=== PATIENT | female | born 1990 | race Two or more races ===

== ENCOUNTER 2023-10-12 14:47 | Outpatient (REF) | payer OTHER, SELFPAY ==
[2023-10-13 03:39] LABS: HBS Num1 348.27 mIU/mL (0-7.99); ~Hepatitis B Surface Antibody REACTIVE (Nonreactive)
[2023-10-16 06:14] LABS: Rubella IgG Antibody <0.90 Index
== END 2023-10-12 14:48 | disposition home or self-care (01) ==
LOC: HO.HMGCLDS 14:47
PROVIDERS: PCP Internal Medicine; Visit Provider Internal Medicine
DX: Z00.00 Encounter for general adult medical examination without abnormal findings (principal)
CPT/HCPCS: 36415; 86706; 86735; 86762; 86765; 86787

== ENCOUNTER 2024-02-08 11:38 | Outpatient (AMB) | payer OTHER, SELFPAY ==
[2024-02-08 11:47] VITALS: BP 110/76; PULSE 84; O2SAT 98; BMI 24.0
--- NOTE | 2024-02-08 11:47 | MHC.PC.OV ---
Vital Signs 02/08/24 11:47 Height 5 ft 5 in Weight 144 lb BMI 24.0 BP 110/76 Blood Pressure Location Lt brachial Position Sitting Pulse 84 Pulse Source Pulse Oximeter Pulse Oximetry (%) 98 Oxygen Delivery Method Room Air Intake Visit Reasons: [facility] ER/Ovarian cyst Intake Note: Pt is here today for ER follow up visit. Allergies No Known Allergies Allergy (Verified 02/08/24 11:49) Medication List - Last Reconciled 02/08/24 by Carmela Gaytan MD fluoxetine 10 mg PO DAILY Tobacco use date assessed: 02/08/24 Dental Screening Dental Screen Date: 02/08/24 Did you have a dental visit in the last 12 months?: Yes Did you have a dental problem in the last 6 months where you did not have access to dental care?: No Was dental information given to patient?: Patient has dentist HPI [facility] ER/Ovarian cyst HPI Details Pt presents for follow-up of [facility] ER visit for chest pain anxiety. Patient had negative CT angiogram to rule out PE. She urinalysis showed bacteriuria but patient denies dysuria or urinary frequency. She had a baby 6 weeks ago. She has been established with crisis Center for anxiety and depression and has been taking fluoxetine for 2 weeks. Patient follows up with a counselor. She reports having sensation of coldness worse when laying down trying to fall asleep. Patient denies suicidal ideation but reports insomnia and feeling of restlessness. She has a good support system from her partner. [facility] Medical History (Updated 02/08/24 @ 12:17 by Carmela Gaytan MD) Anemia Anxiety Surgical History Hx of appendectomy Hx of tonsillectomy No pertinent past surgical history Family History Father HTN (hypertension) Mother No problems noted. 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 How often do you have a drink containing alcohol?: Never 3. How often do you have six or more drinks on one occasion?: Never Total Score: 0 JOSE ALBERTO-7 AMB Questionnaire JOSE ALBERTO-7 Date JOSE ALBERTO - 7 assessed: 03/08/23 Source: Developed by Drs. Gurwinder Shay, sAhley Andrew, Fawad Jimenez and colleagues, with an educational lina from [employer]. Review of Systems Const All systems reviewed & are unremarkable except as noted in HPI and below Reports no additional complaints Eyes Reports no additional complaints ENT Reports no additional complaints Card Reports no additional complaints Resp Reports no additional complaints GI Reports no additional complaints Reports no additional complaints Physical exam (Primary Care) Vital Signs: Last Vital Signs Pulse 84 02/08/24 11:47 BP 110/76 02/08/24 11:47 Pulse Ox 98 02/08/24 11:47 Oxygen Delivery Method Room Air 02/08/24 11:47 BMI result Body Mass Index 24.0 Tobacco/Smoking Status: Tobacco use Status Tobacco use date assessed 02/08/24 02/08/24 11:52 Patient Tobacco Use Status Never used Tobacco 02/08/24 11:52 e-Cigarette/Vaping Use Never Used 02/08/24 11:47 Thrive Assessment: Date of Thrive Assessment Date Thrive assessed 03/08/23 02/08/24 11:47 Const General: no acute distress HENMT Head: Yes normal to inspection Neck Neck: Yes supple Resp Effort & Inspection: normal respiratory effort Auscultation: clear to auscultation bilaterally Cardio Rhythm: regular rhythm Heart sounds: S1 normal heart sound present and S2 normal heart sound present Assessment and Plan Assessment & Plan (1) ASB (asymptomatic bacteriuria): Code(s): R82.71 - Bacteriuria Plan: Check urinalysis and urine culture (2) Anxiety and depression: Comment: established with Psychiatry Code(s): F41.9 - Anxiety disorder, unspecified; F32.A - Depression, unspecified Plan: Follow-up with psychiatry and counseling Orders: Orders Urine Culture Today R82.71 - Bacteriuria UA w Microscopic Today R82.71 - Bacteriuria Coding Level of Care Code Est Pt Level 3 (22127) Diagnoses ASB (asymptomatic bacteriuria) R82.71 Anxiety and depression F41.9; F32.A
== END 2024-02-08 12:17 | disposition home or self-care (01) ==
LOC: HO.HMGC 11:39
PROVIDERS: PCP Internal Medicine; Visit Provider Internal Medicine
DX: R82.71 Bacteriuria (principal); F41.9 Anxiety disorder, unspecified; F32.A Depression, unspecified
CPT/HCPCS: 99213

== ENCOUNTER 2024-02-08 12:15 | Outpatient (REF) | payer OTHER, SELFPAY ==
[2024-02-08 13:37] LABS: Appearance Urine Clear; Color Urine Dark Yellow; Glucose Urine UA Negative (Negative); Leukocyte Esterase Urine Trace (Negative); Nitrite Urine Negative (Negative); Specific Gravity - Urine >= 1.030 (1.005-1.025); UMIC TRIGGER UA YES; Urine Blood Negative (Negative); Urine Ketones 15 mg/dL (Negative); Urine Protein 30 (1+) mg/dL (Neg-Trace)
[2024-02-08 13:46] LABS: Bacteria Urine None Seen (None Seen); Hyaline Casts Urine 0-2 /LPF (0-2); RBC Urine 0-2 /HPF (0-2); WBC Urine 0-5 /HPF (0-5)
== END 2024-02-08 12:16 | disposition home or self-care (01) ==
LOC: HO.HMGCLDS 12:15
PROVIDERS: PCP Internal Medicine; Visit Provider Internal Medicine
DX: R82.71 Bacteriuria (principal)
CPT/HCPCS: 81001; 87086; 87147

== ENCOUNTER 2024-02-13 12:17 | Outpatient (REF) | payer OTHER, SELFPAY ==
[2024-02-13 13:37] LABS: Appearance Urine Clear; Color Urine Yellow; Glucose Urine UA Negative (Negative); Leukocyte Esterase Urine Negative (Negative); Nitrite Urine Negative (Negative); PH 5.5 (5.0-9.0); Urine Blood Negative (Negative); Urine Ketones Negative (Negative); Urine Protein Negative (Neg-Trace)
[2024-02-13 13:44] LABS: Bacteria Urine None Seen (None Seen); Hyaline Casts Urine 0-2 /LPF (0-2); RBC Urine 0-2 /HPF (0-2); WBC Urine 0-5 /HPF (0-5)
[2024-02-13 14:06] LABS: Alanine Aminotransferase 18 U/L (0-31); Albumin Level 4.2 g/dL (3.5-5.0); Alkaline Phosphatase 44 U/L (39-117); Anion Gap 11 (12-20); Aspartate Amino Transferase 12 U/L (5-31); Bilirubin Total 0.4 mg/dL (0.0-1.0); Blood Urea Nitrogen 6 mg/dL (9-16); Calcium 9.9 mg/dL (8.4-10.2); Carbon Dioxide 23 mmol/L (22-29); Chloride 108 mmol/L (96-108); Estimated Glomerular Filt Rate > 60; Glucose Fasting 75 mg/dL (60-99); Potassium 3.5 mmol/L (3.3-5.1); Sodium 138 mmol/L (135-145); Total Protein 7.1 g/dL (6.5-8.0)
== END 2024-02-13 12:18 | disposition home or self-care (01) ==
LOC: HO.HMGCLDS 12:17
PROVIDERS: PCP Internal Medicine; Visit Provider Internal Medicine
DX: Z00.00 Encounter for general adult medical examination without abnormal findings (principal)
CPT/HCPCS: 36415; 80053; 81001

== ENCOUNTER 2024-02-27 14:33 | Outpatient (AMB) | payer OTHER, SELFPAY ==
[2024-02-27 14:37] VITALS: BP 128/80; PULSE 84; O2SAT 97; BMI 24.0
--- NOTE | 2024-02-27 14:37 | MHC.OFFWIV ---
Intake Vital Signs 02/27/24 14:37 Height 5 ft 5 in Weight 144 lb BMI 24.0 BP 128/80 Blood Pressure Location Lt brachial Position Sitting Pulse 84 Pulse Source Pulse Oximeter Pulse Oximetry (%) 97 Oxygen Delivery Method Room Air Intake Visit Reasons: EP indigestion dry heave rib pain (lobby) Intake Note: pt is here for rib pain due to dry heaving Patient Tobacco Use Status: Never used Tobacco Allergies No Known Allergies Allergy (Verified 02/27/24 14:38) Do you need a note to return to daycare/school/sports/work: Yes HPI EP indigestion dry heave rib pain (lobby) HPI Details This is a 33 year old female patient who presents today with nausea, excessive gas/burping, fatigue, pelvic pressure for the last week. She reports occasional diarrhea. Denies vomiting. She feels this is related to stopping Prozac. She was started on low dose Prozac about 1 month ago by psych provider and this unfortunately increased anxiety. She stopped taking med last Sunday and symptoms started. She was advised to switch to Lexapro however she is fearful of starting new medication and has not started it yet. [facility] Medical History Anemia Anxiety Surgical History Hx of tonsillectomy Hx of appendectomy No pertinent past surgical history Family History Father HTN (hypertension) Mother No problems noted. 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 Housing: Apartment Patient Tobacco Use Status: Never used Tobacco e-Cigarette/Vaping Use: Never Used Current occupational status: employed Cognitive needs: No Hearing needs: No Vision needs: Yes Review of Systems Const All systems reviewed & are unremarkable except as noted in HPI and below Physical Exam Vital Signs: Last Vital Signs Pulse 84 02/27/24 14:37 BP 128/80 02/27/24 14:37 Pulse Ox 97 02/27/24 14:37 Oxygen Delivery Method Room Air 02/27/24 14:37 BMI result Body Mass Index 24.0 Const General: cooperative and anxious Nutritional Appearance: average body habitus Orientation/consciousness: patient oriented x3 HEENT Head: Yes normal to inspection Ears: hearing grossly normal bilaterally Neck Neck: Yes no lymphadenopathy and Yes no JVD Resp Effort & Inspection: normal respiratory effort Auscultation: clear to auscultation bilaterally Cardio Palpation: normal PMI Rate: regular rate Rhythm: regular rhythm GI Other: nontender Palpation (GI): Soft to palpation and No hepatosplenomegaly present Other: mild bladder tenderness/sensation of pressure with palpation General: Yes no CVA tenderness Back/Spine/Pelvis Back: no CVA tenderness Skin General skin exam: no rashes or lesions noted Neuro General: patient oriented x3 and gait normal Extrem General: Yes capillary refill normal and Yes no clubbing, cyanosis or edema Psych Appearance: grossly normal Mental Status: mental status grossly normal Speech and movement: Normal speech and movement present Affect: normal affect Attitude: cooperative Thought process: Normal thought process present Results AMB Urinalysis, Automated UA Leukoctes 15 Manuel/uL Last Edit by Russell Stoddard CMA on 02/27/24 14:55 UA Nitrite Negative Last Edit by Russell Stoddard CMA on 02/27/24 14:55 UA Urobilinogen 0.2 mg/dL Last Edit by Russell Stoddard CMA on 02/27/24 14:55 UA Protein 30 mg/dL Last Edit by Russell Stoddard CMA on 02/27/24 14:55 UA pH 6.0 Last Edit by Russell Stoddard CMA on 02/27/24 14:55 UA Blood 0 Enoch/uL Last Edit by Russell Stoddard CMA on 02/27/24 14:55 UA Specific [place] 1.020 Last Edit by Russell Stoddard CMA on 02/27/24 14:55 UA Ketone Positive Last Edit by Russell Stoddard CMA on 02/27/24 14:55 UA Bilirubin 1 mg/dL Last Edit by Russell Stoddard CMA on 02/27/24 14:55 UA Glucose 0 mg/dL Last Edit by Russell Stoddard CMA on 02/27/24 14:55 Assessment & Plan Assessment & Plan (1) Urinary tract infection: Code(s): N39.0 - Urinary tract infection, site not specified Qualifiers: Urinary tract infection type: acute cystitis Hematuria presence: without hematuria Qualified Code(s): N30.00 - Acute cystitis without hematuria Plan: Patient does have a UTI - has done well previously on Macrobid. Will start on this BID 5 days. Advised to rtc if unimproved following treatment. (2) Nausea: Code(s): R11.0 - Nausea Plan: I suspect she is having some withdrawal symptoms from abruptly stopping the Prozac - including nausea, indigestion, diarrhea, body aches. We discussed this as a likely cause of her symptoms. She does not wish to start Lexapro as advised by her psych provider. We discussed symptomatic treatment for her nausea and indigestion at this time. I will start her on Zofran and low dose omeprazole. We reviewed indications, use, possible s/e of all medications. She should f/u with psychiatrist and also PCP Dr. Gaytan as needed, and can return to the clinic for urgent needs. She verbalizes understanding and agrees to plan. (3) Indigestion: Code(s): K30 - Functional dyspepsia Plan: As above. Orders: Orders AMB Urinalysis Automated Today Z13.9 - Encounter for screening, unspecified Medications: New ondansetron HCl Take every 8 hours as needed for nausea. 4 mg PO Q8H PRN 10 tabs 0RF nausea and vomiting R11.0 - Nausea omeprazole Take once daily 10 mg PO DAILY 30 days 30 caps 1RF K30 - Functional dyspepsia nitrofurantoin macrocrystal Take twice a day with food for 5 days. 100 mg PO BID 5 days 10 caps 0RF N39.0 - Urinary tract infection, site not specified Coding Level of Care Code Est Pt Level 4 (13973) Diagnoses Acute cystitis without hematuria N30.00 Urinary tract infection type: acute cystitis Hematuria presence: without hematuria Nausea R11.0 Indigestion K30
== END 2024-02-27 15:20 | disposition home or self-care (01) ==
PROVIDERS: PCP Internal Medicine; Visit Provider Nurse Practitioner Family
DX: N30.00 Acute cystitis without hematuria (principal); R11.0 Nausea; K30 Functional dyspepsia
CPT/HCPCS: 81003; 99214

== ENCOUNTER 2024-02-29 11:11 | Outpatient (AMB) | payer OTHER, SELFPAY ==
[2024-02-29 11:16] VITALS: BP 110/62; PULSE 87; TEMP 37; O2SAT 100; BMI 24.0
--- NOTE | 2024-02-29 11:16 | MHC.OFFWIV ---
Intake Vital Signs 02/29/24 11:16 Height 5 ft 5 in Weight 144 lb 8 oz BMI 24.0 BP 110/62 Blood Pressure Location Lt brachial Position Sitting Pulse 87 Pulse Source Pulse Oximeter Temp 98.6 F Temp Source Oral Pulse Oximetry (%) 100 Oxygen Delivery Method Room Air Intake Visit Reasons: EP UTI is feeling worse, muscle ache, light headed Intake Note: pt is here because she is being treated for a UTI currently and her sx are getting worse she has severe lower back pain and chills body aches stomach pains loss of appetite and difficulty to urinate pt says she has gas and is very nauseas Patient Tobacco Use Status: Never used Tobacco Allergies No Known Allergies Allergy (Verified 02/29/24 11:47) Medication List - Last Reconciled 02/29/24 by Cory Rose MD nitrofurantoin macrocrystal 100 mg PO BID 5 days omeprazole 10 mg PO DAILY 30 days ondansetron HCl 4 mg PO Q8H PRN HPI EP UTI is feeling worse, muscle ache, light headed HPI Details 33 year old female presents to the office for a sick visit. She comes to the office alone. Patient is complaining of nausea, discomfirt, excessive burping. Sx have been present for the past ten days. Was seen at [facility] on February 21 and for similar complaints. BW was unremarkable. CT abd/pelvis showed a fibroid and ? hemorrhagic cyst in the ovary. Patient returned to this walk in on 02/27/2024 and was diagnosed with a UTI. Patient continues to have the same symptoms with little improvement. Incidentally pt was on prozac which was abruptly stopped and has yet to take the Zoloft prescribed by the mental health provider. Has not been working for the past three months. [facility] Medical History Anemia Anxiety Surgical History Hx of tonsillectomy Hx of appendectomy No pertinent past surgical history Family History Father HTN (hypertension) Mother No problems noted. 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 Housing: Apartment Patient Tobacco Use Status: Never used Tobacco e-Cigarette/Vaping Use: Never Used Current occupational status: employed Cognitive needs: No Hearing needs: No Vision needs: Yes Physical Exam Vital Signs: Last Vital Signs Temp 98.6 F 02/29/24 11:16 Pulse 87 02/29/24 11:16 BP 110/62 02/29/24 11:16 Pulse Ox 100 02/29/24 11:16 Oxygen Delivery Method Room Air 02/29/24 11:16 BMI result Body Mass Index 24.0 Const General: cooperative and healthy appearing Nutritional Appearance: well nourished Orientation/consciousness: patient oriented x3 Limitations: no limitations HEENT Head: Yes normal to inspection Eyes General: appearance normal, both eyes and all related structures Neck Neck: Yes normal visual inspection Chest Chest palpation & inspection: normal palpation of entire chest wall Resp Effort & Inspection: normal respiratory effort GI Other: Abdomen: BS heard all over. Non specific tenderness. Neuro General: patient oriented x3 Results AMB Urinalysis, Automated UA Leukoctes 0 Manuel/uL Last Edit by Sherly Campo CMA on 02/29/24 11:36 UA Nitrite Negative Last Edit by Sherly Campo CMA on 02/29/24 11:36 UA Urobilinogen 0.2 mg/dL Last Edit by Sherly Campo CMA on 02/29/24 11:36 UA Protein 0 mg/dL Last Edit by Sherly Campo CMA on 02/29/24 11:36 UA pH 7.0 Last Edit by Sherly Campo CMA on 02/29/24 11:36 UA Blood 0 Enoch/uL Last Edit by Sherly Campo CMA on 02/29/24 11:36 UA Specific [place] 1.005 Last Edit by Sherly Campo CMA on 02/29/24 11:36 UA Ketone Positive Last Edit by Sherly Campo CMA on 02/29/24 11:36 UA Bilirubin 0 mg/dL Last Edit by Sherly Campo CMA on 02/29/24 11:36 UA Glucose 0 mg/dL Last Edit by Sherly Campo CMA on 02/29/24 11:36 Assessment & Plan Assessment & Plan (1) Abdominal pain: Code(s): R10.9 - Unspecified abdominal pain Plan: Pt was encouraged to proceed to ER for IV hydration and possible iv antiemetics. Restart the Zoloft as soon as possible. Urinalysis revd. Orders: Orders AMB Urinalysis Automated Today Z13.9 - Encounter for screening, unspecified Coding Level of Care Code Est Pt Level 4 (30055) Diagnoses Abdominal pain R10.9
== END 2024-02-29 12:52 | disposition home or self-care (01) ==
PROVIDERS: PCP Internal Medicine; Visit Provider Internal Medicine
DX: R10.9 Unspecified abdominal pain (principal)
CPT/HCPCS: 81003; 99214

== ENCOUNTER 2024-04-07 09:55 | Outpatient (AMB) | payer OTHER, SELFPAY ==
[2024-04-07 09:58] VITALS: BP 120/70; PULSE 101; TEMP 36.7; O2SAT 100
--- NOTE | 2024-04-07 09:58 | MHC.OFFWIV ---
Intake Vital Signs 04/07/24 09:58 Height 5 ft 5 in BP 120/70 Blood Pressure Location Rt brachial Position Sitting Pulse 101 H Pulse Source Pulse Oximeter Temp 98.0 F Temp Source Oral Pulse Oximetry (%) 100 Oxygen Delivery Method Room Air Intake Visit Reasons: EST/left eye swelling X2 days(lobby) Intake Note: pt is here for left eye swelling for 2x days, denies any loss of vision or blurriness just redness and swollen Patient Tobacco Use Status: Never used Tobacco Allergies No Known Allergies Allergy (Verified 04/07/24 10:36) Medication List - Last Reconciled 04/07/24 by Cory Rose MD erythromycin 0.5 inches ophthalmic (eye) TID omeprazole 10 mg PO DAILY 30 days prednisone 60 mg (3 x 20 mg) PO DAILY Do you need a note to return to daycare/school/sports/work: Yes HPI EST/left eye swelling X2 days(lobby) HPI Details 33 yr old female presents to the office for a sick visit. She has a swollen left eyelid for the past two days. She purchased a new mascara recently. Subsequent to use, she noticed pain and discomfirt over the left eye lid. This morning unable to open left eye due to swelling. [facility] Medical History Anemia Anxiety Surgical History Hx of tonsillectomy Hx of appendectomy No pertinent past surgical history Family History Father HTN (hypertension) Mother No problems noted. 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 Cornea : Clear, Conjunctiva: Bulbar and tarsal conjunctiva is clear without any congestion Assessment & Plan Assessment & Plan (1) Rash: Code(s): R21 - Rash and other nonspecific skin eruption Plan: Prednisone and Erythromycin oph ointment called in. NFW given. If sx not better to follow up here. Medications: New prednisone 60 mg (3 x 20 mg) PO DAILY 9 tabs 0RF erythromycin 0.5 inches ophthalmic (eye) TID 1 g 0RF Coding Level of Care Code Est Pt Level 3 (16577) Diagnoses Rash R21
== END 2024-04-07 11:27 | disposition home or self-care (01) ==
PROVIDERS: PCP Internal Medicine; Visit Provider Internal Medicine
DX: R21 Rash and other nonspecific skin eruption (principal)
CPT/HCPCS: 99213

== ENCOUNTER 2024-08-20 14:23 | Outpatient (AMB) | payer OTHER, SELFPAY ==
--- NOTE | 2024-08-20 14:46 | A.OFFPC_ITS ---
Vital Signs 08/20/24 14:47 Height 5 ft 5 in Weight 144 lb BMI 24.0 BP 106/70 Blood Pressure Location Lt brachial Position Sitting Pulse 88 Pulse Source Pulse Oximeter Pulse Oximetry (%) 100 Oxygen Delivery Method Room Air Intake Visit Reasons: Hot flashes, wants hormones checked Intake Note: Pt is here today for a sick visit. Pt c/o hot flashes worst when she is on her period. Pt also c/o feeling like she will pass out. Allergies No Known Allergies Allergy (Verified 08/20/24 14:47) Tobacco use date assessed: 02/08/24 Dental Screening Dental Screen Date: 02/08/24 HPI Hot flashes, wants hormones checked HPI Details Pt presents for f/u depression. Pt has been taking Duloxetine for 2 months and reports worsening depression, half flashes and tingling sensation in her fingertips before menses. Her dose was recently decreased from 30 mg to 20 mg. Patient tried sertraline and Prozac before but developed side effects. She is established with a psychiatrist and counselor. Pt has 8 month daughter. Patient denies suicide ideation PFSH Medical History Anemia Anxiety Surgical History Hx of tonsillectomy Hx of appendectomy No pertinent past surgical history Family History Father HTN (hypertension) Mother No problems noted. 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 Gurwinder Shay, Ashley Andrew, Fawad Jimenez and colleagues, with an educational lina from [employer]. Review of Systems Const All systems reviewed & are unremarkable except as noted in HPI and below ENT Reports no additional complaints Card Reports no additional complaints Resp Reports no additional complaints GI Reports no additional complaints Reports no additional complaints Physical exam (Primary Care) Vital Signs: Last Vital Signs Pulse 88 08/20/24 14:47 BP 106/70 08/20/24 14:47 Pulse Ox 100 08/20/24 14:47 Oxygen Delivery Method Room Air 08/20/24 14:47 BMI result Body Mass Index 24.0 Tobacco/Smoking Status: Tobacco use Status Tobacco use date assessed 02/08/24 08/20/24 14:47 Patient Tobacco Use Status Never used Tobacco 08/20/24 14:47 e-Cigarette/Vaping Use Never Used 08/20/24 14:47 Thrive Assessment: Date of Thrive Assessment Date Thrive assessed 03/08/23 08/20/24 14:47 Const General: no acute distress HENMT Head: Yes normal to inspection Neck Neck: Yes no lymphadenopathy and Yes supple Resp Effort & Inspection: normal respiratory effort Auscultation: clear to auscultation bilaterally Cardio Rhythm: regular rhythm Heart sounds: S1 normal heart sound present and S2 normal heart sound present Assessment and Plan Assessment & Plan (1) Annual physical exam: Code(s): Z00.00 - Encounter for general adult medical examination without abnormal findings (2) Anxiety and depression: Comment: established with Psychiatry Code(s): F41.9 - Anxiety disorder, unspecified; F32.A - Depression, unspecified Plan: Follow-up with psychiatry (3) Hot flashes: Code(s): R23.2 - [place] Plan: Comprehensive panel TSH FSH level will be checked. Patient was advised to discuss PMS symptoms treatment with her correctional medicine physician Orders: Orders TSH reflex Free T4 Today F32.A - Depression, unspecified, F41.9 - Anxiety disorder, unspecified, Z00.00 - Encounter for general adult medical examination without abnormal findings Follicle Stimulating Hormone Today F32.A - Depression, unspecified, F41.9 - Anxiety disorder, unspecified, Z00.00 - Encounter for general adult medical examination without abnormal findings IRON PROFILE Today F32.A - Depression, unspecified, F41.9 - Anxiety disorder, unspecified, Z00.00 - Encounter for general adult medical examination without abnormal findings Vitamin B12 and Folate Today F32.A - Depression, unspecified, F41.9 - Anxiety disorder, unspecified, Z00.00 - Encounter for general adult medical examination without abnormal findings Vitamin D 25-OH Total Today F32.A - Depression, unspecified, F41.9 - Anxiety disorder, unspecified, Z00.00 - Encounter for general adult medical examination without abnormal findings Complete Blood Count Auto Diff Today F32.A - Depression, unspecified, F41.9 - Anxiety disorder, unspecified, R23.2 - [place] Magnesium Today F32.A - Depression, unspecified, F41.9 - Anxiety disorder, unspecified, R23.2 - [place] Comprehensive Met. Panel Today F32.A - Depression, unspecified, F41.9 - Anxiety disorder, unspecified, R23.2 - [place] Medications: Discontinued prednisone Discontinued Reason: Doctor's Order 60 mg (3 x 20 mg) PO DAILY 9 tabs 0RF Coding Level of Care Code Est Pt Level 3 (51922) Diagnoses Annual physical exam Z00.00 Anxiety and depression F41.9; F32.A Hot flashes R23.2
[2024-08-20 14:47] VITALS: BP 106/70; PULSE 88; O2SAT 100; BMI 24.0
== END 2024-08-20 15:30 | disposition home or self-care (01) ==
LOC: HO.HMCC 14:23
PROVIDERS: PCP Internal Medicine; Visit Provider Internal Medicine
DX: Z00.00 Encounter for general adult medical examination without abnormal findings (principal); F41.9 Anxiety disorder, unspecified; F32.A Depression, unspecified; R23.2 Flushing

== ENCOUNTER → 2024-08-20 14:23 | Outpatient (BNVA) | payer OTHER, SELFPAY | PROVIDERS: PCP Internal Medicine; Visit Provider Internal Medicine | DX: Z00.00 Encounter for general adult medical examination without abnormal findings (principal); F41.9 Anxiety disorder, unspecified; F32.A Depression, unspecified; R23.2 Flushing | CPT/HCPCS: 99212 ==

== ENCOUNTER 2024-08-26 13:13 | Outpatient (REF) | payer OTHER, SELFPAY ==
[2024-08-26 16:25] LABS: MANUAL DIFF FLAG NO
[2024-08-26 16:40] LABS: Basophils Percent Auto 0.4 % (0-2); Eosinophils Absolute Auto 0.1 X10*3/uL (0.0-0.4); Eosinophils Percent Auto 1.3 % (0-4); Hematocrit 35.9 % (37.0-47.0); Hemoglobin 11.5 g/dl (12.0-16.0); Imm Gran Abs Auto 0.01 X10*3/uL (0.00-0.03); Imm Gran Pct Auto 0.2 % (0.0-0.4); Lymphocytes Absolute Auto 2.2 X10*3/uL (1.2-4.9); Lymphocytes Percent Auto 41.8 % (20-40); Mean Corpuscular Volume 90.4 fL (80.0-98.0); Mean Platelet Volume 9.4 fL (9.4-12.3); Monocytes Absolute Auto 0.4 X10*3/uL (0.1-1.2); Monocytes Percent Auto 6.9 % (2-11); Neutrophils Absolute Auto 2.6 x10*3/uL (2.0-8.3); Neutrophils Percent Auto 49.4 % (45-73); Platelet Count 254 X10*3/uL (160-400); Red Blood Count 3.97 X10*6/uL (4.20-5.50); Red Cell Distribution Width 13.1 % (11.0-16.0); White Blood Count 5.2 X10*3/uL (4.8-10.8)
[2024-08-26 17:02] LABS: Alanine Aminotransferase 9 U/L (0-31); Albumin Level 4.1 g/dL (3.5-5.0); Alkaline Phosphatase 46 U/L (39-117); Anion Gap 11 (12-20); Aspartate Amino Transferase 14 U/L (5-31); Bilirubin Total 0.5 mg/dL (0.0-1.0); Blood Urea Nitrogen 9 mg/dL (9-16); Calcium 9.1 mg/dL (8.4-10.2); Carbon Dioxide 24 mmol/L (22-29); Chloride 107 mmol/L (96-108); Estimated Glomerular Filt Rate > 60; Glucose Random 82 mg/dL (60-115); Iron 70 mcg/dL (30-160); Magnesium 1.9 mg/dL (1.6-2.6); Percent Iron Saturation 22 % (15-50); Potassium 3.9 mmol/L (3.3-5.1); Sodium 138 mmol/L (135-145); Total Iron Binding Capacity 322 mcg/dL (228-428); Total Protein 7.1 g/dL (6.5-8.0); Unsaturated Iron Binding 252 ug/dL
[2024-08-26 17:21] LABS: TSH reflex Free T4 1.07 uIU/mL (0.32-4.0); Vitamin D 25-OH Total 43.2 ng/mL (>30)
[2024-08-26 17:33] LABS: Folate 11.3 ng/mL (> or = 4.0); Vitamin B12 260 pg/mL (200-900)
[2024-08-27 22:43] LABS: Follicle Stimulating Hormone 5.3 mIU/mL
== END 2024-08-26 13:14 | disposition home or self-care (01) ==
LOC: HO.HMGCLDS 13:13
PROVIDERS: PCP Internal Medicine; Visit Provider Internal Medicine
DX: Z00.00 Encounter for general adult medical examination without abnormal findings (principal); F41.9 Anxiety disorder, unspecified; F32.A Depression, unspecified; R23.2 Flushing
CPT/HCPCS: 36415; 80053; 82306; 82607; 82746; 83001; 83540; 83735; 84443; 85025

== ENCOUNTER 2024-12-16 11:39 | Outpatient (AMB) | payer OTHER, SELFPAY ==
--- NOTE | 2024-12-16 11:40 | MHC.OFFWIV ---
Intake Vital Signs 12/16/24 11:42 Height 5 ft 5 in Weight 145 lb BMI 24.1 BP 108/64 Blood Pressure Location Lt brachial Position Sitting Pulse 81 Pulse Source Pulse Oximeter Temp 97.3 F Temp Source Oral Pulse Oximetry (%) 98 Oxygen Delivery Method Room Air Intake Visit Reasons: EP abx few weeks ago, now has diarrhea Intake Note: Pt presents to the office today for c/o abdominal pain and diarrhea intermittently x3 weeks. Pt states she started all of this once she started an antibiotic for a sinus infection.Pt also states she has nausea. Patient Tobacco Use Status: Never used Tobacco Allergies No Known Allergies Allergy (Verified 12/16/24 11:45) HPI HPI Comments History of Present Illness Details History of Present Illness - The patient is a 34-year-old female presenting with intermittent diarrhea. - The diarrhea commenced following a prescription of Augmentin for a sinus infection by [facility] approximately three weeks ago. - Diarrhea led to discontinuation of the antibiotic with a subsequent change in prescription that the patient did not initiate. - Symptoms include watery to mushy stool consistency without persistent changes. Sometimes very malodorous. - No fever, but chills noted. Physical Exam General: Cooperative, healthy appearing, comfortable, no acute distress and well developed Orientation: Patient oriented x3 Limitations: No limitations Head: Normal to inspection Ears: Hearing grossly normal bilaterally Nose: Normal external nose present Face and sinus: Normal facial exam Eyes: Appearance normal, both eyes and all related structures Neck: Normal visual inspection and Yes full ROM Respiratory: Normal respiratory effort and able to speak in complete sentences. Skin: No rashes or lesions noted Neuro: Patient oriented x3 Extremities: Normal to inspection [facility] Medical History Anemia Anxiety Surgical History Hx of tonsillectomy Hx of appendectomy No pertinent past surgical history Family History Father HTN (hypertension) Mother No problems noted. 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 Housing: Apartment Patient Tobacco Use Status: Never used Tobacco e-Cigarette/Vaping Use: Never Used Current occupational status: employed Cognitive needs: No Hearing needs: No Vision needs: Yes Review of Systems Const All systems reviewed & are unremarkable except as noted in HPI and below Physical Exam Vital Signs: Last Vital Signs Temp 97.3 F 12/16/24 11:42 Pulse 81 12/16/24 11:42 BP 108/64 12/16/24 11:42 Pulse Ox 98 12/16/24 11:42 Oxygen Delivery Method Room Air 12/16/24 11:42 BMI result Body Mass Index 24.1 Assessment & Plan Assessment & Plan (1) Diarrhea: Code(s): R19.7 - Diarrhea, unspecified Qualifiers: Diarrhea type: unspecified type Qualified Code(s): R19.7 - Diarrhea, unspecified Plan: VSS, pt well appearing, non toxic appearing. The management strategy targets the patient's antibiotic-associated diarrhea, with probiotics recommended to reinstate healthy gut bacteria. Probiotic supplementation forms a core part of management, leveraging both commercial options and dietary sources like yogurt containing live cultures. Testing for Clostridioides difficile infection through laboratory investigation is advised to clarify the diagnosis and guide further treatment steps. A laboratory-based confirmation process for C. difficile enables precise treatment pathways, potentially involving antibiotics should the infection be present. Guidance regarding these strategies has been provided to the patient for comprehensible understanding and execution of the recommended care plan. Patient was informed and verbally consented to the use of an ambient scribe for clinic note documentation during this visit. Orders: Orders CDiff Gene PCR Today R19.7 - Diarrhea, unspecified Coding Level of Care Code Est Pt Level 3 (51042) Diagnoses Diarrhea, unspecified type R19.7 Diarrhea type: unspecified type
[2024-12-16 11:42] VITALS: BP 108/64; PULSE 81; TEMP 36.3; O2SAT 98; BMI 24.1
== END 2024-12-16 12:15 | disposition home or self-care (01) ==
PROVIDERS: PCP Internal Medicine; Visit Provider Physician Assistant
DX: R19.7 Diarrhea, unspecified (principal)

== ENCOUNTER → 2024-12-16 11:39 | Outpatient (BNVA) | payer OTHER, SELFPAY | PROVIDERS: PCP Internal Medicine; Visit Provider Physician Assistant | DX: R19.7 Diarrhea, unspecified (principal) | CPT/HCPCS: 99212 ==

== ENCOUNTER 2024-12-16 13:26 | Outpatient (REF) | payer OTHER, SELFPAY ==
[2024-12-16 17:09] LABS: CDiff Gene PCR POSITIVE (Negative)
[2024-12-16 18:44] LABS: CDIFF Internal ctrl Dots and bkg OK (V); CDiff Toxin Negative (Negative)
== END 2024-12-16 13:27 | disposition home or self-care (01) ==
LOC: HO.HMGCLNP 13:26
PROVIDERS: PCP Internal Medicine; Visit Provider Physician Assistant
DX: R19.7 Diarrhea, unspecified (principal)
CPT/HCPCS: 87324; 87493

== ENCOUNTER 2024-12-24 10:49 | Outpatient (AMB) | payer OTHER, SELFPAY ==
--- NOTE | 2024-12-24 10:57 | AM.OFFWIN_ITS ---
Intake Vital Signs 12/24/24 11:00 Weight 145 lb BP 108/70 Blood Pressure Location Rt brachial Position Sitting Pulse 101 H Pulse Source Pulse Oximeter Pulse Oximetry (%) 99 Oxygen Delivery Method Room Air Intake Visit Reasons: EP-side effect from antibiotic (vancomycin) Intake Note: Patient here for dry mouth, difficulty swallowing mainly on left side which started when she initially started taking vancomycin Patient Tobacco Use Status: Never used Tobacco Allergies No Known Allergies Allergy (Verified 12/24/24 10:59) Do you need a note to return to daycare/school/sports/work: No HPI HPI Comments History of Present Illness Details She presents to office with concern allergy vancomycin In and out of hospital due to dehydration and c. dificile with electrolyte imbalance; states seen at [facility] Was seen here on 12/16 for diarrhea Diarrhea over 1 month with associated abdominal pain She said she started vancomycin Wednesday 12/20 she said + red spots in back of throat and St that started last night She said very dry mouth and feels like ball in back of throat since taking medicine No skin rashes noted She is able to swallow water, it just feels like she is still thirsty No throat tightness but felt a little uncomfortable eating bread on L side Drinking water makes it feel better This am she had + chills She said appetite has been poor but following BRAT diet She sees PCP here for these issues; not able to be seen since hospital admission [facility] Medical History Anemia Anxiety Surgical History Hx of tonsillectomy Hx of appendectomy No pertinent past surgical history Family History Father HTN (hypertension) Mother No problems noted. 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 Housing: Apartment Patient Tobacco Use Status: Never used Tobacco e-Cigarette/Vaping Use: Never Used Current occupational status: employed Cognitive needs: No Hearing needs: No Vision needs: Yes Review of Systems Const Reports body aches, Reports chills, Reports fatigue and Reports weight loss Eyes Denies change in vision ENT Denies nasal congestion, Denies sinus pain, Reports sore throat and Denies tongue swelling Card Denies chest pain and Denies syncope Resp Denies cough GI Reports abdominal pain, Denies melena, Denies hematochezia, Reports GI cramping, Reports diarrhea, Reports loose stools and Denies vomiting Musc Reports myalgias Neuro Denies syncope Endo Reports fatigue Aller/Immun Denies tongue swelling Physical Exam Vital Signs: Last Vital Signs Pulse 101 H 12/24/24 11:00 BP 108/70 12/24/24 11:00 Pulse Ox 99 12/24/24 11:00 Oxygen Delivery Method Room Air 12/24/24 11:00 General: Appears frail. Speaking full sentences. Skin: Warm dry throughout with ecchymosis to RUE green/yellow with previous IV acess regions Eye: EOMI HENT: + dry oral mucosa. Tongue has white discharge overlaying surface with smilar appearing lateral mucosa. Airway patent. No pharyngeal erythema or edema. No [employer]. No tongue edema. + braces along teeth Respiratory: CTA bilaterally. No wheezes, rales or rhonchi Cardiac: RRR. No murmur Abdomen: BS present but diminished throughout. + ttp diffuse R sided upper and lower abdomen and epigastic region. No pulsating mass noted Neurology: Alert. No aphasia or facial droop. Gait without abnormality Psych: Good mood and affect Assessment & Plan Assessment & Plan (1) Oral mucosal lesion: Code(s): K13.70 - Unspecified lesions of oral mucosa Plan: Patient seen and evaluated. Airway is patent and pt is maintaining her airways and handling sections Discussed concern early SJS and need for er evaluation She wishes to go to [facility] ER Expect given She is aware of complications if she does not go for treatment Patient gave verbal understanding and had no additional questions or concerns at time of discharge All questions answered (2) C. difficile diarrhea: Code(s): A04.72 - Enterocolitis due to Clostridium difficile, not specified as recurrent Plan: see above; they need to determine correct medicine and r/o colitis and abdominal complication from infection Coding Level of Care Code Est Pt Level 4 (70614) Diagnoses Oral mucosal lesion K13.70 C. difficile diarrhea A04.72
[2024-12-24 11:00] VITALS: BP 108/70; PULSE 101; O2SAT 99
--- OUTSIDE RECORDS SUMMARY | 2024-12-24 12:56 | XMS_ITS | Data Portability ---
Author Organization [facility], [address] Address [address] [place] [address] Assessment No assessment recorded. Plan of Treatment Reminders Order Date Submit Date Provider Last Modified By Organization Details Last Modified Time Details Appointments None recorded. Lab rapid flu (A+B) 2023 024 [place] [address] [address], [address] [place], [address], 4 20:32:14 SARS CoV 2 (COVID-19) Ag, QL, IA, upper respiratory specimen 2023 024 [facility] [address], [address] [place], [address], 4 20:32:13 Referral None recorded. Procedures None recorded. Surgeries None recorded. Imaging None recorded. Medication Orders azithromyci n 250 mg tablet [address]/Pharmacy #[id number], [address] [place], [address], 4 20:32:12 benzonatate 100 mg capsule 2023 024 [facility]/Pharmacy #[id number], [address] [place], [address], 4 20:32:29 Patient TargetsNo targets recorded. Patient Instructions Encounter Date Encounter Id Patient Instructions Last Modified By Organization Details Last Modified Time 03/14/2024 [id number] Acute Sinusitis: Care Instructions Not available 03/14/2024 20:32:12 influenza (flu): care instructions Not available 03/14/2024 20:32:27 Reason for Referral None Reported. Results Created Date Observation Date Name Description Value Unit Range Abnormal Flag Note LastModifiedBy Organization Detail LastModifiedTime 03/14/20 24 03/14/2024 SARS CoV 2 (COVI D-19) Ag, QL, IA, upper respi rator y speci men Unknown Analyte negati ve Not Available [id number] [place] [address] [address] [place], [address], 03/14/2024 19:19:41 03/14/20 24 03/14/2024 SARS CoV 2 (COVI D-19) Ag, QL, IA, upper respi rator y speci men Unknown Analyte yes Not Available [address] [place] [address] [address] [place], [address], 03/14/2024 19:19:41 03/14/20 24 03/14/2024 rapid flu (A+B) Unknown Analyte negati ve Not Available [address] [place] [address] [address] [place], [address], 03/14/2024 19:19:39 03/14/20 24 03/14/2024 rapid flu (A+B) Unknown Analyte positi ve Not Available [facility] [place] [address] [place], [address], 03/14/2024 19:19:39 03/14/20 24 03/14/2024 rapid flu (A+B) Unknown Analyte yes Not Available [address] [place] [address] [address] [place], [address], 03/14/2024 19:19:39 Result Notes None recorded. Problems Name Problem SNOMED Code Status Onset Date Resolution Date Notes Provider Name and Address Organization Details Recorded Time Anxiety 70485458 Active NAHID Jacobson - [facility] 03/14/2024 18:48:52 Problem Notes None recorded. Medical Equipment None Reported. Allergies No known drug allergies Medications Name Sig Start Date Stop Date Status Note LastModified by Organization Details LastModified Time nifedipine ER 30 mg tablet,exte nded release 24 hr TAKE 1 TABLET BY MOUTH EVERY DAY 03/14 completed Not Available Not Available Not Available acetaminoph en 325 mg tablet TAKE 2 TABLETS BY MOUTH EVERY 4 HOURS NEEDED FOR PAIN 03/14 completed Not Available Not Available Not Available azithromyci n 250 mg tablet Take 1 dose pk every day by oral route as directed for 5 days. 2023 active Not Available Not Available Not Avai lable cetirizine 5 mg tablet TAKE 1 TABLET BY MOUTH EVERY DAY 03/14 completed Not Available Not Available Not Available ibuprofen 800 mg tablet TAKE 1 TABLET BY MOUTH EVERY 8 HOURS 03/14 completed Not Available Not Available Not Available metronidazo le 0.75 % (37.5 mg/5 gram) vaginal gel INSERT 1 APPLICATO RFUL VAGINALLY EVERY DAY AT BEDTIME FOR 5 DAYS 03/14 completed Not Available Not Available Not Available ondansetron HCl 4 mg tablet TAKE 1 TABLET BY MOUTH EVERY 8 HOURS NEEDED FOR NAUSEA AND VOMITING FOR 3 DAYS 03/14 completed Not Available Not Available Not Available omeprazole 10 mg capsule,del ayed release TAKE 1 CAPSULE BY MOUTH EVERY DAY 03/14 completed Not Available Not Available Not Available lorazepam 0.5 mg tablet TAKE 1 TABLET BY MOUTH DAILY AT BEDTIME NEEDED FOR ANXIETY 03/14 completed Not Available Not Available Not Available metoclopram antoinette 5 mg tablet TAKE 1 TABLET BY MOUTH EVERY 6-8 HOURS NEEDED FOR NAUSEA AND VOMITING 03/14 completed Not Available Not Available Not Available benzonatate 100 mg capsule Take 1 capsule 3 times a day by oral route. 2023 active Not Available Not Available Not Avai lable cephalexin 500 mg capsule TAKE 1 CAPSULE BY MOUTH EVERY 12 HOURS FOR 7 DAYS 03/14 completed Not Available Not Available Not Available nitrofurant oin macrocrysta l 100 mg capsule TAKE 1 CAPSULE BY MOUTH TWICE A DAY WITH FOOD FOR 5 DAYS 03/14 completed Not Available Not Available Not Available fluoxetine 10 mg capsule TAKE 1 CAPSULE BY MOUTH EVERY DAY 03/14 completed Not Available Not Available Not Available sertraline 25 mg tablet TAKE 2 TABLETS BY MOUTH EVERY DAY 03/14 completed Not Available Not Available Not Available lorazepam 1 mg tablet TAKE 1 TABLET BY MOUTH EVERY DAY NEEDED 03/14 completed Not Available Not Available Not Available ibuprofen 600 mg tablet TAKE 1 TABLET BY MOUTH 4 TIMES A DAY FOR 10 DAYS NEEDED FOR PAIN 03/14 completed Not Available Not Available Not Available ondansetron 4 mg disintegrat ing tablet TAKE 1 TABLET (4 MG) AND PLACE ON TOP OF THE TONGUE WHERE IT WILL DISSOLVE EVERY 4-6 HOURS NEEDED 03/14 completed Not Available Not Available Not Available fluoxetine 20 mg capsule TAKE 1 CAPSULE BY MOUTH AT BEDTIME 03/14 completed Not Available Not Available Not Available sertraline 50 mg tablet TAKE 1 TABLET BY MOUTH EVERY DAY 03/14 completed Not Available Not Available Not Available simethicone 80 mg chewable tablet CHEW 1 TABLET BY MOUTH 4 TIMES A DAY NEEDED FOR GAS 03/14 completed Not Available Not Available Not Available oxycodone 5 mg tablet TAKE 1 TABLET BY MOUTH EVERY 4 HOURS NEEDED FOR PAIN 03/14 completed Not Available Not Available Not Available hydroxyzine pamoate 25 mg capsule TAKE 1 CAPSULE BY MOUTH EVERY 8 HOURS NEEDED FOR ANXIETY 03/14 completed Not Available Not Available Not Available escitalopra m 5 mg tablet TAKE 1 TABLET BY MOUTH EVERY DAY IN THE MORNING 03/14 completed Not Available Not Available Not Available nitrofurant oin monohydrate /macrocryst als 100 mg capsule TAKE 1 CAPSULE BY MOUTH TWICE A DAY WITH FOOD FOR 5 DAYS 03/14 completed Not Available Not Available Not Available Lexapro active Not Available Not Avail able Not Available Gavilax 17 gram/dose oral powder TAKE 17 GM BY MOUTH DAILY DISSOLVE IN WATER BEFORE TAKING 03/14 completed Not Available Not Available Not Available Vitals Date Recorded Body height Provider Name an d Address Organization Details Last Updated DateTime 03/14/2024 165.1 cm Karrie WHITFIELD - [facility] 0 03/14/2024 18:47:47 Date Recorded Body mass index (BMI) Body weight Provider Name and Address Organization Details Last Updated DateTime 03/14/2024 24 kg/m2 04406.3 g Karrie Mosley PA - [facility] 03/14/2024 18:47:52 Date Recorded Oxygen saturation Oxygen saturation in Arterial blood by Pulse oximetry Provider Name and Address Organization Details Last Updated DateTime 03/14/2024 100 % 100 % Karrie Mosley PA - [facility] 03/14/2024 18:48:04 Date Recorded Heart rate Provider Name an d Address Organization Details Last Updated DateTime 03/14/2024 97 /min Karrie Mosley PA - [facility] 0 03/14/2024 18:48:09 Date Recorded Respiratory rate Provider Name a nd Address Organization Details Last Updated DateTime 03/14/2024 16 /min Karrie Mosley PA - [facility] 0 03/14/2024 18:48:11 Date Recorded Body temperature Provider Name a nd Address Organization Details Last Updated DateTime 03/14/2024 98.5 [degF] Karrie Mosley PA - [facility] 03/14/2024 18:48:15 Date Recorded Systolic blood pressure Diastolic blood pressure Provider Name and Address Organization Details Last Updated DateTime 03/14/2024 122 mm[Hg] 82 mm[Hg] Karrie Mosley PA - [facility] 03/14/2024 18:47:59 Social History Question Answer Notes LastModified by Organizat ion Details LastModified Time Tobacco Smoking Status Never Smoker Karrie Mosley marco antonio PA - [facility] 03/14/2024 18:49:28 What Is Your Level Of Alcohol Consumption? None Information not available 03/14/2024 What Is Your Water Source? Well Information not available 03/14/2024 What Is Your Heat Source? Gas Information not available 03/14/2024 What Was The Date Of Your Most Recent Tobacco Screening? 03/14/2024 Information not available 03/14/2024 Do You Use Any Illicit Or Recreational Drugs? No Information not available 03/14/2024 Do You Or Have You Ever Used Any Other Forms Of Tobacco Or Nicotine? No Information not available 03/14/2024 Sex: Unknown Functional Status None recorded. Mental Status None recorded. Family History Relationship Description Onset Age of this Age Resolved Age Notes LastModified by Organization Details LastModified Time Father Anxiety disorder Not available 2023 18:49:01 Father Depressive disorder Not available 2023 18:49:08 Father Bipolar disorder Not available 2023 18:49:14 Medical History No medical history recorded. Gynecological History Statement/Question Response Date of LMP 03/05/2024 Is there any chance of ? No LMP Approximate Obstetrics History GPAL:G 0 P 0 0 0 0 Immunizations Vaccine Type Date Status Note Provider Nam e and Address Organization Details Recorded Time Influenza, MDCK, quadrivalent, PF 3 completed Karrie Dimitri null, PA - [facility] 03/14/2024 18:31:43 COVID-19, mRNA, LNP-S, PF, 30 mcg/0.3 mL dose, delphine-sucrose 2 completed Karrie Dimitri null, PA - [facility] 03/14/2024 18:31:43 COVID-19, mRNA, LNP-S, PF, 30 mcg/0.3 mL dose, delphine-sucrose 2 completed Karrie Dimitri null, PA - [facility] 03/14/2024 18:31:43 COVID-19, mRNA, LNP-S, bivalent, PF, 30 mcg/0.3 mL dose 3 completed Karrie Dimitri null, PA - [facility] 03/14/2024 18:31:44 Tdap 2 completed Karrie Dimitri null, PA - [facility] 03/14/2024 18:31:44 Tdap 5 completed Karrie Dimitri null, PA - [facility] 03/14/2024 18:31:44 Tdap 3 completed Karrie Dimitri null, PA - [facility] 03/14/2024 18:31:44 HPV, quadrivalent 2 completed Karrie Dimitri null, PA - [facility] 03/14/2024 18:31:44 Hep B, adult 0 completed Karrie Dimitri null, PA - [facility] 03/14/2024 18:31:44 Past Encounters Encounter ID Performer Location Encounter Start Date Encounter Closed Date Diagnosis/Indication Diagnosis SNOMED-CT Code Diagnosis ICD10 Code Diagnosis Note [id number] [address], [place] [address] 09/20/2020 13:48:12 09/20/2020 16:27:37 [id number] [address], [place] [address] 04/12/2021 19:09:06 04/12/2021 19:48:[id number], [place] [id number] 01/25/2020 12:05:46 01/25/2020 13:45:29 [id number] [place]asmo Collins [place] [address], [place] [address] 03/14/2024 18:09:23 03/14/2024 20:33:19 Upper respiratory infection 14862784 J06.9 Wheezing 63672616 R06.2 Acute sinusitis 71856118 J01.90 Influenza caused by Influenza B virus 15080505 J10.1 Advised to rest , maintain hydration, Tylenol and motrin as and when needed, and continue precaution s as directed. 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 Please go to the ER if any worsening of current signs and symptoms or if any new onset signs and symptoms such as shortness of breath ,dizziness ,chest pain Health Concerns Section Related Observation LastModified by Organization Detai ls LastModified Time None Recorded Concern Status LastModified by Organization Details LastModified Time None Recorded Advance Directives Directive None Recorded Payers Encounter Date Sequence Insurance Name Policy Number Policy Sher Covered Member ID Sher Member ID Guarantor Name 01/25/[address] [facility] [place] [place] (MEDICAID REPLACEMENT - HMO) MICK Pyle [id number] Sherly Pyle 04/12/[address] [facility] [place] [place] ([place]AC[place] - HMO) MICK Pyle [id number] Sherly Pyle 03/14/2024 1 [facility] (MEDICAID REPLACEMENT - HMO) MICK Sherly Pyle [id number] Sherly Pyle Notes Date Note Type Note Provider Name and Address Organization Details Recorded Time 4 text/html CoughReported bypatient.source of patient informationInformation obtained from patient; Patient arrived at Urgent Care ambulatory Quality:productive cough;dry;dry and wet; intermittent; symptoms worse with lying down Severity:worsening; moderate Duration:3 days days Timing:worsening; gradual Context:family members ill with similar symptoms; non-smoker;history of bronchitis(Hx of Pneumonia) Associated Symptoms:no fever; no chills; no chest pain; no vomiting; no wheezing;nausea;post nasal drip;can't get a deep breath;hurts to breath Erasmo Collins MD [address] [place], [address], PA - [facility] 03/14/2024 21:11:54 OBGyn Episode No OBEpisode recorded.
--- OUTSIDE RECORDS SUMMARY | 2024-12-24 12:56 | XMS_ITS | Clinical Summary ---
Author Organization [facility] Address [address] [place] [address] Phone Care Team Providers Care Machines Technician Name Role Phone Carmela Gaytan MD Primary Care Provider [phone] Allergies No known active allergies Medications Medication Sig Dispensed Refills Start Date End Date Status vancomycin (VANCOCIN) 125 mg capsule Take 1 capsule (125 mg total) by mouth 4 (four) times a day for 10 days. 40 each 12/19/2024 12/29/2024 Active vancomycin (VANCOCIN) 125 mg capsule Take 1 capsule (125 mg total) by mouth 4 (four) times a day for 10 days. 40 each 12/19/2024 12/19/2024 Discontinued Active Problems No known active problems Encounters Date Type Department Care Team Description 12/22/2024 5:08 PM EST - 12/22/2024 9:17 PM [facility] Emergency [address] [place] [phone] Dehydration (Primary Dx) Discharge Disposition: Home or Self Care 12/19/2024 3:31 PM EST - 12/19/2024 10:49 PM [facility] Emergency [address] [place] [phone] Navi Avila MD Clostridium difficile diarrhea (Primary Dx) Discharge Disposition: Home or Self Care from Last 3 Months Surgical History Surgery Date Site/Laterality Comments COLONOSCOPY 06/28/2010 PROCEDURE: CO COLONOSCOPY STOMA DX INCLUDING COLLJ SPEC SPX; COMMENT: normal to terminal ileum to 20 cm ESOPHAGOGASTRODUODENOSCOPY 01/22/14 PROCEDURE: CO ESOPHAGOGASTRODUODENOSCOPY TRANSORAL DIAGNOSTIC; COMMENT: normal; normal duodenal biopsies APPENDECTOMY 03/26/14 laparoscopic PROCEDURE: HISTORICAL APPENDECTOMY; COMMENT: Dr Yordy Rolon [facility] Medical History Medical History Date Comments Ovarian cyst 2009 DX:Ovarian cyst Anxiety 02/01/2012 DX:Anxiety 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 Postinflammatory hyperpigmentation 02/25/2013 DX:Postinflammatory hyperpigmentation Acne vulgaris 02/25/2013 DX:Acne vulgaris Family History Medical History Relation Name Comments Heart attack Maternal Grandfather Hypertension Maternal Grandfather Stroke Maternal Grandfather Stroke Maternal Grandmother Hyperlipidemia Paternal Grandfather Hypertension Paternal Grandfather Hyperlipidemia Paternal Grandmother Hypertension Paternal Grandmother Blindness Neg Hx Cataracts Neg Hx Glaucoma Neg Hx Macular degeneration Neg Hx Strabismus Neg Hx Relation Name Status Comments Brother 1 Alive RA and HTN Brother 2 Alive healthy Brother 3 Alive healthy Father Alive healthy Maternal Grandfather (Age 76) Maternal Grandmother Mother Alive healthy Paternal Grandfather Alive Paternal Grandmother Alive Sister Alive palpitations Social History Tobacco Use Types Packs/Day Years Used Date Smoking Tobacco: Former Smokeless Tobacco: Former Alcohol Use Standard Drinks/Week Comments Yes 0 (1 standard drink = 0.6 oz pur e alcohol) Sex and Gender Information Value Date Recorded Sex Assigned at Female 12/19/2024 4:10 PM EST Gender Identity Female 12/19/2024 4:10 PM EST Sexual Orientation Choose not to disclose 2024 4:10 PM EST Job Start Date Occupation Industry Not on file Not on file Not on file Obstetrics History Last Filed Vital Signs Vital Sign Reading Time Taken Comments Blood Pressure 118/81 12/22/2024 9:08 PM EST Pulse 93 12/22/2024 9:08 PM EST Temperature 37.1 ??C (98.8 ??F) 12/22/2024 7:04 PM ES T Respiratory Rate 18 12/22/2024 9:08 PM EST Oxygen Saturation 100% 12/22/2024 9:08 PM EST Inhaled Oxygen Concentration - - Weight 67.1 kg (148 lb) 12/19/2024 11:24 AM EST Height 165.1 cm (5' 5 ) 12/19/2024 11:24 AM EST Body Mass Index 24.63 12/19/2024 11:24 AM EST Plan of Treatment Health Maintenance Due Date Last Done Comments Pneumococcal Vaccine: Pediatrics (0 to 5 Years) and At-Risk Patients (6 to 64 Years) (1 of 2 - PCV) 1996 Cervical Cancer Screening: P ap Smear 2011 HPV Vaccines (2 - Risk 3-dos e series) 03/07/2012 02/08/2012 Hepatitis B Vaccines (2 of 3 - 19+ 3-dose series) 10/18/2020 09/20/2020 Depression Screening 07/21/2024 HIV Screening 07/21/2024 Hepatitis C Screening 07/21/2024 Social Influencers of Health Screening 07/21/2024 COVID-19 Vaccine (4 - 2023-2 5 season) 2024 12/05/2022, 02/27/2022, 02/06/2022 Influenza Vaccine (#1) 2024 11/17/2023 DTaP,Tdap,and Td Vaccines (4 - Td or Tdap) 11/17/2033 11/17/2023, 02/01/2015, 02/01/2012 HIB Vaccines Aged Out No longer eligi ble based on patient's age to complete this topic Hepatitis A Vaccines Aged Out No long er eligible based on patient's age to complete this topic IPV Vaccines Aged Out No longer eligi ble based on patient's age to complete this topic MMR Vaccines Aged Out No longer eligi ble based on patient's age to complete this topic Meningococcal ACWY Vaccine Aged Out N o longer eligible based on patient's age to complete this topic RSV Immunization Patients Under 20 months Aged Out No longer eligible b ased on patient's age to complete this topic Varicella Vaccines Aged Out No longer eligible based on patient's age to complete this topic Procedures Procedure Name Priority Date/Time Associated Diagnosis Comments ECG 12-LEAD STAT 12/22/2024 8:15 PM EST XR CHEST 2 VIEWS STAT 12/22/2024 6:59 PM EST POC , URINE DIAGNOSTIC STAT 12/22/2024 6:29 PM EST BELCHER URINE CULTURE TUBE STAT 12/22/2024 6:06 PM EST URINALYSIS WITH REFLEX MICROSCOPIC AND CULTURE STAT 12/22/2024 6:06 PM EST URINALYSIS WITH REFLEX MICROSCOPIC AND CULTURE STAT 12/22/2024 6:06 PM EST RESPIRATORY VIRUS PANEL MOLECULAR STUDY STAT 12/22/2024 6:06 PM EST CBC WITH AUTO DIFFERENTIAL STAT 12/22/2024 5:33 PM EST TROPONIN I HIGH SENSITIVITY STAT 12/22/2024 5:33 PM EST MAGNESIUM STAT 12/22/2024 5:33 PM EST BASIC METABOLIC PANEL STAT 12/22/2024 5:33 PM EST CBC AND DIFFERENTIAL STAT 12/22/2024 5:33 PM EST ECG 12-LEAD STAT 12/22/2024 5:04 PM EST ECG ANNOTATED 12/22/2024 ECG ANNOTATED 12/22/2024 CT ABDOMEN PELVIS W CONTRAST STAT 12/19/2024 8:24 PM EST POC , URINE DIAGNOSTIC STAT 12/19/2024 6:18 PM EST URINALYSIS WITH REFLEX MICROSCOPIC STAT 12/19/2024 6:18 PM EST URINALYSIS WITH REFLEX MICROSCOPIC STAT 12/19/2024 6:18 PM EST CBC WITH AUTO DIFFERENTIAL STAT 12/19/2024 5:24 PM EST LIPASE STAT 12/19/2024 5:24 PM EST COMPREHENSIVE METABOLIC PANEL STAT 12/19/2024 5:24 PM EST CBC AND DIFFERENTIAL STAT 12/19/2024 5:24 PM EST from Last 3 Months Results * ECG 12 lead (12/22/2024 8:15 PM EST) Only the most recent of2 resultswithin the time period is included. Ventricular Rate ECG 89 BPM GEMUSE Atrial Rate 89 BPM GEMUSE P-R Interval 138 ms GEMUSE QRS Duration 98 ms GEMUSE Q-T Interval 370 ms GEMUSE QTc 450 ms GEMUSE P Wave [place] 68 degrees GEMUSE R [place] 35 degrees GEMUSE T [place] 45 degrees GEMUSE ECG Interpretation Normal sinus rhythm Incomplete right bundle branch block Borderline ECG When compared with ECG of 22-DEC-2024 17:04, ST less depressed in Inferior leads ST no longer depressed in Anterior leads Nonspecific T wave abnormality no longer evident in Inferior leads Confirmed by MD Sudarshan, [place] ([id number]) on 12/24/2024 9:07:07 AM GEMUSE 12/22/2024 8:15 PM EST 12/24/2024 9:07 AM EST Navi Avila MD ECG ORDERABLES GEMUSE * XR Chest 2 Views (12/22/2024 6:59 PM EST) Anatomical Region Laterality Modality Body Radiographic Sharri ging 12/23/2024 8:22 AM EST Impressions 12/23/2024 8:22 AM EST Impression: No active pulmonary process identified. Telerad NAHID ([id number]) -------- FINAL REPORT -------- Dictated By: Cheryl Rodriguez Dictated Date: 12/23/2024 08:22 ET Assigned Physician: Cheryl Rodriguez Reviewed and Electronically Signed By: Cheryl Rodriguez Signed Date: 12/23/2024 08:22 ET Workstation ID: [id number] Transcribed By: Self Edit Transcribed Date: 12/23/2024 08:22 ET Narrative 12/23/2024 8:22 AM EST History: Chest pain. Palpitations. Findings: PA and lateral views. The cardiomediastinal silhouette, hilar contours and pulmonary vascularity are within normal limits. The lungs are clear. The costophrenic angles are sharp. Minimal thoracic vertebral endplate spurring is seen. Procedure Note Cheryl Rodriguez MD - 12/23/2024 History: Chest pain. Palpitations. Findings: PA and lateral views. The cardiomediastinal silhouette, hilar contours andpulmonary vascularity are within normal limits. The lungs are clear. Thecostophrenic angles are sharp. Minimal thoracic vertebral endplate spurring is seen. IMPRESSION: Impression: No active pulmonary process identified. Telerad NAHID ([id number]) -------- FINAL REPORT -------- Dictated By: Cheryl Rodriguez Dictated Date: 12/23/2024 08:22 ET Assigned Physician: Cheryl Rodriguez Reviewed and Electronically Signed By: Cheryl Rodriguez Signed Date: 12/23/2024 08:22 ET Workstation ID: [id number] Transcribed By: Self Edit Transcribed Date: 12/23/2024 08:22 ET Navi Avila MD IMG XR PROCEDURES * POC , urine manually resulted (12/22/2024 6:29 PM EST) Only the most recent of2 resultswithin the time period is included. HCG, Ur POC Negative Negative POC hCG Int QC Pass? Yes Yes EXPIRATION DATE POC 04/23/26 LOT NUMBER POC [id number] Urine Urine specimen obtained by clean catch procedure / Unknown 12/22/2024 6:29 PM EST Navi Avila MD POINT OF CARE TEST E NTER/EDIT ORDERABLES * (ABNORMAL) Urinalysis with reflex microscopic and culture (12/22/2024 6:06 PM EST) Pathologist [facility] Specific [place] Urine 1.005 1.003 - 1.030 LAB URINALYSIS - AUTOMATED METHOD 12/22/2024 6:18 PM EST [facility] pH, Urine 7.0 5.0 - 8.0 pH LAB URINALYSIS - AUTOMATED METHOD 12/22/2024 6:18 PM [facility] Leukocytes, Urine Negative Negative LAB URINALYSIS - AUTOMATED METHOD 12/22/2024 6:18 PM [facility] Nitrite, Urine Negative Negative LAB URINALYSIS - AUTOMATED METHOD 12/22/2024 6:18 PM [facility] Protein, Urine Negative <=Trace mg/dL LAB URINALYSIS - AUTOMATED METHOD 12/22/2024 6:18 PM [facility] Glucose, Urine Negative Negative mg/dL LAB URINALYSIS - AUTOMATED METHOD 12/22/2024 6:18 PM [facility] Ketones, Urine 15(A) Negative mg/dL LAB URINALYSIS - AUTOMATED METHOD 12/22/2024 6:18 PM [facility] Urobilinogen, Urine 0.2 0.2 - 1.0 mg/dL LAB URINALYSIS - AUTOMATED METHOD 12/22/2024 6:18 PM [facility] Bilirubin, Urine Negative Negative LAB URINALYSIS - AUTOMATED METHOD 12/22/2024 6:18 PM [facility] Blood, Urine Negative Negative LAB URINALYSIS - AUTOMATED METHOD 12/22/2024 6:18 PM [facility] Urine Urine specimen obtained by clean catch procedure / Unknown Non-blood Collection / Unknown 12/22/2024 6:06 PM EST 12/22/2024 6:12 PM EST Navi Avila MD LAB URINE ORDERABLES [facility] [address] [place] [address], * Respiratory virus panel molecular study (12/22/2024 6:06 PM EST) Adenovirus Detection by PCR Not Detected Not Detected LAB MICROBIOLOGY METHOD 12/22/2024 7:29 PM [facility] Influenza A PCR Not Detected Not Detected LAB MICROBIOLOGY METHOD 12/22/2024 7:29 PM [facility] Influenza B PCR Not Detected Not Detected LAB MICROBIOLOGY METHOD 12/22/2024 7:29 PM [facility] Coronavirus 229E Not Detected Not Detected LAB MICROBIOLOGY METHOD 12/22/2024 7:29 PM [facility] Coronavirus HKU1 Not Detected Not Detected LAB MICROBIOLOGY METHOD 12/22/2024 7:29 PM [facility] Coronavirus OC43 Not Detected Not Detected LAB MICROBIOLOGY METHOD 12/22/2024 7:29 PM [facility] Coronavirus NL63 Not Detected Not Detected LAB MICROBIOLOGY METHOD 12/22/2024 7:29 PM [facility] Parainfluenza Virus 1 Not Detected Not Detected LAB MICROBIOLOGY METHOD 12/22/2024 7:29 PM [facility] Parainfluenza Virus 2 Not Detected Not Detected LAB MICROBIOLOGY METHOD 12/22/2024 7:29 PM [facility] Parainfluenza Virus 3 Not Detected Not Detected LAB MICROBIOLOGY METHOD 12/22/2024 7:29 PM [facility] Parainfluenza Virus 4 Not Detected Not Detected LAB MICROBIOLOGY METHOD 12/22/2024 7:29 PM [facility] RSV PCR Not Detected Not Detected LAB MICROBIOLOGY METHOD 12/22/2024 7:29 PM [facility] Human Metapneumovirus A and B Not Detected Not Detected LAB MICROBIOLOGY METHOD 12/22/2024 7:29 PM [facility] Rhinovirus/Entero virus Not Detected Not Detected LAB MICROBIOLOGY METHOD 12/22/2024 7:29 PM [facility] Bordetella pertussis Not Detected Not Detected LAB MICROBIOLOGY METHOD 12/22/2024 7:29 PM [facility] Bordetella parapertussis Not Detected Not Detected LAB MICROBIOLOGY METHOD 12/22/2024 7:29 PM EST [facility] Mycoplasma pneumo by PCR Not Detected Not Detected LAB MICROBIOLOGY METHOD 12/22/2024 7:29 PM EST [facility] Chlamydia pneumoniae Not Detected Not Detected LAB MICROBIOLOGY METHOD 12/22/2024 7:29 PM EST [facility] SARS COV-2 Not Detected Not Detected LAB MICROBIOLOGY METHOD 12/22/2024 7:29 PM EST [facility] Swab Both anterior nares / Unknown Non-blood Collection / Unknown 12/22/2024 6:06 PM EST 12/22/2024 6:12 PM EST Narrative [facility] - 12/22/2024 7:29 PM EST Testing was performed using the [employer] Respiratory Pathogen PCR Assay. All results must be correlated with the clinical findings. Results should not be used as the sole basis for diagnosis. False Negative results may occur from the presence of sequence variants in the region targeted by the assay or the presence of inhibitors. Results may be affected by concurrent antiviral/antimicrobial therapy or levels of organisms that are below the limit of detection. Uriah WHITFIELD LAB MICROBIOLOGY - G ENERAL ORDERABLES Performing Organization Address City/[facility] [address]/ZIP Co de Phone Number [facility] [address] [place] [address], * [place] urine culture tube (12/22/2024 6:06 PM EST) Extra Tube Hold for add-ons. 12/22/2024 8:01 PM EST [facility] Comment:Auto resulted. Urine Urine specimen obtained by clean catch procedure / Unknown Non-blood Collection / Unknown 12/22/2024 6:06 PM EST 12/22/2024 6:12 PM EST Navi Avila MD LAB URINE ORDERABLES [facility] [address] [place] [address], * Troponin I high sensitivity (12/22/2024 5:33 PM EST) [facility] High Sensitivity Troponin I 4 <=54 ng/L LAB CHEMISTRY METHOD 12/22/2024 6:12 PM EST [facility] Blood Venous blood specimen / Unknown Venipuncture / Unknown 12/22/2024 5:33 PM EST 12/22/2024 5:47 PM EST Narrative [facility] - 12/22/2024 6:12 PM EST High levels of biotin in samples may falsely decrease hsTroponin values. ??Use caution when interpreting hsTroponin results in patients taking biotin who exhibit renal impairment (eGFR <60) or in patients taking more than 20 mg/day of biotin. Navi Avila MD LAB BLOOD ORDERABLES [facility] [address] [place] [address], [place] [phone] * CBC auto differential (12/22/2024 5:33 PM EST) Only the most recent of2 resultswithin the time period is included. [facility] WBC 6.6 4.8 - 10.8 K/mcL LAB HEMETOLOGY METHOD 12/22/2024 5:52 PM [facility] RBC 4.10 3.80 - 4.80 M/mcL LAB HEMETOLOGY METHOD 12/22/2024 5:52 PM [facility] Hemoglobin 12.1 11.5 - 16.0 g/dL LAB HEMETOLOGY METHOD 12/22/2024 5:52 PM [facility] Hematocrit 35.8 35.0 - 47.0 % LAB HEMETOLOGY METHOD 12/22/2024 5:52 PM [facility] MCV 87.3 79.0 - 98.0 FL LAB HEMETOLOGY METHOD 12/22/2024 5:52 PM [facility] MCH 29.5 27.0 - 32.0 pcg LAB HEMETOLOGY METHOD 12/22/2024 5:52 PM [facility] MCHC 33.8 32.0 - 37.0 g/dL LAB HEMETOLOGY METHOD 12/22/2024 5:52 PM [facility] RDW 12.4 11.0 - 15.0 % LAB HEMETOLOGY METHOD 12/22/2024 5:52 PM [facility] Platelets 237 130 - 400 K/mcL LAB HEMETOLOGY METHOD 12/22/2024 5:52 PM [facility] MPV 9.5 7.0 - 11.0 FL LAB HEMETOLOGY METHOD 12/22/2024 5:52 PM [facility] NRBC 0.0 <1.0 % LAB HEMETOLOGY METHOD 12/22/2024 5:52 PM [facility] NRBC Absolute 0.00 <0.10 K/mcL LAB HEMETOLOGY METHOD 12/22/2024 5:52 PM [facility] Neutrophils Relative 55.5 % LAB HEMETOLOGY METHOD 12/22/2024 5:52 PM [facility] Lymphocytes Relative 36.8 % LAB HEMETOLOGY METHOD 12/22/2024 5:52 PM [facility] Monocytes Relative 5.6 % LAB HEMETOLOGY METHOD 12/22/2024 5:52 PM [facility] Eosinophils Relative 1.1 % LAB HEMETOLOGY METHOD 12/22/2024 5:52 PM [facility] Basophils Relative 0.5 % LAB HEMETOLOGY METHOD 12/22/2024 5:52 PM [facility] Immature Granulocytes Relative 0.5 % LAB HEMETOLOGY METHOD 12/22/2024 5:52 PM EST [facility] Neutrophils Absolute 3.68 1.50 - 7.00 [facility] LAB HEMETOLOGY METHOD 12/22/2024 5:52 PM EST [facility] Lymphocytes Absolute 2.43 1.00 - 5.00 K/mcL LAB HEMETOLOGY METHOD 12/22/2024 5:52 PM EST [facility] Monocytes Absolute 0.37 0.20 - 1.00 [facility] LAB HEMETOLOGY METHOD 12/22/2024 5:52 PM EST [facility] Eosinophils Absolute 0.07 0.00 - 0.50 [facility] LAB HEMETOLOGY METHOD 12/22/2024 5:52 PM EST [facility] Basophils Absolute 0.03 0.00 - 0.20 K/mcL LAB HEMETOLOGY METHOD 12/22/2024 5:52 PM EST [facility] Immature Granulocytes Absolute 0.03 0.00 - 0.03 [facility] LAB HEMETOLOGY METHOD 12/22/2024 5:52 PM EST [facility] Blood Venous blood specimen / Unknown Venipuncture / Unknown 12/22/2024 5:33 PM EST 12/22/2024 5:47 PM EST Navi Avila MD LAB BLOOD ORDERABLES [facility] [address] [place] [address], * (ABNORMAL) Magnesium (12/22/2024 5:33 PM EST) Magnesium 1.4(L) 1.9 - 2.6 mg/dL LAB CHEMISTRY METHOD 12/22/2024 6:09 PM EST [facility] Blood Venous blood specimen / Unknown Venipuncture / Unknown 12/22/2024 5:33 PM EST 12/22/2024 5:47 PM EST Navi Avila MD LAB BLOOD ORDERABLES [facility] [address] [place] [address], * (ABNORMAL) Basic metabolic panel (12/22/2024 5:33 PM EST) Sodium 136 133 - 145 mmol/L LAB CHEMISTRY METHOD 12/22/2024 6:09 PM [facility] Potassium 3.0(L) 3.5 - 5.5 mmol/L LAB CHEMISTRY METHOD 12/22/2024 6:09 PM [facility] Chloride 105 96 - 110 mmol/L LAB CHEMISTRY METHOD 12/22/2024 6:09 PM [facility] CO2 19(L) 21 - 32 mmol/L LAB CHEMISTRY METHOD 12/22/2024 6:09 PM [facility] Anion Gap 12(H) 3 - 11 LAB CHEMISTRY METHOD 12/22/2024 6:09 PM [facility] Glucose 119(H) 70 - 100 mg/dL LAB CHEMISTRY METHOD 12/22/2024 6:09 PM [facility] BUN 6 5 - 25 mg/dL LAB CHEMISTRY METHOD 12/22/2024 6:09 PM [facility] Creatinine 0.86 0.50 - 1.10 mg/dL LAB CHEMISTRY METHOD 12/22/2024 6:09 PM [facility] eGFR 91 >=60 mL/min/1. 73m2 LAB CHEMISTRY METHOD 12/22/2024 6:09 PM [facility] Comment:Calculation based on the??Chronic Kidney Disease Epidemiology Collaboration (CKD-EPI) equation refit??without adjustment for race. BUN/Creatinine Ratio 7.0 LAB CHEMISTRY METHOD 12/22/2024 6:09 PM [facility] Calcium 9.5 8.5 - 10.5 mg/dL LAB CHEMISTRY METHOD 12/22/2024 6:09 PM EST [facility] Blood Venous blood specimen / Unknown Venipuncture / Unknown 12/22/2024 5:33 PM EST 12/22/2024 5:47 PM EST Navi Avila MD LAB BLOOD ORDERABLES [facility] [address] [place] [address], * ECG-Annotated (12/22/2024) Only the most recent of2 resultswithin the time period is included. Provider Onbase ECG ORDERABLES * CT Abdomen Pelvis w Contrast (12/19/2024 8:24 PM EST) Anatomical Region Laterality Modality Body Computed Tomogra phy 12/19/2024 9:14 PM EST Impressions 12/19/2024 9:14 PM EST 1. Nonobstructing 2 mm right renal stone. 2. Small posterior myometrial fibroid. 3. Nonspecific engorgement of the right ovarian vein. This document has been electronically signed by: Sally Mcdaniels MD on 12/19/2024 21:14:25 Narrative 12/19/2024 9:[address] abdomen and pelvis with contrast Comparison: None Findings: No consolidation or effusion. 2 mm nonobstructing right superior renal stone. Gallbladder and solid organs otherwise unremarkable. No bowel obstruction, pneumoperitoneum, or pneumatosis. Mesenteric vessels patent. Posterior myometrial fibroid. Uterus and ovaries otherwise unremarkable. Appendectomy. Engorged right ovarian vein up to 8 mm diameter. Mildly prominent right periovarian venous plexus. This is nonspecific, however can be associated with pelvic congestion syndrome. Physiologic amount of free fluid in the pelvis. The bones are intact. Procedure Note Sally Mcdaniels MD - 12/19/2024 CT abdomen and pelvis with contrast Comparison: None Findings: No consolidation or effusion. 2 mm nonobstructing right superior renal stone. Gallbladder and solid organs otherwise unremarkable. No bowel obstruction, pneumoperitoneum, or pneumatosis. Mesenteric vessels patent. Posterior myometrial fibroid. Uterus and ovaries otherwise unremarkable. Appendectomy. Engorged right ovarian vein up to 8 mm diameter. Mildly prominent right periovarian venous plexus. This is nonspecific, however can beassociated with pelvic congestion syndrome. Physiologic amount of free fluid in the pelvis. The bones are intact. IMPRESSION: 1. Nonobstructing 2 mm right renal stone. 2. Small posterior myometrial fibroid. 3. Nonspecific engorgement of the right ovarian vein. This document has been electronically signed by: Sally Rossi MD on 12/19/2024 21:14:25 Navi Avila MD IMG CT PROCEDURES * (ABNORMAL) Urinalysis with reflex microscopic (12/19/2024 6:18 PM EST) Specific [place] Urine 1.019 1.003 - 1.030 LAB URINALYSIS - AUTOMATED METHOD 12/19/2024 6:42 PM [facility] pH, Urine 8.5(A) 5.0 - 8.0 pH LAB URINALYSIS - AUTOMATED METHOD 12/19/2024 6:42 PM [facility] Leukocytes, Urine Small(A) Negative LAB URINALYSIS - AUTOMATED METHOD 12/19/2024 6:42 PM [facility] Nitrite, Urine Negative Negative LAB URINALYSIS - AUTOMATED METHOD 12/19/2024 6:42 PM [facility] Protein, Urine 30(A) <=Trace mg/dL LAB URINALYSIS - AUTOMATED METHOD 12/19/2024 6:42 PM [facility] Glucose, Urine Negative Negative mg/dL LAB URINALYSIS - AUTOMATED METHOD 12/19/2024 6:42 PM [facility] Ketones, Urine >=80(A) Negative mg/dL LAB URINALYSIS - AUTOMATED METHOD 12/19/2024 6:42 PM [facility] Urobilinogen , Urine 1.0 0.2 - 1.0 mg/dL LAB URINALYSIS - AUTOMATED METHOD 12/19/2024 6:42 PM [facility] Bilirubin, Urine Negative Negative LAB URINALYSIS - AUTOMATED METHOD 12/19/2024 6:42 PM [facility] Blood, Urine Negative Negative LAB URINALYSIS - AUTOMATED METHOD 12/19/2024 6:42 PM [facility] RBC, Urine 1.9 0 - 4 /HPF LAB URINALYSIS - AUTOMATED METHOD 12/19/2024 6:42 PM [facility] WBC, Urine 2.9 0 - 4 /HPF LAB URINALYSIS - AUTOMATED METHOD 12/19/2024 6:42 PM [facility] Squamous Epithelial, Urine 76(H) 0 - 60 /LPF LAB URINALYSIS - AUTOMATED METHOD 12/19/2024 6:42 PM [facility] Bacteria, Urine Moderate(A) Negative /HPF LAB URINALYSIS - AUTOMATED METHOD 12/19/2024 6:42 PM [facility] Hyaline Casts, Urine 1.2 0 - 3 /LPF LAB URINALYSIS - AUTOMATED METHOD 12/19/2024 6:42 PM [facility] Urine Urine specimen obtained by clean catch procedure / Unknown Non-blood Collection / Unknown 12/19/2024 6:18 PM EST 12/19/2024 6:28 PM EST Navi Avila MD LAB URINE ORDERABLES [facility] [address] [place] [address], * Lipase (12/19/2024 5:24 PM EST) Lipase 32 13 - 75 unit/L LAB CHEMISTRY METHOD 12/19/2024 6:31 PM [facility] Blood Venous blood specimen / Unknown Venipuncture / Unknown 12/19/2024 5:24 PM EST 12/19/2024 5:34 PM EST Narrative Authorizing Provider Result Robert Avila MD LAB BLOOD ORDERABLES [facility] [address] [place] [address], [place] [phone] * (ABNORMAL) Comprehensive metabolic panel (12/19/2024 5:24 PM EST) Sodium 138 133 - 145 mmol/L LAB CHEMISTRY METHOD 12/19/2024 6:31 PM [facility] Potassium 3.8 3.5 - 5.5 mmol/L LAB CHEMISTRY METHOD 12/19/2024 6:31 PM [facility] Comment:Hemolysis present Chloride 110 96 - 110 mmol/L LAB CHEMISTRY METHOD 12/19/2024 6:31 PM [facility] CO2 18(L) 21 - 32 mmol/L LAB CHEMISTRY METHOD 12/19/2024 6:31 PM [facility] Anion Gap 10 3 - 11 LAB CHEMISTRY METHOD 12/19/2024 6:31 PM [facility] Glucose 87 70 - 100 mg/dL LAB CHEMISTRY METHOD 12/19/2024 6:31 PM [facility] BUN 6 5 - 25 mg/dL LAB CHEMISTRY METHOD 12/19/2024 6:31 PM [facility] Creatinine 0.74 0.50 - 1.10 mg/dL LAB CHEMISTRY METHOD 12/19/2024 6:31 PM [facility] eGFR 109 >=60 mL/min/1. 73m2 LAB CHEMISTRY METHOD 12/19/2024 6:31 PM [facility] Comment:Calculation based on the??Chronic Kidney Disease Epidemiology Collaboration (CKD-EPI) equation refit??without adjustment for race. BUN/Creatinine Ratio 8.1 LAB CHEMISTRY METHOD 12/19/2024 6:31 PM [facility] Calcium 9.5 8.5 - 10.5 mg/dL LAB CHEMISTRY METHOD 12/19/2024 6:31 PM [facility] AST (SGOT) 27 10 - 42 unit/L LAB CHEMISTRY METHOD 12/19/2024 6:31 PM [facility] Comment:Hemolysis present ALT (SGPT) 15 10 - 60 unit/L LAB CHEMISTRY METHOD 12/19/2024 6:31 PM [facility] Alkaline Phosphatase 53 42 - 121 unit/L LAB CHEMISTRY METHOD 12/19/2024 6:31 PM [facility] Total Protein 7.9 6.0 - 8.0 g/dL LAB CHEMISTRY METHOD 12/19/2024 6:31 PM [facility] Albumin 4.3 3.2 - 5.0 g/dL LAB CHEMISTRY METHOD 12/19/2024 6:31 PM [facility] Total Bilirubin 0.7 0.0 - 1.4 mg/dL LAB CHEMISTRY METHOD 12/19/2024 6:31 PM [facility] Blood Venous blood specimen / Unknown Venipuncture / Unknown 12/19/2024 5:24 PM EST 12/19/2024 5:34 PM EST Navi Avila MD LAB BLOOD ORDERABLES [facility] [address] [place] [address], from Last 3 Months Care Teams Machines Technician Relationship Specialty Start Date End Date Carmela Gaytan MD [address] [place] [id number] PCP - General Internal Medicine 12/19/24
--- OUTSIDE RECORDS SUMMARY | 2024-12-24 12:57 | XMS_ITS | Encounter Summary ---
Author Organization [facility] Address [address] [place] [address] Care Team Providers Care Turret Lathe Tender Name Role Phone Carmela Gaytan MD Primary Care Provider Reason for Visit * Reason Comments Palpitations Encounter Details Date Type Department Care Team ([facility] st Contact Info) Description 12/22/2024 5:08 PM EST - 12/22/2024 9:[address] [facility] Emergency [address] [place] [phone] Dehydration (Primary Dx) Discharge Disposition: Home or Self Care Social History Tobacco Use Types Packs/Day Years [...] file Not on file Not on file documented as of this encounter Last Filed Vital Signs Vital Sign Reading Time Taken Comments Blood Pressure 118/81 12/22/2024 9:08 PM EST Pulse 93 12/22/2024 9:08 PM EST Temperature 37.1 ??C (98.8 ??F) 12/22/2024 7:04 PM ES T Respiratory Rate 18 12/22/2024 9:08 PM EST Oxygen Saturation 100% 12/22/2024 9:08 PM EST Inhaled Oxygen Concentration - - Weight - - Height - - Body Mass Index - - documented in this encounter Functional Status Functional Status Response Date of Assess ment Are you deaf or do you have serious difficulty h earing? No 12/19/2024 Are you blind or do you have serious difficulty seeing, even when wearing glasses? No 12/19/2024 Do you have serious difficul ty walking or climbing stairs? No 12/19/2024 Do you have serious difficulty dressing or bathi ng? No 12/19/2024 Because of a physical, menta l, or emotional condition, do you have serious difficulty doing errands alone such as visiting the doctor? No 12/19/2024 Cognitive Status Response Date of Assessm ent Because of a physical, menta l, or emotional condition, do you have serious difficulty concentrating, remembering, or making decisions? (5 years old or older) No 12/19/2024 documented as of this encounter Discharge Instructions * Discharge Instructions* NAHID Razo - 12/22/2024 8:46 PM EST Drink plenty of fluids. Continue brat diet. Continue current medications as directed. Follow up with your primary provider. Call tomorrow for appointment. Return to Emergency Department if symptoms worsen, don't improve, or any other concern. Get well soon! [facility] Primary [facility] & Specialty Office Locations [place] [phone] [place] [phone] ([address]) [phone] ([address]) [phone] Orthopedics: [phone] Thank you for coming to the [facility] Emergency Department today. Our entire team works together to provide you with the best care possible. Examination and treatment you received in the emergency department has been rendered on an EMERGENCY basis only. It is not intended to be a substitute for or an effort to provide complete medical care. You should follow-up with your primary care provider. Please report to your physician any new or remaining problems, because it is impossible to recognize and treat all elements of injury or illness in a single emergency department visit. In the event that you're unable to obtain a followup appointment in a timely fashion, OR you are not getting any better, OR you are getting worse, OR you develop any symptoms of concern, please return here immediately for further evaluation. The emergency department is open 24 hours a day, 7 days aweek. Your discharge report is based on information that was available when you were in the emergency department. * Attachments The following attachments cannot be sent through Care Everywhere. * Dehydration (Salvadorean) documented in this encounter Medications at Time of Discharge Medication Sig Dispensed Refills Start Date End Date vancomycin (VANCOCIN) 125 mg capsule Take 1 capsule (125 mg total) by mouth 4 (four) times a day for 10 days. 40 each 12/19/2024 12/29/2024 documented as of this encounter Discharge Disposition Disposition Code Departure Means Destination Comment s Home or Self Care documented in this encounter Progress Notes * Joellen Kat RN - 12/22/2024 5:04 PM EST Pt states she was at the store when she had sudden onset of headache. She states she tried to make soup when she felt fatigued and like her heart was racing. Pt is crying on triage stretcher stating my heart won't stop racing. I feel like I'm going to pass out . documented in this encounter Plan of Treatment Not on file documented as of this encounter Procedures Procedure Name Priority Date/Time Associated Diagnosis Comments ECG 12-LEAD STAT 12/22/2024 8:15 PM EST XR CHEST 2 VIEWS STAT 12/22/2024 6:59 PM EST POC , URINE DIAGNOSTIC STAT 12/22/2024 6:29 PM EST URINALYSIS WITH REFLEX MICROSCOPIC AND CULTURE STAT 12/22/2024 6:06 PM EST RESPIRATORY VIRUS PANEL MOLECULAR STUDY STAT 12/22/2024 6:06 PM EST [facility]CHER URINE CULTURE TUBE STAT 12/22/2024 6:06 PM EST URINALYSIS WITH REFLEX MICROSCOPIC AND CULTURE STAT 12/22/2024 6:06 PM EST TROPONIN I HIGH SENSITIVITY STAT 12/22/2024 5:33 PM EST CBC WITH AUTO DIFFERENTIAL STAT 12/22/2024 5:33 PM EST CBC AND DIFFERENTIAL STAT 12/22/2024 5:33 PM EST MAGNESIUM STAT 12/22/2024 5:33 PM EST BASIC METABOLIC PANEL STAT 12/22/2024 5:33 PM EST ECG 12-LEAD STAT 12/22/2024 5:04 PM EST ECG ANNOTATED 12/22/2024 ECG ANNOTATED 12/22/2024 documented in this encounter Results * ECG 12 lead (12/22/2024 8:15 PM EST) Ventricular Rate ECG 89 BPM GEMUSE Atrial Rate 89 BPM GEMUSE P-R Interval 138 ms GEMUSE QRS Duration 98 ms GEMUSE Q-T Interval 370 ms GEMUSE QTc 450 ms GEMUSE P Wave [place] 68 degrees GEMUSE R [place] 35 degrees GEMUSE T [place] 45 degrees GEMUSE ECG Interpretation Normal sinus rhythm Incomplete right bundle branch block Borderline ECG When compared with ECG of 22-DEC-2024 17:04, ST less depressed in Inferior leads ST no longer depressed in Anterior leads Nonspecific T wave abnormality no longer evident in Inferior leads Confirmed by MD Sudarshan, [place] ([id number]) on 12/24/2024 9:07:07 AM GEM[facility] 12/22/2024 8:15 PM EST 12/24/2024 9:07 AM EST Navi Avila MD ECG ORDERABLES [facility] * XR Chest 2 Views (12/22/2024 6:59 PM EST) Anatomical Region Laterality Modality Body Radiographic Sharri ging 12/23/2024 8:22 AM EST Impressions 12/23/2024 8:22 AM EST Impression: No active pulmonary process identified. Telerad PA ([id number]) -------- FINAL REPORT -------- Dictated By: Cheryl Rodriguez Dictated Date: 12/23/2024 08:22 ET Assigned Physician: Cheryl Rodriguez Reviewed and Electronically Signed By: Cheryl Rodriguez Signed Date: 12/23/2024 08:22 ET Workstation ID: [id number] Transcribed By: Self Edit Transcribed Date: 12/23/2024 [...] No active pulmonary process identified. Telerad NAHID ([id number]) -------- FINAL REPORT -------- Dictated By: Cheryl Rodriguez Dictated Date: 12/23/2024 08:22 ET Assigned Physician: Cheryl Rodriguez Reviewed and Electronically Signed By: Cheryl Rodriguez Signed Date: 12/23/2024 08:22 ET Workstation ID: [id number] Transcribed By: Self Edit Transcribed Date: 12/23/2024 08:22 ET Navi Avila MD IMG XR PROCEDURES * POC , urine manually resulted (12/22/2024 6:29 PM EST) HCG, Ur POC Negative Negative POC hCG Int QC Pass? Yes Yes EXPIRATION DATE POC 04/23/26 LOT NUMBER POC [id number] Urine Urine specimen obtained by clean catch procedure / Unknown 12/22/2024 6:29 PM EST Navi Avila MD POINT OF CARE TEST E NTER/EDIT ORDERABLES * Respiratory virus panel molecular study (12/22/2024 6:06 PM EST) Adenovirus Detection by PCR Not Detected Not Detected LAB MICROBIOLOGY METHOD 12/22/2024 7:29 PM [facility] Influenza A PCR Not Detected Not Detected LAB MICROBIOLOGY METHOD 12/22/2024 7:29 PM [facility] Influenza B PCR Not Detected Not Detected LAB MICROBIOLOGY METHOD 12/22/2024 7:29 PM [facility] Coronavirus 229E Not Detected Not Detected LAB MICROBIOLOGY METHOD 12/22/2024 7:29 PM [facility] Coronavirus HKU1 Not Detected Not Detected LAB MICROBIOLOGY METHOD 12/22/2024 7:29 PM [facility] Coronavirus OC43 Not Detected Not Detected LAB MICROBIOLOGY METHOD 12/22/2024 7:29 PM [facility] Coronavirus NL63 Not Detected Not Detected LAB MICROBIOLOGY METHOD 12/22/2024 7:29 PM [facility] Parainfluenza Virus 1 Not Detected Not Detected LAB MICROBIOLOGY METHOD 12/22/2024 7:29 PM [facility] Parainfluenza Virus 2 Not Detected Not Detected LAB MICROBIOLOGY METHOD 12/22/2024 7:29 PM [facility] Parainfluenza Virus 3 Not Detected Not Detected LAB MICROBIOLOGY METHOD 12/22/2024 7:29 PM [facility] Parainfluenza Virus 4 Not Detected Not Detected LAB MICROBIOLOGY METHOD 12/22/2024 7:29 PM [facility] RSV PCR Not Detected Not Detected LAB MICROBIOLOGY METHOD 12/22/2024 7:29 PM [facility] Human Metapneumovirus A and B Not Detected Not Detected LAB MICROBIOLOGY METHOD 12/22/2024 7:[address] [facility] Rhinovirus/Entero virus Not Detected Not Detected LAB MICROBIOLOGY METHOD 12/22/2024 7:[address] [facility] Bordetella pertussis Not Detected Not Detected LAB MICROBIOLOGY METHOD 12/22/2024 7:[address] [facility] Bordetella parapertussis Not Detected Not Detected LAB MICROBIOLOGY METHOD 12/22/2024 7:[address] [facility] Mycoplasma pneumo by PCR Not Detected Not Detected LAB MICROBIOLOGY METHOD 12/22/2024 7:[address] [facility] Chlamydia pneumoniae Not Detected Not Detected LAB MICROBIOLOGY METHOD 12/22/2024 7:[address] [facility] SARS COV-2 Not Detected Not Detected LAB MICROBIOLOGY METHOD 12/22/2024 7:29 PM [facility] Swab Both anterior nares / Unknown Non-blood Collection / Unknown 12/22/2024 6:06 PM EST 12/22/2024 6:12 PM EST [facility] - 12/22/2024 7:29 PM EST Testing was performed using the internetstorese Respiratory Pathogen PCR Assay. All results must [...] [facility] MICROBIOLOGY - G ENERAL ORDERABLES [facility] [address] [place] [address], * [place] urine culture tube (12/22/2024 6:06 PM EST) Extra Tube Hold for add-ons. 12/22/2024 8:01 PM [facility] Comment:Auto resulted. Urine Urine specimen obtained by clean catch procedure / Unknown Non-blood Collection / Unknown 12/22/2024 6:06 PM EST 12/22/2024 6:12 PM EST Navi Avila MD LAB URINE ORDERABLES [facility] [address] [place] [address], [place] [phone] * (ABNORMAL) Urinalysis with reflex microscopic and culture (12/22/2024 6:06 PM EST) Specific [place] Urine 1.005 1.003 - 1.030 LAB URINALYSIS - AUTOMATED METHOD 12/22/2024 6:18 PM [facility] pH, Urine 7.0 5.0 - 8.0 pH LAB URINALYSIS - AUTOMATED METHOD 12/22/2024 6:18 PM [facility] Leukocytes, Urine Negative Negative LAB URINALYSIS - AUTOMATED METHOD 12/22/2024 6:18 PM [facility] Nitrite, Urine Negative Negative LAB URINALYSIS - AUTOMATED METHOD 12/22/2024 6:18 PM [facility] Protein, Urine Negative <=Trace mg/dL LAB URINALYSIS - AUTOMATED METHOD 12/22/2024 6:18 PM [facility] Glucose, Urine Negative Negative mg/dL LAB URINALYSIS - AUTOMATED METHOD 12/22/2024 6:18 PM [facility] Ketones, Urine 15(A) Negative mg/dL LAB URINALYSIS - AUTOMATED METHOD 12/22/2024 6:18 PM [facility] Urobilinogen, Urine 0.2 0.2 - 1.0 mg/dL LAB URINALYSIS - AUTOMATED METHOD 12/22/2024 6:18 PM [facility] Bilirubin, Urine Negative Negative LAB URINALYSIS - AUTOMATED METHOD 12/22/2024 6:[address] [facility] Blood, Urine Negative Negative LAB URINALYSIS - AUTOMATED METHOD 12/22/2024 6:18 PM [facility] Urine Urine specimen obtained by clean catch procedure / Unknown Non-blood Collection / Unknown 12/22/2024 6:06 PM EST 12/22/2024 6:12 PM EST Navi Avila MD LAB URINE ORDERABLES [facility] [address] [place] [address], * CBC auto differential (12/22/2024 5:33 PM EST) WBC 6.6 4.8 - 10.8 K/mcL LAB HEMETOLOGY METHOD 12/22/2024 5:52 PM [facility] RBC 4.10 3.80 - 4.80 M/mcL LAB HEMETOLOGY METHOD 12/22/2024 5:52 PM [facility] Hemoglobin 12.1 11.5 - 16.0 g/dL LAB HEMETOLOGY METHOD 12/22/2024 5:52 PM [facility] Hematocrit 35.8 35.0 - 47.0 % LAB HEMETOLOGY METHOD 12/22/2024 5:52 PM [facility] MCV 87.3 79.0 - 98.0 FL LAB HEMETOLOGY METHOD 12/22/2024 5:52 PM [facility] MCH 29.5 27.0 - 32.0 pcg LAB HEMETOLOGY METHOD 12/22/2024 5:52 PM [facility] MCHC 33.8 32.0 - 37.0 g/dL LAB HEMETOLOGY METHOD 12/22/2024 5:52 PM [facility] RDW 12.4 11.0 - 15.0 % LAB HEMETOLOGY METHOD 12/22/2024 5:52 PM [facility] Platelets 237 130 - 400 K/mcL LAB HEMETOLOGY METHOD 12/22/2024 5:52 PM [facility] MPV 9.5 7.0 - 11.0 FL LAB HEMETOLOGY METHOD 12/22/2024 5:52 PM [facility] NRBC 0.0 <1.0 % LAB HEMETOLOGY METHOD 12/22/2024 5:52 PM [facility] NRBC Absolute 0.00 <0.10 K/mcL LAB HEMETOLOGY METHOD 12/22/2024 5:52 PM [facility] Neutrophils Relative 55.5 % LAB HEMETOLOGY METHOD 12/22/2024 5:52 PM [facility] Lymphocytes Relative 36.8 % LAB HEMETOLOGY METHOD 12/22/2024 5:52 PM [facility] Monocytes Relative 5.6 % LAB HEMETOLOGY METHOD 12/22/2024 5:52 PM [facility] Eosinophils Relative 1.1 % LAB HEMETOLOGY METHOD 12/22/2024 5:52 PM [facility] Basophils Relative 0.5 % LAB HEMETOLOGY METHOD 12/22/2024 5:52 PM [facility] Immature Granulocytes Relative 0.5 % LAB HEMETOLOGY METHOD 12/22/2024 5:52 PM [facility] Neutrophils Absolute 3.68 1.50 - 7.00 K/mcL LAB HEMETOLOGY METHOD 12/22/2024 5:52 PM [facility] Lymphocytes Absolute 2.43 1.00 - 5.00 K/mcL LAB HEMETOLOGY METHOD 12/22/2024 5:52 PM [facility] Monocytes Absolute 0.37 0.20 - 1.00 K/mcL LAB HEMETOLOGY METHOD 12/22/2024 5:[address] [facility] Eosinophils Absolute 0.07 0.00 - 0.50 K/mcL LAB HEMETOLOGY METHOD 12/22/2024 5:[address] [facility] Basophils Absolute 0.03 0.00 - 0.20 K/mcL LAB HEMETOLOGY METHOD 12/22/2024 5:[address] [facility] Immature Granulocytes Absolute 0.03 0.00 - 0.03 K/mcL LAB HEMETOLOGY METHOD 12/22/2024 5:[address] [facility] Blood Venous blood specimen / Unknown Venipuncture / Unknown 12/22/2024 5:33 PM EST 12/22/2024 5:47 PM EST Navi Avila MD LAB BLOOD ORDERABLES Performing Organization Address [facility]/ZIP Co de Phone Number [facility] [address] [place] [address], * Troponin I high sensitivity (12/22/2024 5:33 PM EST) [facility] High Sensitivity Troponin I 4 <=54 ng/L LAB CHEMISTRY METHOD 12/22/2024 6:[address] [facility] Blood Venous blood specimen / Unknown Venipuncture / Unknown 12/22/2024 5:33 PM EST 12/22/2024 5:[address] [facility] - 12/22/2024 6:12 PM EST High levels of biotin in samples may falsely decrease hsTroponin values. ??Use caution when interpreting hsTroponin results in patients taking biotin who exhibit renal impairment (eGFR <60) or in patients taking more than 20 mg/day of biotin. Navi Avila MD LAB BLOOD ORDERABLES Performing Organization Address City/[facility]/ZIP Co de Phone Number [facility] [address] [place] [address], * (ABNORMAL) Magnesium (12/22/2024 5:33 PM EST) Magnesium 1.4(L) 1.9 - 2.6 mg/dL LAB CHEMISTRY METHOD 12/22/2024 6:09 PM [facility] Blood Venous blood specimen / Unknown Venipuncture / Unknown 12/22/2024 5:33 PM EST 12/22/2024 5:47 PM EST Navi Avila MD LAB BLOOD ORDERABLES [facility] [address] [place] [address], * (ABNORMAL) Basic metabolic panel (12/22/2024 5:33 PM EST) Pathologist [facility] Sodium 136 133 - 145 mmol/L LAB CHEMISTRY METHOD 12/22/2024 6:09 PM [facility] Potassium 3.0(L) 3.5 - 5.5 mmol/L LAB CHEMISTRY METHOD 12/22/2024 6:09 PM [facility] Chloride 105 96 - 110 mmol/L LAB CHEMISTRY METHOD 12/22/2024 6:09 PM [facility] CO2 19(L) 21 - 32 mmol/L LAB CHEMISTRY METHOD 12/22/2024 6:09 PM [facility] Anion Gap 12(H) 3 - 11 LAB CHEMISTRY METHOD 12/22/2024 6:09 PM [facility] Glucose 119(H) 70 - 100 mg/dL LAB CHEMISTRY METHOD 12/22/2024 6:09 PM [facility] BUN 6 5 - 25 mg/dL LAB CHEMISTRY METHOD 12/22/2024 6:09 PM [facility] Creatinine 0.86 0.50 - 1.10 mg/dL LAB CHEMISTRY METHOD 12/22/2024 6:09 PM [facility] eGFR 91 >=60 mL/min/1. 73m2 LAB CHEMISTRY METHOD 12/22/2024 6:[address] [facility] Comment:Calculation based on the??Chronic Kidney Disease Epidemiology Collaboration (CKD-EPI) equation refit??without adjustment for race. BUN/Creatinine Ratio 7.0 LAB CHEMISTRY METHOD 12/22/2024 6:[address] [facility] Calcium 9.5 8.5 - 10.5 mg/dL LAB CHEMISTRY METHOD 12/22/2024 6:[address] [facility] Blood Venous blood specimen / Unknown Venipuncture / Unknown 12/22/2024 5:33 PM EST 12/22/2024 5:47 PM EST Navi Avila MD LAB BLOOD ORDERABLES Performing Organization Address City/[facility]/ZIP Co de Phone Number [facility] [address] [place] [address], * ECG 12 lead (12/22/2024 5:04 PM EST) Ventricular Rate ECG 130 BPM GEMUSE Atrial Rate 130 BPM GEMUSE P-R Interval 126 ms GEMUSE QRS Duration 92 ms GEMUSE Q-T Interval 316 ms GEMUSE QTc 465 ms GEMUSE P Wave [place] 80 degrees GEMUSE R [place] 36 degrees GEMUSE T [place] 5 degrees GEMUSE ECG Interpretation Sinus tachycardia Possible Left atrial enlargement RSR' or QR pattern in V1 suggests right ventricular conduction delay Nonspecific ST and T wave abnormality Abnormal ECG No previous ECGs available Confirmed by MD Sudarshan, [place] ([id number]) on 12/24/2024 8:59:29 AM G[facility] 12/22/2024 5:04 PM EST 12/24/2024 8:59 AM EST Solis Moreira MD ECG ORDERABLES Performing Organization Address City/[facility]/ZIP Co de Phone Number G[facility] * ECG-Annotated (12/22/2024) Marcel Hernandez MD ECG ORDERABLES * ECG-Annotated (12/22/2024) Provider Mary HUGHES ECG ORDERABLES documented in this encounter Visit Diagnoses Diagnosis Dehydration- Primary documented in this encounter Administered Medications Inactive Administered Medications - up to 3 most recent administrations Medication Order MAR Action Action Date Dose Rate Site lactated Ringer's bolus 1,000 mL 1,000 mL, intravenous, at 1,000 mL/hr, Administer over 1 Hours, Once, On Sun12/22/24 at 1836, For 1 dose New Bag 12/22/2024 7:16 PM EST 1,000 mL 1000 mL/hr LORazepam (ATIVAN) injection 0.5 mg 0.5 mg, intravenous, Once, On Sun12/22/24 at 1745, For 1 dose, Prior to IV use, lorazepam injection should be DILUTED with an equal volume of compatible solution; Rate of administration should NOT exceed 2 mg/min. Given 12/22/2024 5:58 PM EST 0.5 mg magnesium sulfate 2 gram/50 mL (4 %) IVPB 2 g 2 g, intravenous, at 25 mL/hr, Administer over 2 Hours, Once, On Sun12/22/24 at 1838, For 1 dose New Bag 12/22/2024 7:16 PM EST 2 g 25 mL/hr potassium chloride (KLOR-CON M20) CR tablet 40 mEq 40 mEq, oral, Once, On Sun12/22/24 at 1838, For 1 dose, Tablet may be swallowed whole (do not crush/chew/suck on) OR broken in half and each half swallowed separately OR dissolved (whole tablet) in ~4 ounces of water (allow ~2 minutes to dissolve, stir well and administer immediately). Given 12/22/2024 7:16 PM EST 40 mEq sodium chloride 0.9 % bolus 1,000 mL 1,000 mL, intravenous, at 1,000 mL/hr, Administer over 1 Hours, Once, On Sun12/22/24 at 1745, For 1 dose New Bag 12/22/2024 5:58 PM EST 1,000 mL 1000 mL/hr documented in this encounter Active and Recently Administered Medications Times are shown in EST. Scheduled Medication Order 12/20/2024 12/21/2024 12/22/2024 lactated Ringer's bolus 1,000 mL (COMPLETED) 1,000 mL, intravenous, at 1,000 mL/hr, Administer over 1 Hours, Once, On Sun12/22/24 at 1836, For 1 dose 1915 (New Bag - Prov ider: Katherine Stoddard RN)2058 (Stopped - Provider: Katherine Stoddard RN) LORazepam (ATIVAN) injection 0.5 mg (COMPLETED) 0.5 mg, intravenous, Once, On Sun12/22/24 at 1745, For 1 dose, Prior to IV use, lorazepam injection should be DILUTED with an equal volume of compatible solution; Rate of administration should NOT exceed 2 mg/min. 1757 (Given - Provid er: Jo Lee RN) magnesium sulfate 2 gram/50 mL (4 %) IVPB 2 g (COMPLETED) 2 g, intravenous, at 25 mL/hr, Administer over 2 Hours, Once, On Sun12/22/24 at 1838, For 1 dose 1915 (New Bag - Prov ider: Katherine Stoddard RN)2058 (Stopped - Provider: Katherine Stoddard RN) potassium chloride (KLOR-CON M20) CR tablet 40 mEq (COMPLETED) 40 mEq, oral, Once, On Sun12/22/24 at 1838, For 1 dose, Tablet may be swallowed whole (do not crush/chew/suck on) OR broken in half and each half swallowed separately OR dissolved (whole tablet) in ~4 ounces of water (allow ~2 minutes to dissolve, stir well and administer immediately). 1915 (Given - Provid er: Katherine Stoddard RN) sodium chloride 0.9 % bolus 1,000 mL (COMPLETED) 1,000 mL, intravenous, at 1,000 mL/hr, Administer over 1 Hours, Once, On Sun12/22/24 at 1745, For 1 dose 1757 (New Bag - Prov ider: Jo Lee RN)1840 (Stopped - Provider: Katherine Stoddard RN) documented in this encounter Orders Nursing Count Last Ordered Date First Orde red Date VITAL SIGNS 1 12/22/2024 documented in this encounter Additional Health Concerns Infection Onset Date Last Indicated Resolved Time Respiratory Rule-Out 12/22/2024 12/22/2024 025 7:29 PM EST documented as of this encounter Care Teams Turret Lathe Tender Relationship Specialty Start Date End Date Carmela Gaytan MD [address] [place] [id number] PCP - General Internal Medicine 12/19/24 documented as of this encounter
--- OUTSIDE RECORDS SUMMARY | 2024-12-24 12:57 | XMS_ITS | Encounter Summary ---
Author Organization [facility] Address [address] [place] [address] Care Team Providers Care Emt P Name Role Phone Carmela Gaytan MD Primary Care Provider [phone] Reason for Visit * Reason Comments Diarrhea Encounter Details Date Type Department Care Team ([facility] st Contact Info) Description 12/19/2024 3:31 PM EST - 12/19/2024 10:49 PM EST Emergency [facility] Emergency [address] [place] [address] Navi Avila MD [address] [place] [address] Clostridium difficile diarrhea (Primary Dx) Discharge Disposition: [...] Sign Reading Time Taken Comments Blood Pressure 129/84 12/19/2024 9:47 PM EST Pulse 114 12/19/2024 9:47 PM EST Temperature 36.8 ??C (98.3 ??F) 12/19/2024 9:47 PM ES T Respiratory Rate 18 12/19/2024 9:47 PM EST Oxygen Saturation 100% 12/19/2024 9:47 PM EST Inhaled Oxygen Concentration - - Weight 67.1 kg (148 lb) 12/19/2024 11:24 AM EST Height 165.1 cm (5' 5 ) 12/19/2024 11:24 AM EST Body Mass Index 24.63 12/19/2024 11:24 AM EST documented in this encounter Functional Status Functional [...] encounter Discharge Instructions * Discharge Instructions* NAHID Morse - 12/19/2024 10:23 PM EST Thank you for choosing [facility]'s Emergency Department for your care today. Thankfully your CT and laboratory evaluation today showed no evidence of an acute emergent as a result of your C. difficile infection, and there is currently no indication for admission to the hospital or continued ED observation, and it is safe to discharge you home. Seeing as your diarrhea is persisting despite use of Flagyl, we recommend that you discontinue taking Flagyl and instead take vancomycin 4 times a day as prescribed until it is finished. You may take alternating (staggered) doses of ibuprofen 600mg and Tylenol 1000mg every 4 hours as needed for pain. Please stay well-hydrated and get plenty of rest. Please continue to eat bland solidfoods as tolerated. Please follow up with your primary care physician for re-evaluation, additional management of your symptoms, and continued preventative care. If you do not have a primary care physician, please call the [facility] at [phone] toestablish a new primary care physician. Please return to the emergency department if you develop a sudden severe change in your symptoms, afever over 100.4,, severe or recurrent vomiting,, or a sudden increase in pain, or if you experience any other new or worsening symptoms or concerns. * Attachments The following attachments cannot be sent through Care Everywhere. * Clostridioides difficile colitis (Polish) documented in this encounter Medications at Time of Discharge Medication Sig Dispensed Refills Start Date End Date vancomycin (VANCOCIN) 125 mg capsule Take 1 capsule (125 mg total) by mouth 4 (four) times a day for 10 days. 40 each 12/19/2024 12/29/2024 documented as of this encounter Ordered Prescriptions Prescription Sig Dispensed Refills Start Date End Da te vancomycin (VANCOCIN) 125 mg capsule Take 1 capsule (125 mg total) by mouth 4 (four) times a day for 10 days. 40 each 12/19/2024 12/29/2024 vancomycin (VANCOCIN) 125 mg capsule Take 1 capsule (125 mg total) by mouth 4 (four) times a day for 10 days. 40 each 12/19/2024 12/19/2024 documented in this encounter Discharge Disposition Disposition Code Departure Means Destination Comment s Home or Self Care Patient discharged with balanced and steady gait, understands discharge teaching and has no further questions about todays visit. documented in this encounter Progress Notes * Navi Avila MD - 12/19/2024 8:13 PM EST Sherly Pyle Patient pending CT. Signout given to NAHID Acevedo. Can likely change Flagyl to vancomycin. * Belia Gabriel RN - 12/19/2024 6:54 PM EST Pt reporting IV in R forearm is extremely painful and burning. This Rn attempted to flush in anticipation for CT scan - pt unable to tolerate flush. Requesting new IV line placed. CT scan made aware of this and requested a call when pt is ready. * Rocio Zepeda RN - 12/19/2024 11:16 AM EST Patient reports after taking augmentin she was diagnosed with cdiff and is currently on Flagyl. Patient reports increased pain and she cannot control the episodes of diarrhea. * Navi Avila MD - 12/19/2024 11:13 AM EST HPI Chief Complaint Patient presents with Diarrhea 34-year female with a past medical history as below now presents the chief complaint of diarrhea. Patient reports that about 3 weeks ago, in early November she started taking amoxicillin for a sinusitis infection. The next day she started to have diarrhea. And in the next few days she did have a contact with a known positive C. difficile infection; as she works as a [employer], and her clinic had C. difficile. She continued to have the diarrhea, and recently followed up with her primary care doctor couple days ago, and she was diagnosed with C. difficile. Started on oral metronidazole, and has been on therapy for 48 hours. She reports complaints of fevers, chills, still ongoing persistent loose watery stools, which are intermittently formed, and generalized diffuse abdominal crampy pain and distention. 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 2010: Ovarian cyst Comment: DX:Ovarian cyst 02/25/2013: Postinflammatory hyperpigmentation Comment: DX:Postinflammatory hyperpigmentation History provided by: Patient [place] Coma Scale Score: 15 Patient History Past Medical History: Diagnosis Date Acne vulgaris 02/25/2013 DX:Acne vulgaris Anxiety 02/01/2012 DX:Anxiety Compound nevus 02/25/2013 DX:Compound nevus Congenital nevus of face 02/25/2013 DX:Congenital nevus of face Ovarian cyst 2009 DX:Ovarian cyst Postinflammatory hyperpigmentation 02/25/2013 DX:Postinflammatory hyperpigmentation Past Surgical History: Procedure Laterality Date APPENDECTOMY 03/26/14 laparoscopic PROCEDURE: HISTORICAL APPENDECTOMY; COMMENT: Dr Yordy Rolon [facility] COLONOSCOPY 06/28/2010 PROCEDURE: IA COLONOSCOPY STOMA DX INCLUDING COLLJ SPEC SPX; COMMENT: normal to terminal ileum to 20 cm ESOPHAGOGASTRODUODENOSCOPY 01/22/14 PROCEDURE: IA ESOPHAGOGASTRODUODENOSCOPY TRANSORAL DIAGNOSTIC; COMMENT: normal; normal duodenal biopsies Family History Problem Relation Name Age of Onset Hypertension Maternal Grandfather Heart attack Maternal Grandfather Stroke Maternal Grandfather Stroke Maternal Grandmother Hypertension Paternal Grandmother Hypertension Paternal Grandfather Hyperlipidemia Paternal Grandmother Hyperlipidemia Paternal Grandfather Blindness Neg Hx Cataracts Neg Hx Glaucoma Neg Hx Macular degeneration Neg Hx Strabismus Neg Hx Social History Tobacco Use Smoking status: Former Smokeless tobacco: Former Substance Use Topics Alcohol use: Yes Drug use: No Review of Systems Review of Systems Constitutional: Positive for chills. HENT: Negative. Respiratory: Negative. Gastrointestinal: Positive for abdominal distention, abdominal pain and diarrhea. Skin: Negative. Physical Exam ED Triage Vitals Temp Heart Rate Resp BP 12/19/24 1124 12/19/24 1124 12/19/24 1124 12/19/24 1124 36.4 ??C (97.5 ??F) 110 16 121/81 SpO2 Temp Source Heart Rate Source Patient Position 12/19/24 1124 12/19/24 1609 12/19/24 1609 12/19/24 1124 100 % Oral Monitor Sitting BP Location FiO2 (%) 12/19/24 1124 -- Right arm Physical Exam Constitutional: General: She is not in acute distress. Appearance: Normal appearance. She is not ill-appearing or toxic-appearing. HENT: Head: Normocephalic and atraumatic. Mouth/Throat: Mouth: Mucous membranes are moist. Eyes: Extraocular Movements: Extraocular movements intact. Conjunctiva/sclera: Conjunctivae normal. Cardiovascular: Rate and Rhythm: Normal rate and regular rhythm. Pulses: Normal pulses. Pulmonary: Effort: Pulmonary effort is normal. No respiratory distress. Breath sounds: Normal breath sounds. Abdominal: General: There is no distension. Palpations: Abdomen is soft. Tenderness: There is no abdominal tenderness. Musculoskeletal: General: Normal range of motion. Cervical back: Normal range of motion and neck supple. Right lower leg: No edema. Left lower leg: No edema. Skin: General: Skin is warm. Capillary Refill: Capillary refill takes less than 2 seconds. Neurological: General: No focal deficit present. Mental Status: She is alert and oriented to person, place, and time. Mental status is at baseline. Psychiatric: Mood and Affect: Mood normal. ED Course & MDM ED Course as of 12/24/24 0308 SunDec 19, 20242008 Patient sinus provider at shift change, in summary patient is a 34-year-old female diagnosed with C. difficile 2 days ago, no improvement after 48 hours of Flagyl. Patient pending CT at time of signout, if unremarkable CT patient will be safe for discharge with change to oral vancomycin. [RM] 2211 CT has resulted and shows no toxic megacolon, there is a 2 mm nonobstructing right superior renal stone, a fibroid, and findings consistent with possible pelvic congestion syndrome. At this timepatient is safe for discharge, we will discharge with prescription for oral vancomycin. [RM] ED Course User Index [RM] NAHID Morse Clinical Impressions as of 12/24/24 0308 Clostridium difficile diarrhea Medical Decision Making 34-year-old female with no significant past medical history, recent diagnosis of C. difficile, now presents with generalized abdominal distention and pain, without any focal tenderness. We will evaluate labs, and CT imaging of the abdomen. 7:29 PM Patient's labs are unremarkable. Patient is pending CT abdomen imaging. Procedures Navi Avila MD 12/19/24 1657 Navi Avila MD 12/19/24 1929 Navi Avila MD 12/24/24 0308 documented in this encounter Plan of Treatment Not on file documented as of this encounter Procedures Procedure Name Priority Date/Time Associated Diagnosis Comments CT ABDOMEN PELVIS W CONTRAST STAT 12/19/2024 8:24 PM EST URINALYSIS WITH REFLEX MICROSCOPIC STAT 12/19/2024 6:18 PM EST URINALYSIS WITH REFLEX MICROSCOPIC STAT 12/19/2024 6:18 PM EST POC , URINE DIAGNOSTIC STAT 12/19/2024 6:18 PM EST CBC WITH AUTO DIFFERENTIAL STAT 12/19/2024 5:24 PM EST CBC AND DIFFERENTIAL STAT 12/19/2024 5:24 PM EST LIPASE STAT 12/19/2024 5:24 PM EST COMPREHENSIVE METABOLIC PANEL STAT 12/19/2024 5:24 PM EST documented in this encounter Results * CT Abdomen Pelvis w Contrast (12/19/2024 [...] reflex microscopic (12/19/2024 6:18 PM EST) Specific [place] Urine 1.019 1.003 - 1.030 LAB URINALYSIS - AUTOMATED METHOD 12/19/2024 6:[address] [facility] pH, Urine 8.5(A) 5.0 - 8.0 pH LAB URINALYSIS - AUTOMATED METHOD 12/19/2024 6:[address] [facility] Leukocytes, Urine Small(A) Negative LAB URINALYSIS - AUTOMATED METHOD 12/19/2024 6:[address] [facility] Nitrite, Urine Negative Negative LAB URINALYSIS - AUTOMATED METHOD 12/19/2024 6:[address] [facility] Protein, Urine 30(A) <=Trace mg/dL LAB URINALYSIS - AUTOMATED METHOD 12/19/2024 6:[address] [facility] Glucose, Urine Negative Negative mg/dL LAB URINALYSIS - AUTOMATED METHOD 12/19/2024 6:[address] [facility] Ketones, Urine >=80(A) Negative mg/dL LAB URINALYSIS - AUTOMATED METHOD 12/19/2024 6:[address] [facility] Urobilinogen , Urine 1.0 0.2 - 1.0 mg/dL LAB URINALYSIS - AUTOMATED METHOD 12/19/2024 6:[address] [facility] Bilirubin, Urine Negative Negative LAB URINALYSIS - AUTOMATED METHOD 12/19/2024 6:[address] [facility] Blood, Urine Negative Negative LAB URINALYSIS - AUTOMATED METHOD 12/19/2024 6:[address] [facility] RBC, Urine 1.9 0 - 4 /HPF LAB URINALYSIS - AUTOMATED METHOD 12/19/2024 6:[address] [facility] WBC, Urine 2.9 0 - 4 /HPF LAB URINALYSIS - AUTOMATED METHOD 12/19/2024 6:[address] [facility] Squamous Epithelial, Urine 76(H) 0 - 60 /LPF LAB URINALYSIS - AUTOMATED METHOD 12/19/2024 6:[address] [facility] Bacteria, Urine Moderate(A) Negative /HPF LAB URINALYSIS - AUTOMATED METHOD 12/19/2024 6:[address] [facility] Hyaline Casts, Urine 1.2 0 - 3 /LPF LAB URINALYSIS - AUTOMATED METHOD 12/19/2024 6:[address] [facility] Urine Urine specimen obtained by clean catch procedure / Unknown Non-blood Collection / Unknown 12/19/2024 6:18 PM EST 12/19/2024 6:28 PM EST Navi Avila MD LAB URINE ORDERABLES [facility] [address] [place] [address], * POC , urine manually resulted (12/19/2024 6:18 PM EST) HCG, Ur POC Negative Negative POC hCG Int QC Pass? Yes Yes Urine Urine specimen obtained by clean catch procedure / Unknown 12/19/2024 6:18 PM EST Navi Avila MD POINT OF CARE TEST E NTER/EDIT ORDERABLES * CBC auto differential (12/19/2024 5:24 PM EST) [facility] WBC 7.3 4.8 - 10.8 K/mcL LAB HEMETOLOGY METHOD 12/19/2024 5:[address] [facility] RBC 4.50 3.80 - 4.80 M/mcL LAB HEMETOLOGY METHOD 12/19/2024 5:[address] [facility] Hemoglobin 13.2 11.5 - 16.0 g/dL LAB HEMETOLOGY METHOD 12/19/2024 5:[address] [facility] Hematocrit 39.6 35.0 - 47.0 % LAB HEMETOLOGY METHOD 12/19/2024 5:[address] [facility] MCV 87.8 79.0 - 98.0 FL LAB HEMETOLOGY METHOD 12/19/2024 5:[address] [facility] MCH 29.3 27.0 - 32.0 pcg LAB HEMETOLOGY METHOD 12/19/2024 5:[address] [facility] MCHC 33.3 32.0 - 37.0 g/dL LAB HEMETOLOGY METHOD 12/19/2024 5:[address] [facility] RDW 12.3 11.0 - 15.0 % LAB HEMETOLOGY METHOD 12/19/2024 5:[address] [facility] Platelets 251 130 - 400 K/mcL LAB HEMETOLOGY METHOD 12/19/2024 5:[address] [facility] MPV 9.4 7.0 - 11.0 FL LAB HEMETOLOGY METHOD 12/19/2024 5:[address] [facility] NRBC 0.0 <1.0 % LAB HEMETOLOGY METHOD 12/19/2024 5:[address] [facility] NRBC Absolute 0.00 <0.10 K/mcL LAB HEMETOLOGY METHOD 12/19/2024 5:[address] [facility] Neutrophils Relative 50.7 % LAB HEMETOLOGY METHOD 12/19/2024 5:[address] [facility] Lymphocytes Relative 41.2 % LAB HEMETOLOGY METHOD 12/19/2024 5:[address] [facility] Monocytes Relative 7.0 % LAB HEMETOLOGY METHOD 12/19/2024 5:[address] [facility] Eosinophils Relative 0.7 % LAB HEMETOLOGY METHOD 12/19/2024 5:[address] [facility] Basophils Relative 0.3 % LAB HEMETOLOGY METHOD 12/19/2024 5:[address] [facility] Immature Granulocytes Relative 0.1 % LAB HEMETOLOGY METHOD 12/19/2024 5:[address] [facility] Neutrophils Absolute 3.69 1.50 - 7.00 K/mcL LAB HEMETOLOGY METHOD 12/19/2024 5:[address] [facility] Lymphocytes Absolute 3.00 1.00 - 5.00 K/mcL LAB HEMETOLOGY METHOD 12/19/2024 5:[address] [facility] Monocytes Absolute 0.51 0.20 - 1.00 K/mcL LAB HEMETOLOGY METHOD 12/19/2024 5:[address] [facility] Eosinophils Absolute 0.05 0.00 - 0.50 K/mcL LAB HEMETOLOGY METHOD 12/19/2024 5:[address] [facility] Basophils Absolute 0.02 0.00 - 0.20 K/mcL LAB HEMETOLOGY METHOD 12/19/2024 5:[address] [facility] Immature Granulocytes Absolute 0.01 0.00 - 0.03 K/mcL LAB HEMETOLOGY METHOD 12/19/2024 5:[address] [facility] Blood Venous blood specimen / Unknown Venipuncture / Unknown 12/19/2024 5:24 PM EST 12/19/2024 5:34 PM EST Navi Avila MD LAB BLOOD ORDERABLES [facility] [address] [place] [address], [place] [phone] * Lipase (12/19/2024 5:24 PM EST) Pathologist [facility] Lipase 32 13 - 75 unit/L LAB CHEMISTRY METHOD 12/19/2024 6:[address] [facility] Blood Venous blood specimen / Unknown Venipuncture / Unknown 12/19/2024 5:24 PM EST 12/19/2024 5:34 PM EST Navi Avila MD LAB BLOOD ORDERABLES Performing Organization Address [facility]/ZIP Co de Phone Number [facility] [address] [place] [address], [place] [phone] * (ABNORMAL) Comprehensive metabolic panel (12/19/2024 5:24 PM EST) [facility] Sodium 138 133 - 145 mmol/L LAB CHEMISTRY METHOD 12/19/2024 6:[address] [facility] Potassium 3.8 3.5 - 5.5 mmol/L LAB CHEMISTRY METHOD 12/19/2024 6:[address] [facility] Comment:Hemolysis present Chloride 110 96 - 110 mmol/L LAB CHEMISTRY METHOD 12/19/2024 6:[address] [facility] CO2 18(L) 21 - 32 mmol/L LAB CHEMISTRY METHOD 12/19/2024 6:[address] [facility] Anion Gap 10 3 - 11 LAB CHEMISTRY METHOD 12/19/2024 6:[address] [facility] Glucose 87 70 - 100 mg/dL LAB CHEMISTRY METHOD 12/19/2024 6:[address] [facility] BUN 6 5 - 25 mg/dL LAB CHEMISTRY METHOD 12/19/2024 6:[address] [facility] Creatinine 0.74 0.50 - 1.10 mg/dL LAB CHEMISTRY METHOD 12/19/2024 6:[address] [facility] eGFR 109 >=60 mL/min/1. 73m2 LAB CHEMISTRY METHOD 12/19/2024 6:[address] [facility] Comment:Calculation based on the??Chronic Kidney Disease Epidemiology Collaboration (CKD-EPI) equation refit??without adjustment for race. BUN/Creatinine Ratio 8.1 LAB CHEMISTRY METHOD 12/19/2024 6:[address] [facility] Calcium 9.5 8.5 - 10.5 mg/dL LAB CHEMISTRY METHOD 12/19/2024 6:[address] [facility] AST (SGOT) 27 10 - 42 unit/L LAB CHEMISTRY METHOD 12/19/2024 6:[address] [facility] Comment:Hemolysis present ALT (SGPT) 15 10 - 60 unit/L LAB CHEMISTRY METHOD 12/19/2024 6:[address] [facility] Alkaline Phosphatase 53 42 - 121 unit/L LAB CHEMISTRY METHOD 12/19/2024 6:[address] [facility] Total Protein 7.9 6.0 - 8.0 g/dL LAB CHEMISTRY METHOD 12/19/2024 6:[address] [facility] Albumin 4.3 3.2 - 5.0 g/dL LAB CHEMISTRY METHOD 12/19/2024 6:[address] [facility] Total Bilirubin 0.7 0.0 - 1.4 mg/dL LAB CHEMISTRY METHOD 12/19/2024 6:[address] [facility] Blood Venous blood specimen / Unknown Venipuncture / Unknown 12/19/2024 5:24 PM EST 12/19/2024 5:34 PM EST Navi Avila MD LAB BLOOD ORDERABLES [facility] [address] [place] [address], documented in this encounter Visit Diagnoses Diagnosis Clostridium difficile diarrhea- Primary Intestinal infection due to clostridium difficile documented in this encounter Administered Medications Inactive Administered Medications - up to 3 most recent administrations Medication Order MAR Action Action Date Dose Rate Site iopamidoL (ISOVUE-370) 370 mg iodine /mL (76 %) injection 90 mL 90 mL, intravenous, Once in imaging, Starting on Sun12/19/24 at 2015, For 1 dose Given 12/19/2024 8:22 PM EST 90 mL sodium chloride 0.9 % bolus 1,000 mL 1,000 mL, intravenous, at 2,000 mL/hr, Administer over 30 Minutes, Once, On Sun12/19/24 at 194, For 1 dose New Bag 12/19/2024 7:49 PM EST 1,000 mL 2000 mL/hr documented in this encounter Discontinued Medications Medication Sig Discontinue Reason Start Date End Da te vancomycin (VANCOCIN) 125 mg capsule Take 1 capsule (125 mg total) by mouth 4 (four) times a day for 10 days. 12/19/2024 12/19/2024 documented as of this encounter Active and Recently Administered Medications Times are shown in EST. Scheduled Medication Order 12/17/2024 12/18/2024 12/19/2024 iopamidoL (ISOVUE-370) 370 mg iodine /mL (76 %) injection 90 mL (COMPLETED) 90 mL, intravenous, Once in imaging, Starting on Sun12/19/24 at 2015, For 1 dose 2021 (Given - Provid er: Iliana Donald) sodium chloride 0.9 % bolus 1,000 mL (COMPLETED) 1,000 mL, intravenous, at 2,000 mL/hr, Administer over 30 Minutes, Once, On Sun12/19/24 at 1941, For 1 dose 1948 (New Bag - Prov ider: Didier Silver, GIOVANA)2018 (Stopped - Provider: Didier Silver, GIOVANA) documented in this encounter Orders Medications Ordered That Michael ht Not Have Been Administered Count Last Ordered Date First Ordered Date sodium chloride 0.9 % flush 10 mL 1 025 Isolation Count Last Ordered Date First Orde red Date INITIATE CONTACT ISOLATION 12/19/2024 documented in this encounter Care Teams Emt P Relationship Specialty Start Date End Date Carmela Gaytan MD [address] [place] [address] PCP - General Internal Medicine 12/19/24 documented as of this encounter
== END 2024-12-24 11:37 | disposition home or self-care (01) ==
PROVIDERS: PCP Internal Medicine; Visit Provider Physician Assistant
DX: K13.70 Unspecified lesions of oral mucosa (principal); A04.72 Enterocolitis due to Clostridium difficile, not specified as recurrent

== ENCOUNTER → 2024-12-24 10:49 | Outpatient (BNVA) | payer OTHER, SELFPAY | PROVIDERS: PCP Internal Medicine | DX: K13.70 Unspecified lesions of oral mucosa (principal); A04.72 Enterocolitis due to Clostridium difficile, not specified as recurrent | CPT/HCPCS: 99212 ==

== ENCOUNTER 2024-12-30 09:58 | Outpatient (AMB) | payer OTHER, SELFPAY ==
[2024-12-30 10:36] VITALS: BP 112/76; PULSE 72; RESP 18; TEMP 36.6; O2SAT 100; BMI 23.3
--- NOTE | 2024-12-30 10:36 | A.OFFPC_ITS ---
Vital Signs 12/30/24 10:36 Height 5 ft 5 in Weight 140 lb BMI 23.3 BP 112/76 Blood Pressure Location Lt brachial Position Sitting Respiration 18 Pulse 72 Pulse Source Pulse Oximeter Temp 97.8 F Temp Source Oral Pulse Oximetry (%) 100 Intake Visit Reasons: ER follow up Intake Note: Pt is here today for ER follow up visit. Allergies No Known Allergies Allergy (Verified 12/30/24 10:38) Medication List - Last Reconciled 12/30/24 by Carmela Gaytan MD Culturelle (Lactobacillus rhamnosus GG) 1 cap PO DAILY NS duloxetine mg PO DAILY vancomycin 125 mg PO QID 10 days Tobacco use date assessed: 12/30/24 Dental Screening Dental Screen Date: 12/30/24 Did you have a dental visit in the last 12 months?: Yes Did you have a dental problem in the last 6 months where you did not have access to dental care?: No Was dental information given to patient?: Patient has dentist HPI ER follow up HPI Details Patient presents for the follow-up of ER visit for nausea vomiting stomach upset persistent diarrhea. Patient was diagnosed with C diff colitis on December 16 with positive C diff gene but negative toxins A&B after antibiotic treatment for sinusitis with Augmentin. Patient was initially started on Flagyl which she could not tolerate and switch to clindamycin p.o. 3 days later. Patient completed a 9 day course of clindamycin but continues to report loose bowel movements overall bloating nausea decreased p.o. intake. She denies fever chills and has been maintaining good liquid p.o. intake. [facility] Medical History Anemia Anxiety Surgical History Hx of tonsillectomy Hx of appendectomy No pertinent past surgical history Family History Father HTN (hypertension) Mother No problems noted. 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 1. Little interest or pleasure in doing things: nearly every day 2. Feeling down, depressed, or hopeless: nearly every day 3. Trouble falling or staying asleep, or sleeping too much: nearly every day 4. Feeling tired or having little energy: nearly every day 5. Poor appetite or overeating: nearly every day 6. Feeling bad about yourself - or that you are a failure or have let yourself or your family down: nearly every day 7. Trouble concentrating on things, such as reading the newspaper or watching television: nearly every day 8. Moving or speaking so slowly that other people could have noticed. Or the opposite - being so fidgety or restless that you have been moving around a lot more than usual: nearly every day 9. Thoughts that you would be better off or of hurting yourself in some way: nearly every day Total score: 27 Depression Screening Interpretation: Positive (Patient is established with prescriber and a counselor) Depression Screening Follow-up: Existing condition and In treatment Depression Screening Done: Yes 68811 - PHQ-9 Billing: Yes Source: Developed by Drs. Gurwinder Shay, Ashley Andrew, Fawad Jimenez and colleagues, with an educational lina from [employer]. Thrive Questionnaire Date Thrive assessed: 12/30/24 I am a: Patient What is your living situation today?: I have a steady place to live Within the past 12 months, did the food you bought not last and you didn't have the money to get more?: Never true Within the past 12 months, did you worry whether your food would run out before you got money to buy more?: Never true Do you have trouble paying for medicines?: No Do you have trouble getting transportation to medical appointments?: No Do you have trouble paying your heating and electricity bill?: No Do you have trouble taking care of your child, family member or friend?: No Do you have trouble with day-to-day activities such as bathing, preparing meals, shopping, managing finances, etc.?: Yes Are you currently unemployed and looking for a job?: No Are you interested in more education?: No THRIVE Score: 0 AUDIT C Alcohol Use Questionnaire (AUDIT-C) 1. How often do you have a drink containing alcohol?: Never 3. How often do you have six or more drinks on one occasion?: Never Total Score: 0 JOSE ALBERTO-7 AMB Questionnaire JOSE ALBERTO-7 Date JOSE ALBERTO - 7 assessed: 12/30/24 Feeling nervous, anxious, or on edge: 3 = Nearly every day Not being able to stop or control worryin = Nearly every day Worrying too much about different things: 3 = Nearly every day Trouble relaxin = Nearly every day Being so restless that it is hard to sit still: 3 = Nearly every day Becoming easily annoyed or irritable: 3 = Nearly every day Feeling afraid as if something awful might happen: 3 = Nearly every day Total JOSE ALBERTO-7 score (0-4 normal; 5-9 mild; 10-14 moderate; 15-21 severe): 21 Source: Developed by Drs. Gurwinder Shay, Ashley Andrew, Fawad Jimenez and colleagues, with an educational lina from [employer]. JOSE ALBERTO-7 Assessment Billing JOSE ALBERTO-7 Assessment Tool: JOSE ALBERTO-7 Assessment 53793 Review of Systems Const All systems reviewed & are unremarkable except as noted in HPI and below Eyes Reports no additional complaints ENT Reports no additional complaints Card Reports no additional complaints Resp Reports no additional complaints GI Reports no additional complaints Reports no additional complaints Physical exam (Primary Care) Vital Signs: Last Vital Signs Temp 97.8 F 12/30/24 10:36 Pulse 72 12/30/24 10:36 Resp 18 12/30/24 10:36 BP 112/76 12/30/24 10:36 Pulse Ox 100 12/30/24 10:36 BMI result Body Mass Index 23.3 Tobacco/Smoking Status: Tobacco use Status Tobacco use date assessed 12/30/24 12/30/24 10:42 Patient Tobacco Use Status Never used Tobacco 12/30/24 10:42 e-Cigarette/Vaping Use Never Used 12/30/24 10:38 PHQ-9: PHQ-9 Score PHQ-9: Total score 27 12/30/24 11:13 Depression Screening Interpretation: Positive (Patient is established with prescriber and a counselor) Depression Screening Follow-up: Existing condition and In treatment Thrive Assessment: Date of Thrive Assessment Date Thrive assessed 12/30/24 12/30/24 11:13 Const General: no acute distress HENMT Head: Yes normal to inspection Mouth: Normal oral and palatal mucosa present Neck Neck: Yes supple Resp Effort & Inspection: normal respiratory effort Auscultation: clear to auscultation bilaterally Cardio Rhythm: regular rhythm Heart sounds: S1 normal heart sound present and S2 normal heart sound present GI Inspection: Yes normal to inspection Palpation (GI): Soft to palpation Percussion: Yes normal to percussion Auscultation: normal bowel sounds Coding Level of Care Code Est Pt Level 3 (04863) Diagnoses Diarrhea, unspecified type R19.7 Diarrhea type: unspecified type Anxiety and depression F41.9; F32.A Additional Codes JOSE ALBERTO-7 Assessment Billing - JOSE ALBERTO-7 Assessment Tool: JOSE ALBERTO-7 Assessment 13793 ([id number]) PHQ-9 - 41738 - PHQ-9 Billing: Yes ([id number]) Assessment & Plan Assessment & Plan (1) Diarrhea: Comment: Patient completed 3 days of Flagyl and 9 days of oral clindamycin for C diff colitis Code(s): R19.7 - Diarrhea, unspecified Category: Medical Qualifiers: Diarrhea type: unspecified type Qualified Code(s): R19.7 - Diarrhea, unspecified Plan: Supportive care discussed with the patient she was advised to start taking probi otics continue low residual lactose-free diet and follow-up in 1 one-week (2) Anxiety and depression: Comment: established with Psychiatry Code(s): F41.9 - Anxiety disorder, unspecified; F32.A - Depression, unspecified Category: Medical Plan: Continue current medication follow-up with prescriber and therapist Medications: New Culturelle (Lactobacillus rhamnosus GG) 1 cap PO DAILY 90 caps 0RF NS
--- OUTSIDE RECORDS SUMMARY | 2024-12-30 10:40 | XMS_ITS | Clinical Summary ---
Author Organization [facility] Address [address] [place] [address] Phone Care Team Providers Care Finishing Range Supervisor Name Role Phone Carmela Gaytan MD Primary Care Provider [phone] Allergies No known active allergies Medications Medication Sig Dispensed Refills Start Date End Date Status vancomycin (VANCOCIN) 125 mg capsule Take 1 capsule (125 mg total) by mouth 4 (four) times a day for 10 days. 40 each 12/19/2024 12/19/2024 Discontinued vancomycin (VANCOCIN) 125 mg capsule Take 1 capsule (125 mg total) by mouth 4 (four) times a day for 10 days. 40 each 12/19/2024 12/29/2024 Active Problems No known active problems Encounters Date Type Department Care Team Description 12/22/2024 5:08 PM EST - 12/22/2024 9:17 PM [facility] [address] [place] [phone] Dehydration (Primary Dx) Discharge Disposition: Home or Self Care 12/19/2024 3:31 PM EST - 12/19/2024 10:49 PM [facility] [address] [place] [phone] Navi Avila MD Clostridium difficile diarrhea (Primary Dx) Discharge Disposition: Home or Self Care from Last 3 Months Surgical History Surgery Date Site/Laterality Comments COLONOSCOPY 06/28/2010 PROCEDURE: CA COLONOSCOPY STOMA DX INCLUDING COLLJ SPEC SPX; COMMENT: normal to terminal ileum to 20 cm ESOPHAGOGASTRODUODENOSCOPY 01/22/14 PROCEDURE: CA ESOPHAGOGASTRODUODENOSCOPY TRANSORAL DIAGNOSTIC; COMMENT: normal; normal duodenal biopsies APPENDECTOMY 03/26/14 laparoscopic PROCEDURE: HISTORICAL APPENDECTOMY; COMMENT: Dr Yordy Rolon [facility] Medical History Medical History Date Comments [...] GEMUSE QTc 450 ms GEMUSE P Wave [place] 68 degrees GEMUSE R [place] 35 degrees GEMUSE T [place] 45 degrees GEMUSE ECG Interpretation Normal sinus rhythm Incomplete right bundle branch block Borderline ECG When compared with ECG of 22-DEC-2024 17:04, ST less depressed in Inferior leads ST no longer depressed in Anterior leads Nonspecific T wave abnormality no longer evident in Inferior leads Confirmed by MD Sudarshan, [place] ([id number]) on 12/24/2024 9:07:07 AM GEMUSE 12/22/2024 8:15 PM EST 12/24/2024 9:07 AM EST Navi Avila MD ECG ORDERABLES GEMUSE * XR Chest 2 Views (12/22/2024 6:59 PM EST) Anatomical Region Laterality Modality Body Radiographic Sharri ging 12/23/2024 8:22 AM EST Impressions 12/23/2024 8:22 AM EST Impression: No active pulmonary process identified. Telerad NAHID ([id number]) -------- FINAL REPORT -------- Dictated By: Cheryl Rodriguez Dictated Date: 12/23/2024 08:22 ET Assigned Physician: Cheryl Rodriguez Reviewed and Electronically Signed By: Cheryl Rodriguez Signed Date: 12/23/2024 08:22 ET Workstation ID: [id number] Transcribed By: Self Edit Transcribed Date: 12/23/2024 [...] No active pulmonary process identified. Telerad NAHID ([id number]) -------- FINAL REPORT -------- Dictated By: Cheryl Rodriguez Dictated Date: 12/23/2024 08:22 ET Assigned Physician: Cheryl Rodriguez Reviewed and Electronically Signed By: Cheryl Rodriguez Signed Date: 12/23/2024 08:22 ET Workstation ID: [id number] Transcribed By: Self Edit Transcribed Date: 12/23/2024 08:22 ET Navi Avila MD IMG XR PROCEDURES * POC , urine manually resulted (12/22/2024 6:29 PM EST) Only the most recent of2 resultswithin the time period is included. HCG, Ur POC Negative Negative POC hCG Int QC Pass? Yes Yes EXPIRATION DATE POC 04/23/26 LOT NUMBER POC [id number] Urine Urine specimen obtained by clean catch procedure / Unknown 12/22/2024 6:29 PM EST Navi Avila MD POINT OF CARE TEST E NTER/EDIT ORDERABLES * (ABNORMAL) Urinalysis with reflex microscopic and culture (12/22/2024 6:06 PM EST) Specific [place] Urine 1.005 1.003 - 1.030 LAB URINALYSIS - AUTOMATED METHOD 12/22/2024 6:18 PM EST [facility] pH, Urine 7.0 5.0 - 8.0 pH LAB URINALYSIS - AUTOMATED METHOD 12/22/2024 6:18 PM [facility] Leukocytes, Urine Negative Negative LAB URINALYSIS - AUTOMATED METHOD 12/22/2024 6:18 PM [facility] Nitrite, Urine Negative Negative LAB URINALYSIS - AUTOMATED METHOD 12/22/2024 6:18 PM [facility] Protein, Urine Negative <=Trace mg/dL LAB URINALYSIS - AUTOMATED METHOD 12/22/2024 6:18 PM [facility] Glucose, Urine Negative Negative mg/dL LAB URINALYSIS - AUTOMATED METHOD 12/22/2024 6:18 PM [facility] Ketones, Urine 15(A) Negative mg/dL LAB URINALYSIS - AUTOMATED METHOD 12/22/2024 6:18 PM [facility] Urobilinogen, Urine 0.2 0.2 - 1.0 mg/dL LAB URINALYSIS - AUTOMATED METHOD 12/22/2024 6:18 PM [facility] Bilirubin, Urine Negative Negative LAB URINALYSIS - AUTOMATED METHOD 12/22/2024 6:18 PM [facility] Blood, Urine Negative Negative LAB URINALYSIS - AUTOMATED METHOD 12/22/2024 6:18 PM [facility] Urine Urine specimen obtained by clean catch procedure / Unknown Non-blood Collection / Unknown 12/22/2024 6:06 PM EST 12/22/2024 6:12 PM EST Navi Avila MD LAB URINE ORDERABLES [facility] [address] [place] [address], * Respiratory virus panel molecular study (12/22/2024 6:06 PM EST) Adenovirus Detection by PCR Not Detected Not Detected LAB MICROBIOLOGY METHOD 12/22/2024 7:29 PM [facility] Influenza A PCR Not Detected Not Detected LAB MICROBIOLOGY METHOD 12/22/2024 7:29 PM [facility] Influenza B PCR Not Detected Not Detected LAB MICROBIOLOGY METHOD 12/22/2024 7:29 PM [facility] Coronavirus 229E Not Detected Not Detected LAB MICROBIOLOGY METHOD 12/22/2024 7:29 PM [facility] Coronavirus HKU1 Not Detected Not Detected LAB MICROBIOLOGY METHOD 12/22/2024 7:29 PM [facility] Coronavirus OC43 Not Detected Not Detected LAB MICROBIOLOGY METHOD 12/22/2024 7:29 PM [facility] Coronavirus NL63 Not Detected Not Detected LAB MICROBIOLOGY METHOD 12/22/2024 7:29 PM [facility] Parainfluenza Virus 1 Not Detected Not Detected LAB MICROBIOLOGY METHOD 12/22/2024 7:29 PM [facility] Parainfluenza Virus 2 Not Detected Not Detected LAB MICROBIOLOGY METHOD 12/22/2024 7:29 PM [facility] Parainfluenza Virus 3 Not Detected Not Detected LAB MICROBIOLOGY METHOD 12/22/2024 7:29 PM [facility] Parainfluenza Virus 4 Not Detected Not Detected LAB MICROBIOLOGY METHOD 12/22/2024 7:29 PM [facility] RSV PCR Not Detected Not Detected LAB MICROBIOLOGY METHOD 12/22/2024 7:29 PM [facility] Human Metapneumovirus A and B Not Detected Not Detected LAB MICROBIOLOGY METHOD 12/22/2024 7:29 PM [facility] Rhinovirus/Entero virus Not Detected Not Detected LAB MICROBIOLOGY METHOD 12/22/2024 7:29 PM [facility] Bordetella pertussis Not Detected Not Detected LAB MICROBIOLOGY METHOD 12/22/2024 7:29 PM [facility] Bordetella parapertussis Not Detected Not Detected LAB MICROBIOLOGY METHOD 12/22/2024 7:29 PM EST [facility] Mycoplasma pneumo by PCR Not Detected Not Detected LAB MICROBIOLOGY METHOD 12/22/2024 7:29 PM EST [facility] Chlamydia pneumoniae Not Detected Not Detected LAB MICROBIOLOGY METHOD 12/22/2024 7:29 PM EST [facility] SARS COV-2 Not Detected Not Detected LAB MICROBIOLOGY METHOD 12/22/2024 7:29 PM EST [facility] Swab Both anterior nares / Unknown Non-blood Collection / Unknown 12/22/2024 6:06 PM EST 12/22/2024 6:12 PM EST Narrative [facility] - 12/22/2024 7:29 PM EST Testing was performed using the SeatSwapr Respiratory Pathogen PCR Assay. All results must [...] Organization Address City/[facility] [address]/ZIP Co de Phone Number [facility] [address] [place] [address], * Belcher urine culture tube (12/22/2024 6:06 PM EST) Extra Tube Hold for add-ons. 12/22/2024 8:01 PM EST [facility] Comment:Auto resulted. Urine Urine specimen obtained by clean catch procedure / Unknown Non-blood Collection / Unknown 12/22/2024 6:06 PM EST 12/22/2024 6:12 PM EST Navi Avila MD LAB URINE ORDERABLES [facility] [address] [place] [address], * Troponin I high sensitivity (12/22/2024 5:33 PM EST) [facility] High Sensitivity Troponin I 4 <=54 ng/L LAB CHEMISTRY METHOD 12/22/2024 6:12 PM EST [facility] Blood Venous blood specimen / Unknown Venipuncture / Unknown 12/22/2024 5:33 PM EST 12/22/2024 5:47 PM EST Narrative [facility] - 12/22/2024 6:12 PM EST High levels of biotin in samples may falsely decrease hsTroponin values. ??Use caution when interpreting hsTroponin results in patients taking biotin who exhibit renal impairment (eGFR <60) or in patients taking more than 20 mg/day of biotin. Navi Avila MD LAB BLOOD ORDERABLES [facility] [address] [place] [address], * CBC auto differential (12/22/2024 5:33 PM EST) Only the most recent of2 resultswithin the time period is included. [facility] WBC 6.6 4.8 - 10.8 K/mcL LAB HEMETOLOGY METHOD 12/22/2024 5:52 PM EST [facility] RBC 4.10 3.80 - 4.80 M/mcL LAB HEMETOLOGY METHOD 12/22/2024 5:52 PM [facility] Hemoglobin 12.1 11.5 - 16.0 g/dL LAB HEMETOLOGY METHOD 12/22/2024 5:52 PM [facility] Hematocrit 35.8 35.0 - 47.0 % LAB HEMETOLOGY METHOD 12/22/2024 5:52 PM EST [facility] MCV 87.3 79.0 - 98.0 FL LAB HEMETOLOGY METHOD 12/22/2024 5:52 PM [facility] MCH 29.5 27.0 - 32.0 pcg LAB HEMETOLOGY METHOD 12/22/2024 5:52 PM [facility] MCHC 33.8 32.0 - 37.0 g/dL LAB HEMETOLOGY METHOD 12/22/2024 5:52 PM [facility] RDW 12.4 11.0 - 15.0 % LAB HEMETOLOGY METHOD 12/22/2024 5:52 PM [facility] Platelets 237 130 - 400 K/mcL LAB HEMETOLOGY METHOD 12/22/2024 5:52 PM [facility] MPV 9.5 7.0 - 11.0 FL LAB HEMETOLOGY METHOD 12/22/2024 5:52 PM [facility] NRBC 0.0 <1.0 % LAB HEMETOLOGY METHOD 12/22/2024 5:52 PM [facility] NRBC Absolute 0.00 <0.10 K/mcL LAB HEMETOLOGY METHOD 12/22/2024 5:52 PM [facility] Neutrophils Relative 55.5 % LAB HEMETOLOGY METHOD 12/22/2024 5:52 PM [facility] Lymphocytes Relative 36.8 % LAB HEMETOLOGY METHOD 12/22/2024 5:52 PM [facility] Monocytes Relative 5.6 % LAB HEMETOLOGY METHOD 12/22/2024 5:52 PM [facility] Eosinophils Relative 1.1 % LAB HEMETOLOGY METHOD 12/22/2024 5:52 PM [facility] Basophils Relative 0.5 % LAB HEMETOLOGY METHOD 12/22/2024 5:52 PM [facility] Immature Granulocytes Relative 0.5 % LAB HEMETOLOGY METHOD 12/22/2024 5:52 PM EST [facility] Neutrophils Absolute 3.68 1.50 - 7.00 K/mcL LAB HEMETOLOGY METHOD 12/22/2024 5:52 PM EST [facility] Lymphocytes Absolute 2.43 1.00 - 5.00 K/mcL LAB HEMETOLOGY METHOD 12/22/2024 5:52 PM EST [facility] Monocytes Absolute 0.37 0.20 - 1.00 K/[facility] LAB HEMETOLOGY METHOD 12/22/2024 5:52 PM EST [facility] Eosinophils Absolute 0.07 0.00 - 0.50 K/[facility] LAB HEMETOLOGY METHOD 12/22/2024 5:52 PM EST [facility] Basophils Absolute 0.03 0.00 - 0.20 K/mcL LAB HEMETOLOGY METHOD 12/22/2024 5:52 PM EST [facility] Immature Granulocytes Absolute 0.03 0.00 - 0.03 K/[facility] LAB HEMETOLOGY METHOD 12/22/2024 5:52 PM EST [facility] Blood Venous blood specimen / Unknown Venipuncture / Unknown 12/22/2024 5:33 PM EST 12/22/2024 5:47 PM EST Navi Avila MD LAB BLOOD ORDERABLES [facility] [address] [place] [address], * (ABNORMAL) Magnesium (12/22/2024 5:33 PM EST) Magnesium 1.4(L) 1.9 - 2.6 mg/dL LAB CHEMISTRY METHOD 12/22/2024 6:09 PM EST [facility] Blood Venous blood specimen / Unknown Venipuncture / Unknown 12/22/2024 5:33 PM EST 12/22/2024 5:47 PM EST Navi Avila MD LAB BLOOD ORDERABLES [facility] [address] [place] [address], * (ABNORMAL) Basic metabolic panel (12/22/2024 5:33 PM EST) Sodium 136 133 - 145 mmol/L LAB CHEMISTRY METHOD 12/22/2024 6:09 PM [facility] Potassium 3.0(L) 3.5 - 5.5 mmol/L LAB CHEMISTRY METHOD 12/22/2024 6:09 PM [facility] Chloride 105 96 - 110 mmol/L LAB CHEMISTRY METHOD 12/22/2024 6:09 PM [facility] CO2 19(L) 21 - 32 mmol/L LAB CHEMISTRY METHOD 12/22/2024 6:09 PM [facility] Anion Gap 12(H) 3 - 11 LAB CHEMISTRY METHOD 12/22/2024 6:09 PM [facility] Glucose 119(H) 70 - 100 mg/dL LAB CHEMISTRY METHOD 12/22/2024 6:09 PM [facility] BUN 6 5 - 25 mg/dL LAB CHEMISTRY METHOD 12/22/2024 6:09 PM [facility] Creatinine 0.86 0.50 - 1.10 mg/dL LAB CHEMISTRY METHOD 12/22/2024 6:09 PM [facility] eGFR 91 >=60 mL/min/1. 73m2 LAB CHEMISTRY METHOD 12/22/2024 6:09 PM [facility] Comment:Calculation based on the??Chronic Kidney Disease Epidemiology Collaboration (CKD-EPI) equation refit??without adjustment for race. BUN/Creatinine Ratio 7.0 LAB CHEMISTRY METHOD 12/22/2024 6:09 PM [facility] Calcium 9.5 8.5 - 10.5 mg/dL LAB CHEMISTRY METHOD 12/22/2024 6:09 PM EST [facility] Blood Venous blood specimen / Unknown Venipuncture / Unknown 12/22/2024 5:33 PM EST 12/22/2024 5:47 PM EST Navi Avila MD LAB BLOOD ORDERABLES [facility] [address] [place] [address], * ECG-Annotated (12/22/2024) Only the most recent [...] reflex microscopic (12/19/2024 6:18 PM EST) Specific [place] Urine 1.019 1.003 - 1.030 LAB URINALYSIS - AUTOMATED METHOD 12/19/2024 6:42 PM [facility] pH, Urine 8.5(A) 5.0 - 8.0 pH LAB URINALYSIS - AUTOMATED METHOD 12/19/2024 6:42 PM [facility] Leukocytes, Urine Small(A) Negative LAB URINALYSIS - AUTOMATED METHOD 12/19/2024 6:42 PM [facility] Nitrite, Urine Negative Negative LAB URINALYSIS - AUTOMATED METHOD 12/19/2024 6:42 PM [facility] Protein, Urine 30(A) <=Trace mg/dL LAB URINALYSIS - AUTOMATED METHOD 12/19/2024 6:42 PM [facility] Glucose, Urine Negative Negative mg/dL LAB URINALYSIS - AUTOMATED METHOD 12/19/2024 6:42 PM [facility] Ketones, Urine >=80(A) Negative mg/dL LAB URINALYSIS - AUTOMATED METHOD 12/19/2024 6:42 PM [facility] Urobilinogen , Urine 1.0 0.2 - 1.0 mg/dL LAB URINALYSIS - AUTOMATED METHOD 12/19/2024 6:42 PM [facility] Bilirubin, Urine Negative Negative LAB URINALYSIS - AUTOMATED METHOD 12/19/2024 6:42 PM [facility] Blood, Urine Negative Negative LAB URINALYSIS - AUTOMATED METHOD 12/19/2024 6:42 PM [facility] RBC, Urine 1.9 0 - 4 /HPF LAB URINALYSIS - AUTOMATED METHOD 12/19/2024 6:42 PM [facility] WBC, Urine 2.9 0 - 4 /HPF LAB URINALYSIS - AUTOMATED METHOD 12/19/2024 6:42 PM [facility] Squamous Epithelial, Urine 76(H) 0 - 60 /LPF LAB URINALYSIS - AUTOMATED METHOD 12/19/2024 6:42 PM [facility] Bacteria, Urine Moderate(A) Negative /HPF LAB URINALYSIS - AUTOMATED METHOD 12/19/2024 6:42 PM [facility] Hyaline Casts, Urine 1.2 0 - 3 /LPF LAB URINALYSIS - AUTOMATED METHOD 12/19/2024 6:42 PM [facility] Urine Urine specimen obtained by clean catch procedure / Unknown Non-blood Collection / Unknown 12/19/2024 6:18 PM EST 12/19/2024 6:28 PM EST Navi Avila MD LAB URINE ORDERABLES [facility] [address] [place] [address], * Lipase (12/19/2024 5:24 PM EST) Lipase 32 13 - 75 unit/L LAB CHEMISTRY METHOD 12/19/2024 6:31 PM [facility] Blood Venous blood specimen / Unknown Venipuncture / Unknown 12/19/2024 5:24 PM EST 12/19/2024 5:34 PM EST Narrative Authorizing Provider Result Robert Avila MD LAB BLOOD ORDERABLES [facility] [address] [place] [address], [place] [phone] * (ABNORMAL) Comprehensive metabolic panel (12/19/2024 5:24 PM EST) Sodium 138 133 - 145 mmol/L LAB CHEMISTRY METHOD 12/19/2024 6:31 PM [facility] Potassium 3.8 3.5 - 5.5 mmol/L LAB CHEMISTRY METHOD 12/19/2024 6:31 PM [facility] Comment:Hemolysis present Chloride 110 96 - 110 mmol/L LAB CHEMISTRY METHOD 12/19/2024 6:31 PM [facility] CO2 18(L) 21 - 32 mmol/L LAB CHEMISTRY METHOD 12/19/2024 6:31 PM [facility] Anion Gap 10 3 - 11 LAB CHEMISTRY METHOD 12/19/2024 6:31 PM [facility] Glucose 87 70 - 100 mg/dL LAB CHEMISTRY METHOD 12/19/2024 6:31 PM [facility] BUN 6 5 - 25 mg/dL LAB CHEMISTRY METHOD 12/19/2024 6:31 PM [facility] Creatinine 0.74 0.50 - 1.10 mg/dL LAB CHEMISTRY METHOD 12/19/2024 6:31 PM [facility] eGFR 109 >=60 mL/min/1. 73m2 LAB CHEMISTRY METHOD 12/19/2024 6:31 PM [facility] Comment:Calculation based on the??Chronic Kidney Disease Epidemiology Collaboration (CKD-EPI) equation refit??without adjustment for race. BUN/Creatinine Ratio 8.1 LAB CHEMISTRY METHOD 12/19/2024 6:31 PM [facility] Calcium 9.5 8.5 - 10.5 mg/dL LAB CHEMISTRY METHOD 12/19/2024 6:31 PM [facility] AST (SGOT) 27 10 - 42 unit/L LAB CHEMISTRY METHOD 12/19/2024 6:31 PM [facility] Comment:Hemolysis present ALT (SGPT) 15 10 - 60 unit/L LAB CHEMISTRY METHOD 12/19/2024 6:31 PM [facility] Alkaline Phosphatase 53 42 - 121 unit/L LAB CHEMISTRY METHOD 12/19/2024 6:31 PM [facility] Total Protein 7.9 6.0 - 8.0 g/dL LAB CHEMISTRY METHOD 12/19/2024 6:31 PM [facility] Albumin 4.3 3.2 - 5.0 g/dL LAB CHEMISTRY METHOD 12/19/2024 6:31 PM [facility] Total Bilirubin 0.7 0.0 - 1.4 mg/dL LAB CHEMISTRY METHOD 12/19/2024 6:31 PM [facility] Blood Venous blood specimen / Unknown Venipuncture / Unknown 12/19/2024 5:24 PM EST 12/19/2024 5:34 PM EST Navi Avila MD LAB BLOOD ORDERABLES [facility] [address] [place] [address], from Last 3 Months Care Teams Finishing Range Supervisor Relationship Specialty Start Date End Date Carmela Gaytan MD [address] [place] [address] PCP - General Internal Medicine 12/19/24
--- OUTSIDE RECORDS SUMMARY | 2024-12-30 10:41 | XMS_ITS | Data Portability ---
Author Organization [facility] [address] Address [address] [place] [address] Assessment No assessment recorded. Plan of Treatment Reminders Order Date Submit Date Provider Last Modified By Organization Details Last Modified Time Details Appointments None recorded. Lab rapid flu (A+B) 2023 024 [place] [address] [address] [address], [address] [place], [address], 4 20:32:14 SARS CoV 2 (COVID-19) Ag, QL, IA, upper respiratory specimen 2023 024 [facility] [address] [address] [place], [address], 4 20:32:13 Referral None recorded. Procedures None recorded. Surgeries None recorded. Imaging None recorded. Medication Orders azithromyci n 250 mg tablet [address]/Pharmacy #[id number], [address] [place], [address], 4 20:32:12 benzonatate 100 mg capsule 2023 024 [facility]/Pharmacy #[id number], [address] [place], [address], 4 20:32:29 Patient TargetsNo targets recorded. Patient Instructions Encounter Date Encounter Id Patient Instructions Last Modified By Organization Details Last Modified Time 03/14/2024 [id number] Acute Sinusitis: Care Instructions Not available 03/14/2024 20:32:12 influenza (flu): care instructions Not available 03/14/2024 20:32:27 Reason for Referral None Reported. Results Created Date Observation Date Name Description Value Unit Range Abnormal Flag Note LastModifiedBy Organization Detail LastModifiedTime 03/14/20 24 03/14/2024 SARS CoV 2 (COVI D-19) Ag, QL, IA, upper respi rator y speci men Unknown Analyte negati ve Not Available [address] [place] [address] [address] [place], [address], 03/14/2024 19:19:41 03/14/20 24 03/14/2024 SARS CoV 2 (COVI D-19) Ag, QL, IA, upper respi rator y speci men Unknown Analyte yes Not Available [address] [place] [address] [address] [place], [address], 03/14/2024 19:19:41 03/14/20 24 03/14/2024 rapid flu (A+B) Unknown Analyte negati ve Not Available [address] [place] [address] [address] [place], [address], 03/14/2024 19:19:39 03/14/20 24 03/14/2024 rapid flu (A+B) Unknown Analyte positi ve Not Available [address] [facility] [address] [place], [address], 03/14/2024 19:19:39 03/14/20 24 03/14/2024 rapid flu (A+B) Unknown Analyte yes Not Available [address] [place] [address] [address] [place], [address], 03/14/2024 19:19:39 Result Notes None recorded. Problems Name Problem SNOMED Code Status Onset Date Resolution Date Notes Provider Name and Address Organization Details Recorded Time Anxiety [id number] Active NAHID Jacobson - [facility] 03/14/2024 [...] Not Available Vitals Date Recorded Body height Body mass index (BMI) Body weight Oxygen saturation Oxygen saturation in Arterial blood by Pulse oximetry Heart rate Respiratory rate Body temperature Systolic blood pressure Diastolic blood pressure Provider Name and Address Organization Details Last Updated DateTime 4 165.1 cm 24 kg/m2 71874.3 g 100 % 100 % 97 /min 16 /min 98.5 [degF] 122 mm[Hg] 82 mm[Hg] Karrie Mosley PA - [facility] 18:47:59 Social History Question Answer Notes LastModified [...] Influenza, MDCK, quadrivalent, PF 3 completed Karrie bernard PA - [facility] 03/14/2024 18:31:43 COVID-19, mRNA, LNP-S, PF, 30 mcg/0.3 mL dose, delphine-sucrose 2 completed Karrie bernard PA - [facility] 03/14/2024 18:31:43 COVID-19, [...] SNOMED-CT Code Diagnosis ICD10 Code Diagnosis Note [id number] [address] [place] [address] 09/20/2020 13:48:12 09/20/2020 16:27:37 [id number] [address] [place] [address] 04/12/2021 19:09:06 04/12/2021 19:48:02 [id number] [address] [place] [address] 01/25/2020 12:05:46 01/25/2020 13:45:29 [id number] [place] [address] [place] [address] 03/14/2024 18:09:23 03/14/2024 20:33:19 Upper respiratory infection 12633291 J06.9 Wheezing 53674938 R06.2 Acute sinusitis 60032310 J01.90 Influenza caused by Influenza B virus 52906996 J10.1 Advised to rest , maintain hydration, Tylenol and motrin as and when needed, and continue precaution s as directed. .Please inform cloth washer/ PCP and follow up with them in [...] Sher Member ID Guarantor Name 01/25/2020 1 [facility] (MEDICAID REPLACEMENT - HMO) [place] Sherly Pyle [id number] Sherly Pyle 04/12/2021 1 [facility] (MEDICAID REPLACEMENT - HMO) [place] Sherly Pyle [id number] Sherly Pyle 03/14/2024 1 [facility] (MEDICAID REPLACEMENT - HMO) [place] Sherly Pyle [id number] Sherly Pyle Notes Date Note Type Note [...] breath;hurts to breath Erasmo Collins MD [address] [place], [address], [place] - [facility] 03/14/2024 21:11:54 OBGyn Episode No OBEpisode recorded.
--- OUTSIDE RECORDS SUMMARY | 2024-12-30 10:41 | XMS_ITS | Encounter Summary ---
Author Organization [facility] Address [address] [place] [address] Care Team Providers Care Coloring Room Worker Name Role Phone Carmela Gaytan MD Primary Care Provider [phone] Reason for Visit * Reason Comments Diarrhea Encounter Details Date Type Department Care Team ([facility] st Contact Info) Description 12/19/2024 3:31 PM EST - 12/19/2024 10:49 PM EST Emergency [facility] Emergency [address] [place] [address] Navi Avila MD [address] [place] [address] Clostridium difficile diarrhea (Primary Dx) Discharge Disposition: [...] 10:23 PM EST Thank you for choosing [facility]'s Emergency Department for your care today. [...] a primary care physician, please call the [facility] at [phone] toestablish a new primary care physician. Please return to the emergency department if you develop a sudden severe change in your symptoms, afever over 100.4,, severe or recurrent vomiting,, or a sudden increase in pain, or if you experience any other new or worsening symptoms or concerns. * Attachments The following attachments cannot be sent through Care Everywhere. * Clostridioides difficile colitis (Sinhala) documented in this encounter Medications at Time [...] Notes * Navi Avila MD - 12/19/2024 10:49 PM EST ED Course as of 12/22/24 0609 SunDec 19, 20242008 Patient sinus provider at shift change, in summary patient is a 34-year-old female diagnosed with C. difficile 2 days ago, no improvement after 48 hours of Flagyl. Patient pending CT at time of signout, if unremarkable CT patient will be safe for discharge with change to oral vancomycin. [RM] 2210 CT has resulted and shows no toxic megacolon, there is a 2 mm nonobstructing right superior renal stone, a fibroid, and findings consistent with possible pelvic congestion syndrome. At this timepatient is safe for discharge, we will discharge with prescription for oral vancomycin. [RM] ED Course User Index [RM] NAHID Morse Clinical Impressions as of 12/22/24 0609 Clostridium difficile diarrhea Discharge 1. Clostridium difficile diarrhea Procedures * Navi Avila MD - 12/19/2024 8:13 [...] difficile infection; as she works as a [employer], and her clinic had C. difficile. 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 Ovarian cyst 2009 DX:Ovarian cyst Postinflammatory hyperpigmentation 02/25/2013 DX:Postinflammatory hyperpigmentation Past Surgical History: Procedure Laterality Date APPENDECTOMY 03/26/14 laparoscopic PROCEDURE: HISTORICAL APPENDECTOMY; COMMENT: Dr Yordy Rolon [facility] COLONOSCOPY 06/28/2010 PROCEDURE: SC COLONOSCOPY STOMA DX INCLUDING COLLJ SPEC SPX; COMMENT: normal to terminal ileum to 20 cm ESOPHAGOGASTRODUODENOSCOPY 01/22/14 PROCEDURE: SC ESOPHAGOGASTRODUODENOSCOPY TRANSORAL DIAGNOSTIC; COMMENT: normal; normal duodenal [...] MD on 12/19/2024 21:14:25 Navi Avila MD [place] [facility] PROCEDURES * (ABNORMAL) Urinalysis with reflex microscopic (12/19/2024 6:18 PM EST) Specific [place] Urine 1.019 1.003 - 1.030 LAB URINALYSIS - AUTOMATED METHOD 12/19/2024 6:42 PM EST [facility] pH, Urine 8.5(A) 5.0 - 8.0 pH LAB URINALYSIS - AUTOMATED METHOD 12/19/2024 6:42 PM EST [facility] Leukocytes, Urine Small(A) Negative LAB URINALYSIS - AUTOMATED METHOD 12/19/2024 6:42 PM [facility] Nitrite, Urine Negative Negative LAB URINALYSIS - AUTOMATED METHOD 12/19/2024 6:42 PM [facility] Protein, Urine 30(A) <=Trace mg/dL LAB URINALYSIS - AUTOMATED METHOD 12/19/2024 6:42 PM [facility] Glucose, Urine Negative Negative mg/dL LAB URINALYSIS - AUTOMATED METHOD 12/19/2024 6:42 PM [facility] Ketones, Urine >=80(A) Negative mg/dL LAB URINALYSIS - AUTOMATED METHOD 12/19/2024 6:42 PM [facility] Urobilinogen , Urine 1.0 0.2 - 1.0 mg/dL LAB URINALYSIS - AUTOMATED METHOD 12/19/2024 6:42 PM [facility] Bilirubin, Urine Negative Negative LAB URINALYSIS - AUTOMATED METHOD 12/19/2024 6:42 PM [facility] Blood, Urine Negative Negative LAB URINALYSIS - AUTOMATED METHOD 12/19/2024 6:42 PM [facility] RBC, Urine 1.9 0 - 4 /HPF LAB URINALYSIS - AUTOMATED METHOD 12/19/2024 6:42 PM [facility] WBC, Urine 2.9 0 - 4 /HPF LAB URINALYSIS - AUTOMATED METHOD 12/19/2024 6:42 PM [facility] Squamous Epithelial, Urine 76(H) 0 - 60 /LPF LAB URINALYSIS - AUTOMATED METHOD 12/19/2024 6:42 PM [facility] Bacteria, Urine Moderate(A) Negative /HPF LAB URINALYSIS - AUTOMATED METHOD 12/19/2024 6:42 PM [facility] Hyaline Casts, Urine 1.2 0 - 3 /LPF LAB URINALYSIS - AUTOMATED METHOD 12/19/2024 6:42 PM EST [facility] Urine Urine specimen obtained by clean catch procedure / Unknown Non-blood Collection / Unknown 12/19/2024 6:18 PM EST 12/19/2024 6:28 PM EST Navi Avila MD LAB URINE ORDERABLES [facility] [address] [place] [address], * POC , urine manually resulted (12/19/2024 6:18 PM EST) HCG, Ur POC Negative Negative POC hCG Int QC Pass? Yes Yes Urine Urine specimen obtained by clean catch procedure / Unknown 12/19/2024 6:18 PM EST Navi Avila MD POINT OF CARE TEST E NTER/EDIT ORDERABLES * CBC auto differential (12/19/2024 5:24 PM EST) WBC 7.3 4.8 - 10.8 K/mcL LAB HEMETOLOGY METHOD 12/19/2024 5:42 PM [facility] RBC 4.50 3.80 - 4.80 M/mcL LAB HEMETOLOGY METHOD 12/19/2024 5:42 PM [facility] Hemoglobin 13.2 11.5 - 16.0 g/dL LAB HEMETOLOGY METHOD 12/19/2024 5:42 PM [facility] Hematocrit 39.6 35.0 - 47.0 % LAB HEMETOLOGY METHOD 12/19/2024 5:42 PM [facility] MCV 87.8 79.0 - 98.0 FL LAB HEMETOLOGY METHOD 12/19/2024 5:42 PM [facility] MCH 29.3 27.0 - 32.0 pcg LAB HEMETOLOGY METHOD 12/19/2024 5:42 PM [facility] MCHC 33.3 32.0 - 37.0 g/dL LAB HEMETOLOGY METHOD 12/19/2024 5:42 PM [facility] RDW 12.3 11.0 - 15.0 % LAB HEMETOLOGY METHOD 12/19/2024 5:42 PM [facility] Platelets 251 130 - 400 K/mcL LAB HEMETOLOGY METHOD 12/19/2024 5:42 PM [facility] MPV 9.4 7.0 - 11.0 FL LAB HEMETOLOGY METHOD 12/19/2024 5:42 PM [facility] NRBC 0.0 <1.0 % LAB HEMETOLOGY METHOD 12/19/2024 5:42 PM [facility] NRBC Absolute 0.00 <0.10 K/mcL LAB HEMETOLOGY METHOD 12/19/2024 5:42 PM [facility] Neutrophils Relative 50.7 % LAB HEMETOLOGY METHOD 12/19/2024 5:42 PM [facility] Lymphocytes Relative 41.2 % LAB HEMETOLOGY METHOD 12/19/2024 5:42 PM [facility] Monocytes Relative 7.0 % LAB HEMETOLOGY METHOD 12/19/2024 5:42 PM [facility] Eosinophils Relative 0.7 % LAB HEMETOLOGY METHOD 12/19/2024 5:42 PM [facility] Basophils Relative 0.3 % LAB HEMETOLOGY METHOD 12/19/2024 5:42 PM [facility] Immature Granulocytes Relative 0.1 % LAB HEMETOLOGY METHOD 12/19/2024 5:42 PM [facility] Neutrophils Absolute 3.69 1.50 - 7.00 K/mcL LAB HEMETOLOGY METHOD 12/19/2024 5:42 PM [facility] Lymphocytes Absolute 3.00 1.00 - 5.00 K/mcL LAB HEMETOLOGY METHOD 12/19/2024 5:42 PM EST [facility] Monocytes Absolute 0.51 0.20 - 1.00 K/[facility] LAB HEMETOLOGY METHOD 12/19/2024 5:42 PM EST [facility] Eosinophils Absolute 0.05 0.00 - 0.50 K/[facility] LAB HEMETOLOGY METHOD 12/19/2024 5:42 PM EST [facility] Basophils Absolute 0.02 0.00 - 0.20 K/[facility] LAB HEMETOLOGY METHOD 12/19/2024 5:42 PM EST [facility] Immature Granulocytes Absolute 0.01 0.00 - 0.03 K/[facility] LAB HEMETOLOGY METHOD 12/19/2024 5:42 PM EST [facility] Blood Venous blood specimen / Unknown Venipuncture / Unknown 12/19/2024 5:24 PM EST 12/19/2024 5:34 PM EST Navi Avila MD LAB BLOOD ORDERABLES [facility] [address] [place] [address], [place] [phone] * Lipase (12/19/2024 5:24 PM EST) Lipase 32 13 - 75 unit/L LAB CHEMISTRY METHOD 12/19/2024 6:31 PM EST [facility] Blood Venous blood specimen / Unknown Venipuncture / Unknown 12/19/2024 5:24 PM EST 12/19/2024 5:34 PM EST Navi Avila MD LAB BLOOD ORDERABLES [facility] [address] [place] [address], [place] [phone] * (ABNORMAL) Comprehensive metabolic panel (12/19/2024 5:24 PM [facility]) Sodium 138 133 - 145 mmol/L LAB CHEMISTRY METHOD 12/19/2024 6:31 PM [facility] Potassium 3.8 3.5 - 5.5 mmol/L LAB CHEMISTRY METHOD 12/19/2024 6:31 PM [facility] Comment:Hemolysis present Chloride 110 96 - 110 mmol/L LAB CHEMISTRY METHOD 12/19/2024 6:31 PM [facility] CO2 18(L) 21 - 32 mmol/L LAB CHEMISTRY METHOD 12/19/2024 6:31 PM [facility] Anion Gap 10 3 - 11 LAB CHEMISTRY METHOD 12/19/2024 6:31 PM [facility] Glucose 87 70 - 100 mg/dL LAB CHEMISTRY METHOD 12/19/2024 6:31 PM [facility] BUN 6 5 - 25 mg/dL LAB CHEMISTRY METHOD 12/19/2024 6:31 PM [facility] Creatinine 0.74 0.50 - 1.10 mg/dL LAB CHEMISTRY METHOD 12/19/2024 6:31 PM [facility] eGFR 109 >=60 mL/min/1. 73m2 LAB CHEMISTRY METHOD 12/19/2024 6:31 PM [facility] Comment:Calculation based on the??Chronic Kidney Disease Epidemiology Collaboration (CKD-EPI) equation refit??without adjustment for race. BUN/Creatinine Ratio 8.1 LAB CHEMISTRY METHOD 12/19/2024 6:31 PM [facility] Calcium 9.5 8.5 - 10.5 mg/dL LAB CHEMISTRY METHOD 12/19/2024 6:31 PM [facility] AST (SGOT) 27 10 - 42 unit/L LAB CHEMISTRY METHOD 12/19/2024 6:31 PM [facility] Comment:Hemolysis present ALT (SGPT) 15 10 - 60 unit/L LAB CHEMISTRY METHOD 12/19/2024 6:31 PM EST [facility] Alkaline Phosphatase 53 42 - 121 unit/L LAB CHEMISTRY METHOD 12/19/2024 6:31 PM EST [facility] Total Protein 7.9 6.0 - 8.0 g/dL LAB CHEMISTRY METHOD 12/19/2024 6:31 PM EST [facility] Albumin 4.3 3.2 - 5.0 g/dL LAB CHEMISTRY METHOD 12/19/2024 6:31 PM EST [facility] Total Bilirubin 0.7 0.0 - 1.4 mg/dL LAB CHEMISTRY METHOD 12/19/2024 6:31 PM EST [facility] Blood Venous blood specimen / Unknown Venipuncture / Unknown 12/19/2024 5:24 PM EST 12/19/2024 5:34 PM EST Navi Avila MD LAB BLOOD ORDERABLES [facility] [address] [place] [address], documented in this encounter Visit Diagnoses Diagnosis Clostridium difficile diarrhea- Primary Intestinal infection due to clostridium difficile documented in this encounter Administered Medications Inactive Administered Medications - up to 3 most recent administrations Medication Order MAR Action Action Date Dose Rate Site iopamidoL (ISOVUE-370) 370 mg iodine /mL (76 %) injection 90 mL 90 mL, intravenous, Once in imaging, Starting on Sun12/19/24 at 2016, For 1 dose Given 12/19/2024 8:22 PM EST 90 mL sodium chloride 0.9 % bolus 1,000 mL 1,000 mL, intravenous, at 2,000 mL/hr, Administer over 30 Minutes, Once, On Sun12/19/24 at 1941, For 1 dose New Bag 12/19/2024 7:49 [...] Once in imaging, Starting on Sun12/19/24 at 2016, For 1 dose 2021 (Given - Provid er: Iliana Donald) sodium chloride 0.9 % bolus 1,000 mL (COMPLETED) 1,000 mL, intravenous, at 2,000 mL/hr, Administer over 30 Minutes, Once, On Sun12/19/24 at 1941, For 1 dose 1948 (New Bag - Prov ider: Didier Silver RN)2018 (Stopped - Provider: Didier Silver RN) documented in this encounter Orders Medications Ordered That Michael ht Not Have Been Administered Count Last Ordered Date First Ordered Date sodium chloride 0.9 % flush 10 mL 1 025 Isolation Count Last Ordered Date First Orde red Date INITIATE CONTACT ISOLATION 12/19/2024 documented in this encounter Care Teams Coloring Room Worker Relationship Specialty Start Date End Date Carmela Gaytan MD [address] [place] [id number] PCP - General Internal Medicine 12/19/24 documented as of this encounter
--- OUTSIDE RECORDS SUMMARY | 2024-12-30 10:41 | XMS_ITS | Encounter Summary ---
Author Organization [facility] Address [address] [place] [address] Care Team Providers Care Reference And Instruction Librarian Name Role Phone Carmela Gaytan MD Primary Care Provider [phone] Reason for Visit * Reason Comments Palpitations Encounter Details Date Type Department Care Team ([facility] st Contact Info) Description 12/22/2024 5:08 PM EST - 12/22/2024 9:17 PM EST Emergency [facility] Emergency [address] [place] [address] Dehydration (Primary Dx) Discharge Disposition: Home or [...] or any other concern. Get well soon! [facility] Primary Care & Specialty Office Locations [place] [phone] [place] [phone] [place] ([address]) [phone] [place] ([address]) [phone] Orthopedics: [phone] Thank you for coming to the [facility] Emergency Department today. Our entire team works [...] be sent through Care Everywhere. * Dehydration (Irish) documented in this encounter Medications at Time [...] like I'm going to pass out . * Navi Avila MD - 12/22/2024 4:57 PM EST Images from the original note were not included. [facility] Emergency Department Encounter Note Patient Name: Sherly Pyle Initial Evaluation: 12/22/2024 : 1990 Patient's PCP: Carmela Gaytan MD Emergency Provider: NAHID Wheatley Chief Complaint Patient presents with Palpitations History of Present Illness HPI: 34-year-old female presents for evaluation of palpitations. Patient states that she had gone to thestore and upon returning she had sudden onset headache followed by rapid heart rate. She denies feeling lightheaded or syncope. She reports rapid heart rate. She does have a history of anxiety but states that this is much different. Of note, the patient is currently being treated for C. difficile with Flagyl and Vanco. Patient states she continues to have episodes of loose watery stool. She denies any fevers or chills. She does not have a history of routine headaches. 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 Negative for shortness of breath and wheezing. Cardiovascular: Positive for palpitations. Negative for chest pain and leg swelling. Gastrointestinal: Positive for diarrhea. Negative for abdominal pain. Neurological: Positive for headaches. Negative for syncope and weakness. I have performed a ROS with the pertinent positives and negatives documented in the history of present illness. 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 Ovarian cyst 2009 DX:Ovarian cyst Postinflammatory hyperpigmentation 02/25/2013 DX:Postinflammatory hyperpigmentation Past Surgical History: Past Surgical History: Procedure Laterality Date APPENDECTOMY 03/26/14 laparoscopic PROCEDURE: HISTORICAL APPENDECTOMY; COMMENT: Dr Yordy Rolon [facility] COLONOSCOPY 06/28/2010 PROCEDURE: [place] COLONOSCOPY STOMA DX INCLUDING COLLJ SPEC SPX; COMMENT: normal to terminal ileum to 20 cm ESOPHAGOGASTRODUODENOSCOPY 01/22/14 PROCEDURE: [place] ESOPHAGOGASTRODUODENOSCOPY TRANSORAL DIAGNOSTIC; COMMENT: normal; normal duodenal biopsies Medications: Patient's Medications New Prescriptions No medications on file Previous Medications VANCOMYCIN (VANCOCIN) 125 MG CAPSULE Take 1 capsule (125 mg total) by mouth 4 (four) times a day for 10 days. Modified Medications No medications on file Discontinued Medications No medications on file Allergies: Patient has no known allergies. Social and Family History: Social History Tobacco Use Smoking status: Former Smokeless tobacco: Former Substance Use Topics Alcohol use: Yes Family History Problem Relation Name Age of Onset Hypertension Maternal Grandfather Heart attack Maternal Grandfather Stroke Maternal Grandfather Stroke Maternal Grandmother Hypertension Paternal Grandmother Hypertension Paternal Grandfather Hyperlipidemia Paternal Grandmother Hyperlipidemia Paternal Grandfather Blindness Neg Hx Cataracts Neg Hx Glaucoma Neg Hx Macular degeneration Neg Hx Strabismus Neg Hx Physical Exam ED Triage Vitals [12/22/24 1700] Temp Heart Rate Resp BP 36.8 ??C (98.2 ??F) (!) 121 24 138/86 SpO2 Temp src Heart Rate Source Patient Position 100 % -- -- Sitting BP Location FiO2 (%) Left arm -- Physical Exam Vitals and nursing note reviewed. Constitutional: General: She is not in acute distress. HENT: Head: Normocephalic. Eyes: Pupils: Pupils are equal, round, and reactive to light. Cardiovascular: Comments: Tachycardic, regular rhythm Pulmonary: Effort: No respiratory distress. Breath sounds: Normal breath sounds. No wheezing. Abdominal: General: Bowel sounds are normal. Palpations: Abdomen is soft. Tenderness: There is no abdominal tenderness. Musculoskeletal: General: No swelling. Skin: General: Skin is warm and dry. Neurological: Mental Status: She is alert and oriented to person, place, and time. Psychiatric: Mood and Affect: Mood normal. ED Results: ED Labs: Labs Reviewed RESPIRATORY VIRUS PANEL MOLECULAR STUDY CBC AND DIFFERENTIAL Narrative: The following orders were created for panel order CBC and differential. Procedure Abnormality Status --------- ------ CBC auto differential[[id number]] Final result Please view results for these tests on the individual orders. CBC WITH AUTO DIFFERENTIAL Result Value WBC 6.6 RBC 4.10 Hemoglobin 12.1 Hematocrit 35.8 MCV 87.3 MCH 29.5 MCHC 33.8 RDW 12.4 Platelets 237 MPV 9.5 NRBC 0.0 NRBC Absolute 0.00 Neutrophils Relative 55.5 Lymphocytes Relative 36.8 Monocytes Relative 5.6 Eosinophils Relative 1.1 Basophils Relative 0.5 Immature Granulocytes Relative 0.5 Neutrophils Absolute 3.68 Lymphocytes Absolute 2.43 Monocytes Absolute 0.37 Eosinophils Absolute 0.07 Basophils Absolute 0.03 Immature Granulocytes Absolute 0.03 BASIC METABOLIC PANEL MAGNESIUM TROPONIN I HIGH SENSITIVITY TROPONIN I HIGH SENSITIVITY URINALYSIS WITH REFLEX MICROSCOPIC AND CULTURE Narrative: The following orders were created for panel order Urinalysis with reflex microscopic and culture. Procedure Abnormality Status --------- ------ Urinalysis with reflex ...[[id number]] [facility] urine culture tube[[id number]] Please view results for these tests on the individual orders. URINALYSIS WITH REFLEX MICROSCOPIC AND CULTURE POC , URINE DIAGNOSTIC POCT GLUCOSE, BLOOD ED EKG: No results found for this or any previous visit (from the past 4464 hour(s)). ED Radiology: XR Chest 2 Views (Results Pending) The laboratory results, imaging results and other diagnostic exam results related to this ED encounter were reviewed in the EMR. ED Procedures: Procedures ED Administered Mediations: Medications sodium chloride 0.9 % bolus 1,000 mL (has no administration in time range) LORazepam (ATIVAN) injection 0.5 mg (has no administration in time range) ED Pre-Disposition Vitals: Vitals: 12/22/24 1700 BP: 138/86 Pulse: (!) 121 Resp: 24 Temp: 36.8 ??C (98.2 ??F) SpO2: 100% Differential Diagnosis Arrhythmia Metabolic abnormality Dehydration Anxiety Medical Decision Making, ED Course Medical Decision Making 34-year-old female currently going treatment for C. difficile, presents with palpitations and headache. Patient found to be in sinus rhythm at 128. She does report palpitations. No risk factors for PE. Check labs, EKG, IV fluids and anxiolytics. Amount and/or Complexity of Data Reviewed Labs: ordered. Radiology: ordered and independent interpretation performed. Details: Chest x-ray without any acute process. ECG/medicine tests: ordered. Please see ED Course below for updates regarding ED results and course of the ED visit. ED Course: ED Course as of 12/22/242056 Mon Dec 22, 2024 2041 Patient reports significant improvement of her symptoms. She has received IV fluids as well asrepletion of magnesium and potassium. EKG without any acute changes. Patient feels comfortable discharge plan home. She will continue brat diet as well as her medications. Patient expresses understanding of all discharge instructions and has no further questions at this time. [JS] ED Course User Index [JS] NAHID Razo Clinical Impressions as of 12/22/242056 Dehydration ED Prescriptions: ED Prescriptions None Disposition: Data Unavailable Condition: Diagnosis / Impression: Final diagnoses: None Provider Attestation This is a split/shared visit with NAHID Razo. I personally performed the medical decision making (MDM) for the care of this patient on 12/22/24 asdocumented below 34Y F with current C. Diff infection presents with CC of palpitations. Patient denies feeling lightheaded, syncope. She reports diarrhea is getting somewhat better since changed vancomycin. She denies any complaints of chest pain, SOB, abdominal pain. GENERAL: Well-Appearing, well-nourished patient. SKIN: [place], warm, dry. No rashes. HEENT: No stridor, no lymphadenopathy. NECK: Soft, supple, full ROM. CHEST: Heart regular rate and rhythm. PULMONARY: Clear to auscultation bilaterally without any adventitious lung sounds. ABDOMINAL: Soft, nondistended non-tender. MUSCULOSKELETAL: Normal tone full range of motion, 5 x 5 motor. NEURO: Alert and oriented x3, Cranial nerves II through XII are intact, extraocular motions are intact, bicipital reflexes and patellar reflexes are normal. PSYCHIATRIC: Normal affect, fluid speech, good eye contact and appropriate demeanor. Hypokalemia and hypomagnesemia noted on labs. Patient felt improved in ER. Stable for DC with follow up with PCP. Return precautions discussed. Patient understood and agreed with plan. Navi Avila MD 12/26/24 12:36 AM EST Navi Avila MD Electronically signed by JJ Wheatley PA 12/22/24 175 NAHID Razo 12/22/242056 NAHID Razo 12/22/24 2323 Navi Avila MD 12/26/24 0043 documented in this encounter Plan of Treatment [...] GEMUSE QTc 450 ms GEMUSE P Wave Maxwell 68 degrees GEMUSE R Maxwell 35 degrees GEMUSE T Maxwell 45 degrees GEMUSE ECG Interpretation Normal sinus rhythm Incomplete right bundle branch block Borderline ECG When compared with ECG of 22-DEC-2024 17:04, ST less depressed in Inferior leads ST no longer depressed in Anterior leads Nonspecific T wave abnormality no longer evident in Inferior leads Confirmed by MD Sudarshan, Bunny ([id number]) on 12/24/2024 9:07:07 AM G[facility] 12/22/2024 8:15 PM EST 12/24/2024 9:07 AM EST Navi Avila MD ECG ORDERABLES [facility] * XR Chest 2 Views (12/22/2024 6:59 PM EST) Anatomical Region Laterality Modality Body Radiographic Sharri ging 12/23/2024 8:22 AM EST Impressions 12/23/2024 8:22 AM EST Impression: No active pulmonary process identified. Telerad NAHID ([id number]) -------- FINAL REPORT -------- Dictated By: Cheryl Rodriguez Dictated Date: 12/23/2024 08:22 ET Assigned Physician: Cheryl Rodriguez Reviewed and Electronically Signed By: Cheryl Rodriguez Signed Date: 12/23/2024 08:22 ET Workstation ID: [id number] Transcribed By: Self Edit Transcribed Date: 12/23/2024 [...] No active pulmonary process identified. Telerad NAHID ([id number]) -------- FINAL REPORT -------- Dictated By: Cheryl Rodriguez Dictated Date: 12/23/2024 08:22 ET Assigned Physician: Cheryl Rodriguez Reviewed and Electronically Signed By: Cheryl Rodriguez Signed Date: 12/23/2024 08:22 ET Workstation ID: [id number] Transcribed By: Self Edit Transcribed Date: 12/23/2024 08:22 ET Navi Avila MD IMG XR PROCEDURES * POC , urine manually resulted (12/22/2024 6:29 PM EST) HCG, Ur POC Negative Negative POC hCG Int QC Pass? Yes Yes EXPIRATION DATE POC 04/23/26 LOT NUMBER POC [id number] Urine Urine specimen obtained by clean catch procedure / Unknown 12/22/2024 6:29 PM EST Navi Avila MD POINT OF CARE TEST E NTER/EDIT ORDERABLES * Respiratory virus panel molecular study (12/22/2024 6:06 PM EST) Pathologist [facility] Adenovirus Detection by PCR Not Detected Not Detected LAB MICROBIOLOGY METHOD 12/22/2024 7:29 PM [facility] Influenza A PCR Not Detected Not Detected LAB MICROBIOLOGY METHOD 12/22/2024 7:29 PM [facility] Influenza B PCR Not Detected Not Detected LAB MICROBIOLOGY METHOD 12/22/2024 7:29 PM [facility] Coronavirus 229E Not Detected Not Detected LAB MICROBIOLOGY METHOD 12/22/2024 7:29 PM [facility] Coronavirus HKU1 Not Detected Not Detected LAB MICROBIOLOGY METHOD 12/22/2024 7:29 PM [facility] Coronavirus OC43 Not Detected Not Detected LAB MICROBIOLOGY METHOD 12/22/2024 7:29 PM [facility] Coronavirus NL63 Not Detected Not Detected LAB MICROBIOLOGY METHOD 12/22/2024 7:29 PM [facility] Parainfluenza Virus 1 Not Detected Not Detected LAB MICROBIOLOGY METHOD 12/22/2024 7:29 PM [facility] Parainfluenza Virus 2 Not Detected Not Detected LAB MICROBIOLOGY METHOD 12/22/2024 7:29 PM [facility] Parainfluenza Virus 3 Not Detected Not Detected LAB MICROBIOLOGY METHOD 12/22/2024 7:29 PM [facility] Parainfluenza Virus 4 Not Detected Not Detected LAB MICROBIOLOGY METHOD 12/22/2024 7:29 PM [facility] RSV PCR Not Detected Not Detected LAB MICROBIOLOGY METHOD 12/22/2024 7:29 PM EST [facility] Human Metapneumovirus A and B Not Detected Not Detected LAB MICROBIOLOGY METHOD 12/22/2024 7:29 PM [facility] Rhinovirus/Entero virus Not Detected Not Detected LAB MICROBIOLOGY METHOD 12/22/2024 7:29 PM [facility] Bordetella pertussis Not Detected Not Detected LAB MICROBIOLOGY METHOD 12/22/2024 7:29 PM [facility] Bordetella parapertussis Not Detected Not Detected LAB MICROBIOLOGY METHOD 12/22/2024 7:29 PM [facility] Mycoplasma pneumo by PCR Not Detected Not Detected LAB MICROBIOLOGY METHOD 12/22/2024 7:29 PM [facility] Chlamydia pneumoniae Not Detected Not Detected LAB MICROBIOLOGY METHOD 12/22/2024 7:29 PM [facility] SARS COV-2 Not Detected Not Detected LAB MICROBIOLOGY METHOD 12/22/2024 7:29 PM [facility] Swab Both anterior nares / Unknown Non-blood Collection / Unknown 12/22/2024 6:06 PM EST 12/22/2024 6:12 PM EST [facility] - 12/22/2024 7:29 PM EST Testing was performed using the Biofire Respiratory Pathogen PCR Assay. All results must [...] [place] LAB MICROBIOLOGY - G ENERAL ORDERABLES [facility] [address] [place] [address], * [facility] urine culture tube (12/22/2024 6:06 PM EST) Pathologist [facility] Extra Tube Hold for add-ons. 12/22/2024 8:01 PM [facility] Comment:Auto resulted. Urine Urine specimen obtained by clean catch procedure / Unknown Non-blood Collection / Unknown 12/22/2024 6:06 PM EST 12/22/2024 6:12 PM EST Navi Avila MD LAB URINE ORDERABLES [facility] [address] [place] [address], [place] [phone] * (ABNORMAL) Urinalysis with reflex microscopic and culture (12/22/2024 6:06 PM EST) [facility] Specific [place] Urine 1.005 1.003 - 1.030 LAB URINALYSIS - AUTOMATED METHOD 12/22/2024 6:18 PM [facility] pH, Urine 7.0 5.0 - 8.0 pH LAB URINALYSIS - AUTOMATED METHOD 12/22/2024 6:18 PM [facility] Leukocytes, Urine Negative Negative LAB URINALYSIS - AUTOMATED METHOD 12/22/2024 6:18 PM [facility] Nitrite, Urine Negative Negative LAB URINALYSIS - AUTOMATED METHOD 12/22/2024 6:18 PM [facility] Protein, Urine Negative <=Trace mg/dL LAB URINALYSIS - AUTOMATED METHOD 12/22/2024 6:18 PM [facility] Glucose, Urine Negative Negative mg/dL LAB URINALYSIS - AUTOMATED METHOD 12/22/2024 6:18 PM [facility] Ketones, Urine 15(A) Negative mg/dL LAB URINALYSIS - AUTOMATED METHOD 12/22/2024 6:18 PM [facility] Urobilinogen, Urine 0.2 0.2 - 1.0 mg/dL LAB URINALYSIS - AUTOMATED METHOD 12/22/2024 6:18 PM [facility] Bilirubin, Urine Negative Negative LAB URINALYSIS - AUTOMATED METHOD 12/22/2024 6:18 PM [facility] Blood, Urine Negative Negative LAB URINALYSIS - AUTOMATED METHOD 12/22/2024 6:18 PM [facility] Urine Urine specimen obtained by clean catch procedure / Unknown Non-blood Collection / Unknown 12/22/2024 6:06 PM EST 12/22/2024 6:12 PM EST Navi Avila MD LAB URINE ORDERABLES [facility] [address] [place] [address], * CBC auto differential (12/22/2024 5:33 PM EST) WBC 6.6 4.8 - 10.8 K/mcL LAB HEMETOLOGY METHOD 12/22/2024 5:52 PM [facility] RBC 4.10 3.80 - 4.80 M/mcL LAB HEMETOLOGY METHOD 12/22/2024 5:52 PM [facility] Hemoglobin 12.1 11.5 - 16.0 g/dL LAB HEMETOLOGY METHOD 12/22/2024 5:52 PM [facility] Hematocrit 35.8 35.0 - 47.0 % LAB HEMETOLOGY METHOD 12/22/2024 5:52 PM [facility] MCV 87.3 79.0 - 98.0 FL LAB HEMETOLOGY METHOD 12/22/2024 5:52 PM [facility] MCH 29.5 27.0 - 32.0 pcg LAB HEMETOLOGY METHOD 12/22/2024 5:52 PM [facility] MCHC 33.8 32.0 - 37.0 g/dL LAB HEMETOLOGY METHOD 12/22/2024 5:52 PM [facility] RDW 12.4 11.0 - 15.0 % LAB HEMETOLOGY METHOD 12/22/2024 5:52 PM [facility] Platelets 237 130 - 400 K/mcL LAB HEMETOLOGY METHOD 12/22/2024 5:52 PM [facility] MPV 9.5 7.0 - 11.0 FL LAB HEMETOLOGY METHOD 12/22/2024 5:52 PM [facility] NRBC 0.0 <1.0 % LAB HEMETOLOGY METHOD 12/22/2024 5:52 PM [facility] NRBC Absolute 0.00 <0.10 K/mcL LAB HEMETOLOGY METHOD 12/22/2024 5:52 PM [facility] Neutrophils Relative 55.5 % LAB HEMETOLOGY METHOD 12/22/2024 5:52 PM [facility] Lymphocytes Relative 36.8 % LAB HEMETOLOGY METHOD 12/22/2024 5:52 PM [facility] Monocytes Relative 5.6 % LAB HEMETOLOGY METHOD 12/22/2024 5:52 PM [facility] Eosinophils Relative 1.1 % LAB HEMETOLOGY METHOD 12/22/2024 5:52 PM [facility] Basophils Relative 0.5 % LAB HEMETOLOGY METHOD 12/22/2024 5:52 PM [facility] Immature Granulocytes Relative 0.5 % LAB HEMETOLOGY METHOD 12/22/2024 5:52 PM [facility] Neutrophils Absolute 3.68 1.50 - 7.00 K/mcL LAB HEMETOLOGY METHOD 12/22/2024 5:52 PM [facility] Lymphocytes Absolute 2.43 1.00 - 5.00 K/mcL LAB HEMETOLOGY METHOD 12/22/2024 5:52 PM [facility] Monocytes Absolute 0.37 0.20 - 1.00 [...] LAB BLOOD ORDERABLES [facility] [address] [place] [address], * Troponin I high sensitivity (12/22/2024 5:33 PM EST) [facility] High Sensitivity Troponin I 4 <=54 ng/L [...] LAB BLOOD ORDERABLES [facility] [address] [place] [address], [place] [phone] * (ABNORMAL) Magnesium (12/22/2024 5:33 PM EST) [facility] Magnesium 1.4(L) 1.9 - 2.6 mg/dL LAB CHEMISTRY METHOD 12/22/2024 6:09 PM [facility] Blood Venous blood specimen / Unknown Venipuncture / Unknown 12/22/2024 5:33 PM EST 12/22/2024 5:47 PM EST Navi Avila MD LAB BLOOD ORDERABLES [facility] [address] [place] [address], [place] [phone] * (ABNORMAL) Basic metabolic panel (12/22/2024 5:33 PM EST) [facility] Sodium 136 133 - 145 mmol/L LAB CHEMISTRY METHOD 12/22/2024 6:09 PM [facility] Potassium 3.0(L) 3.5 - 5.5 mmol/L LAB CHEMISTRY METHOD 12/22/2024 6:09 PM [facility] Chloride 105 96 - 110 mmol/L LAB CHEMISTRY METHOD 12/22/2024 6:09 PM [facility] CO2 19(L) 21 - 32 mmol/L LAB CHEMISTRY METHOD 12/22/2024 6:09 PM [facility] Anion Gap 12(H) 3 - 11 LAB CHEMISTRY METHOD 12/22/2024 6:09 PM [facility] Glucose 119(H) 70 - 100 mg/dL LAB CHEMISTRY METHOD 12/22/2024 6:09 PM [facility] BUN 6 5 - 25 mg/dL LAB CHEMISTRY METHOD 12/22/2024 6:09 PM [facility] Creatinine 0.86 0.50 - 1.10 mg/dL LAB CHEMISTRY METHOD 12/22/2024 6:09 PM EST [facility] eGFR 91 >=60 mL/min/1. 73m2 LAB CHEMISTRY METHOD 12/22/2024 6:09 PM EST [facility] Comment:Calculation based on the??Chronic Kidney Disease Epidemiology Collaboration (CKD-EPI) equation refit??without adjustment for race. BUN/Creatinine Ratio 7.0 LAB CHEMISTRY METHOD 12/22/2024 6:09 PM EST [facility] Calcium 9.5 8.5 - 10.5 mg/dL LAB CHEMISTRY METHOD 12/22/2024 6:09 PM EST [facility] Blood Venous blood specimen / Unknown Venipuncture / Unknown 12/22/2024 5:33 PM EST 12/22/2024 5:47 PM EST Navi Avila MD LAB BLOOD ORDERABLES Performing Organization Address City/[facility] Co de Phone Number [facility] [address] [place] [address], * ECG 12 lead (12/22/2024 5:04 PM EST) Ventricular Rate ECG 130 BPM [facility] Atrial Rate 130 BPM GEMUSE P-R Interval 126 ms GEMUSE QRS Duration 92 ms GEMUSE Q-T Interval 316 ms GEMUSE QTc 465 ms GEMUSE P Wave Maxwell 80 degrees GEMUSE R Maxwell 36 degrees GEMUSE T Maxwell 5 degrees GEMUSE ECG Interpretation Sinus tachycardia Possible Left atrial enlargement RSR' or QR pattern in V1 suggests right ventricular conduction delay Nonspecific ST and T wave abnormality Abnormal ECG No previous ECGs available Confirmed by MD Sudarshan, Bunny ([id number]) on 12/24/2024 8:59:29 AM [facility] 12/22/2024 5:04 PM EST 12/24/2024 8:59 AM EST Solis Moreira MD ECG ORDERABLES Performing Organization Address City/[facility] Co de Phone Number [facility] * ECG-Annotated (12/22/2024) Provider Onbase MD ECG ORDERABLES * ECG-Annotated (12/22/2024) Provider Onbase MD ECG ORDERABLES documented in this encounter Visit [...] Sun12/22/24 at 1838, For 1 dose 1915 ([place] - Prov ider: Katherine Stoddard RN)2058 [...] documented as of this encounter Care Teams Reference And Instruction Librarian Relationship Specialty Start Date End Date Carmela Gaytan MD [address] [place] [address] PCP - General Internal Medicine 12/19/24 documented as of this encounter
== END 2024-12-30 11:12 | disposition home or self-care (01) ==
PROVIDERS: PCP Internal Medicine; Visit Provider Internal Medicine
DX: R19.7 Diarrhea, unspecified (principal); F41.9 Anxiety disorder, unspecified; F32.A Depression, unspecified

== ENCOUNTER → 2024-12-30 09:58 | Outpatient (BNVA) | payer OTHER, SELFPAY | PROVIDERS: PCP Internal Medicine; Visit Provider Internal Medicine | DX: R19.7 Diarrhea, unspecified (principal); F41.9 Anxiety disorder, unspecified; F32.A Depression, unspecified | CPT/HCPCS: 96127; 99212 ==

== ENCOUNTER 2025-01-06 11:11 | Outpatient (AMB) | payer OTHER, SELFPAY ==
[2025-01-06 11:12] VITALS: BP 106/68; PULSE 70; RESP 18; TEMP 36.4; O2SAT 100; BMI 23.1
--- NOTE | 2025-01-06 11:12 | MHC.PC.OV ---
Vital Signs 01/06/25 11:12 Height 5 ft 5 in Weight 139 lb BMI 23.1 BP 106/68 Blood Pressure Location Lt brachial Position Sitting Respiration 18 Pulse 70 Pulse Source Pulse Oximeter Temp 97.6 F Temp Source Oral Pulse Oximetry (%) 100 Oxygen Delivery Method Room Air Intake Visit Reasons: 1 week follow up Intake Note: Pt is here today for 1 week follow up visit. Allergies No Known Allergies Allergy (Verified 01/06/25 11:13) Medication List - Last Reconciled 01/06/25 by Carmela Gaytan MD Culturelle (Lactobacillus rhamnosus GG) 1 cap PO DAILY NS duloxetine mg PO DAILY omeprazole 40 mg PO DAILY Tobacco use date assessed: 12/30/24 Dental Screening Dental Screen Date: 12/30/24 HPI 1 week follow up HPI Details Patient presents for a follow-up of persistent diarrhea. She is feeling better but still reports sensation discomfort in the upper chest when swallowing solid foods and intermittent diarrhea which has become less frequent down to 4 times a day , usually after a meal. Patient reports some bloating and diffuse abdominal discomfort after eating but denies nausea vomiting hematochezia melena fever chills. Patient is established with psychiatrist and therapist for chronic depression. PFSH Medical History Anemia Anxiety Surgical History Hx of tonsillectomy Hx of appendectomy No pertinent past surgical history Family History Father HTN (hypertension) Mother No problems noted. 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 Guriwnder Shay, Ashley Andrew, Fawad Jimenez and colleagues, with an educational lina from [email or web address]. Review of Systems Const All systems reviewed & are unremarkable except as noted in HPI and below Eyes Reports no additional complaints ENT Reports no additional complaints Card Reports no additional complaints Resp Reports no additional complaints GI Reports no additional complaints Physical exam (Primary Care) Vital Signs: Last Vital Signs Temp 97.6 F 01/06/25 11:12 Pulse 70 01/06/25 11:12 Resp 18 01/06/25 11:12 BP 106/68 01/06/25 11:12 Pulse Ox 100 01/06/25 11:12 Oxygen Delivery Method Room Air 01/06/25 11:12 BMI result Body Mass Index 23.1 Tobacco/Smoking Status: Tobacco use Status Tobacco use date assessed 12/30/24 01/06/25 11:17 Patient Tobacco Use Status Never used Tobacco 01/06/25 11:17 e-Cigarette/Vaping Use Never Used 01/06/25 11:17 Thrive Assessment: Date of Thrive Assessment Date Thrive assessed 12/30/24 01/06/25 11:17 Const General: no acute distress HENMT Face and sinus: Yes normal facial exam Resp Effort & Inspection: normal respiratory effort Auscultation: clear to auscultation bilaterally Cardio Rhythm: regular rhythm Heart sounds: S1 normal heart sound present and S2 normal heart sound present GI Inspection: Yes normal to inspection Palpation (GI): Soft to palpation Percussion: Yes normal to percussion Auscultation: normal bowel sounds Coding Level of Care Code Est Pt Level 3 (99214) Diagnoses Diarrhea, unspecified type R19.7 Diarrhea type: unspecified type Anxiety and depression F41.9; F32.A Assessment & Plan Assessment & Plan (1) Diarrhea: Code(s): R19.7 - Diarrhea, unspecified Category: Medical Qualifiers: Diarrhea type: unspecified type Qualified Code(s): R19.7 - Diarrhea, unspecified Plan: For persistent diarrhea check stool leukocytes. Pepcid will be changed to omeprazole 40 mg a day for chronic GERD symptoms. Patient was advised to add Citrucel and continue probiotics. She will be referred to GI (2) Anxiety and depression: Comment: established with Psychiatry Code(s): F41.9 - Anxiety disorder, unspecified; F32.A - Depression, unspecified Category: Medical Plan: Follow-up with psychiatry and therapist. Increasing physical activity discussed with the patient Orders: Orders Leukocytes Stool Qualitative Today R19.7 - Diarrhea, unspecified Referrals Gastroenterology Referral R19.7 - Diarrhea, unspecified Medications: New omeprazole 40 mg PO DAILY 30 caps 0RF
== END 2025-01-06 11:54 | disposition home or self-care (01) ==
PROVIDERS: PCP Internal Medicine; Visit Provider Internal Medicine
DX: R19.7 Diarrhea, unspecified (principal); F41.9 Anxiety disorder, unspecified; F32.A Depression, unspecified

== ENCOUNTER → 2025-01-06 11:11 | Outpatient (BNVA) | payer OTHER, SELFPAY | PROVIDERS: PCP Internal Medicine; Visit Provider Internal Medicine | DX: R19.7 Diarrhea, unspecified (principal); F41.9 Anxiety disorder, unspecified; F32.A Depression, unspecified | CPT/HCPCS: 99212 ==

== ENCOUNTER 2025-01-07 09:20 | Outpatient (REF) | payer OTHER, SELFPAY ==
--- OUTSIDE RECORDS SUMMARY | 2025-01-07 12:07 | XMS_ITS | Encounter Summary ---
Author Organization [facility] Address [address] [place] [address] Care Team Providers Care Outdoor Education Teacher Name Role Phone Carmela Gaytan MD Primary Care Provider [phone] Reason for Visit * Reason Comments Palpitations Encounter Details Date Type Department Care Team ([facility] st Contact Info) Description 12/22/2024 5:08 PM EST - 12/22/2024 9:17 PM EST Emergency [facility] Emergency [address] [place] [address] Dehydration (Primary Dx) Discharge Disposition: Home or Self Care Social History Tobacco Use Types Packs/Day Years Used Date Smoking Tobacco: Former Smokeless Tobacco: Former Alcohol Use Standard Drinks/Week Comments Yes 0 (1 standard drink = 0.6 oz pur e alcohol) Comments Unknown Sex and Gender Information Value Date Recorded Sex Assigned at Female 12/19/2024 4:10 PM EST Legal Sex Female 3:14 PM EST Gender Identity Female 12/19/2024 4:10 PM EST Sexual Orientation Choose not to disclose 2024 4:10 PM EST documented as of this encounter Last Filed [...] - documented in this encounter Functional Status * Are you deaf or do you have serious difficulty hearing? Answer Date of Assessment Author No 12/19/2024 5:09 PM Theresa Steele RN * Are you blind or do you have serious difficulty seeing, even when wearing glasses? Answer Date of Assessment Author No 12/19/2024 5:09 PM Theresa Steele RN * Do you have serious difficulty walking or climbing stairs? Answer Date of Assessment Author No 12/19/2024 5:09 PM Theresa Steele RN * Do you have serious difficulty dressing or bathing? Answer Date of Assessment Author No 12/19/2024 5:09 PM Theresa Steele RN * Because of a physical, mental, or emotional condition, do you have serious difficulty doing errandsalone such as visiting the doctor? Answer Date of Assessment Author No 12/19/2024 5:09 PM Theresa Steele RN documented as of this encounter Mental Status * Because of a physical, mental, or emotional condition, do you have serious difficulty concentrating, remembering, or making decisions? (5 years old or older) Answer Entry Date Author No 12/19/2024 5:09 PM Theresa Steele RN documented in this encounter Discharge Instructions * Discharge Instructions* NAHID Razo - 12/22/2024 8:46 PM EST Drink plenty of fluids. Continue brat diet. Continue current medications as directed. Follow up with your primary provider. Call tomorrow for appointment. Return to Emergency Department if symptoms worsen, don't improve, or any other concern. Get well soon! [facility] Specialty Office Locations [place] [phone] [place] [phone] [place] ([address]) [phone] [place] ([address]) [phone] Orthopedics: [phone] Thank you for coming to the [facility] Emergency Department today. Our entire team [...] be sent through Care Everywhere. * Dehydration (Persian) documented in this encounter Medications at Time of Discharge vancomycin (VANCOCIN) 125 mg capsule Take 1 [...] from the original note were not included. [facility] Emergency Department Encounter Note Patient Name: Sherly Pyle Initial Evaluation: 12/22/2024 : 1990 Patient's PCP: Carmela Gaytan MD Emergency Provider: NAHID Wheatley Chief Complaint Patient presents with Palpitations History of Present Illness HPI: 34-year-old female presents for evaluation of palpitations. Patient states that [facility] [place] she had sudden onset [...] of routine headaches. 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 ED Course: ED Course as of 12/22/242056Dec 22, 20242041 Patient reports significant improvement of her symptoms. [...] abdominal pain. GENERAL: Well-Appearing, well-nourished patient. SKIN: [place], warm, dry. No rashes. HEENT: No stridor, [...] EST Navi Avila MD Electronically signed by NAHID Wheatley-NAHID Nelson 12/22/241753 NAHID Razo 12/22/242056 NAHID Razo 12/22/24 2323 Navi Avila MD 12/26/243 documented in this encounter Plan of Treatment [...] GEMUSE QTc 450 ms GEMUSE P Wave [place] 68 degrees GEMUSE R [place] 35 degrees GEMUSE T [place] 45 degrees GEMUSE ECG Interpretation Normal sinus rhythm Incomplete right bundle branch block Borderline ECG When compared with ECG of 22-DEC-2024 17:04, ST less depressed in Inferior leads ST no longer depressed in Anterior leads Nonspecific T wave abnormality no longer evident in Inferior leads Confirmed by MD Heaton Christopher ([id number]) on 12/24/2024 9:07:07 AM GEMUSE 12/22/2024 8:15 PM EST 12/24/2024 9:07 AM EST Navi Theresa Avila MD ECG ORDERABLES Final Result MICHAEL * XR Chest 2 Views (12/22/2024 6:59 PM EST) Anatomical Region Laterality Modality Body Radiographic Sharri ging 12/23/2024 8:22 AM EST Impressions 12/23/2024 8:22 AM EST Impression: No active pulmonary process identified. Telerad PA ([id number]) -------- FINAL REPORT -------- Dictated By: Cheryl Rodriguez Dictated Date: 12/23/2024 08:22 ET Assigned Physician: Cheryl Rodriguez Reviewed and Electronically Signed By: Cheryl Rodriguez Signed Date: 12/23/2024 08:22 ET Workstation ID: [id number] Transcribed By: Self Edit Transcribed Date: 12/23/2024 [...] No active pulmonary process identified. Telerad PA ([id number]) -------- FINAL REPORT -------- Dictated By: Cheryl Rodriguez Dictated Date: 12/23/2024 08:22 ET Assigned Physician: Cheryl Rodriguez Reviewed and Electronically Signed By: Cheryl Rodriguez Signed Date: 12/23/2024 08:22 ET Workstation ID: [id number] Transcribed By: Self Edit Transcribed Date: 12/23/2024 08:22 ET Navi B Austin HUGHES IMG XR PROCEDURES Final Result * POC , urine manually resulted (12/22/2024 6:29 PM EST) Pathologist [facility] HCG, Ur POC Negative Negative POC hCG Int QC Pass? Yes Yes EXPIRATION DATE POC 04/23/26 LOT NUMBER POC [id number] Urine Urine specimen obtained by clean catch procedure / Unknown 12/22/2024 6:29 PM EST Navi B Austin HUGHES POINT OF CARE TEST ENTER/EDIT O RDERABLES Final Result * Respiratory virus panel molecular study (12/22/2024 6:06 PM EST) Pathologist [facility] Adenovirus Detection by PCR Not Detected Not Detected LAB MICROBIOLOGY METHOD 12/22/2024 7:29 PM [facility] Influenza A PCR Not Detected Not Detected LAB MICROBIOLOGY METHOD 12/22/2024 7:29 PM [facility] Influenza B PCR Not Detected Not Detected LAB MICROBIOLOGY METHOD 12/22/2024 7:29 PM [facility] Coronavirus 229E Not Detected Not Detected LAB MICROBIOLOGY METHOD 12/22/2024 7:29 PM [facility] Coronavirus HKU1 Not Detected Not Detected LAB MICROBIOLOGY METHOD 12/22/2024 7:29 PM [facility] Coronavirus OC43 Not Detected Not Detected LAB MICROBIOLOGY METHOD 12/22/2024 7:29 PM [facility] Coronavirus NL63 Not Detected Not Detected LAB MICROBIOLOGY METHOD 12/22/2024 7:29 PM [facility] Parainfluenza Virus 1 Not Detected Not Detected LAB MICROBIOLOGY METHOD 12/22/2024 7:29 PM [facility] Parainfluenza Virus 2 Not Detected Not Detected LAB MICROBIOLOGY METHOD 12/22/2024 7:29 PM [facility] Parainfluenza Virus 3 Not Detected Not Detected LAB MICROBIOLOGY METHOD 12/22/2024 7:29 PM [facility] Parainfluenza Virus 4 Not Detected Not Detected LAB MICROBIOLOGY METHOD 12/22/2024 7:29 PM [facility] RSV PCR Not Detected Not Detected LAB MICROBIOLOGY METHOD 12/22/2024 7:29 PM [facility] Human Metapneumovirus A and B Not Detected Not Detected LAB MICROBIOLOGY METHOD 12/22/2024 7:29 PM [facility] Rhinovirus/Entero virus Not Detected Not Detected LAB MICROBIOLOGY METHOD 12/22/2024 7:29 PM [facility] Bordetella pertussis Not Detected Not Detected LAB MICROBIOLOGY METHOD 12/22/2024 7:29 PM [facility] Bordetella parapertussis Not Detected Not Detected LAB MICROBIOLOGY METHOD 12/22/2024 7:29 PM [facility] Mycoplasma pneumo by PCR Not Detected Not Detected LAB MICROBIOLOGY METHOD 12/22/2024 7:29 PM [facility] Chlamydia pneumoniae Not Detected Not Detected LAB MICROBIOLOGY METHOD 12/22/2024 7:29 PM [facility] SARS COV-2 Not Detected Not Detected LAB MICROBIOLOGY METHOD 12/22/2024 7:29 PM [facility] Swab Both anterior nares / Unknown Non-blood Collection / Unknown 12/22/2024 6:06 PM EST 12/22/2024 6:12 PM EST [facility] - 12/22/2024 7:29 PM EST Testing was performed using the [employer] Respiratory Pathogen PCR Assay. All results must [...] of detection. Uriah WHITFIELD LAB MICROBIOLOGY - GENERAL O RDERABLES Final Result Performing Organization Address [facility]/ZIP Co de Phone Number [facility] [address] [place] [address], [place] [phone] * [place] urine culture tube (12/22/2024 6:06 PM EST) [facility] Extra Tube Hold for add-ons. 12/22/2024 8:01 PM EST [facility] Comment:Auto resulted. Urine Urine specimen obtained by clean catch procedure / Unknown Non-blood Collection / Unknown 12/22/2024 6:06 PM EST 12/22/2024 6:12 PM EST Navi Avila MD LAB URINE ORDERABLES Final Resu lt Performing Organization Address [facility]/ZIP Co de Phone Number [facility] [address] [place] [address], [place] [phone] * (ABNORMAL) Urinalysis with reflex microscopic and culture (12/22/2024 6:06 PM EST) [facility] Specific [place] Urine 1.005 1.003 - 1.030 LAB URINALYSIS - AUTOMATED METHOD 12/22/2024 6:18 PM [facility] pH, Urine 7.0 5.0 - 8.0 pH LAB URINALYSIS - AUTOMATED METHOD 12/22/2024 6:18 PM [facility] Leukocytes, Urine Negative Negative LAB URINALYSIS - AUTOMATED METHOD 12/22/2024 6:18 PM [facility] Nitrite, Urine Negative Negative LAB URINALYSIS - AUTOMATED METHOD 12/22/2024 6:18 PM [facility] Protein, Urine Negative <=Trace mg/dL LAB URINALYSIS - AUTOMATED METHOD 12/22/2024 6:18 PM [facility] Glucose, Urine Negative Negative mg/dL LAB URINALYSIS - AUTOMATED METHOD 12/22/2024 6:18 PM [facility] Ketones, Urine 15(A) Negative mg/dL LAB URINALYSIS - AUTOMATED METHOD 12/22/2024 6:18 PM [facility] Urobilinogen, Urine 0.2 0.2 - 1.0 mg/dL LAB URINALYSIS - AUTOMATED METHOD 12/22/2024 6:18 PM [facility] Bilirubin, Urine Negative Negative LAB URINALYSIS - AUTOMATED METHOD 12/22/2024 6:18 PM [facility] Blood, Urine Negative Negative LAB URINALYSIS - AUTOMATED METHOD 12/22/2024 6:18 PM [facility] Urine Urine specimen obtained by clean catch procedure / Unknown Non-blood Collection / Unknown 12/22/2024 6:06 PM EST 12/22/2024 6:12 PM EST us Navi Avila MD LAB URINE ORDERABLES Final Resu lt [facility] [address] [place] [address], * CBC auto differential (12/22/2024 5:33 PM EST) WBC 6.6 4.8 - 10.8 K/[facility] LAB HEMETOLOGY METHOD 12/22/2024 5:52 PM [facility] RBC 4.10 3.80 - 4.80 M/[facility] LAB HEMETOLOGY METHOD 12/22/2024 5:52 PM [facility] Hemoglobin 12.1 11.5 - 16.0 g/dL LAB HEMETOLOGY METHOD 12/22/2024 5:52 PM [facility] Hematocrit 35.8 35.0 - 47.0 % LAB HEMETOLOGY METHOD 12/22/2024 5:52 PM [facility] MCV 87.3 79.0 - 98.0 FL LAB HEMETOLOGY METHOD 12/22/2024 5:52 PM [facility] MCH 29.5 27.0 - 32.0 pcg LAB HEMETOLOGY METHOD 12/22/2024 5:52 PM [facility] MCHC 33.8 32.0 - 37.0 g/dL LAB HEMETOLOGY METHOD 12/22/2024 5:52 PM [facility] RDW 12.4 11.0 - 15.0 % LAB HEMETOLOGY METHOD 12/22/2024 5:52 PM [facility] Platelets 237 130 - 400 K/mcL LAB HEMETOLOGY METHOD 12/22/2024 5:52 PM [facility] MPV 9.5 7.0 - 11.0 FL LAB HEMETOLOGY METHOD 12/22/2024 5:52 PM [facility] NRBC 0.0 <1.0 % LAB HEMETOLOGY METHOD 12/22/2024 5:52 PM [facility] NRBC Absolute 0.00 <0.10 K/mcL LAB HEMETOLOGY METHOD 12/22/2024 5:52 PM [facility] Neutrophils Relative 55.5 % LAB HEMETOLOGY METHOD 12/22/2024 5:52 PM [facility] Lymphocytes Relative 36.8 % LAB HEMETOLOGY METHOD 12/22/2024 5:52 PM [facility] Monocytes Relative 5.6 % LAB HEMETOLOGY METHOD 12/22/2024 5:52 PM [facility] Eosinophils Relative 1.1 % LAB HEMETOLOGY METHOD 12/22/2024 5:52 PM EST [facility] Basophils Relative 0.5 % LAB HEMETOLOGY METHOD 12/22/2024 5:52 PM [facility] Immature Granulocytes Relative 0.5 % LAB HEMETOLOGY METHOD 12/22/2024 5:52 PM EST [facility] Neutrophils Absolute 3.68 1.50 - 7.00 K/mcL LAB HEMETOLOGY METHOD 12/22/2024 5:52 PM EST [facility] Lymphocytes Absolute 2.43 1.00 - 5.00 K/mcL LAB HEMETOLOGY METHOD 12/22/2024 5:52 PM EST [facility] Monocytes Absolute 0.37 0.20 - 1.00 K/mcL LAB HEMETOLOGY METHOD 12/22/2024 5:52 PM EST [facility] Eosinophils Absolute 0.07 0.00 - 0.50 K/mcL LAB HEMETOLOGY METHOD 12/22/2024 5:52 PM EST [facility] Basophils Absolute 0.03 0.00 - 0.20 K/mcL LAB HEMETOLOGY METHOD 12/22/2024 5:52 PM EST [facility] Immature Granulocytes Absolute 0.03 0.00 - 0.03 K/mcL LAB HEMETOLOGY METHOD 12/22/2024 5:52 PM EST [facility] Blood Venous blood specimen / Unknown Venipuncture / Unknown 12/22/2024 5:33 PM EST 12/22/2024 5:47 PM EST us Navi Avila MD LAB BLOOD ORDERABLES Final Resu lt [facility] [address] [place] [address], * Troponin I high sensitivity (12/22/2024 5:33 PM EST) High Sensitivity Troponin I 4 <=54 ng/L LAB CHEMISTRY METHOD 12/22/2024 6:12 PM EST [facility] Blood Venous blood specimen / Unknown Venipuncture / Unknown 12/22/2024 5:33 PM EST 12/22/2024 5:47 PM EST Narrative [facility] - 12/22/2024 6:12 PM EST High levels of biotin in samples may falsely decrease hsTroponin values. ??Use caution when interpreting hsTroponin results in patients taking biotin who exhibit renal impairment (eGFR <60) or in patients taking more than 20 mg/day of biotin. us Navi Avila MD LAB BLOOD ORDERABLES Final Resu lt Performing Organization Address [facility]/ZIP Co de Phone Number [facility] [address] [place] [address], [place] [phone] * (ABNORMAL) Magnesium (12/22/2024 5:33 PM EST) [facility] Magnesium 1.4(L) 1.9 - 2.6 mg/dL LAB CHEMISTRY METHOD 12/22/2024 6:09 PM EST [facility] Blood Venous blood specimen / Unknown Venipuncture / Unknown 12/22/2024 5:33 PM EST 12/22/2024 5:47 PM EST us Navi Avila MD LAB BLOOD ORDERABLES Final Resu lt [facility] [address] [place] [address], [place] [phone] * (ABNORMAL) Basic metabolic panel (12/22/2024 5:33 PM EST) [facility] Sodium 136 133 - 145 mmol/L LAB CHEMISTRY METHOD 12/22/2024 6:09 PM EST [facility] Potassium 3.0(L) 3.5 - 5.5 mmol/L LAB CHEMISTRY METHOD 12/22/2024 6:09 PM [facility] Chloride 105 96 - 110 mmol/L LAB CHEMISTRY METHOD 12/22/2024 6:09 PM [facility] CO2 19(L) 21 - 32 mmol/L LAB CHEMISTRY METHOD 12/22/2024 6:09 PM [facility] Anion Gap 12(H) 3 - 11 LAB CHEMISTRY METHOD 12/22/2024 6:09 PM [facility] Glucose 119(H) 70 - 100 mg/dL LAB CHEMISTRY METHOD 12/22/2024 6:09 PM [facility] BUN 6 5 - 25 mg/dL LAB CHEMISTRY METHOD 12/22/2024 6:09 PM [facility] Creatinine 0.86 0.50 - 1.10 mg/dL LAB CHEMISTRY METHOD 12/22/2024 6:09 PM [facility] eGFR 91 >=60 mL/min/1. 73m2 LAB CHEMISTRY METHOD 12/22/2024 6:09 PM [facility] Comment:Calculation based on the??Chronic Kidney Disease Epidemiology Collaboration (CKD-EPI) equation refit??without adjustment for race. BUN/Creatinine Ratio 7.0 LAB CHEMISTRY METHOD 12/22/2024 6:09 PM [facility] Calcium 9.5 8.5 - 10.5 mg/dL LAB CHEMISTRY METHOD 12/22/2024 6:09 PM [facility] Blood Venous blood specimen / Unknown Venipuncture / Unknown 12/22/2024 5:33 PM EST 12/22/2024 5:47 PM EST us Navi Avila MD LAB BLOOD ORDERABLES Final Resu lt [facility] [address] [place] [address], * ECG 12 lead (12/22/2024 5:04 PM EST) Ventricular Rate ECG 130 BPM GEMUSE Atrial Rate 130 BPM GEMUSE P-R Interval 126 ms GEMUSE QRS Duration 92 ms GEMUSE Q-T Interval 316 ms GEMUSE QTc 465 ms GEMUSE P Wave [place] 80 degrees GEMUSE R [place] 36 degrees GEMUSE T [place] 5 degrees GEMUSE ECG Interpretation Sinus tachycardia Possible Left atrial enlargement RSR' or QR pattern in V1 suggests right ventricular conduction delay Nonspecific ST and T wave abnormality Abnormal ECG No previous ECGs available Confirmed by MD Sudarshan, Bunny ([id number]) on 12/24/2024 8:59:29 AM GEMUSE 12/22/2024 5:04 PM EST 12/24/2024 8:59 AM EST Solis Moreira MD ECG ORDERABLES Final Res ult GEMUSE * ECG-Annotated (12/22/2024) Provider Onbase MD ECG ORDERABLES Final Result * ECG-Annotated (12/22/2024) Provider Onbase MD ECG ORDERABLES Final Result documented in this encounter Visit Diagnoses Diagnosis [...] dose 1915 (New Bag - Prov ider: Katheirne Stoddard RN)2058 (Stopped - Provider: Katherine Stoddard RN) LORazepam (ATIVAN) injection 0.5 mg (COMPLETED) 0.5 mg, intravenous, Once, On Sun12/22/24 at 1745, For 1 dose, Prior to IV use, lorazepam injection should be DILUTED with an equal volume of compatible solution; Rate of administration should NOT exceed 2 mg/min. 1758 (Given - Provid er: Jo Lee RN) [...] to dissolve, stir well and administer immediately). 1916 (Given - Provid er: Katherine Stoddard RN) sodium chloride 0.9 % bolus 1,000 mL (COMPLETED) 1,000 mL, intravenous, at 1,000 mL/hr, Administer over 1 Hours, Once, On Sun12/22/24 at 1745, For 1 dose 1758 (New Bag - Prov ider: Jo Lee RN)184 (Stopped - Provider: Katherine Stoddard RN) documented in this encounter Orders Nursing Count Last Ordered Date First Orde red Date VITAL SIGNS 1 12/22/2024 documented in this encounter Additional Health Concerns Infection Onset Date Last Indicated Resolved Time Respiratory Rule-Out 12/22/2024 12/22/2024 025 7:29 PM EST documented as of this encounter Care Teams Outdoor Education Teacher Relationship Specialty Start Date End Date Carmela Gaytan MD [address] [place] [address] PCP - General Internal Medicine 12/19/24 documented as of this encounter
--- OUTSIDE RECORDS SUMMARY | 2025-01-07 12:07 | XMS_ITS | Encounter Summary ---
Author Organization [facility] Address [address] [place] [address] Care Team Providers Care Bobcat Operator Name Role Phone Carmela Gaytan MD Primary Care Provider [phone] Reason for Visit * Reason Comments Diarrhea Encounter Details Date Type Department Care Team ([facility] st Contact Info) Description 12/19/2024 3:31 PM EST - 12/19/2024 10:49 PM EST Emergency [facility] Emergency [address] [place] [address] Navi Avila MD [address] [place] [address] Clostridium difficile diarrhea (Primary Dx) Discharge Disposition: [...] EST documented in this encounter Functional Status * Are you deaf or do you have serious difficulty hearing? Answer Date of Assessment Author No 12/19/2024 5:09 PM EST Theresa Gabriel RN * Are you blind or do [...] 10:23 PM EST Thank you for choosing [facility]'s Emergency Department for your care today. Thankfully [...] a primary care physician, please call the [facility] at [phone] toestablish a new primary care physician. Please return to the emergency department if you develop a sudden severe change in your symptoms, afever over 100.4,, severe or recurrent vomiting,, or a sudden increase in pain, or if you experience any other new or worsening symptoms or concerns. * Attachments The following attachments cannot be sent through Care Everywhere. * Clostridioides difficile colitis (Latvian) documented in this encounter Medications at Time of Discharge vancomycin (VANCOCIN) 125 mg capsule Take 1 capsule (125 mg total) by mouth 4 (four) times a day for 10 days. 40 each 12/19/2024 12/29/2024 documented as of this encounter Ordered Prescriptions Prescription Sig Dispense Quantity Refills Last Filled Start Date End Date vancomycin (VANCOCIN) 125 mg capsule Take 1 capsule (125 mg total) by mouth 4 (four) times a day for 10 days. 40 each 12/19/2024 5 vancomycin (VANCOCIN) 125 mg capsule Take 1 capsule (125 mg total) by mouth 4 (four) times a day for 10 days. 40 each 12/19/2024 documented in this encounter Discharge Disposition [...] difficile infection; as she works as a [employer], and her clinic had C. difficile. She [...] of face Comment: DX:Congenital nevus of face 2009: Ovarian cyst Comment: DX:Ovarian cyst 02/25/2013: Postinflammatory [...] HISTORICAL APPENDECTOMY; COMMENT: Dr Yordy Rolon [facility] COLONOSCOPY 06/28/2010 PROCEDURE: UT COLONOSCOPY STOMA DX INCLUDING COLLJ SPEC SPX; COMMENT: normal to terminal ileum to 20 cm ESOPHAGOGASTRODUODENOSCOPY 01/22/14 PROCEDURE: UT ESOPHAGOGASTRODUODENOSCOPY TRANSORAL DIAGNOSTIC; COMMENT: normal; normal duodenal [...] 21:14:25 Navi Avila MD IMG CT PROCEDURES Final Result * (ABNORMAL) Urinalysis with reflex microscopic (12/19/2024 6:18 PM EST) Specific Douglas Urine 1.019 1.003 - 1.030 LAB URINALYSIS - AUTOMATED METHOD 12/19/2024 6:[address] [facility] pH, Urine 8.5(A) 5.0 - 8.0 pH LAB URINALYSIS - AUTOMATED METHOD 12/19/2024 6:[address] [facility] Leukocytes, Urine Small(A) Negative LAB URINALYSIS - AUTOMATED METHOD 12/19/2024 6:[address] [facility] Nitrite, Urine Negative Negative LAB URINALYSIS - AUTOMATED METHOD 12/19/2024 6:[address] [facility] Protein, Urine 30(A) <=Trace mg/dL LAB URINALYSIS - AUTOMATED METHOD 12/19/2024 6:[address] [facility] Glucose, Urine Negative Negative mg/dL LAB URINALYSIS - AUTOMATED METHOD 12/19/2024 6:[address] [facility] Ketones, Urine >=80(A) Negative mg/dL LAB URINALYSIS - AUTOMATED METHOD 12/19/2024 6:[address] [facility] Urobilinogen , Urine 1.0 0.2 - 1.0 mg/dL LAB URINALYSIS - AUTOMATED METHOD 12/19/2024 6:[address] [facility] Bilirubin, Urine Negative Negative LAB URINALYSIS - AUTOMATED METHOD 12/19/2024 6:[address] [facility] Blood, Urine Negative Negative LAB URINALYSIS - AUTOMATED METHOD 12/19/2024 6:[address] [facility] RBC, Urine 1.9 0 - 4 /HPF LAB URINALYSIS - AUTOMATED METHOD 12/19/2024 6:[address] [facility] WBC, Urine 2.9 0 - 4 /HPF LAB URINALYSIS - AUTOMATED METHOD 12/19/2024 6:42 PM EST [facility] Squamous Epithelial, Urine 76(H) 0 - 60 /LPF LAB URINALYSIS - AUTOMATED METHOD 12/19/2024 6:42 PM EST [facility] Bacteria, Urine Moderate(A) Negative /HPF LAB URINALYSIS - AUTOMATED METHOD 12/19/2024 6:[address] [facility] Hyaline Casts, Urine 1.2 0 - 3 /LPF LAB URINALYSIS - AUTOMATED METHOD 12/19/2024 6:[address] [facility] Urine Urine specimen obtained by clean catch procedure / Unknown Non-blood Collection / Unknown 12/19/2024 6:18 PM EST 12/19/2024 6:28 PM EST Navi Theresa Avila MD LAB URINE ORDERABLES Final Resu lt [facility] [address] [place] [address], [place] [phone] * POC , urine manually resulted (12/19/2024 6:18 PM EST) HCG, Ur POC Negative Negative POC hCG Int QC Pass? Yes Yes Urine Urine specimen obtained by clean catch procedure / Unknown 12/19/2024 6:18 PM EST Navisaba Avila MD POINT OF CARE TEST ENTER/EDIT O RDERABLES Final Result * CBC auto differential (12/19/2024 5:24 PM EST) WBC 7.3 4.8 - 10.8 K/mcL LAB HEMETOLOGY METHOD 12/19/2024 5:[address] [facility] RBC 4.50 3.80 - 4.80 M/mcL LAB HEMETOLOGY METHOD 12/19/2024 5:[address] [facility] Hemoglobin 13.2 11.5 - 16.0 g/dL LAB HEMETOLOGY METHOD 12/19/2024 5:[address] [facility] Hematocrit 39.6 35.0 - 47.0 % LAB HEMETOLOGY METHOD 12/19/2024 5:[address] [facility] MCV 87.8 79.0 - 98.0 FL LAB HEMETOLOGY METHOD 12/19/2024 5:[address] [facility] MCH 29.3 27.0 - 32.0 pcg LAB HEMETOLOGY METHOD 12/19/2024 5:[address] [facility] MCHC 33.3 32.0 - 37.0 g/dL LAB HEMETOLOGY METHOD 12/19/2024 5:[address] [facility] RDW 12.3 11.0 - 15.0 % LAB HEMETOLOGY METHOD 12/19/2024 5:[address] [facility] Platelets 251 130 - 400 K/mcL LAB HEMETOLOGY METHOD 12/19/2024 5:[address] [facility] MPV 9.4 7.0 - 11.0 FL LAB HEMETOLOGY METHOD 12/19/2024 5:[address] [facility] NRBC 0.0 <1.0 % LAB HEMETOLOGY METHOD 12/19/2024 5:[address] [facility] NRBC Absolute 0.00 <0.10 K/mcL LAB HEMETOLOGY METHOD 12/19/2024 5:[address] [facility] Neutrophils Relative 50.7 % LAB HEMETOLOGY METHOD 12/19/2024 5:[address] [facility] Lymphocytes Relative 41.2 % LAB HEMETOLOGY METHOD 12/19/2024 5:[address] [facility] Monocytes Relative 7.0 % LAB HEMETOLOGY METHOD 12/19/2024 5:[address] [facility] Eosinophils Relative 0.7 % LAB HEMETOLOGY METHOD 12/19/2024 5:42 PM EST [facility] Basophils Relative 0.3 % LAB HEMETOLOGY METHOD 12/19/2024 5:[address] [facility] Immature Granulocytes Relative 0.1 % LAB HEMETOLOGY METHOD 12/19/2024 5:[address] [facility] Neutrophils Absolute 3.69 1.50 - 7.00 K/mcL LAB HEMETOLOGY METHOD 12/19/2024 5:42 PM EST [facility] Lymphocytes Absolute 3.00 1.00 - 5.00 K/mcL LAB HEMETOLOGY METHOD 12/19/2024 5:[address] [facility] Monocytes Absolute 0.51 0.20 - 1.00 K/mcL LAB HEMETOLOGY METHOD 12/19/2024 5:[address] [facility] Eosinophils Absolute 0.05 0.00 - 0.50 K/mcL LAB HEMETOLOGY METHOD 12/19/2024 5:42 PM EST [facility] Basophils Absolute 0.02 0.00 - 0.20 K/mcL LAB HEMETOLOGY METHOD 12/19/2024 5:[address] [facility] Immature Granulocytes Absolute 0.01 0.00 - 0.03 K/mcL LAB HEMETOLOGY METHOD 12/19/2024 5:[address] [facility] Blood Venous blood specimen / Unknown Venipuncture / Unknown 12/19/2024 5:24 PM EST 12/19/2024 5:34 PM EST us Navi Avila MD LAB BLOOD ORDERABLES Final Resu lt [facility] [address] [place] [address], * Lipase (12/19/2024 5:24 PM EST) Lipase 32 13 - 75 unit/L LAB CHEMISTRY METHOD 12/19/2024 6:[address] [facility] Blood Venous blood specimen / Unknown Venipuncture / Unknown 12/19/2024 5:24 PM EST 12/19/2024 5:34 PM EST us Navi B Austin HUGHES LAB BLOOD ORDERABLES Final Resu lt [facility] [address] [place] [address], [place] [phone] * (ABNORMAL) Comprehensive metabolic panel (12/19/2024 5:24 PM EST) Sodium 138 133 - 145 mmol/L LAB CHEMISTRY METHOD 12/19/2024 6:[address] [facility] Potassium 3.8 3.5 - 5.5 mmol/L LAB CHEMISTRY METHOD 12/19/2024 6:[address] [facility] Comment:Hemolysis present Chloride 110 96 - 110 mmol/L LAB CHEMISTRY METHOD 12/19/2024 6:[address] [facility] CO2 18(L) 21 - 32 mmol/L LAB CHEMISTRY METHOD 12/19/2024 6:[address] [facility] Anion Gap 10 3 - 11 LAB CHEMISTRY METHOD 12/19/2024 6:[address] [facility] Glucose 87 70 - 100 mg/dL LAB CHEMISTRY METHOD 12/19/2024 6:[address] [facility] BUN 6 5 - 25 mg/dL LAB CHEMISTRY METHOD 12/19/2024 6:[address] [facility] Creatinine 0.74 0.50 - 1.10 mg/dL LAB CHEMISTRY METHOD 12/19/2024 6:[address] [facility] eGFR 109 >=60 mL/min/1. 73m2 LAB CHEMISTRY METHOD 12/19/2024 6:[address] [facility] Comment:Calculation based on the??Chronic Kidney Disease Epidemiology Collaboration (CKD-EPI) equation refit??without adjustment for race. BUN/Creatinine Ratio 8.1 LAB CHEMISTRY METHOD 12/19/2024 6:[address] [facility] Calcium 9.5 8.5 - 10.5 mg/dL LAB CHEMISTRY METHOD 12/19/2024 6:[address] [facility] AST (SGOT) 27 10 - 42 unit/L LAB CHEMISTRY METHOD 12/19/2024 6:[address] [facility] Comment:Hemolysis present ALT (SGPT) 15 10 - 60 unit/L LAB CHEMISTRY METHOD 12/19/2024 6:[address] [facility] Alkaline Phosphatase 53 42 - 121 unit/L LAB CHEMISTRY METHOD 12/19/2024 6:[address] [facility] Total Protein 7.9 6.0 - 8.0 g/dL LAB CHEMISTRY METHOD 12/19/2024 6:[address] [facility] Albumin 4.3 3.2 - 5.0 g/dL LAB CHEMISTRY METHOD 12/19/2024 6:[address] [facility] Total Bilirubin 0.7 0.0 - 1.4 mg/dL LAB CHEMISTRY METHOD 12/19/2024 6:[address] [facility] Blood Venous blood specimen / Unknown Venipuncture / Unknown 12/19/2024 5:24 PM EST 12/19/2024 5:34 PM EST us Navi Avila MD LAB BLOOD ORDERABLES Final Resu lt [facility] [address] [place] [address], documented in this encounter Visit Diagnoses Diagnosis [...] 12/19/2024 documented in this encounter Care Teams Bobcat Operator Relationship Specialty Start Date End Date Carmela Gaytan MD [address] [place] [address] PCP - General Internal Medicine 12/19/24 documented as of this encounter
--- OUTSIDE RECORDS SUMMARY | 2025-01-07 12:07 | XMS_ITS | Clinical Summary ---
Author Organization [facility] Address [address] [place] [address] Phone Care Team Providers Care Manager Long Term Care Name Role Phone Carmela Gaytan MD Primary Care Provider Allergies No known active allergies Medications vancomycin (VANCOCIN) 125 mg capsule Take 1 capsule (125 mg total) by mouth 4 (four) times a day for 10 days. 40 each 5 12/19/19 25 Discontinued vancomycin (VANCOCIN) 125 mg capsule Take 1 capsule (125 mg total) by mouth 4 (four) times a day for 10 days. 40 each 5 12/29/19 25 Active Problems No known active problems Encounters Date Type Department Care Team Description 12/22/2024 5:08 PM EST - 12/22/2024 9:17 PM [facility] [address] [place] [phone] Dehydration (Primary Dx) Discharge Disposition: Home or Self Care 12/19/2024 3:31 PM EST - 12/19/2024 10:49 PM [facility] [address] [place] [phone] Navi Avila MD Clostridium difficile diarrhea (Primary Dx) Discharge Disposition: Home or Self Care from Last 3 Months Surgical History Surgery Date Site/Laterality Comments COLONOSCOPY 06/28/2010 PROCEDURE: [place] COLONOSCOPY STOMA DX INCLUDING COLLJ SPEC SPX; COMMENT: normal to terminal ileum to 20 cm ESOPHAGOGASTRODUODENOSCOPY 01/22/14 PROCEDURE: FL ESOPHAGOGASTRODUODENOSCOPY TRANSORAL DIAGNOSTIC; COMMENT: normal; normal duodenal biopsies APPENDECTOMY 03/26/14 laparoscopic PROCEDURE: HISTORICAL APPENDECTOMY; COMMENT: Dr Yordy Rolon [facility] Medical History Medical History Date Comments [...] not to disclose 2024 4:10 PM EST Obstetrics History Last Filed Vital Signs Vital [...] GEMUSE QTc 450 ms GEMUSE P Wave [place] 68 degrees GEMUSE R [place] 35 degrees GEMUSE T [place] 45 degrees GEMUSE ECG Interpretation Normal sinus rhythm Incomplete right bundle branch block Borderline ECG When compared with ECG of 22-DEC-2024 17:04, ST less depressed in Inferior leads ST no longer depressed in Anterior leads Nonspecific T wave abnormality no longer evident in Inferior leads Confirmed by MD Heaton Christopher ([id number]) on 12/24/2024 9:07:07 AM GEMUSE 12/22/2024 8:15 PM EST 12/24/2024 9:07 AM EST Navi Avila MD ECG ORDERABLES Final Result GEMUSE * XR Chest 2 Views (12/22/2024 6:59 PM EST) Anatomical Region Laterality Modality Body Radiographic Sharri ging 12/23/2024 8:22 AM EST Impressions 12/23/2024 8:22 AM EST Impression: No active pulmonary process identified. Telerad NAHID ([id number]) -------- FINAL REPORT -------- Dictated By: Cheryl Rodriguez Dictated Date: 12/23/2024 08:22 ET Assigned Physician: Cheryl Rodriguez Reviewed and Electronically Signed By: Cheryl Rodriguez Signed Date: 12/23/2024 08:22 ET Workstation ID: [id number] Transcribed By: Self Edit Transcribed Date: 12/23/2024 [...] No active pulmonary process identified. Telerad NAHID ([id number]) -------- FINAL REPORT -------- Dictated By: Cheryl Rodriguez Dictated Date: 12/23/2024 08:22 ET Assigned Physician: Cheryl Rodriguez Reviewed and Electronically Signed By: Cheryl Rodriguez Signed Date: 12/23/2024 08:22 ET Workstation ID: [id number] Transcribed By: Self Edit Transcribed Date: 12/23/2024 08:22 ET Navisaba Avila MD IMG XR PROCEDURES Final Result * POC , urine manually resulted (12/22/2024 6:29 PM EST) Only the most recent of2 resultswithin the time period is included. [facility] HCG, Ur POC Negative Negative POC hCG Int QC Pass? Yes Yes EXPIRATION DATE POC 04/23/26 LOT NUMBER POC [id number] Urine Urine specimen obtained by clean catch procedure / Unknown 12/22/2024 6:29 PM EST Navisaba Avila MD POINT OF CARE TEST ENTER/EDIT O RDERABLES Final Result * (ABNORMAL) Urinalysis with reflex microscopic and culture (12/22/2024 6:06 PM EST) Pathologist [facility] Specific [place] Urine 1.005 1.003 - 1.030 LAB URINALYSIS - AUTOMATED METHOD 12/22/2024 6:[address] [facility] pH, Urine 7.0 5.0 - 8.0 pH LAB URINALYSIS - AUTOMATED METHOD 12/22/2024 6:[address] [facility] Leukocytes, Urine Negative Negative LAB URINALYSIS - AUTOMATED METHOD 12/22/2024 6:[address] [facility] Nitrite, Urine Negative Negative LAB URINALYSIS - AUTOMATED METHOD 12/22/2024 6:[address] [facility] Protein, Urine Negative <=Trace mg/dL LAB URINALYSIS - AUTOMATED METHOD 12/22/2024 6:[address] [facility] Glucose, Urine Negative Negative mg/dL LAB URINALYSIS - AUTOMATED METHOD 12/22/2024 6:[address] [facility] Ketones, Urine 15(A) Negative mg/dL LAB URINALYSIS - AUTOMATED METHOD 12/22/2024 6:[address] [facility] Urobilinogen, Urine 0.2 0.2 - 1.0 mg/dL LAB URINALYSIS - AUTOMATED METHOD 12/22/2024 6:[address] [facility] Bilirubin, Urine Negative Negative LAB URINALYSIS - AUTOMATED METHOD 12/22/2024 6:[address] [facility] Blood, Urine Negative Negative LAB URINALYSIS - AUTOMATED METHOD 12/22/2024 6:[address] [facility] Urine Urine specimen obtained by clean catch procedure / Unknown Non-blood Collection / Unknown 12/22/2024 6:06 PM EST 12/22/2024 6:12 PM EST us Navi Avila MD LAB URINE ORDERABLES Final Resu lt [facility] [address] [place] [address], * Respiratory virus panel molecular study (12/22/2024 6:06 PM EST) [facility] Adenovirus Detection by PCR Not Detected Not Detected LAB MICROBIOLOGY METHOD 12/22/2024 7:[address] [facility] Influenza A PCR Not Detected Not Detected LAB MICROBIOLOGY METHOD 12/22/2024 7:[address] [facility] Influenza B PCR Not Detected Not Detected LAB MICROBIOLOGY METHOD 12/22/2024 7:[address] [facility] Coronavirus 229E Not Detected Not Detected LAB MICROBIOLOGY METHOD 12/22/2024 7:[address] [facility] Coronavirus HKU1 Not Detected Not Detected LAB MICROBIOLOGY METHOD 12/22/2024 7:[address] [facility] Coronavirus OC43 Not Detected Not Detected LAB MICROBIOLOGY METHOD 12/22/2024 7:[address] [facility] Coronavirus NL63 Not Detected Not Detected LAB MICROBIOLOGY METHOD 12/22/2024 7:[address] [facility] Parainfluenza Virus 1 Not Detected Not Detected LAB MICROBIOLOGY METHOD 12/22/2024 7:[address] [facility] Parainfluenza Virus 2 Not Detected Not Detected LAB MICROBIOLOGY METHOD 12/22/2024 7:[address] [facility] Parainfluenza Virus 3 Not Detected Not Detected LAB MICROBIOLOGY METHOD 12/22/2024 7:[address] [facility] Parainfluenza Virus 4 Not Detected Not Detected LAB MICROBIOLOGY METHOD 12/22/2024 7:[address] [facility] RSV PCR Not Detected Not Detected LAB MICROBIOLOGY METHOD 12/22/2024 7:[address] [facility] Human Metapneumovirus A and B Not Detected Not Detected LAB MICROBIOLOGY METHOD 12/22/2024 7:[address] [facility] Rhinovirus/Entero virus Not Detected Not Detected LAB MICROBIOLOGY METHOD 12/22/2024 7:[address] [facility] Bordetella pertussis Not Detected Not Detected LAB MICROBIOLOGY METHOD 12/22/2024 7:29 PM EST [facility] Bordetella parapertussis Not Detected Not Detected LAB MICROBIOLOGY METHOD 12/22/2024 7:[address] [facility] Mycoplasma pneumo by PCR Not Detected Not Detected LAB MICROBIOLOGY METHOD 12/22/2024 7:29 PM EST [facility] Chlamydia pneumoniae Not Detected Not Detected LAB MICROBIOLOGY METHOD 12/22/2024 7:[address] [facility] SARS COV-2 Not Detected Not Detected LAB MICROBIOLOGY METHOD 12/22/2024 7:29 PM EST [facility] Swab Both anterior nares / Unknown Non-blood Collection / Unknown 12/22/2024 6:06 PM EST 12/22/2024 6:[address] [facility] - 12/22/2024 7:29 PM EST Testing was performed using the Gradeable Respiratory Pathogen PCR Assay. All results must [...] that are below the limit of detection. us Uriah WHITFIELD LAB MICROBIOLOGY - GENERAL O RDERABLES Final Result [facility] [address] [place] [address], * Belcher urine culture tube (12/22/2024 6:06 PM EST) Extra Tube Hold for add-ons. 12/22/2024 8:01 PM EST [facility] Comment:Auto resulted. Urine Urine specimen obtained by clean catch procedure / Unknown Non-blood Collection / Unknown 12/22/2024 6:06 PM EST 12/22/2024 6:12 PM EST Navisaba Avila MD LAB URINE ORDERABLES Final Resu lt Performing Organization Address [facility]/ZIP Co de Phone Number [facility] [address] [place] [address], [place] [phone] * Troponin I high sensitivity (12/22/2024 5:33 PM EST) [facility] High Sensitivity Troponin I 4 <=54 ng/L LAB CHEMISTRY METHOD 12/22/2024 6:12 PM EST [facility] Blood Venous blood specimen / Unknown Venipuncture / Unknown 12/22/2024 5:33 PM EST 12/22/2024 5:47 PM EST Narrative [facility] - 12/22/2024 6:12 PM EST High levels of biotin in samples may falsely decrease hsTroponin values. ??Use caution when interpreting hsTroponin results in patients taking biotin who exhibit renal impairment (eGFR <60) or in patients taking more than 20 mg/day of biotin. [facility] MD LAB BLOOD ORDERABLES Final Resu lt Performing Organization Address [facility] Co de Phone Number [facility] [address] [place] [address], [place] [phone] * CBC auto differential (12/22/2024 5:33 PM EST) Only the most recent of2 resultswithin the time period is included. [facility] WBC 6.6 4.8 - 10.8 K/mcL LAB HEMETOLOGY METHOD 12/22/2024 5:52 PM EST [facility] RBC 4.10 3.80 - 4.80 M/mcL LAB HEMETOLOGY METHOD 12/22/2024 5:52 PM EST [facility] Hemoglobin 12.1 11.5 - 16.0 g/dL LAB HEMETOLOGY METHOD 12/22/2024 5:52 PM EST [facility] Hematocrit 35.8 35.0 - 47.0 % LAB HEMETOLOGY METHOD 12/22/2024 5:[address] [facility] MCV 87.3 79.0 - 98.0 FL LAB HEMETOLOGY METHOD 12/22/2024 5:[address] [facility] MCH 29.5 27.0 - 32.0 pcg LAB HEMETOLOGY METHOD 12/22/2024 5:[address] [facility] MCHC 33.8 32.0 - 37.0 g/dL LAB HEMETOLOGY METHOD 12/22/2024 5:[address] [facility] RDW 12.4 11.0 - 15.0 % LAB HEMETOLOGY METHOD 12/22/2024 5:[address] [facility] Platelets 237 130 - 400 K/mcL LAB HEMETOLOGY METHOD 12/22/2024 5:[address] [facility] MPV 9.5 7.0 - 11.0 FL LAB HEMETOLOGY METHOD 12/22/2024 5:[address] [facility] NRBC 0.0 <1.0 % LAB HEMETOLOGY METHOD 12/22/2024 5:[address] [facility] NRBC Absolute 0.00 <0.10 K/mcL LAB HEMETOLOGY METHOD 12/22/2024 5:[address] [facility] Neutrophils Relative 55.5 % LAB HEMETOLOGY METHOD 12/22/2024 5:[address] [facility] Lymphocytes Relative 36.8 % LAB HEMETOLOGY METHOD 12/22/2024 5:[address] [facility] Monocytes Relative 5.6 % LAB HEMETOLOGY METHOD 12/22/2024 5:[address] [facility] Eosinophils Relative 1.1 % LAB HEMETOLOGY METHOD 12/22/2024 5:[address] [facility] Basophils Relative 0.5 % LAB HEMETOLOGY METHOD 12/22/2024 5:52 PM EST [facility] Immature Granulocytes Relative 0.5 % LAB HEMETOLOGY METHOD 12/22/2024 5:[address] [facility] Neutrophils Absolute 3.68 1.50 - 7.00 K/mcL LAB HEMETOLOGY METHOD 12/22/2024 5:52 PM EST [facility] Lymphocytes Absolute 2.43 1.00 - 5.00 K/mcL LAB HEMETOLOGY METHOD 12/22/2024 5:52 PM EST [facility] Monocytes Absolute 0.37 0.20 - 1.00 K/mcL LAB HEMETOLOGY METHOD 12/22/2024 5:52 PM EST [facility] Eosinophils Absolute 0.07 0.00 - 0.50 K/mcL LAB HEMETOLOGY METHOD 12/22/2024 5:52 PM EST [facility] Basophils Absolute 0.03 0.00 - 0.20 K/mcL LAB HEMETOLOGY METHOD 12/22/2024 5:52 PM EST [facility] Immature Granulocytes Absolute 0.03 0.00 - 0.03 K/mcL LAB HEMETOLOGY METHOD 12/22/2024 5:52 PM EST [facility] Blood Venous blood specimen / Unknown Venipuncture / Unknown 12/22/2024 5:33 PM EST 12/22/2024 5:47 PM EST us Navi Avila MD LAB BLOOD ORDERABLES Final Resu lt [facility] [address] [place] [address], * (ABNORMAL) Magnesium (12/22/2024 5:33 PM EST) Magnesium 1.4(L) 1.9 - 2.6 mg/dL LAB CHEMISTRY METHOD 12/22/2024 6:[address] [facility] Blood Venous blood specimen / Unknown Venipuncture / Unknown 12/22/2024 5:33 PM EST 12/22/2024 5:47 PM EST us Navi Theresa Avila MD LAB BLOOD ORDERABLES Final Resu lt [facility] [address] [place] [address], * (ABNORMAL) Basic metabolic panel (12/22/2024 5:33 PM EST) Sodium 136 133 - 145 mmol/L LAB CHEMISTRY METHOD 12/22/2024 6:[address] [facility] Potassium 3.0(L) 3.5 - 5.5 mmol/L LAB CHEMISTRY METHOD 12/22/2024 6:[address] [facility] Chloride 105 96 - 110 mmol/L LAB CHEMISTRY METHOD 12/22/2024 6:[address] [facility] CO2 19(L) 21 - 32 mmol/L LAB CHEMISTRY METHOD 12/22/2024 6:[address] [facility] Anion Gap 12(H) 3 - 11 LAB CHEMISTRY METHOD 12/22/2024 6:[address] [facility] Glucose 119(H) 70 - 100 mg/dL LAB CHEMISTRY METHOD 12/22/2024 6:[address] [facility] BUN 6 5 - 25 mg/dL LAB CHEMISTRY METHOD 12/22/2024 6:[address] [facility] Creatinine 0.86 0.50 - 1.10 mg/dL LAB CHEMISTRY METHOD 12/22/2024 6:[address] [facility] eGFR 91 >=60 mL/min/1. 73m2 LAB CHEMISTRY METHOD 12/22/2024 6:[address] [facility] Comment:Calculation based on the??Chronic Kidney Disease Epidemiology Collaboration (CKD-EPI) equation refit??without adjustment for race. BUN/Creatinine Ratio 7.0 LAB CHEMISTRY METHOD 12/22/2024 6:09 PM EST [facility] Calcium 9.5 8.5 - 10.5 mg/dL LAB CHEMISTRY METHOD 12/22/2024 6:09 PM EST [facility] Blood Venous blood specimen / Unknown Venipuncture / Unknown 12/22/2024 5:33 PM EST 12/22/2024 5:47 PM EST Navi Theresa Avila MD LAB BLOOD ORDERABLES Final Resu lt [facility] [address] [place] [address], [place] [phone] * ECG-Annotated (12/22/2024) Only the most recent of2 resultswithin the time period is included. Provider Onbase ECG ORDERABLES Final Result * CT Abdomen Pelvis w Contrast (12/19/2024 [...] by: Sally Rossi MD on 12/19/2024 21:14:25 [facility] B uAstin HUGHES IM CT PROCEDURES Final Result * (ABNORMAL) Urinalysis with reflex microscopic (12/19/2024 6:18 PM EST) Specific [place] Urine 1.019 1.003 - 1.030 LAB URINALYSIS [...] 12/19/2024 6:[address] [facility] Squamous Epithelial, Urine 76(H) 0 - 60 /LPF LAB URINALYSIS - AUTOMATED METHOD 12/19/2024 6:[address] [facility] Bacteria, Urine Moderate(A) Negative /HPF LAB URINALYSIS - AUTOMATED METHOD 12/19/2024 6:[address] [facility] Hyaline Casts, Urine 1.2 0 - 3 /LPF LAB URINALYSIS - AUTOMATED METHOD 12/19/2024 6:[address] [facility] Urine Urine specimen obtained by clean catch procedure / Unknown Non-blood Collection / Unknown 12/19/2024 6:18 PM EST 12/19/2024 6:28 PM EST us Navi B Austin HUGHES LAB URINE ORDERABLES Final Resu lt [facility] [address] [place] [address], [place] [phone] * Lipase (12/19/2024 5:24 PM EST) Lipase 32 13 - 75 unit/L LAB CHEMISTRY METHOD 12/19/2024 6:[address] [facility] Blood Venous blood specimen / Unknown Venipuncture / Unknown 12/19/2024 5:24 PM EST 12/19/2024 5:34 PM EST Navi Theresa Avila MD LAB BLOOD ORDERABLES Final Resu lt [facility] [address] [place] [address], * (ABNORMAL) Comprehensive metabolic panel (12/19/2024 5:24 PM EST) Pathologist [facility] Sodium 138 133 - 145 mmol/L LAB [...] MD LAB BLOOD ORDERABLES Final Resu lt [facility] [address] [place] [address], from Last 3 Months Insurance [facility] Care Teams Manager Long Term Care Relationship Specialty Start Date End Date Carmela Gaytan MD [address] [place] [phone] PCP - General Internal Medicine 12/19/24
[2025-01-07 14:23] LABS: Leukocytes Stool Qualitative NEGATIVE (NEGATIVE)
== END 2025-01-07 09:21 | disposition home or self-care (01) ==
LOC: HO.HMGCLNP 09:20
PROVIDERS: PCP Internal Medicine; Visit Provider Internal Medicine
DX: R19.7 Diarrhea, unspecified (principal)
CPT/HCPCS: 89055

== ENCOUNTER 2025-01-16 11:50 | Outpatient (AMB) | payer OTHER, SELFPAY ==
[2025-01-16 11:55] VITALS: BP 110/74; PULSE 81; TEMP 37; O2SAT 99; BMI 22.8
--- NOTE | 2025-01-16 11:55 | MHC.PC.OV ---
Vital Signs 01/16/25 11:55 Height 5 ft 5 in Weight 137 lb BMI 22.8 BP 110/74 Blood Pressure Location Lt brachial Position Sitting Pulse 81 Pulse Source Pulse Oximeter Temp 98.6 F Temp Source Oral Pulse Oximetry (%) 99 Intake Visit Reasons: diarrea Allergies No Known Allergies Allergy (Verified 01/16/25 11:55) Medication List - Last Reconciled 01/16/25 by Carmela Gaytan MD Culturelle (Lactobacillus rhamnosus GG) 1 cap PO DAILY NS diphenoxylate-atropine 2.5-0.025 mg (Lomotil) 1 tab PO TID PRN duloxetine 40 mg PO DAILY omeprazole 40 mg PO DAILY Tobacco use date assessed: 12/30/24 Dental Screening Dental Screen Date: 12/30/24 HPI HPI Comments History of Present Illness Details Patient presents for the follow-up of chronic diarrhea. She reports persistent episodes of loose bowel movements in the morning and becoming more watery stool in the afternoon. Patient denies nocturnal symptoms. She denies any correlation with food intake. Patient reports chronic heartburn has been taking omeprazole with only temporary relief. Patient denies fever chills hematochezia melena or abdominal pain. she has been eating low residual diet and taking Imodium on and off and probiotics. Patient reports worsening anxiety and depression for the last month. She has been seeing therapist regularly. Patient denies suicide ideation. Patient has been taking duloxetine 20 mg since April. [facility] Medical History Anemia Anxiety Surgical History Hx of tonsillectomy Hx of appendectomy No pertinent past surgical history Family History Father HTN (hypertension) Mother No problems noted. Brother Mental health disorder Social History Household Members Other:: works [employer], 4 children Housing: Apartment Patient Tobacco Use Status: Never used Tobacco e-Cigarette/Vaping Use: Never Used service: No Current occupational status: employed Cognitive needs: No Hearing needs: No Vision needs: Yes Questionnaire PHQ-9 Over the last 2 weeks, how often have you been bothered by any of the following problems? 1. Little interest or pleasure in doing things: several days 2. Feeling down, depressed, or hopeless: several days 3. Trouble falling or staying asleep, or sleeping too much: more than half the days 4. Feeling tired or having little energy: nearly every day 5. Poor appetite or overeating: nearly every day 6. Feeling bad about yourself - or that you are a failure or have let yourself or your family down: nearly every day 7. Trouble concentrating on things, such as reading the newspaper or watching television: more than half the days 8. Moving or speaking so slowly that other people could have noticed. Or the opposite - being so fidgety or restless that you have been moving around a lot more than usual: not at all 9. Thoughts that you would be better off or of hurting yourself in some way: not at all Total score: 15 Depression Screening Interpretation: Positive (Will increase duloxetine to 40 mg a day patient will continue counseling) Depression Screening Follow-up: Existing condition and In treatment Depression Screening Done: Yes 65935 - PHQ-9 Billing: Yes Source: Developed by Drs. Gurwinder Shay, Ashley Andrew, Fawad Jimenez and colleagues, with an educational lina from [employer]. Thrive Questionnaire Date Thrive assessed: 01/16/25 I am a: Patient What is your living situation today?: I have a steady place to live Within the past 12 months, did the food you bought not last and you didn't have the money to get more?: Never true Within the past 12 months, did you worry whether your food would run out before you got money to buy more?: Never true Do you have trouble paying for medicines?: No Do you have trouble getting transportation to medical appointments?: No Do you have trouble paying your heating and electricity bill?: No Do you have trouble taking care of your child, family member or friend?: No Do you have trouble with day-to-day activities such as bathing, preparing meals, shopping, managing finances, etc.?: No Are you currently unemployed and looking for a job?: No Are you interested in more education?: No Please select the resources that you would like help with: Utilities Currently or been in a relationship where the following occur: No concerns reported THRIVE Score: 0 AUDIT C Alcohol Use Questionnaire (AUDIT-C) 1. How often do you have a drink containing alcohol?: Never 3. How often do you have six or more drinks on one occasion?: Never Total Score: 0 Score Reviewed/Action Taken: Yes JOSE ALBERTO-7 AMB Questionnaire JOSE ALBERTO-7 Date JOSE ALBERTO - 7 assessed: 01/16/25 Feeling nervous, anxious, or on edge: 3 = Nearly every day Not being able to stop or control worryin = Nearly every day Worrying too much about different things: 3 = Nearly every day Trouble relaxin = Nearly every day Being so restless that it is hard to sit still: 3 = Nearly every day Becoming easily annoyed or irritable: 3 = Nearly every day Feeling afraid as if something awful might happen: 3 = Nearly every day Total JOSE ALBERTO-7 score (0-4 normal; 5-9 mild; 10-14 moderate; 15-21 severe): 21 Source: Developed by Drs. Gurwinder Shay, Ashley Andrew, Fawad Jimenez and colleagues, with an educational lina from [employer]. JOSE ALBERTO-7 Assessment Billing JOSE ALBERTO-7 Assessment Tool: JOSE ALBERTO-7 Assessment 54893 Review of Systems Const All systems reviewed & are unremarkable except as noted in HPI and below Eyes Reports no additional complaints ENT Reports no additional complaints Card Reports no additional complaints Resp Reports no additional complaints GI Reports no additional complaints Reports no additional complaints Physical exam (Primary Care) Vital Signs: Last Vital Signs Temp 98.6 F 01/16/25 11:55 Pulse 81 01/16/25 11:55 BP 110/74 01/16/25 11:55 Pulse Ox 99 01/16/25 11:55 BMI result Body Mass Index 22.8 Tobacco/Smoking Status: Tobacco use Status Tobacco use date assessed 12/30/24 01/16/25 11:58 Patient Tobacco Use Status Never used Tobacco 01/16/25 11:58 e-Cigarette/Vaping Use Never Used 01/16/25 11:58 PHQ-9: PHQ-9 Score PHQ-9: Total score 15 01/16/25 11:58 Depression Screening Interpretation: Positive (Will increase duloxetine to 40 mg a day patient will continue counseling) Depression Screening Follow-up: Existing condition and In treatment Thrive Assessment: Date of Thrive Assessment Date Thrive assessed 01/16/25 01/16/25 11:58 Currently or been in a relationship where the following occur: No concerns reported Const General: no acute distress HENMT Mouth: Normal oral and palatal mucosa present Resp Effort & Inspection: normal respiratory effort Auscultation: clear to auscultation bilaterally Cardio Rhythm: regular rhythm Heart sounds: S1 normal heart sound present and S2 normal heart sound present GI Inspection: Yes normal to inspection Palpation (GI): Soft to palpation Percussion: Yes normal to percussion Auscultation: normal bowel sounds Coding Level of Care Code Est Pt Level 3 (35641) Diagnoses Diarrhea, unspecified type R19.7 Diarrhea type: unspecified type Anxiety and depression F41.9; F32.A Additional Codes JOSE ALBERTO-7 Assessment Billing - JOSE ALBERTO-7 Assessment Tool: JOSE ALBERTO-7 Assessment 91303 ([id number]) PHQ-9 - 54284 - PHQ-9 Billing: Yes ([id number]) Assessment & Plan Assessment & Plan (1) Diarrhea: Comment: Negative stool culture and leukocytes 12/2023 Code(s): R19.7 - Diarrhea, unspecified Category: Medical Qualifiers: Diarrhea type: unspecified type Qualified Code(s): R19.7 - Diarrhea, unspecified Plan: ? IBS, patient was advised to add daily fiber supplement like Metamucil and will try Lomotil p.r.n. Check comprehensive panel and CBC, patient has an appointment GI in March (2) Anxiety and depression: Comment: established with Psychiatry Code(s): F41.9 - Anxiety disorder, unspecified; F32.A - Depression, unspecified Category: Medical Plan: Patient will increase duloxetine to 40 mg a day and follow-up with a therapist Orders: Orders Comprehensive Met. Panel Today R19.7 - Diarrhea, unspecified Complete Blood Count Auto Diff Today R19.7 - Diarrhea, unspecified TSH reflex Free T4 Today R19.7 - Diarrhea, unspecified Medications: New diphenoxylate-atropine 2.5-0.025 mg (Lomotil) 1 tab PO TID PRN 90 tabs 0RF diarrhea duloxetine 40 mg PO DAILY 90 caps 0RF
--- OUTSIDE RECORDS SUMMARY | 2025-01-16 12:49 | XMS_ITS | Data Portability ---
Author Organization [facility], [address] Address [address] [place] [address] Assessment No assessment recorded. Plan of Treatment Reminders Order Date Submit Date Provider Last Modified By Organization Details Last Modified Time Details Appointments None recorded. Lab rapid flu (A+B) 2023 024 [place] [address] [address] [address], [address] [place], [address], 4 20:32:14 SARS CoV 2 (COVID-19) Ag, QL, IA, upper respiratory specimen 2023 024 [facility] [address] [address], [address] [place], [address], 4 20:32:13 Referral None recorded. Procedures None recorded. Surgeries None recorded. Imaging None recorded. Medication Orders azithromyci n 250 mg tablet [address]/Pharmacy #[id number], [address] [place], [address], 4 20:32:12 benzonatate 100 mg capsule 2023 024 [facility]/Pharmacy #[id number], [address] [place], [address], 4 20:32:29 Patient TargetsNo targets recorded. Patient Instructions Encounter Date Encounter Id Patient Instructions Last Modified By Organization Details Last Modified Time 03/14/2024 [id number] Acute Sinusitis: Care Instructions Not available 03/14/2024 20:32:12 influenza (flu): care instructions Not available 03/14/2024 20:32:27 Reason for Referral None Reported. Results Created Date Observation Date Name Description Value Unit Range Abnormal Flag Note LastModifiedBy Organization Detail LastModifiedTime 03/14/20 24 03/14/2024 SARS CoV 2 (COVI D-19) Ag, QL, IA, upper respi rator y speci men Unknown Analyte negati ve Not Available [id number] [place] [address] [address] [place], [address], 03/14/2024 19:19:41 03/14/20 24 03/14/2024 SARS CoV 2 (COVI D-19) Ag, QL, IA, upper respi rator y speci men Unknown Analyte yes Not Available [id number] [place] [address] [address] [place], [address], 03/14/2024 19:19:41 03/14/20 24 03/14/2024 rapid flu (A+B) Unknown Analyte negati ve Not Available [address] [place] [address] [address] [place], [address], 03/14/2024 19:19:39 03/14/20 24 03/14/2024 rapid flu (A+B) Unknown Analyte positi ve Not Available [facility] [address] [place], [address], 03/14/2024 19:19:39 03/14/20 24 03/14/2024 rapid flu (A+B) Unknown Analyte yes Not Available [address] [place] [address] [address] [place], [address], 03/14/2024 19:19:39 Result Notes None recorded. Problems Name Problem SNOMED Code Status Onset Date Resolution Date Notes Provider Name and Address Organization Details Recorded Time Anxiety [id number] Active NAHID Jacobson - [facility] 03/14/2024 [...] Updated DateTime 4 165.1 cm 24 kg/m2 33007.3 g 100 % 100 % 97 /min [...] SNOMED-CT Code Diagnosis ICD10 Code Diagnosis Note [id number] [address] [facility] [place] [address] 09/20/2020 13:48:12 09/20/2020 16:27:37 [id number] [address] [facility] [place] [address] 04/12/2021 19:09:06 04/12/2021 19:48:02 [id number] [address] [facility] [place] [address] 01/25/2020 12:05:46 01/25/2020 13:45:29 [id number] [place] [address] [facility] [place] [address] 03/14/2024 18:09:23 03/14/2024 20:33:19 Upper respiratory infection 37414775 J06.9 Wheezing 19234644 R06.2 Acute sinusitis 94452635 J01.90 Influenza caused by Influenza B virus 91329482 J10.1 Advised to rest , maintain hydration, Tylenol and motrin as and when needed, and continue precaution s as directed. .Please inform ob gyn physician assistant/ PCP and follow up with them in [...] Sher Member ID Guarantor Name 01/25/[address] [facility] (MEDICAID REPLACEMENT - HMO) [place] Sherly Pyle [id number] Sherly Pyle 04/12/[address] [facility] (MEDICAID REPLACEMENT - HMO) [place] Sherly Pyle [id number] Sherly Pyle 03/14/[address] [facility] (MEDICAID REPLACEMENT - HMO) [place] Sherly Pyle [id number] Sherly Pyle Notes Date Note Type Note [...] Erasmo Collins MD [address] [place], [address], [place] - [facility] 03/14/2024 21:11:54 OBGyn Episode No OBEpisode recorded.
--- OUTSIDE RECORDS SUMMARY | 2025-01-16 12:49 | XMS_ITS | Clinical Summary ---
Author Organization [facility] Address [address] [place] [address] Phone Care Team Providers Care Door Tender Name Role Phone Carmela Gaytan MD Primary Care Provider [phone] Allergies No known active allergies Medications vancomycin [...] 5:08 PM EST - 12/22/2024 9:17 PM [facility] [address] [place] [phone] Dehydration (Primary Dx) Discharge Disposition: Home or Self Care 12/19/2024 3:31 PM EST - 12/19/2024 10:49 PM [facility] [address] [place] [phone] Navi Avila MD Clostridium difficile diarrhea (Primary Dx) Discharge Disposition: Home or Self Care from Last 3 Months Surgical History Surgery Date Site/Laterality Comments COLONOSCOPY 06/28/2010 PROCEDURE: RI COLONOSCOPY STOMA DX INCLUDING COLLJ SPEC SPX; COMMENT: normal to terminal ileum to 20 cm ESOPHAGOGASTRODUODENOSCOPY 01/22/14 PROCEDURE: RI ESOPHAGOGASTRODUODENOSCOPY TRANSORAL DIAGNOSTIC; COMMENT: normal; normal duodenal biopsies APPENDECTOMY 03/26/14 laparoscopic PROCEDURE: HISTORICAL APPENDECTOMY; COMMENT: Dr Yordy Rolon [facility] Medical History Medical History Date Comments [...] 64 Years) (1 of 2 - PCV) 2009 Cervical Cancer Screening: P ap Smear 2011 [...] patient's age to complete this topic Meningococcal B Vacine Aged Out No lo nger eligible based on patient's age to complete [...] GEMUSE QTc 450 ms GEMUSE P [place] 68 degrees GEMUSE R [place] 35 degrees GEMUSE T [place] 45 degrees GEMUSE ECG Interpretation Normal sinus [...] PM EST 12/24/2024 9:07 AM EST Navi B Austin HUGHES ECG ORDERABLES Final Result GEMUSE * XR Chest 2 Views (12/22/2024 6:59 PM EST) Anatomical Region Laterality Modality Body Radiographic Sharri ging 12/23/2024 8:22 AM EST Impressions 12/23/2024 8:22 AM EST Impression: No active pulmonary process identified. Telerad NAHID ([id number]) -------- FINAL REPORT -------- Dictated By: Cheryl Rodriguez Dictated Date: 12/23/2024 08:22 ET Assigned Physician: Cheryl Rodriguez Reviewed and Electronically Signed By: Cheryl Rodriguez Signed Date: 12/23/2024 08:22 ET Workstation ID: [id number] Transcribed By: Self Edit Transcribed Date: 12/23/2024 [...] No active pulmonary process identified. Telerad PA ([id number]) -------- FINAL REPORT -------- Dictated By: Cheryl Rodriguez Dictated Date: 12/23/2024 08:22 ET Assigned Physician: Cheryl Rodriguez Reviewed and Electronically Signed By: Cheryl Rodriguez Signed Date: 12/23/2024 08:22 ET Workstation ID: [id number] Transcribed By: Self Edit Transcribed Date: 12/23/2024 08:22 ET Navi B Austin HUGHES IMG XR PROCEDURES Final Result * POC , urine manually resulted (12/22/2024 6:29 PM EST) Only the most recent of2 resultswithin the time period is included. HCG, Ur POC Negative Negative POC hCG Int QC Pass? Yes Yes EXPIRATION DATE POC 04/23/26 LOT NUMBER POC [id number] Urine Urine specimen obtained by clean catch procedure / Unknown 12/22/2024 6:29 PM EST Navi B Austin HUGHES POINT OF CARE TEST ENTER/EDIT O RDERABLES Final Result * (ABNORMAL) Urinalysis with reflex microscopic and culture (12/22/2024 6:06 PM EST) Specific [place] Urine 1.005 1.003 - 1.030 LAB URINALYSIS - AUTOMATED METHOD 12/22/2024 6:18 PM [facility] pH, Urine 7.0 5.0 - 8.0 pH LAB URINALYSIS - AUTOMATED METHOD 12/22/2024 6:18 PM [facility] Leukocytes, Urine Negative Negative LAB URINALYSIS - AUTOMATED METHOD 12/22/2024 6:18 PM [facility] Nitrite, Urine Negative Negative LAB URINALYSIS - AUTOMATED METHOD 12/22/2024 6:18 PM [facility] Protein, Urine Negative <=Trace mg/dL LAB URINALYSIS - AUTOMATED METHOD 12/22/2024 6:18 PM [facility] Glucose, Urine Negative Negative mg/dL LAB URINALYSIS - AUTOMATED METHOD 12/22/2024 6:18 PM [facility] Ketones, Urine 15(A) Negative mg/dL LAB URINALYSIS - AUTOMATED METHOD 12/22/2024 6:18 PM [facility] Urobilinogen, Urine 0.2 0.2 - 1.0 mg/dL LAB URINALYSIS - AUTOMATED METHOD 12/22/2024 6:18 PM [facility] Bilirubin, Urine Negative Negative LAB URINALYSIS - AUTOMATED METHOD 12/22/2024 6:18 PM [facility] Blood, Urine Negative Negative LAB URINALYSIS - AUTOMATED METHOD 12/22/2024 6:18 PM [facility] Urine Urine specimen obtained by clean catch procedure / Unknown Non-blood Collection / Unknown 12/22/2024 6:06 PM EST 12/22/2024 6:12 PM EST us Navi Avila MD LAB URINE ORDERABLES Final Resu lt [facility] [address] [place] [address], [place] [phone] * Respiratory virus panel molecular study (12/22/2024 6:06 PM EST) Pathologist [facility] Adenovirus Detection by PCR Not Detected Not Detected LAB MICROBIOLOGY METHOD 12/22/2024 7:29 PM [facility] Influenza A PCR Not Detected Not Detected LAB MICROBIOLOGY METHOD 12/22/2024 7:29 PM [facility] Influenza B PCR Not Detected Not Detected LAB MICROBIOLOGY METHOD 12/22/2024 7:[address] [facility] Coronavirus 229E Not Detected Not Detected LAB MICROBIOLOGY METHOD 12/22/2024 7:29 PM [facility] Coronavirus HKU1 Not Detected Not Detected LAB MICROBIOLOGY METHOD 12/22/2024 7:29 PM [facility] Coronavirus OC43 Not Detected Not Detected LAB MICROBIOLOGY METHOD 12/22/2024 7:29 PM [facility] Coronavirus NL63 Not Detected Not Detected LAB MICROBIOLOGY METHOD 12/22/2024 7:29 PM [facility] Parainfluenza Virus 1 Not Detected Not Detected LAB MICROBIOLOGY METHOD 12/22/2024 7:29 PM [facility] Parainfluenza Virus 2 Not Detected Not Detected LAB MICROBIOLOGY METHOD 12/22/2024 7:29 PM [facility] Parainfluenza Virus 3 Not Detected Not Detected LAB MICROBIOLOGY METHOD 12/22/2024 7:29 PM [facility] Parainfluenza Virus 4 Not Detected Not Detected LAB MICROBIOLOGY METHOD 12/22/2024 7:29 PM [facility] RSV PCR Not Detected Not Detected LAB MICROBIOLOGY METHOD 12/22/2024 7:29 PM [facility] Human Metapneumovirus A and B Not Detected Not Detected LAB MICROBIOLOGY METHOD 12/22/2024 7:29 PM [facility] Rhinovirus/Entero virus Not Detected Not Detected LAB MICROBIOLOGY METHOD 12/22/2024 7:[address] [facility] Bordetella pertussis Not Detected Not Detected LAB MICROBIOLOGY METHOD 12/22/2024 7:[address] [facility] Bordetella parapertussis Not Detected Not Detected LAB MICROBIOLOGY METHOD 12/22/2024 7:29 PM [facility] Mycoplasma pneumo by PCR Not Detected Not Detected LAB MICROBIOLOGY METHOD 12/22/2024 7:[address] [facility] Chlamydia pneumoniae Not Detected Not Detected LAB MICROBIOLOGY METHOD 12/22/2024 7:29 PM [facility] SARS COV-2 Not Detected Not Detected LAB MICROBIOLOGY METHOD 12/22/2024 7:29 PM [facility] Swab Both anterior nares / Unknown Non-blood Collection / Unknown 12/22/2024 6:06 PM EST 12/22/2024 6:12 PM EST [facility] - 12/22/2024 7:29 PM EST Testing was performed using the Octopus De[employer] Respiratory Pathogen PCR Assay. All results must [...] MICROBIOLOGY - GENERAL O RDERABLES Final Result [facility] [address] [place] [address], * [place] urine culture tube (12/22/2024 6:06 PM EST) Extra Tube Hold for add-ons. 12/22/2024 8:[address] [facility] Comment:Auto resulted. Urine Urine specimen obtained by clean catch procedure / Unknown Non-blood Collection / Unknown 12/22/2024 6:06 PM EST 12/22/2024 6:12 PM EST Navi Avila MD LAB URINE ORDERABLES Final Resu lt Performing Organization Address [facility]/ZIP Co de Phone Number [facility] [address] [place] [address], [place] [phone] * Troponin I high sensitivity (12/22/2024 5:33 PM EST) [facility] High Sensitivity Troponin I 4 <=54 ng/L LAB CHEMISTRY METHOD 12/22/2024 6:[address] [facility] Blood Venous blood specimen / Unknown Venipuncture / Unknown 12/22/2024 5:33 PM EST 12/22/2024 5:[address] [facility] - 12/22/2024 6:12 PM EST High levels of biotin in samples may falsely decrease hsTroponin values. ??Use caution when interpreting hsTroponin results in patients taking biotin who exhibit renal impairment (eGFR <60) or in patients taking more than 20 mg/day of biotin. Navi Avila MD LAB BLOOD ORDERABLES Final Resu Performing Organization Address [facility] de Phone Number [facility] [address] [place] [address], [place] [phone] * CBC auto differential (12/22/2024 5:33 PM EST) Only the most recent of2 resultswithin the time period is included. [facility] WBC 6.6 4.8 - 10.8 K/mcL LAB HEMETOLOGY METHOD 12/22/2024 5:[address] [facility] RBC 4.10 3.80 - 4.80 M/mcL LAB HEMETOLOGY METHOD 12/22/2024 5:[address] [facility] Hemoglobin 12.1 11.5 - 16.0 g/dL LAB HEMETOLOGY METHOD 12/22/2024 5:52 PM [facility] Hematocrit 35.8 35.0 - 47.0 % LAB HEMETOLOGY METHOD 12/22/2024 5:52 PM [facility] MCV 87.3 79.0 - 98.0 FL LAB HEMETOLOGY METHOD 12/22/2024 5:52 PM [facility] MCH 29.5 27.0 - 32.0 pcg LAB HEMETOLOGY METHOD 12/22/2024 5:52 PM [facility] MCHC 33.8 32.0 - 37.0 g/dL LAB HEMETOLOGY METHOD 12/22/2024 5:52 PM [facility] RDW 12.4 11.0 - 15.0 % LAB HEMETOLOGY METHOD 12/22/2024 5:52 PM [facility] Platelets 237 130 - 400 K/mcL LAB HEMETOLOGY METHOD 12/22/2024 5:52 PM [facility] MPV 9.5 7.0 - 11.0 FL LAB HEMETOLOGY METHOD 12/22/2024 5:52 PM [facility] NRBC 0.0 <1.0 % LAB HEMETOLOGY METHOD 12/22/2024 5:52 PM [facility] NRBC Absolute 0.00 <0.10 K/mcL LAB HEMETOLOGY METHOD 12/22/2024 5:52 PM [facility] Neutrophils Relative 55.5 % LAB HEMETOLOGY METHOD 12/22/2024 5:52 PM [facility] Lymphocytes Relative 36.8 % LAB HEMETOLOGY METHOD 12/22/2024 5:52 PM [facility] Monocytes Relative 5.6 % LAB HEMETOLOGY METHOD 12/22/2024 5:52 PM [facility] Eosinophils Relative 1.1 % LAB HEMETOLOGY METHOD 12/22/2024 5:[address] [facility] Basophils Relative 0.5 % LAB HEMETOLOGY METHOD 12/22/2024 5:[address] [facility] Immature Granulocytes Relative 0.5 % LAB HEMETOLOGY METHOD 12/22/2024 5:[address] [facility] Neutrophils Absolute 3.68 1.50 - 7.00 K/mcL LAB HEMETOLOGY METHOD 12/22/2024 5:[address] [facility] Lymphocytes Absolute 2.43 1.00 - 5.00 K/mcL LAB HEMETOLOGY METHOD 12/22/2024 5:[address] [facility] Monocytes Absolute 0.37 0.20 - 1.00 K/mcL LAB HEMETOLOGY METHOD 12/22/2024 5:[address] [facility] Eosinophils Absolute 0.07 0.00 - 0.50 K/mcL LAB HEMETOLOGY METHOD 12/22/2024 5:[address] [facility] Basophils Absolute 0.03 0.00 - 0.20 K/mcL LAB HEMETOLOGY METHOD 12/22/2024 5:[address] [facility] Immature Granulocytes Absolute 0.03 0.00 - 0.03 K/mcL LAB HEMETOLOGY METHOD 12/22/2024 5:[address] [facility] Blood Venous blood specimen / Unknown Venipuncture / Unknown 12/22/2024 5:33 PM EST 12/22/2024 5:47 PM EST us Navi B Austin HUGHES LAB BLOOD ORDERABLES Final Resu lt [facility] [address] [place] [address], * (ABNORMAL) Magnesium (12/22/2024 5:33 PM EST) Magnesium 1.4(L) 1.9 - 2.6 mg/dL LAB CHEMISTRY METHOD 12/22/2024 6:09 PM [facility] Blood Venous blood specimen / Unknown Venipuncture / Unknown 12/22/2024 5:33 PM EST 12/22/2024 5:47 PM EST us Navi Theresa Avila MD LAB BLOOD ORDERABLES Final Resu lt [facility] [address] [place] [address], [place] [phone] * (ABNORMAL) Basic metabolic panel (12/22/2024 5:33 PM EST) Sodium 136 133 - 145 mmol/L LAB CHEMISTRY METHOD 12/22/2024 6:09 PM [facility] Potassium 3.0(L) 3.5 - 5.5 mmol/L LAB CHEMISTRY METHOD 12/22/2024 6:09 PM [facility] Chloride 105 96 - 110 mmol/L LAB CHEMISTRY METHOD 12/22/2024 6:09 PM [facility] CO2 19(L) 21 - 32 mmol/L LAB CHEMISTRY METHOD 12/22/2024 6:09 PM [facility] Anion Gap 12(H) 3 - 11 LAB CHEMISTRY METHOD 12/22/2024 6:09 PM [facility] Glucose 119(H) 70 - 100 mg/dL LAB CHEMISTRY METHOD 12/22/2024 6:09 PM [facility] BUN 6 5 - 25 mg/dL LAB CHEMISTRY METHOD 12/22/2024 6:09 PM [facility] Creatinine 0.86 0.50 - 1.10 mg/dL LAB CHEMISTRY METHOD 12/22/2024 6:09 PM [facility] eGFR 91 >=60 mL/min/1. 73m2 LAB CHEMISTRY METHOD 12/22/2024 6:09 PM [facility] Comment:Calculation based on the??Chronic Kidney Disease Epidemiology Collaboration (CKD-EPI) equation refit??without adjustment for race. BUN/Creatinine Ratio 7.0 LAB CHEMISTRY METHOD 12/22/2024 6:[address] [facility] Calcium 9.5 8.5 - 10.5 mg/dL LAB CHEMISTRY METHOD 12/22/2024 6:[address] [facility] Blood Venous blood specimen / Unknown Venipuncture / Unknown 12/22/2024 5:33 PM EST 12/22/2024 5:47 PM EST Navi Avila MD LAB BLOOD ORDERABLES Final Resu lt [facility] [address] [place] [address], [place] [phone] * ECG-Annotated (12/22/2024) Only the most recent [...] Sally Rossi MD on 12/19/2024 21:14:25 Navi B Austin HUGHES IM CT PROCEDURES Final Result * (ABNORMAL) Urinalysis with reflex microscopic (12/19/2024 6:18 PM EST) Specific [place] Urine 1.019 1.003 - 1.030 LAB URINALYSIS - AUTOMATED METHOD 12/19/2024 6:42 PM [facility] pH, Urine 8.5(A) 5.0 - 8.0 pH LAB URINALYSIS - AUTOMATED METHOD 12/19/2024 6:42 PM [facility] Leukocytes, Urine Small(A) Negative LAB URINALYSIS - AUTOMATED METHOD 12/19/2024 6:42 PM [facility] Nitrite, Urine Negative Negative LAB URINALYSIS - AUTOMATED METHOD 12/19/2024 6:42 PM [facility] Protein, Urine 30(A) <=Trace mg/dL LAB URINALYSIS - AUTOMATED METHOD 12/19/2024 6:42 PM [facility] Glucose, Urine Negative Negative mg/dL LAB URINALYSIS - AUTOMATED METHOD 12/19/2024 6:42 PM [facility] Ketones, Urine >=80(A) Negative mg/dL LAB URINALYSIS - AUTOMATED METHOD 12/19/2024 6:42 PM [facility] Urobilinogen , Urine 1.0 0.2 - 1.0 mg/dL LAB URINALYSIS - AUTOMATED METHOD 12/19/2024 6:42 PM [facility] Bilirubin, Urine Negative Negative LAB URINALYSIS - AUTOMATED METHOD 12/19/2024 6:42 PM [facility] Blood, Urine Negative Negative LAB URINALYSIS - AUTOMATED METHOD 12/19/2024 6:42 PM [facility] RBC, Urine 1.9 0 - 4 /HPF LAB URINALYSIS - AUTOMATED METHOD 12/19/2024 6:42 PM [facility] WBC, Urine 2.9 0 - 4 /HPF LAB URINALYSIS - AUTOMATED METHOD 12/19/2024 6:42 PM [facility] Squamous Epithelial, Urine 76(H) 0 - 60 /LPF LAB URINALYSIS - AUTOMATED METHOD 12/19/2024 6:42 PM [facility] Bacteria, Urine Moderate(A) Negative /HPF LAB URINALYSIS - AUTOMATED METHOD 12/19/2024 6:42 PM [facility] Hyaline Casts, Urine 1.2 0 - 3 /LPF LAB URINALYSIS - AUTOMATED METHOD 12/19/2024 6:42 PM [facility] Urine Urine specimen obtained by clean catch procedure / Unknown Non-blood Collection / Unknown 12/19/2024 6:18 PM EST 12/19/2024 6:28 PM EST us Navi Theresa Avila MD LAB URINE ORDERABLES Final Resu lt [facility] [address] [place] [address], [place] [phone] * Lipase (12/19/2024 5:24 PM EST) [facility] Lipase 32 13 - 75 unit/L LAB CHEMISTRY METHOD 12/19/2024 6:31 PM [facility] Blood Venous blood specimen / Unknown Venipuncture / Unknown 12/19/2024 5:24 PM EST 12/19/2024 5:34 PM EST Navi Avila MD LAB BLOOD ORDERABLES Final Resu lt [facility] [address] [place] [address], [place] [phone] * (ABNORMAL) Comprehensive metabolic panel (12/19/2024 5:24 PM EST) [facility] Sodium 138 133 - 145 mmol/L LAB CHEMISTRY METHOD 12/19/2024 6:31 PM [facility] Potassium 3.8 3.5 - 5.5 mmol/L LAB CHEMISTRY METHOD 12/19/2024 6:31 PM [facility] Comment:Hemolysis present Chloride 110 96 - 110 mmol/L LAB CHEMISTRY METHOD 12/19/2024 6:31 PM [facility] CO2 18(L) 21 - 32 mmol/L LAB CHEMISTRY METHOD 12/19/2024 6:31 PM [facility] Anion Gap 10 3 - 11 LAB CHEMISTRY METHOD 12/19/2024 6:31 PM [facility] Glucose 87 70 - 100 mg/dL LAB CHEMISTRY METHOD 12/19/2024 6:31 PM [facility] BUN 6 5 - 25 mg/dL LAB CHEMISTRY METHOD 12/19/2024 6:31 PM [facility] Creatinine 0.74 0.50 - 1.10 mg/dL LAB CHEMISTRY METHOD 12/19/2024 6:31 PM [facility] eGFR 109 >=60 mL/min/1. 73m2 LAB CHEMISTRY METHOD 12/19/2024 6:31 PM [facility] Comment:Calculation based on the??Chronic Kidney Disease Epidemiology Collaboration (CKD-EPI) equation refit??without adjustment for race. BUN/Creatinine Ratio 8.1 LAB CHEMISTRY METHOD 12/19/2024 6:31 PM [facility] Calcium 9.5 8.5 - 10.5 mg/dL LAB CHEMISTRY METHOD 12/19/2024 6:31 PM [facility] AST (SGOT) 27 10 - 42 unit/L LAB CHEMISTRY METHOD 12/19/2024 6:31 PM [facility] Comment:Hemolysis present ALT (SGPT) 15 10 - 60 unit/L LAB CHEMISTRY METHOD 12/19/2024 6:31 PM [facility] Alkaline Phosphatase 53 42 - 121 unit/L LAB CHEMISTRY METHOD 12/19/2024 6:31 PM [facility] Total Protein 7.9 6.0 - 8.0 g/dL LAB CHEMISTRY METHOD 12/19/2024 6:31 PM [facility] Albumin 4.3 3.2 - 5.0 g/dL LAB CHEMISTRY METHOD 12/19/2024 6:31 PM [facility] Total Bilirubin 0.7 0.0 - 1.4 mg/dL LAB CHEMISTRY METHOD 12/19/2024 6:31 PM [facility] Blood Venous blood specimen / Unknown Venipuncture / Unknown 12/19/2024 5:24 PM EST 12/19/2024 5:34 PM EST us Navi B Austin HUGHES LAB BLOOD ORDERABLES Final Resu lt [facility] [address] [place] [address], from Last 3 Months Insurance [facility] Care Teams Door Tender Relationship Specialty Start Date End Date Carmela Gaytan MD [address] [place] [phone] PCP - General Internal Medicine 12/19/24
--- OUTSIDE RECORDS SUMMARY | 2025-01-16 12:49 | XMS_ITS | Encounter Summary ---
Author Organization [facility] Address [address] [place] [address] Care Team Providers Care Monologist Name Role Phone Carmela Gaytan MD Primary Care Provider [phone] Reason for Visit * Reason Comments Diarrhea Encounter Details Date Type Department Care Team ([facility] st Contact Info) Description 12/19/2024 3:31 PM EST - 12/19/2024 10:49 PM EST Emergency [facility] Emergency [address] [place] [address] Navi Avila MD [address] [place] [address] Clostridium difficile diarrhea (Primary Dx) Discharge Disposition: [...] 10:23 PM EST Thank you for choosing [facility]'s Emergency Department for your care today. [...] primary care physician, please call the [facility] at [phone] toestablish a new primary care physician. Please return to the emergency department if you develop a sudden severe change in your symptoms, afever over 100.4,, severe or recurrent vomiting,, or a sudden increase in pain, or if you experience any other new or worsening symptoms or concerns. * Attachments The following attachments cannot be sent through Care Everywhere. 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 She [...] Dr Yordy Rolon [facility] COLONOSCOPY 06/28/2010 PROCEDURE: [place] COLONOSCOPY STOMA DX INCLUDING COLLJ SPEC SPX; COMMENT: normal to terminal ileum to 20 cm ESOPHAGOGASTRODUODENOSCOPY 01/22/14 PROCEDURE: [place] ESOPHAGOGASTRODUODENOSCOPY TRANSORAL DIAGNOSTIC; COMMENT: normal; normal duodenal [...] reflex microscopic (12/19/2024 6:18 PM EST) Specific [place] Urine 1.019 1.003 - 1.030 LAB URINALYSIS - AUTOMATED METHOD 12/19/2024 6:42 PM [facility] pH, Urine 8.5(A) 5.0 - 8.0 pH LAB URINALYSIS - AUTOMATED METHOD 12/19/2024 6:42 PM [facility] Leukocytes, Urine Small(A) Negative LAB URINALYSIS - AUTOMATED METHOD 12/19/2024 6:42 PM [facility] Nitrite, Urine Negative Negative LAB URINALYSIS - AUTOMATED METHOD 12/19/2024 6:42 PM [facility] Protein, Urine 30(A) <=Trace mg/dL LAB URINALYSIS - AUTOMATED METHOD 12/19/2024 6:42 PM [facility] Glucose, Urine Negative Negative mg/dL LAB URINALYSIS - AUTOMATED METHOD 12/19/2024 6:42 PM [facility] Ketones, Urine >=80(A) Negative mg/dL LAB URINALYSIS - AUTOMATED METHOD 12/19/2024 6:42 PM [facility] Urobilinogen , Urine 1.0 0.2 - 1.0 mg/dL LAB URINALYSIS - AUTOMATED METHOD 12/19/2024 6:42 PM [facility] Bilirubin, Urine Negative Negative LAB URINALYSIS - AUTOMATED METHOD 12/19/2024 6:42 PM [facility] Blood, Urine Negative Negative LAB URINALYSIS - AUTOMATED METHOD 12/19/2024 6:42 PM [facility] RBC, Urine 1.9 0 - 4 /HPF LAB URINALYSIS - AUTOMATED METHOD 12/19/2024 6:42 PM [facility] WBC, Urine 2.9 0 - 4 /HPF LAB URINALYSIS - AUTOMATED METHOD 12/19/2024 6:42 PM EST [facility] Squamous Epithelial, Urine 76(H) 0 - 60 /LPF LAB URINALYSIS - AUTOMATED METHOD 12/19/2024 6:42 PM EST [facility] Bacteria, Urine Moderate(A) Negative /HPF LAB URINALYSIS - AUTOMATED METHOD 12/19/2024 6:42 PM [facility] Hyaline Casts, Urine 1.2 0 - 3 /LPF LAB URINALYSIS - AUTOMATED METHOD 12/19/2024 6:42 PM [facility] Urine Urine specimen obtained by clean catch procedure / Unknown Non-blood Collection / Unknown 12/19/2024 6:18 PM EST 12/19/2024 6:28 PM EST Navi Theresa Avila MD LAB URINE ORDERABLES Final Resu lt [facility] [address] [place] [address], [place] [phone] * POC , urine manually resulted (12/19/2024 [...] K/mcL LAB HEMETOLOGY METHOD 12/19/2024 5:42 PM [facility] RBC 4.50 3.80 - 4.80 M/mcL LAB HEMETOLOGY METHOD 12/19/2024 5:42 PM [facility] Hemoglobin 13.2 11.5 - 16.0 g/dL LAB HEMETOLOGY METHOD 12/19/2024 5:42 PM [facility] Hematocrit 39.6 35.0 - 47.0 % LAB HEMETOLOGY METHOD 12/19/2024 5:42 PM [facility] MCV 87.8 79.0 - 98.0 FL LAB HEMETOLOGY METHOD 12/19/2024 5:42 PM [facility] MCH 29.3 27.0 - 32.0 pcg LAB HEMETOLOGY METHOD 12/19/2024 5:42 PM [facility] MCHC 33.3 32.0 - 37.0 g/dL LAB HEMETOLOGY METHOD 12/19/2024 5:42 PM [facility] RDW 12.3 11.0 - 15.0 % LAB HEMETOLOGY METHOD 12/19/2024 5:42 PM [facility] Platelets 251 130 - 400 K/mcL LAB HEMETOLOGY METHOD 12/19/2024 5:42 PM [facility] MPV 9.4 7.0 - 11.0 FL LAB HEMETOLOGY METHOD 12/19/2024 5:42 PM [facility] NRBC 0.0 <1.0 % LAB HEMETOLOGY METHOD 12/19/2024 5:42 PM [facility] NRBC Absolute 0.00 <0.10 K/mcL LAB HEMETOLOGY METHOD 12/19/2024 5:42 PM [facility] Neutrophils Relative 50.7 % LAB HEMETOLOGY METHOD 12/19/2024 5:42 PM [facility] Lymphocytes Relative 41.2 % LAB HEMETOLOGY METHOD 12/19/2024 5:42 PM [facility] Monocytes Relative 7.0 % LAB HEMETOLOGY METHOD 12/19/2024 5:42 PM [facility] Eosinophils Relative 0.7 % LAB HEMETOLOGY METHOD 12/19/2024 5:42 PM EST [facility] Basophils Relative 0.3 % LAB HEMETOLOGY METHOD 12/19/2024 5:42 PM [facility] Immature Granulocytes Relative 0.1 % LAB HEMETOLOGY METHOD 12/19/2024 5:42 PM [facility] Neutrophils Absolute 3.69 1.50 - 7.00 K/mcL LAB HEMETOLOGY METHOD 12/19/2024 5:42 PM EST [facility] Lymphocytes Absolute 3.00 1.00 - 5.00 K/mcL LAB HEMETOLOGY METHOD 12/19/2024 5:42 PM [facility] Monocytes Absolute 0.51 0.20 - 1.00 K/mcL LAB HEMETOLOGY METHOD 12/19/2024 5:42 PM [facility] Eosinophils Absolute 0.05 0.00 - 0.50 K/mcL LAB HEMETOLOGY METHOD 12/19/2024 5:42 PM EST [facility] Basophils Absolute 0.02 0.00 - 0.20 K/mcL LAB HEMETOLOGY METHOD 12/19/2024 5:42 PM [facility] Immature Granulocytes Absolute 0.01 0.00 - 0.03 K/mcL LAB HEMETOLOGY METHOD 12/19/2024 5:42 PM [facility] Blood Venous blood specimen / Unknown Venipuncture / Unknown 12/19/2024 5:24 PM EST 12/19/2024 5:34 PM EST us Navi Avila MD LAB BLOOD ORDERABLES Final Resu lt [facility] [address] [place] [address], * Lipase (12/19/2024 5:24 PM EST) Lipase 32 13 - 75 unit/L LAB CHEMISTRY METHOD 12/19/2024 6:31 PM [facility] Blood Venous blood specimen / Unknown Venipuncture / Unknown 12/19/2024 5:24 PM EST 12/19/2024 5:34 PM EST us Navi B Austin HUGHES LAB BLOOD ORDERABLES Final Resu lt [facility] [address] [place] [address], [place] [phone] * (ABNORMAL) Comprehensive metabolic panel (12/19/2024 5:24 PM EST) Sodium 138 133 - 145 mmol/L LAB CHEMISTRY METHOD 12/19/2024 6:31 PM [facility] Potassium 3.8 3.5 - 5.5 mmol/L LAB CHEMISTRY METHOD 12/19/2024 6:31 PM [facility] Comment:Hemolysis present Chloride 110 96 - 110 mmol/L LAB CHEMISTRY METHOD 12/19/2024 6:31 PM [facility] CO2 18(L) 21 - 32 mmol/L LAB CHEMISTRY METHOD 12/19/2024 6:31 PM [facility] Anion Gap 10 3 - 11 LAB CHEMISTRY METHOD 12/19/2024 6:31 PM [facility] Glucose 87 70 - 100 mg/dL LAB CHEMISTRY METHOD 12/19/2024 6:31 PM [facility] BUN 6 5 - 25 mg/dL LAB CHEMISTRY METHOD 12/19/2024 6:31 PM [facility] Creatinine 0.74 0.50 - 1.10 mg/dL LAB CHEMISTRY METHOD 12/19/2024 6:31 PM [facility] eGFR 109 >=60 mL/min/1. 73m2 LAB CHEMISTRY METHOD 12/19/2024 6:31 PM [facility] Comment:Calculation based on the??Chronic Kidney Disease Epidemiology Collaboration (CKD-EPI) equation refit??without adjustment for race. BUN/Creatinine Ratio 8.1 LAB CHEMISTRY METHOD 12/19/2024 6:31 PM [facility] Calcium 9.5 8.5 - 10.5 mg/dL LAB CHEMISTRY METHOD 12/19/2024 6:31 PM [facility] AST (SGOT) 27 10 - 42 unit/L LAB CHEMISTRY METHOD 12/19/2024 6:31 PM [facility] Comment:Hemolysis present ALT (SGPT) 15 10 - 60 unit/L LAB CHEMISTRY METHOD 12/19/2024 6:31 PM [facility] Alkaline Phosphatase 53 42 - 121 unit/L LAB CHEMISTRY METHOD 12/19/2024 6:31 PM [facility] Total Protein 7.9 6.0 - 8.0 g/dL LAB CHEMISTRY METHOD 12/19/2024 6:31 PM [facility] Albumin 4.3 3.2 - 5.0 g/dL LAB CHEMISTRY METHOD 12/19/2024 6:31 PM [facility] Total Bilirubin 0.7 0.0 - 1.4 mg/dL LAB CHEMISTRY METHOD 12/19/2024 6:31 PM [facility] Blood Venous blood specimen / Unknown Venipuncture / Unknown 12/19/2024 5:24 PM EST 12/19/2024 5:34 PM EST us Navi Avila MD LAB BLOOD ORDERABLES Final Resu lt [facility] [address] [place] [address], documented in this encounter Visit Diagnoses Diagnosis [...] 12/19/2024 documented in this encounter Care Teams Monologist Relationship Specialty Start Date End Date Carmela Gaytan MD [address] [place] [address] PCP - General Internal Medicine 12/19/24 documented as of this encounter
--- OUTSIDE RECORDS SUMMARY | 2025-01-16 12:50 | XMS_ITS | Encounter Summary ---
Author Organization [facility] Address [address] [place] [address] Care Team Providers Care Logging Worker Name Role Phone Carmela Gaytan MD Primary Care Provider [phone] Reason for Visit * Reason Comments Palpitations Encounter Details Date Type Department Care Team ([facility] st Contact Info) Description 12/22/2024 5:08 PM EST - 12/22/2024 9:17 PM EST Emergency [facility] Emergency [address] [place] [address] Dehydration (Primary Dx) Discharge Disposition: Home or [...] or any other concern. Get well soon! [facility] Primary Care & Specialty Office Locations [place] [phone] [place] [phone] [place] ([address]) [phone] [place] ([address]) [phone] Orthopedics: [phone] Thank you for coming to the [facility] Emergency Department today. Our entire team works [...] be sent through Care Everywhere. * Dehydration (Greenlandic) documented in this encounter Medications at Time [...] the original note were not included. [facility] Emergency Department Encounter Note Patient Name: Sherly Pyle Initial Evaluation: 12/22/2024 : 1990 Patient's PCP: Carmela Gaytan MD Emergency Provider: NAHID Wheatley Chief Complaint Patient presents with Palpitations History of Present Illness HPI: 34-year-old female presents for evaluation of palpitations. Patient [facility] [place] she had sudden onset [...] of routine headaches. History provided by: Patient seismic interpreter used: No ROS: Review of Systems Respiratory: [...] HISTORICAL APPENDECTOMY; COMMENT: Dr Yordy Rolon [facility] COLONOSCOPY 06/28/2010 PROCEDURE: [place] COLONOSCOPY STOMA DX INCLUDING COLLJ SPEC SPX; COMMENT: normal to terminal ileum to 20 cm ESOPHAGOGASTRODUODENOSCOPY 01/22/14 PROCEDURE: ME ESOPHAGOGASTRODUODENOSCOPY TRANSORAL DIAGNOSTIC; COMMENT: normal; normal duodenal [...] Procedure Abnormality Status --------- ------ CBC auto differential[[id number]] Final result Please view results for these [...] Abnormality Status --------- ------ Urinalysis with reflex ...[[id number]] [place] urine culture tube[[id number]] Please view results for these tests on [...] abdominal pain. GENERAL: Well-Appearing, well-nourished patient. SKIN: [place], warm, dry. No rashes. HEENT: No stridor, [...] GEMUSE QTc 450 ms GEMUSE P Wave [place] 68 degrees GEMUSE R [place] 35 degrees GEMUSE T [place] 45 degrees GEMUSE ECG Interpretation Normal sinus rhythm Incomplete right bundle branch block Borderline ECG When compared with ECG of 22-DEC-2024 17:04, ST less depressed in Inferior leads ST no longer depressed in Anterior leads Nonspecific T wave abnormality no longer evident in Inferior leads Confirmed by MD Heaton Christopher ([id number]) on 12/24/2024 9:07:07 AM GEMUSE 12/22/2024 8:15 PM EST 12/24/2024 9:07 AM EST Navi Theresa Avila MD ECG ORDERABLES Final Result MICHAEL * XR Chest 2 Views (12/22/2024 6:59 PM EST) Anatomical Region Laterality Modality Body Radiographic Sharri ging 12/23/2024 8:22 AM EST Impressions 12/23/2024 8:22 AM EST Impression: No active pulmonary process identified. Telerad PA ([id number]) -------- FINAL REPORT -------- Dictated By: Cheryl Rodriguez Dictated Date: 12/23/2024 08:22 ET Assigned Physician: Cheryl Rodriguez Reviewed and Electronically Signed By: Cheryl Rodriguez Signed Date: 12/23/2024 08:22 ET Workstation ID: [id number] Transcribed By: Self Edit Transcribed Date: 12/23/2024 [...] No active pulmonary process identified. Telerad PA ([id number]) -------- FINAL REPORT -------- Dictated By: Cheryl Rodriguez Dictated Date: 12/23/2024 08:22 ET Assigned Physician: Cheryl Rodriguez Reviewed and Electronically Signed By: Cheryl Rodriguez Signed Date: 12/23/2024 08:22 ET Workstation ID: [id number] Transcribed By: Self Edit Transcribed Date: 12/23/2024 08:22 ET Navi B Austin HUGHES IMG XR PROCEDURES Final Result * POC , urine manually resulted (12/22/2024 6:29 PM EST) Pathologist [facility] HCG, Ur POC Negative Negative POC hCG Int QC Pass? Yes Yes EXPIRATION DATE POC 04/23/26 LOT NUMBER POC [id number] Urine Urine specimen obtained by clean catch procedure / Unknown 12/22/2024 6:29 PM EST Navi B Austin HUGHES POINT OF CARE TEST ENTER/EDIT O RDERABLES Final Result * Respiratory virus panel molecular study (12/22/2024 6:06 PM EST) Pathologist [facility] Adenovirus Detection by PCR Not Detected Not Detected LAB MICROBIOLOGY METHOD 12/22/2024 7:29 PM [facility] Influenza A PCR Not Detected Not Detected LAB MICROBIOLOGY METHOD 12/22/2024 7:29 PM [facility] Influenza B PCR Not Detected Not Detected LAB MICROBIOLOGY METHOD 12/22/2024 7:29 PM [facility] Coronavirus 229E Not Detected Not Detected LAB MICROBIOLOGY METHOD 12/22/2024 7:29 PM [facility] Coronavirus HKU1 Not Detected Not Detected LAB MICROBIOLOGY METHOD 12/22/2024 7:29 PM [facility] Coronavirus OC43 Not Detected Not Detected LAB MICROBIOLOGY METHOD 12/22/2024 7:29 PM [facility] Coronavirus NL63 Not Detected Not Detected LAB MICROBIOLOGY METHOD 12/22/2024 7:29 PM [facility] Parainfluenza Virus 1 Not Detected Not Detected LAB MICROBIOLOGY METHOD 12/22/2024 7:29 PM [facility] Parainfluenza Virus 2 Not Detected Not Detected LAB MICROBIOLOGY METHOD 12/22/2024 7:29 PM [facility] Parainfluenza Virus 3 Not Detected Not Detected LAB MICROBIOLOGY METHOD 12/22/2024 7:29 PM [facility] Parainfluenza Virus 4 Not Detected Not Detected LAB MICROBIOLOGY METHOD 12/22/2024 7:29 PM [facility] RSV PCR Not Detected Not Detected LAB MICROBIOLOGY METHOD 12/22/2024 7:29 PM [facility] Human Metapneumovirus A and B Not Detected Not Detected LAB MICROBIOLOGY METHOD 12/22/2024 7:29 PM [facility] Rhinovirus/Entero virus Not Detected Not Detected LAB MICROBIOLOGY METHOD 12/22/2024 7:29 PM [facility] Bordetella pertussis Not Detected Not Detected LAB MICROBIOLOGY METHOD 12/22/2024 7:29 PM [facility] Bordetella parapertussis Not Detected Not Detected LAB MICROBIOLOGY METHOD 12/22/2024 7:29 PM [facility] Mycoplasma pneumo by PCR Not Detected Not Detected LAB MICROBIOLOGY METHOD 12/22/2024 7:29 PM [facility] Chlamydia pneumoniae Not Detected Not Detected LAB MICROBIOLOGY METHOD 12/22/2024 7:29 PM [facility] SARS COV-2 Not Detected Not Detected LAB MICROBIOLOGY METHOD 12/22/2024 7:29 PM [facility] Swab Both anterior nares / Unknown Non-blood Collection / Unknown 12/22/2024 6:06 PM EST 12/22/2024 6:12 PM EST [facility] - 12/22/2024 7:29 PM EST Testing was performed using the [facility] [facility] Respiratory Pathogen PCR Assay. All results must [...] O RDERABLES Final Result Performing Organization Address [facility]/ZIP Co de Phone Number [facility] [address] [place] [address], [place] [phone] * [place] urine culture tube (12/22/2024 6:06 PM EST) [facility] Extra Tube Hold for add-ons. 12/22/2024 8:01 PM EST [facility] Comment:Auto resulted. Urine Urine specimen obtained by clean catch procedure / Unknown Non-blood Collection / Unknown 12/22/2024 6:06 PM EST 12/22/2024 6:12 PM EST Navi Avila MD LAB URINE ORDERABLES Final Resu lt Performing Organization Address [facility]/ZIP Co de Phone Number [facility] [address] [place] [address], [place] [phone] * (ABNORMAL) Urinalysis with reflex microscopic and culture (12/22/2024 6:06 PM EST) [facility] Specific [place] Urine 1.005 1.003 - 1.030 LAB URINALYSIS - AUTOMATED METHOD 12/22/2024 6:18 PM [facility] pH, Urine 7.0 5.0 - 8.0 pH LAB URINALYSIS - AUTOMATED METHOD 12/22/2024 6:18 PM [facility] Leukocytes, Urine Negative Negative LAB URINALYSIS - AUTOMATED METHOD 12/22/2024 6:18 PM [facility] Nitrite, Urine Negative Negative LAB URINALYSIS - AUTOMATED METHOD 12/22/2024 6:18 PM [facility] Protein, Urine Negative <=Trace mg/dL LAB URINALYSIS - AUTOMATED METHOD 12/22/2024 6:18 PM [facility] Glucose, Urine Negative Negative mg/dL LAB URINALYSIS - AUTOMATED METHOD 12/22/2024 6:18 PM [facility] Ketones, Urine 15(A) Negative mg/dL LAB URINALYSIS - AUTOMATED METHOD 12/22/2024 6:18 PM [facility] Urobilinogen, Urine 0.2 0.2 - 1.0 mg/dL LAB URINALYSIS - AUTOMATED METHOD 12/22/2024 6:18 PM [facility] Bilirubin, Urine Negative Negative LAB URINALYSIS - AUTOMATED METHOD 12/22/2024 6:18 PM [facility] Blood, Urine Negative Negative LAB URINALYSIS - AUTOMATED METHOD 12/22/2024 6:18 PM [facility] Urine Urine specimen obtained by clean catch procedure / Unknown Non-blood Collection / Unknown 12/22/2024 6:06 PM EST 12/22/2024 6:12 PM EST us Navi Avila MD LAB URINE ORDERABLES Final Resu lt [facility] [address] [place] [address], * CBC auto differential (12/22/2024 5:33 PM EST) WBC 6.6 4.8 - 10.8 K/[facility] LAB HEMETOLOGY METHOD 12/22/2024 5:52 PM [facility] RBC 4.10 3.80 - 4.80 M/[facility] LAB HEMETOLOGY METHOD 12/22/2024 5:52 PM [facility] Hemoglobin 12.1 11.5 - 16.0 g/dL LAB HEMETOLOGY METHOD 12/22/2024 5:52 PM [facility] Hematocrit 35.8 35.0 - 47.0 % LAB HEMETOLOGY METHOD 12/22/2024 5:52 PM [facility] MCV 87.3 79.0 - 98.0 FL LAB HEMETOLOGY METHOD 12/22/2024 5:52 PM [facility] MCH 29.5 27.0 - 32.0 pcg LAB HEMETOLOGY METHOD 12/22/2024 5:52 PM [facility] MCHC 33.8 32.0 - 37.0 g/dL LAB HEMETOLOGY METHOD 12/22/2024 5:52 PM [facility] RDW 12.4 11.0 - 15.0 % LAB HEMETOLOGY METHOD 12/22/2024 5:52 PM [facility] Platelets 237 130 - 400 K/mcL LAB HEMETOLOGY METHOD 12/22/2024 5:52 PM [facility] MPV 9.5 7.0 - 11.0 FL LAB HEMETOLOGY METHOD 12/22/2024 5:52 PM [facility] NRBC 0.0 <1.0 % LAB HEMETOLOGY METHOD 12/22/2024 5:52 PM [facility] NRBC Absolute 0.00 <0.10 K/mcL LAB HEMETOLOGY METHOD 12/22/2024 5:52 PM [facility] Neutrophils Relative 55.5 % LAB HEMETOLOGY METHOD 12/22/2024 5:52 PM [facility] Lymphocytes Relative 36.8 % LAB HEMETOLOGY METHOD 12/22/2024 5:52 PM [facility] Monocytes Relative 5.6 % LAB HEMETOLOGY METHOD 12/22/2024 5:52 PM [facility] Eosinophils Relative 1.1 % LAB HEMETOLOGY METHOD 12/22/2024 5:52 PM EST [facility] Basophils Relative 0.5 % LAB HEMETOLOGY METHOD 12/22/2024 5:52 PM [facility] Immature Granulocytes Relative 0.5 % [...] MD LAB BLOOD ORDERABLES Final Resu lt [facility] [address] [place] [address], * Troponin I high sensitivity (12/22/2024 5:33 [...] ORDERABLES Final Resu lt Performing Organization Address [facility]/ZIP Co de Phone Number [facility] [address] [place] [address], [place] [phone] * (ABNORMAL) Magnesium (12/22/2024 5:33 PM EST) [facility] Magnesium 1.4(L) 1.9 - 2.6 mg/dL LAB CHEMISTRY METHOD 12/22/2024 6:09 PM EST [facility] Blood Venous blood specimen / Unknown Venipuncture / Unknown 12/22/2024 5:33 PM EST 12/22/2024 5:47 PM EST us Navi Avila MD LAB BLOOD ORDERABLES Final Resu lt [facility] [address] [place] [address], [place] [phone] * (ABNORMAL) Basic metabolic panel (12/22/2024 5:33 PM EST) [facility] Sodium 136 133 - 145 mmol/L LAB CHEMISTRY METHOD 12/22/2024 6:09 PM EST [facility] Potassium 3.0(L) 3.5 - 5.5 mmol/L LAB CHEMISTRY METHOD 12/22/2024 6:09 PM [facility] Chloride 105 96 - 110 mmol/L LAB CHEMISTRY METHOD 12/22/2024 6:09 PM [facility] CO2 19(L) 21 - 32 mmol/L LAB CHEMISTRY METHOD 12/22/2024 6:09 PM [facility] Anion Gap 12(H) 3 - 11 LAB CHEMISTRY METHOD 12/22/2024 6:09 PM [facility] Glucose 119(H) 70 - 100 mg/dL LAB CHEMISTRY METHOD 12/22/2024 6:09 PM [facility] BUN 6 5 - 25 mg/dL LAB CHEMISTRY METHOD 12/22/2024 6:09 PM [facility] Creatinine 0.86 0.50 - 1.10 mg/dL LAB CHEMISTRY METHOD 12/22/2024 6:09 PM [facility] eGFR 91 >=60 mL/min/1. 73m2 LAB CHEMISTRY METHOD 12/22/2024 6:09 PM [facility] Comment:Calculation based on the??Chronic Kidney Disease Epidemiology Collaboration (CKD-EPI) equation refit??without adjustment for race. BUN/Creatinine Ratio 7.0 LAB CHEMISTRY METHOD 12/22/2024 6:09 PM [facility] Calcium 9.5 8.5 - 10.5 mg/dL LAB CHEMISTRY METHOD 12/22/2024 6:09 PM [facility] Blood Venous blood specimen / Unknown Venipuncture / Unknown 12/22/2024 5:33 PM EST 12/22/2024 5:47 PM EST us Navi Avila MD LAB BLOOD ORDERABLES Final Resu lt [facility] [address] [place] [address], * ECG 12 lead (12/22/2024 5:04 PM EST) Ventricular Rate ECG 130 BPM GEMUSE Atrial Rate 130 BPM GEMUSE P-R Interval 126 ms GEMUSE QRS Duration 92 ms GEMUSE Q-T Interval 316 ms GEMUSE QTc 465 ms GEMUSE P Wave [place] 80 degrees GEMUSE R [place] 36 degrees GEMUSE T [place] 5 degrees GEMUSE ECG Interpretation Sinus tachycardia [...] documented as of this encounter Care Teams Logging Worker Relationship Specialty Start Date End Date Carmela Gaytan MD [address] [place] [address] PCP - General Internal Medicine 12/19/24 documented as of this encounter
== END 2025-01-16 13:04 | disposition home or self-care (01) ==
PROVIDERS: PCP Internal Medicine; Visit Provider Internal Medicine
DX: R19.7 Diarrhea, unspecified (principal); F41.9 Anxiety disorder, unspecified; F32.A Depression, unspecified

== ENCOUNTER 2025-01-16 11:50 | Outpatient (REF) | payer OTHER, SELFPAY ==
--- OUTSIDE RECORDS SUMMARY | 2025-01-16 13:35 | XMS_ITS | Encounter Summary ---
Author Organization [facility] Address [address] [place] [address] Care Team Providers Care Life Assurance Representative Name Role Phone Carmela Gaytan MD Primary Care Provider [phone] Reason for Visit * Reason Comments Palpitations Encounter Details Date Type Department Care Team ([facility] st Contact Info) Description 12/22/2024 5:08 PM EST - 12/22/2024 9:17 PM EST Emergency [facility] Emergency [address] [place] [address] Dehydration (Primary Dx) Discharge Disposition: Home or [...] or any other concern. Get well soon! [facility] Primary Care & Specialty Office Locations [place] [phone] [place] [phone] [place] ([address]) [phone] [place] ([address]) [phone] Orthopedics: [phone] Thank you for coming to the [facility] Emergency Department today. Our entire team works [...] be sent through Care Everywhere. * Dehydration (Hebrew) documented in this encounter Medications at [...] from the original note were not included. [facility] Emergency Department Encounter Note Patient Name: Sherly Pyle Initial Evaluation: 12/22/2024 : 1990 Patient's PCP: Carmela Gaytan MD Emergency Provider: NAHID Wheatley Chief Complaint Patient presents with Palpitations History of Present Illness HPI: 34-year-old female presents for evaluation of palpitations. [facility] [place] she had sudden onset [...] of routine headaches. History provided by: Patient translator interpreter used: No ROS: Review of Systems [...] PROCEDURE: HISTORICAL APPENDECTOMY; COMMENT: Dr Yordy Rolon [facility] COLONOSCOPY 06/28/2010 PROCEDURE: ID COLONOSCOPY STOMA DX INCLUDING COLLJ SPEC SPX; COMMENT: normal to terminal ileum to 20 cm ESOPHAGOGASTRODUODENOSCOPY 01/22/14 PROCEDURE: ID ESOPHAGOGASTRODUODENOSCOPY TRANSORAL DIAGNOSTIC; COMMENT: normal; normal duodenal [...] Procedure Abnormality Status --------- ------ CBC auto differential[[id number]] Final result Please view results for these [...] Abnormality Status --------- ------ Urinalysis with reflex ...[[id number]] Belcher urine culture tube[[id number]] Please view results for these tests on [...] abdominal pain. GENERAL: Well-Appearing, well-nourished patient. SKIN: [place], warm, dry. No rashes. HEENT: No stridor, [...] GEMUSE QTc 450 ms GEMUSE P Wave [place] 68 degrees GEMUSE R [place] 35 degrees GEMUSE T [place] 45 degrees GEMUSE ECG Interpretation Normal sinus rhythm Incomplete right bundle branch block Borderline ECG When compared with ECG of 22-DEC-2024 17:04, ST less depressed in Inferior leads ST no longer depressed in Anterior leads Nonspecific T wave abnormality no longer evident in Inferior leads Confirmed by MD Heaton Christopher ([id number]) on 12/24/2024 9:07:07 AM GEMUSE 12/22/2024 8:15 PM EST 12/24/2024 9:07 AM EST Navi Theresa Avila MD ECG ORDERABLES Final Result MICHAEL * XR Chest 2 Views (12/22/2024 6:59 PM EST) Anatomical Region Laterality Modality Body Radiographic Sharri ging 12/23/2024 8:22 AM EST Impressions 12/23/2024 8:22 AM EST Impression: No active pulmonary process identified. Telerad PA ([id number]) -------- FINAL REPORT -------- Dictated By: Cheryl Rodriguez Dictated Date: 12/23/2024 08:22 ET Assigned Physician: Cheryl Rodriguez Reviewed and Electronically Signed By: Cheryl Rodriguez Signed Date: 12/23/2024 08:22 ET Workstation ID: [id number] Transcribed By: Self Edit Transcribed Date: 12/23/2024 [...] No active pulmonary process identified. Telerad PA ([id number]) -------- FINAL REPORT -------- Dictated By: Cheryl Rodriguez Dictated Date: 12/23/2024 08:22 ET Assigned Physician: Cheryl Rodriguez Reviewed and Electronically Signed By: Cheryl Rodriguez Signed Date: 12/23/2024 08:22 ET Workstation ID: [id number] Transcribed By: Self Edit Transcribed Date: 12/23/2024 08:22 ET Navi B Austin HUGHES IMG XR PROCEDURES Final Result * POC , urine manually resulted (12/22/2024 6:29 PM EST) Pathologist [facility] HCG, Ur POC Negative Negative POC hCG Int QC Pass? Yes Yes EXPIRATION DATE POC 04/23/26 LOT NUMBER POC [id number] Urine Urine specimen obtained by clean catch procedure / Unknown 12/22/2024 6:29 PM EST Navi B Austin HUGHES POINT OF CARE TEST ENTER/EDIT O RDERABLES Final Result * Respiratory virus panel molecular study (12/22/2024 6:06 PM EST) Pathologist [facility] Adenovirus Detection by PCR Not Detected Not Detected LAB MICROBIOLOGY METHOD 12/22/2024 7:29 PM [facility] Influenza A PCR Not Detected Not Detected LAB MICROBIOLOGY METHOD 12/22/2024 7:29 PM [facility] Influenza B PCR Not Detected Not Detected LAB MICROBIOLOGY METHOD 12/22/2024 7:29 PM [facility] Coronavirus 229E Not Detected Not Detected LAB MICROBIOLOGY METHOD 12/22/2024 7:29 PM [facility] Coronavirus HKU1 Not Detected Not Detected LAB MICROBIOLOGY METHOD 12/22/2024 7:29 PM [facility] Coronavirus OC43 Not Detected Not Detected LAB MICROBIOLOGY METHOD 12/22/2024 7:29 PM [facility] Coronavirus NL63 Not Detected Not Detected LAB MICROBIOLOGY METHOD 12/22/2024 7:29 PM [facility] Parainfluenza Virus 1 Not Detected Not Detected LAB MICROBIOLOGY METHOD 12/22/2024 7:29 PM [facility] Parainfluenza Virus 2 Not Detected Not Detected LAB MICROBIOLOGY METHOD 12/22/2024 7:29 PM [facility] Parainfluenza Virus 3 Not Detected Not Detected LAB MICROBIOLOGY METHOD 12/22/2024 7:29 PM [facility] Parainfluenza Virus 4 Not Detected Not Detected LAB MICROBIOLOGY METHOD 12/22/2024 7:29 PM [facility] RSV PCR Not Detected Not Detected LAB MICROBIOLOGY METHOD 12/22/2024 7:29 PM [facility] Human Metapneumovirus A and B Not Detected Not Detected LAB MICROBIOLOGY METHOD 12/22/2024 7:29 PM [facility] Rhinovirus/Entero virus Not Detected Not Detected LAB MICROBIOLOGY METHOD 12/22/2024 7:29 PM [facility] Bordetella pertussis Not Detected Not Detected LAB MICROBIOLOGY METHOD 12/22/2024 7:29 PM [facility] Bordetella parapertussis Not Detected Not Detected LAB MICROBIOLOGY METHOD 12/22/2024 7:29 PM [facility] Mycoplasma pneumo by PCR Not Detected Not Detected LAB MICROBIOLOGY METHOD 12/22/2024 7:29 PM [facility] Chlamydia pneumoniae Not Detected Not Detected LAB MICROBIOLOGY METHOD 12/22/2024 7:29 PM [facility] SARS COV-2 Not Detected Not Detected LAB MICROBIOLOGY METHOD 12/22/2024 7:29 PM [facility] Swab Both anterior nares / Unknown Non-blood Collection / Unknown 12/22/2024 6:06 PM EST 12/22/2024 6:12 PM EST [facility] - 12/22/2024 7:29 PM EST Testing was performed using the [employer] Respiratory Pathogen PCR Assay. All results must [...] O RDERABLES Final Result Performing Organization Address [facility]/ZIP Co de Phone Number [facility] [address] [place] [address], [place] [phone] * [facility]cher urine culture tube (12/22/2024 6:06 PM EST) [facility] Extra Tube Hold for add-ons. 12/22/2024 8:01 PM EST [facility] Comment:Auto resulted. Urine Urine specimen obtained by clean catch procedure / Unknown Non-blood Collection / Unknown 12/22/2024 6:06 PM EST 12/22/2024 6:12 PM EST Navi Avila MD LAB URINE ORDERABLES Final Resu lt Performing Organization Address [facility]/ZIP Co de Phone Number [facility] [address] [place] [address], [place] [phone] * (ABNORMAL) Urinalysis with reflex microscopic and culture (12/22/2024 6:06 PM EST) [facility] Specific [place] Urine 1.005 1.003 - 1.030 LAB URINALYSIS - AUTOMATED METHOD 12/22/2024 6:18 PM [facility] pH, Urine 7.0 5.0 - 8.0 pH LAB URINALYSIS - AUTOMATED METHOD 12/22/2024 6:18 PM [facility] Leukocytes, Urine Negative Negative LAB URINALYSIS - AUTOMATED METHOD 12/22/2024 6:18 PM [facility] Nitrite, Urine Negative Negative LAB URINALYSIS - AUTOMATED METHOD 12/22/2024 6:18 PM [facility] Protein, Urine Negative <=Trace mg/dL LAB URINALYSIS - AUTOMATED METHOD 12/22/2024 6:18 PM [facility] Glucose, Urine Negative Negative mg/dL LAB URINALYSIS - AUTOMATED METHOD 12/22/2024 6:18 PM [facility] Ketones, Urine 15(A) Negative mg/dL LAB URINALYSIS - AUTOMATED METHOD 12/22/2024 6:18 PM [facility] Urobilinogen, Urine 0.2 0.2 - 1.0 mg/dL LAB URINALYSIS - AUTOMATED METHOD 12/22/2024 6:18 PM [facility] Bilirubin, Urine Negative Negative LAB URINALYSIS - AUTOMATED METHOD 12/22/2024 6:18 PM [facility] Blood, Urine Negative Negative LAB URINALYSIS - AUTOMATED METHOD 12/22/2024 6:18 PM [facility] Urine Urine specimen obtained by clean catch procedure / Unknown Non-blood Collection / Unknown 12/22/2024 6:06 PM EST 12/22/2024 6:12 PM EST us Navi Avila MD LAB URINE ORDERABLES Final Resu lt [facility] [address] [place] [address], * CBC auto differential (12/22/2024 5:33 PM EST) WBC 6.6 4.8 - 10.8 K/[facility] LAB HEMETOLOGY METHOD 12/22/2024 5:52 PM [facility] RBC 4.10 3.80 - 4.80 M/[facility] LAB HEMETOLOGY METHOD 12/22/2024 5:52 PM [facility] Hemoglobin 12.1 11.5 - 16.0 g/dL LAB HEMETOLOGY METHOD 12/22/2024 5:52 PM [facility] Hematocrit 35.8 35.0 - 47.0 % LAB HEMETOLOGY METHOD 12/22/2024 5:52 PM [facility] MCV 87.3 79.0 - 98.0 FL LAB HEMETOLOGY METHOD 12/22/2024 5:52 PM [facility] MCH 29.5 27.0 - 32.0 pcg LAB HEMETOLOGY METHOD 12/22/2024 5:52 PM [facility] MCHC 33.8 32.0 - 37.0 g/dL LAB HEMETOLOGY METHOD 12/22/2024 5:52 PM [facility] RDW 12.4 11.0 - 15.0 % LAB HEMETOLOGY METHOD 12/22/2024 5:52 PM [facility] Platelets 237 130 - 400 K/mcL LAB HEMETOLOGY METHOD 12/22/2024 5:52 PM [facility] MPV 9.5 7.0 - 11.0 FL LAB HEMETOLOGY METHOD 12/22/2024 5:52 PM [facility] NRBC 0.0 <1.0 % LAB HEMETOLOGY METHOD 12/22/2024 5:52 PM [facility] NRBC Absolute 0.00 <0.10 K/mcL LAB HEMETOLOGY METHOD 12/22/2024 5:52 PM [facility] Neutrophils Relative 55.5 % LAB HEMETOLOGY METHOD 12/22/2024 5:52 PM [facility] Lymphocytes Relative 36.8 % LAB HEMETOLOGY METHOD 12/22/2024 5:52 PM [facility] Monocytes Relative 5.6 % LAB HEMETOLOGY METHOD 12/22/2024 5:52 PM [facility] Eosinophils Relative 1.1 % LAB HEMETOLOGY METHOD 12/22/2024 5:52 PM EST [facility] Basophils Relative 0.5 % LAB HEMETOLOGY METHOD 12/22/2024 5:52 PM [facility] Immature Granulocytes Relative 0.5 % LAB HEMETOLOGY METHOD 12/22/2024 5:52 PM EST [facility] Neutrophils Absolute 3.68 1.50 - 7.00 K/mcL LAB HEMETOLOGY METHOD 12/22/2024 5:52 PM EST [facility] Lymphocytes Absolute 2.43 1.00 - 5.00 K/mcL LAB HEMETOLOGY METHOD 12/22/2024 5:52 PM EST [facility] Monocytes Absolute 0.37 0.20 - 1.00 K/mcL LAB HEMETOLOGY METHOD 12/22/2024 5:52 PM EST [facility] Eosinophils Absolute 0.07 0.00 - 0.50 K/mcL LAB HEMETOLOGY METHOD 12/22/2024 5:52 PM EST [facility] Basophils Absolute 0.03 0.00 - 0.20 K/mcL LAB HEMETOLOGY METHOD 12/22/2024 5:52 PM EST [facility] Immature Granulocytes Absolute 0.03 0.00 - 0.03 K/mcL LAB HEMETOLOGY METHOD 12/22/2024 5:52 PM EST [facility] Blood Venous blood specimen / Unknown Venipuncture / Unknown 12/22/2024 5:33 PM EST 12/22/2024 5:47 PM EST us Navi Avila MD LAB BLOOD ORDERABLES Final Resu lt [facility] [address] [place] [address], * Troponin I high sensitivity (12/22/2024 5:33 PM EST) High Sensitivity Troponin I 4 <=54 ng/L LAB CHEMISTRY METHOD 12/22/2024 6:12 PM EST [facility] Blood Venous blood specimen / Unknown Venipuncture / Unknown 12/22/2024 5:33 PM EST 12/22/2024 5:47 PM EST Narrative [facility] - 12/22/2024 6:12 PM EST High levels of biotin in samples may falsely decrease hsTroponin values. ??Use caution when interpreting hsTroponin results in patients taking biotin who exhibit renal impairment (eGFR <60) or in patients taking more than 20 mg/day of biotin. us Navi Avila MD LAB BLOOD ORDERABLES Final Resu lt Performing Organization Address [facility]/ZIP Co de Phone Number [facility] [address] [place] [address], [place] [phone] * (ABNORMAL) Magnesium (12/22/2024 5:33 PM EST) [facility] Magnesium 1.4(L) 1.9 - 2.6 mg/dL LAB CHEMISTRY METHOD 12/22/2024 6:09 PM EST [facility] Blood Venous blood specimen / Unknown Venipuncture / Unknown 12/22/2024 5:33 PM EST 12/22/2024 5:47 PM EST us Navi Avila MD LAB BLOOD ORDERABLES Final Resu lt [facility] [address] [place] [address], [place] [phone] * (ABNORMAL) Basic metabolic panel (12/22/2024 5:33 PM EST) [facility] Sodium 136 133 - 145 mmol/L LAB CHEMISTRY METHOD 12/22/2024 6:09 PM EST [facility] Potassium 3.0(L) 3.5 - 5.5 mmol/L LAB CHEMISTRY METHOD 12/22/2024 6:09 PM [facility] Chloride 105 96 - 110 mmol/L LAB CHEMISTRY METHOD 12/22/2024 6:09 PM [facility] CO2 19(L) 21 - 32 mmol/L LAB CHEMISTRY METHOD 12/22/2024 6:09 PM [facility] Anion Gap 12(H) 3 - 11 LAB CHEMISTRY METHOD 12/22/2024 6:09 PM [facility] Glucose 119(H) 70 - 100 mg/dL LAB CHEMISTRY METHOD 12/22/2024 6:09 PM [facility] BUN 6 5 - 25 mg/dL LAB CHEMISTRY METHOD 12/22/2024 6:09 PM [facility] Creatinine 0.86 0.50 - 1.10 mg/dL LAB CHEMISTRY METHOD 12/22/2024 6:09 PM [facility] eGFR 91 >=60 mL/min/1. 73m2 LAB CHEMISTRY METHOD 12/22/2024 6:09 PM [facility] Comment:Calculation based on the??Chronic Kidney Disease Epidemiology Collaboration (CKD-EPI) equation refit??without adjustment for race. BUN/Creatinine Ratio 7.0 LAB CHEMISTRY METHOD 12/22/2024 6:09 PM [facility] Calcium 9.5 8.5 - 10.5 mg/dL LAB CHEMISTRY METHOD 12/22/2024 6:09 PM [facility] Blood Venous blood specimen / Unknown Venipuncture / Unknown 12/22/2024 5:33 PM EST 12/22/2024 5:47 PM EST us Navi Avila MD LAB BLOOD ORDERABLES Final Resu lt [facility] [address] [place] [address], * ECG 12 lead (12/22/2024 5:04 PM EST) Ventricular Rate ECG 130 BPM GEMUSE Atrial Rate 130 BPM GEMUSE P-R Interval 126 ms GEMUSE QRS Duration 92 ms GEMUSE Q-T Interval 316 ms GEMUSE QTc 465 ms GEMUSE P Wave [place] 80 degrees GEMUSE R [place] 36 degrees GEMUSE T [place] 5 degrees GEMUSE ECG Interpretation Sinus tachycardia [...] documented as of this encounter Care Teams Life Assurance Representative Relationship Specialty Start Date End Date Carmela Gaytan MD [address] [place] [address] PCP - General Internal Medicine 12/19/24 documented as of this encounter
--- OUTSIDE RECORDS SUMMARY | 2025-01-16 13:35 | XMS_ITS | Clinical Summary ---
Author Organization [facility] Address [address] [place] [address] Phone Care Team Providers Care Home Theatre Technician Name Role Phone Carmela Gaytan MD Primary Care Provider [phone] Allergies No known active allergies Medications vancomycin [...] 5:08 PM EST - 12/22/2024 9:17 PM [facility] Emergency [address] [place] [phone] Dehydration (Primary Dx) Discharge Disposition: Home or Self Care 12/19/2024 3:31 PM EST - 12/19/2024 10:49 PM [facility] Emergency [address] [place] [phone] Navi Avila MD Clostridium difficile diarrhea (Primary Dx) Discharge Disposition: Home or Self Care from Last 3 Months Surgical History Surgery Date Site/Laterality Comments COLONOSCOPY 06/28/2010 PROCEDURE: IN COLONOSCOPY STOMA DX INCLUDING COLLJ SPEC SPX; COMMENT: normal to terminal ileum to 20 cm ESOPHAGOGASTRODUODENOSCOPY 01/22/14 PROCEDURE: IN ESOPHAGOGASTRODUODENOSCOPY TRANSORAL DIAGNOSTIC; COMMENT: normal; normal duodenal biopsies APPENDECTOMY 03/26/14 laparoscopic PROCEDURE: HISTORICAL APPENDECTOMY; COMMENT: Dr Yordy Rolon [facility] Medical History Medical History Date Comments [...] GEMUSE QTc 450 ms GEMUSE P [place] 68 degrees GEMUSE R [place] 35 degrees GEMUSE T [place] 45 degrees GEMUSE ECG Interpretation Normal sinus [...] No active pulmonary process identified. Telerad NAHID ([id number]) -------- FINAL REPORT -------- Dictated By: Cheryl Rodriguez Dictated Date: 12/23/2024 08:22 ET Assigned Physician: Cheryl Rodriguez Reviewed and Electronically Signed By: Cheryl Rodriguez Signed Date: 12/23/2024 08:22 ET Workstation ID: [id number] Transcribed By: Self Edit Transcribed Date: 12/23/2024 [...] No active pulmonary process identified. Telerad PA ([id number]) -------- FINAL REPORT -------- Dictated By: Cheryl Rodriguez Dictated Date: 12/23/2024 08:22 ET Assigned Physician: Cheryl Rodriguez Reviewed and Electronically Signed By: Cheryl Rodriguez Signed Date: 12/23/2024 08:22 ET Workstation ID: [id number] Transcribed By: Self Edit Transcribed Date: 12/23/2024 08:22 ET Navi B Austin HUGHES IMG XR PROCEDURES Final Result * POC , urine manually resulted (12/22/2024 6:29 PM EST) Only the most recent of2 resultswithin the time period is included. HCG, Ur POC Negative Negative POC hCG Int QC Pass? Yes Yes EXPIRATION DATE POC 04/23/26 LOT NUMBER POC [id number] Urine Urine specimen obtained by clean catch procedure / Unknown 12/22/2024 6:29 PM EST Navi B Austin HUGHES POINT OF CARE TEST ENTER/EDIT O RDERABLES Final Result * (ABNORMAL) Urinalysis with reflex microscopic and culture (12/22/2024 6:06 PM EST) Specific Blanch Urine 1.005 1.003 - 1.030 LAB URINALYSIS - AUTOMATED METHOD 12/22/2024 6:18 PM [facility] pH, Urine 7.0 5.0 - 8.0 pH LAB URINALYSIS - AUTOMATED METHOD 12/22/2024 6:18 PM [facility] Leukocytes, Urine Negative Negative LAB URINALYSIS - AUTOMATED METHOD 12/22/2024 6:18 PM [facility] Nitrite, Urine Negative Negative LAB URINALYSIS - AUTOMATED METHOD 12/22/2024 6:18 PM [facility] Protein, Urine Negative <=Trace mg/dL LAB URINALYSIS - AUTOMATED METHOD 12/22/2024 6:18 PM [facility] Glucose, Urine Negative Negative mg/dL LAB URINALYSIS - AUTOMATED METHOD 12/22/2024 6:18 PM [facility] Ketones, Urine 15(A) Negative mg/dL LAB URINALYSIS - AUTOMATED METHOD 12/22/2024 6:18 PM [facility] Urobilinogen, Urine 0.2 0.2 - 1.0 mg/dL LAB URINALYSIS - AUTOMATED METHOD 12/22/2024 6:18 PM [facility] Bilirubin, Urine Negative Negative LAB URINALYSIS - AUTOMATED METHOD 12/22/2024 6:18 PM [facility] Blood, Urine Negative Negative LAB URINALYSIS - AUTOMATED METHOD 12/22/2024 6:18 PM [facility] Urine Urine specimen obtained by clean catch procedure / Unknown Non-blood Collection / Unknown 12/22/2024 6:06 PM EST 12/22/2024 6:12 PM EST us Navi Avila MD LAB URINE ORDERABLES Final Resu lt [facility] [address] [place] [address], [place] [phone] * Respiratory virus panel molecular study (12/22/2024 6:06 PM EST) Pathologist [facility] Adenovirus Detection by PCR Not Detected Not Detected LAB MICROBIOLOGY METHOD 12/22/2024 7:29 PM [facility] Influenza A PCR Not Detected Not Detected LAB MICROBIOLOGY METHOD 12/22/2024 7:29 PM [facility] Influenza B PCR Not Detected Not Detected LAB MICROBIOLOGY METHOD 12/22/2024 7:29 PM EST [facility] Coronavirus 229E Not Detected Not Detected LAB MICROBIOLOGY METHOD 12/22/2024 7:29 PM [facility] Coronavirus HKU1 Not Detected Not Detected LAB MICROBIOLOGY METHOD 12/22/2024 7:29 PM [facility] Coronavirus OC43 Not Detected Not Detected LAB MICROBIOLOGY METHOD 12/22/2024 7:29 PM [facility] Coronavirus NL63 Not Detected Not Detected LAB MICROBIOLOGY METHOD 12/22/2024 7:29 PM [facility] Parainfluenza Virus 1 Not Detected Not Detected LAB MICROBIOLOGY METHOD 12/22/2024 7:29 PM [facility] Parainfluenza Virus 2 Not Detected Not Detected LAB MICROBIOLOGY METHOD 12/22/2024 7:29 PM [facility] Parainfluenza Virus 3 Not Detected Not Detected LAB MICROBIOLOGY METHOD 12/22/2024 7:29 PM [facility] Parainfluenza Virus 4 Not Detected Not Detected LAB MICROBIOLOGY METHOD 12/22/2024 7:29 PM [facility] RSV PCR Not Detected Not Detected LAB MICROBIOLOGY METHOD 12/22/2024 7:29 PM [facility] Human Metapneumovirus A and B Not Detected Not Detected LAB MICROBIOLOGY METHOD 12/22/2024 7:29 PM [facility] Rhinovirus/Entero virus Not Detected Not Detected LAB MICROBIOLOGY METHOD 12/22/2024 7:29 PM EST [facility] Bordetella pertussis Not Detected Not Detected LAB MICROBIOLOGY METHOD 12/22/2024 7:29 PM EST [facility] Bordetella parapertussis Not Detected Not Detected LAB MICROBIOLOGY METHOD 12/22/2024 7:29 PM [facility] Mycoplasma pneumo by PCR Not Detected Not Detected LAB MICROBIOLOGY METHOD 12/22/2024 7:29 PM EST [facility] Chlamydia pneumoniae Not Detected Not Detected LAB MICROBIOLOGY METHOD 12/22/2024 7:29 PM [facility] SARS COV-2 Not Detected Not Detected LAB MICROBIOLOGY METHOD 12/22/2024 7:29 PM [facility] Swab Both anterior nares / Unknown Non-blood Collection / Unknown 12/22/2024 6:06 PM EST 12/22/2024 6:12 PM EST [facility] - 12/22/2024 7:29 PM EST Testing was performed using the [employer] Respiratory Pathogen PCR Assay. All results must [...] MICROBIOLOGY - GENERAL O RDERABLES Final Result [facility] [address] [place] [address], * Belcher urine culture tube (12/22/2024 6:06 PM EST) Extra Tube Hold for add-ons. 12/22/2024 8:01 PM EST [facility] Comment:Auto resulted. Urine Urine specimen obtained by clean catch procedure / Unknown Non-blood Collection / Unknown 12/22/2024 6:06 PM EST 12/22/2024 6:12 PM EST Navi Avila MD LAB URINE ORDERABLES Final Resu lt Performing Organization Address [facility]/ZIP Co de Phone Number [facility] [address] [place] [address], [place] [phone] * Troponin I high sensitivity (12/22/2024 5:33 [...] BLOOD ORDERABLES Final Resu Performing Organization Address [facility] de Phone Number [facility] [address] [place] [address], [place] [phone] * CBC auto differential (12/22/2024 5:33 PM EST) Only the most recent of2 resultswithin the time period is included. [facility] WBC 6.6 4.8 - 10.8 K/mcL LAB HEMETOLOGY METHOD 12/22/2024 5:52 PM EST [facility] RBC 4.10 3.80 - 4.80 M/mcL LAB HEMETOLOGY METHOD 12/22/2024 5:52 PM EST [facility] Hemoglobin 12.1 11.5 - 16.0 g/dL LAB HEMETOLOGY METHOD 12/22/2024 5:52 PM [facility] Hematocrit 35.8 35.0 - 47.0 % LAB HEMETOLOGY METHOD 12/22/2024 5:52 PM [facility] MCV 87.3 79.0 - 98.0 FL LAB HEMETOLOGY METHOD 12/22/2024 5:52 PM [facility] MCH 29.5 27.0 - 32.0 pcg LAB HEMETOLOGY METHOD 12/22/2024 5:52 PM [facility] MCHC 33.8 32.0 - 37.0 g/dL LAB HEMETOLOGY METHOD 12/22/2024 5:52 PM [facility] RDW 12.4 11.0 - 15.0 % LAB HEMETOLOGY METHOD 12/22/2024 5:52 PM [facility] Platelets 237 130 - 400 K/mcL LAB HEMETOLOGY METHOD 12/22/2024 5:52 PM [facility] MPV 9.5 7.0 - 11.0 FL LAB HEMETOLOGY METHOD 12/22/2024 5:52 PM [facility] NRBC 0.0 <1.0 % LAB HEMETOLOGY METHOD 12/22/2024 5:52 PM [facility] NRBC Absolute 0.00 <0.10 K/mcL LAB HEMETOLOGY METHOD 12/22/2024 5:52 PM [facility] Neutrophils Relative 55.5 % LAB HEMETOLOGY METHOD 12/22/2024 5:52 PM [facility] Lymphocytes Relative 36.8 % LAB HEMETOLOGY METHOD 12/22/2024 5:52 PM [facility] Monocytes Relative 5.6 % LAB HEMETOLOGY METHOD 12/22/2024 5:52 PM [facility] Eosinophils Relative 1.1 % LAB HEMETOLOGY METHOD 12/22/2024 5:52 PM EST [facility] Basophils Relative 0.5 % LAB HEMETOLOGY METHOD 12/22/2024 5:52 PM EST [facility] Immature Granulocytes Relative 0.5 % [...] HUGHES LAB BLOOD ORDERABLES Final Resu lt [facility] [address] [place] [address], * (ABNORMAL) Magnesium (12/22/2024 5:33 PM EST) Magnesium 1.4(L) 1.9 - 2.6 mg/dL LAB CHEMISTRY METHOD 12/22/2024 6:09 PM [facility] Blood Venous blood specimen / Unknown Venipuncture / Unknown 12/22/2024 5:33 PM EST 12/22/2024 5:47 PM EST us Navi Thereas Avila MD LAB BLOOD ORDERABLES Final Resu lt [facility] [address] [place] [address], [place] [phone] * (ABNORMAL) Basic metabolic panel (12/22/2024 5:33 PM EST) Sodium 136 133 - 145 mmol/L LAB CHEMISTRY METHOD 12/22/2024 6:09 PM [facility] Potassium 3.0(L) 3.5 - 5.5 mmol/L LAB CHEMISTRY METHOD 12/22/2024 6:09 PM [facility] Chloride 105 96 - 110 mmol/L LAB CHEMISTRY METHOD 12/22/2024 6:09 PM [facility] CO2 19(L) 21 - 32 mmol/L LAB CHEMISTRY METHOD 12/22/2024 6:09 PM [facility] Anion Gap 12(H) 3 - 11 LAB CHEMISTRY METHOD 12/22/2024 6:09 PM [facility] Glucose 119(H) 70 - 100 mg/dL LAB CHEMISTRY METHOD 12/22/2024 6:09 PM [facility] BUN 6 5 - 25 mg/dL LAB CHEMISTRY METHOD 12/22/2024 6:09 PM [facility] Creatinine 0.86 0.50 - 1.10 mg/dL LAB CHEMISTRY METHOD 12/22/2024 6:09 PM [facility] eGFR 91 >=60 mL/min/1. 73m2 LAB CHEMISTRY METHOD 12/22/2024 6:09 PM [facility] Comment:Calculation based on the??Chronic Kidney Disease Epidemiology Collaboration (CKD-EPI) equation refit??without adjustment for race. BUN/Creatinine Ratio 7.0 LAB CHEMISTRY METHOD 12/22/2024 6:09 PM EST [facility] Calcium 9.5 8.5 - 10.5 mg/dL LAB CHEMISTRY METHOD 12/22/2024 6:09 PM EST [facility] Blood Venous blood specimen / Unknown Venipuncture / Unknown 12/22/2024 5:33 PM EST 12/22/2024 5:47 PM EST Navi Avila MD LAB BLOOD ORDERABLES Final Resu lt [facility] [address] [place] [address], [place] [phone] * ECG-Annotated (12/22/2024) Only the most recent [...] reflex microscopic (12/19/2024 6:18 PM EST) Specific Blanch Urine 1.019 1.003 - 1.030 LAB URINALYSIS - AUTOMATED METHOD 12/19/2024 6:42 PM [facility] pH, Urine 8.5(A) 5.0 - 8.0 pH LAB URINALYSIS - AUTOMATED METHOD 12/19/2024 6:42 PM [facility] Leukocytes, Urine Small(A) Negative LAB URINALYSIS - AUTOMATED METHOD 12/19/2024 6:42 PM [facility] Nitrite, Urine Negative Negative LAB URINALYSIS - AUTOMATED METHOD 12/19/2024 6:42 PM [facility] Protein, Urine 30(A) <=Trace mg/dL LAB URINALYSIS - AUTOMATED METHOD 12/19/2024 6:42 PM [facility] Glucose, Urine Negative Negative mg/dL LAB URINALYSIS - AUTOMATED METHOD 12/19/2024 6:42 PM [facility] Ketones, Urine >=80(A) Negative mg/dL LAB URINALYSIS - AUTOMATED METHOD 12/19/2024 6:42 PM [facility] Urobilinogen , Urine 1.0 0.2 - 1.0 mg/dL LAB URINALYSIS - AUTOMATED METHOD 12/19/2024 6:42 PM [facility] Bilirubin, Urine Negative Negative LAB URINALYSIS - AUTOMATED METHOD 12/19/2024 6:42 PM [facility] Blood, Urine Negative Negative LAB URINALYSIS - AUTOMATED METHOD 12/19/2024 6:42 PM [facility] RBC, Urine 1.9 0 - 4 /HPF LAB URINALYSIS - AUTOMATED METHOD 12/19/2024 6:42 PM [facility] WBC, Urine 2.9 0 - 4 /HPF LAB URINALYSIS - AUTOMATED METHOD 12/19/2024 6:42 PM [facility] Squamous Epithelial, Urine 76(H) 0 - 60 /LPF LAB URINALYSIS - AUTOMATED METHOD 12/19/2024 6:42 PM [facility] Bacteria, Urine Moderate(A) Negative /HPF LAB URINALYSIS - AUTOMATED METHOD 12/19/2024 6:42 PM [facility] Hyaline Casts, Urine 1.2 0 - 3 /LPF LAB URINALYSIS - AUTOMATED METHOD 12/19/2024 6:42 PM [facility] Urine Urine specimen obtained by clean catch procedure / Unknown Non-blood Collection / Unknown 12/19/2024 6:18 PM EST 12/19/2024 6:28 PM EST us Navi Theresa Avila MD LAB URINE ORDERABLES Final Resu lt [facility] [address] [place] [address], [place] [phone] * Lipase (12/19/2024 5:24 PM EST) [facility] Lipase 32 13 - 75 unit/L LAB CHEMISTRY METHOD 12/19/2024 6:31 PM [facility] Blood Venous blood specimen / Unknown Venipuncture / Unknown 12/19/2024 5:24 PM EST 12/19/2024 5:34 PM EST Navi Avila MD LAB BLOOD ORDERABLES Final Resu lt [facility] [address] [place] [address], [place] [phone] * (ABNORMAL) Comprehensive metabolic panel (12/19/2024 5:24 PM EST) [facility] Sodium 138 133 - 145 mmol/L LAB CHEMISTRY METHOD 12/19/2024 6:31 PM [facility] Potassium 3.8 3.5 - 5.5 mmol/L LAB CHEMISTRY METHOD 12/19/2024 6:31 PM [facility] Comment:Hemolysis present Chloride 110 96 - 110 mmol/L LAB CHEMISTRY METHOD 12/19/2024 6:31 PM [facility] CO2 18(L) 21 - 32 mmol/L LAB CHEMISTRY METHOD 12/19/2024 6:31 PM [facility] Anion Gap 10 3 - 11 LAB CHEMISTRY METHOD 12/19/2024 6:31 PM [facility] Glucose 87 70 - 100 mg/dL LAB CHEMISTRY METHOD 12/19/2024 6:31 PM [facility] BUN 6 5 - 25 mg/dL LAB CHEMISTRY METHOD 12/19/2024 6:31 PM [facility] Creatinine 0.74 0.50 - 1.10 mg/dL LAB CHEMISTRY METHOD 12/19/2024 6:31 PM [facility] eGFR 109 >=60 mL/min/1. 73m2 LAB CHEMISTRY METHOD 12/19/2024 6:31 PM [facility] Comment:Calculation based on the??Chronic Kidney Disease Epidemiology Collaboration (CKD-EPI) equation refit??without adjustment for race. BUN/Creatinine Ratio 8.1 LAB CHEMISTRY METHOD 12/19/2024 6:31 PM [facility] Calcium 9.5 8.5 - 10.5 mg/dL LAB CHEMISTRY METHOD 12/19/2024 6:31 PM [facility] AST (SGOT) 27 10 - 42 unit/L LAB CHEMISTRY METHOD 12/19/2024 6:31 PM [facility] Comment:Hemolysis present ALT (SGPT) 15 10 - 60 unit/L LAB CHEMISTRY METHOD 12/19/2024 6:31 PM [facility] Alkaline Phosphatase 53 42 - 121 unit/L LAB CHEMISTRY METHOD 12/19/2024 6:31 PM [facility] Total Protein 7.9 6.0 - 8.0 g/dL LAB CHEMISTRY METHOD 12/19/2024 6:31 PM [facility] Albumin 4.3 3.2 - 5.0 g/dL LAB CHEMISTRY METHOD 12/19/2024 6:31 PM [facility] Total Bilirubin 0.7 0.0 - 1.4 mg/dL LAB CHEMISTRY METHOD 12/19/2024 6:31 PM [facility] Blood Venous blood specimen / Unknown Venipuncture / Unknown 12/19/2024 5:24 PM EST 12/19/2024 5:34 PM EST us Navi B Austin HUGHES LAB BLOOD ORDERABLES Final Resu lt [facility] [address] [place] [address], from Last 3 Months Insurance [facility] Care Teams Home Theatre Technician Relationship Specialty Start Date End Date Carmela Gaytan MD [address] [place] [phone] PCP - General Internal Medicine 12/19/24
--- OUTSIDE RECORDS SUMMARY | 2025-01-16 13:35 | XMS_ITS | Encounter Summary ---
Author Organization [facility] Address [address] [place] [address] Care Team Providers Care Roll Operator Name Role Phone Carmela Gaytan MD Primary Care Provider [phone] Reason for Visit * Reason Comments Diarrhea Encounter Details Date Type Department Care Team ([facility] st Contact Info) Description 12/19/2024 3:31 PM EST - 12/19/2024 10:49 PM EST Emergency [facility] Emergency [address] [place] [address] Navi Avila MD [address] [place] [address] Clostridium difficile diarrhea (Primary Dx) Discharge Disposition: [...] 10:23 PM EST Thank you for choosing [facility]'s Emergency Department for your care today. Thankfully [...] a primary care physician, please call the [facility] at [phone] toestablish a new primary care physician. Please return to the emergency department if you develop a sudden severe change in your symptoms, afever over 100.4,, severe or recurrent vomiting,, or a sudden increase in pain, or if you experience any other new or worsening symptoms or concerns. * Attachments The following attachments cannot be sent through Care Everywhere. 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 She [...] PROCEDURE: HISTORICAL APPENDECTOMY; COMMENT: Dr Yordy Rolon [facility] COLONOSCOPY 06/28/2010 PROCEDURE: [place] COLONOSCOPY STOMA DX INCLUDING COLLJ SPEC SPX; COMMENT: normal to terminal ileum to 20 cm ESOPHAGOGASTRODUODENOSCOPY 01/22/14 PROCEDURE: [place] ESOPHAGOGASTRODUODENOSCOPY TRANSORAL DIAGNOSTIC; COMMENT: normal; normal duodenal [...] reflex microscopic (12/19/2024 6:18 PM EST) Specific [place] Urine 1.019 1.003 - 1.030 LAB URINALYSIS - AUTOMATED METHOD 12/19/2024 6:42 PM [facility] pH, Urine 8.5(A) 5.0 - 8.0 pH LAB URINALYSIS - AUTOMATED METHOD 12/19/2024 6:42 PM [facility] Leukocytes, Urine Small(A) Negative LAB URINALYSIS - AUTOMATED METHOD 12/19/2024 6:42 PM [facility] Nitrite, Urine Negative Negative LAB URINALYSIS - AUTOMATED METHOD 12/19/2024 6:42 PM [facility] Protein, Urine 30(A) <=Trace mg/dL LAB URINALYSIS - AUTOMATED METHOD 12/19/2024 6:42 PM [facility] Glucose, Urine Negative Negative mg/dL LAB URINALYSIS - AUTOMATED METHOD 12/19/2024 6:42 PM [facility] Ketones, Urine >=80(A) Negative mg/dL LAB URINALYSIS - AUTOMATED METHOD 12/19/2024 6:42 PM [facility] Urobilinogen , Urine 1.0 0.2 - 1.0 mg/dL LAB URINALYSIS - AUTOMATED METHOD 12/19/2024 6:42 PM [facility] Bilirubin, Urine Negative Negative LAB URINALYSIS - AUTOMATED METHOD 12/19/2024 6:42 PM [facility] Blood, Urine Negative Negative LAB URINALYSIS - AUTOMATED METHOD 12/19/2024 6:42 PM [facility] RBC, Urine 1.9 0 - 4 /HPF LAB URINALYSIS - AUTOMATED METHOD 12/19/2024 6:42 PM [facility] WBC, Urine 2.9 0 - 4 /HPF LAB URINALYSIS - AUTOMATED METHOD 12/19/2024 6:42 PM EST [facility] Squamous Epithelial, Urine 76(H) 0 - 60 /LPF LAB URINALYSIS - AUTOMATED METHOD 12/19/2024 6:42 PM EST [facility] Bacteria, Urine Moderate(A) Negative /HPF LAB URINALYSIS - AUTOMATED METHOD 12/19/2024 6:42 PM [facility] Hyaline Casts, Urine 1.2 0 - 3 /LPF LAB URINALYSIS - AUTOMATED METHOD 12/19/2024 6:42 PM [facility] Urine Urine specimen obtained by clean catch procedure / Unknown Non-blood Collection / Unknown 12/19/2024 6:18 PM EST 12/19/2024 6:28 PM EST Navi Theresa Avila MD LAB URINE ORDERABLES Final Resu lt [facility] [address] [place] [address], [place] [phone] * POC , urine manually resulted (12/19/2024 [...] K/mcL LAB HEMETOLOGY METHOD 12/19/2024 5:42 PM [facility] RBC 4.50 3.80 - 4.80 M/mcL LAB HEMETOLOGY METHOD 12/19/2024 5:42 PM [facility] Hemoglobin 13.2 11.5 - 16.0 g/dL LAB HEMETOLOGY METHOD 12/19/2024 5:42 PM [facility] Hematocrit 39.6 35.0 - 47.0 % LAB HEMETOLOGY METHOD 12/19/2024 5:42 PM [facility] MCV 87.8 79.0 - 98.0 FL LAB HEMETOLOGY METHOD 12/19/2024 5:42 PM [facility] MCH 29.3 27.0 - 32.0 pcg LAB HEMETOLOGY METHOD 12/19/2024 5:42 PM [facility] MCHC 33.3 32.0 - 37.0 g/dL LAB HEMETOLOGY METHOD 12/19/2024 5:42 PM [facility] RDW 12.3 11.0 - 15.0 % LAB HEMETOLOGY METHOD 12/19/2024 5:42 PM [facility] Platelets 251 130 - 400 K/mcL LAB HEMETOLOGY METHOD 12/19/2024 5:42 PM [facility] MPV 9.4 7.0 - 11.0 FL LAB HEMETOLOGY METHOD 12/19/2024 5:42 PM [facility] NRBC 0.0 <1.0 % LAB HEMETOLOGY METHOD 12/19/2024 5:42 PM [facility] NRBC Absolute 0.00 <0.10 K/mcL LAB HEMETOLOGY METHOD 12/19/2024 5:42 PM [facility] Neutrophils Relative 50.7 % LAB HEMETOLOGY METHOD 12/19/2024 5:42 PM [facility] Lymphocytes Relative 41.2 % LAB HEMETOLOGY METHOD 12/19/2024 5:42 PM [facility] Monocytes Relative 7.0 % LAB HEMETOLOGY METHOD 12/19/2024 5:42 PM [facility] Eosinophils Relative 0.7 % LAB HEMETOLOGY METHOD 12/19/2024 5:42 PM EST [facility] Basophils Relative 0.3 % LAB HEMETOLOGY METHOD 12/19/2024 5:42 PM [facility] Immature Granulocytes Relative 0.1 % LAB HEMETOLOGY METHOD 12/19/2024 5:42 PM [facility] Neutrophils Absolute 3.69 1.50 - 7.00 K/mcL LAB HEMETOLOGY METHOD 12/19/2024 5:42 PM EST [facility] Lymphocytes Absolute 3.00 1.00 - 5.00 K/mcL LAB HEMETOLOGY METHOD 12/19/2024 5:42 PM [facility] Monocytes Absolute 0.51 0.20 - 1.00 K/mcL LAB HEMETOLOGY METHOD 12/19/2024 5:42 PM [facility] Eosinophils Absolute 0.05 0.00 - 0.50 K/mcL LAB HEMETOLOGY METHOD 12/19/2024 5:42 PM EST [facility] Basophils Absolute 0.02 0.00 - 0.20 K/mcL LAB HEMETOLOGY METHOD 12/19/2024 5:42 PM [facility] Immature Granulocytes Absolute 0.01 0.00 - 0.03 K/mcL LAB HEMETOLOGY METHOD 12/19/2024 5:42 PM [facility] Blood Venous blood specimen / Unknown Venipuncture / Unknown 12/19/2024 5:24 PM EST 12/19/2024 5:34 PM EST us Navi Avila MD LAB BLOOD ORDERABLES Final Resu lt [facility] [address] [place] [address], * Lipase (12/19/2024 5:24 PM EST) Lipase 32 13 - 75 unit/L LAB CHEMISTRY METHOD 12/19/2024 6:31 PM [facility] Blood Venous blood specimen / Unknown Venipuncture / Unknown 12/19/2024 5:24 PM EST 12/19/2024 5:34 PM EST us Navi B Austin HUGHES LAB BLOOD ORDERABLES Final Resu lt [facility] [address] [place] [address], [place] [phone] * (ABNORMAL) Comprehensive metabolic panel (12/19/2024 5:24 PM EST) Sodium 138 133 - 145 mmol/L LAB CHEMISTRY METHOD 12/19/2024 6:31 PM [facility] Potassium 3.8 3.5 - 5.5 mmol/L LAB CHEMISTRY METHOD 12/19/2024 6:31 PM [facility] Comment:Hemolysis present Chloride 110 96 - 110 mmol/L LAB CHEMISTRY METHOD 12/19/2024 6:31 PM [facility] CO2 18(L) 21 - 32 mmol/L LAB CHEMISTRY METHOD 12/19/2024 6:31 PM [facility] Anion Gap 10 3 - 11 LAB CHEMISTRY METHOD 12/19/2024 6:31 PM [facility] Glucose 87 70 - 100 mg/dL LAB CHEMISTRY METHOD 12/19/2024 6:31 PM [facility] BUN 6 5 - 25 mg/dL LAB CHEMISTRY METHOD 12/19/2024 6:31 PM [facility] Creatinine 0.74 0.50 - 1.10 mg/dL LAB CHEMISTRY METHOD 12/19/2024 6:31 PM [facility] eGFR 109 >=60 mL/min/1. 73m2 LAB CHEMISTRY METHOD 12/19/2024 6:31 PM [facility] Comment:Calculation based on the??Chronic Kidney Disease Epidemiology Collaboration (CKD-EPI) equation refit??without adjustment for race. BUN/Creatinine Ratio 8.1 LAB CHEMISTRY METHOD 12/19/2024 6:31 PM [facility] Calcium 9.5 8.5 - 10.5 mg/dL LAB CHEMISTRY METHOD 12/19/2024 6:31 PM [facility] AST (SGOT) 27 10 - 42 unit/L LAB CHEMISTRY METHOD 12/19/2024 6:31 PM [facility] Comment:Hemolysis present ALT (SGPT) 15 10 - 60 unit/L LAB CHEMISTRY METHOD 12/19/2024 6:31 PM [facility] Alkaline Phosphatase 53 42 - 121 unit/L LAB CHEMISTRY METHOD 12/19/2024 6:31 PM [facility] Total Protein 7.9 6.0 - 8.0 g/dL LAB CHEMISTRY METHOD 12/19/2024 6:31 PM [facility] Albumin 4.3 3.2 - 5.0 g/dL LAB CHEMISTRY METHOD 12/19/2024 6:31 PM [facility] Total Bilirubin 0.7 0.0 - 1.4 mg/dL LAB CHEMISTRY METHOD 12/19/2024 6:31 PM [facility] Blood Venous blood specimen / Unknown Venipuncture / Unknown 12/19/2024 5:24 PM EST 12/19/2024 5:34 PM EST us Navi Avila MD LAB BLOOD ORDERABLES Final Resu lt [facility] [address] [place] [address], documented in this encounter Visit Diagnoses Diagnosis [...] 12/19/2024 documented in this encounter Care Teams Roll Operator Relationship Specialty Start Date End Date Carmela Gaytan MD [address] [place] [address] PCP - General Internal Medicine 12/19/24 documented as of this encounter
[2025-01-16 16:41] LABS: MANUAL DIFF FLAG NO
[2025-01-16 16:53] LABS: Basophils Percent Auto 0.6 % (0-2); Eosinophils Absolute Auto 0.1 X10*3/uL (0.0-0.4); Eosinophils Percent Auto 2.2 % (0-4); Hematocrit 38.4 % (37.0-47.0); Hemoglobin 12.7 g/dl (12.0-16.0); Imm Gran Abs Auto 0.01 X10*3/uL (0.00-0.03); Imm Gran Pct Auto 0.2 % (0.0-0.4); Lymphocytes Percent Auto 36.1 % (20-40); Mean Corpuscular HGB Conc 33.1 g/dl (31.0-35.0); Mean Corpuscular Volume 90.6 fL (80.0-98.0); Mean Platelet Volume 9.7 fL (9.4-12.3); Monocytes Absolute Auto 0.4 X10*3/uL (0.1-1.2); Monocytes Percent Auto 7.9 % (2-11); Neutrophils Absolute Auto 2.9 x10*3/uL (2.0-8.3); Platelet Count 263 X10*3/uL (160-400); Red Blood Count 4.24 X10*6/uL (4.20-5.50); Red Cell Distribution Width 12.8 % (11.0-16.0); White Blood Count 5.4 X10*3/uL (4.8-10.8)
[2025-01-16 17:53] LABS: Alanine Aminotransferase 16 U/L (0-31); Albumin Level 4.3 g/dL (3.5-5.0); Alkaline Phosphatase 44 U/L (39-117); Anion Gap 10 (12-20); Aspartate Amino Transferase 18 U/L (5-31); Bilirubin Total 0.5 mg/dL (0.0-1.0); Blood Urea Nitrogen 5 mg/dL (9-16); Calcium 9.4 mg/dL (8.4-10.2); Carbon Dioxide 24 mmol/L (22-29); Chloride 110 mmol/L (96-108); Estimated Glomerular Filt Rate > 60; Glucose Random 81 mg/dL (60-115); Potassium 4.4 mmol/L (3.3-5.1); Sodium 140 mmol/L (135-145); Total Protein 7.7 g/dL (6.5-8.0)
[2025-01-16 18:02] LABS: TSH reflex Free T4 0.66 uIU/mL (0.32-4.0)
== END 2025-01-16 11:51 | disposition home or self-care (01) ==
LOC: HO.HMGCLDS 11:50
PROVIDERS: PCP Internal Medicine; Visit Provider Internal Medicine
DX: R19.7 Diarrhea, unspecified (principal); F41.9 Anxiety disorder, unspecified; F32.A Depression, unspecified; Z79.899 Other long term (current) drug therapy
CPT/HCPCS: 36415; 80053; 84443; 85025; 96127; 99212

== ENCOUNTER 2025-02-04 11:21 | Outpatient (REF) | payer OTHER, SELFPAY ==
[2025-02-04 13:44] LABS: MANUAL DIFF FLAG NO
[2025-02-04 13:54] LABS: Basophils Percent Auto 0.4 % (0-2); Eosinophils Absolute Auto 0.1 X10*3/uL (0.0-0.4); Hematocrit 38.9 % (37.0-47.0); Hemoglobin 12.6 g/dl (12.0-16.0); Imm Gran Abs Auto 0.01 X10*3/uL (0.00-0.03); Imm Gran Pct Auto 0.2 % (0.0-0.4); Lymphocytes Percent Auto 35.5 % (20-40); Mean Corpuscular HGB Conc 32.4 g/dl (31.0-35.0); Mean Corpuscular Hemoglobin 29.2 pg (27.0-33.0); Mean Platelet Volume 9.3 fL (9.4-12.3); Monocytes Absolute Auto 0.3 X10*3/uL (0.1-1.2); Monocytes Percent Auto 4.6 % (2-11); Neutrophils Absolute Auto 3.2 x10*3/uL (2.0-8.3); Neutrophils Percent Auto 57.3 % (45-73); Platelet Count 285 X10*3/uL (160-400); Red Blood Count 4.32 X10*6/uL (4.20-5.50); Red Cell Distribution Width 12.5 % (11.0-16.0); White Blood Count 5.6 X10*3/uL (4.8-10.8)
[2025-02-04 14:07] LABS: Alanine Aminotransferase 13 U/L (0-31); Albumin Level 4.3 g/dL (3.5-5.0); Alkaline Phosphatase 50 U/L (39-117); Anion Gap 9 (12-20); Aspartate Amino Transferase 16 U/L (5-31); Bilirubin Total 0.4 mg/dL (0.0-1.0); Blood Urea Nitrogen 11 mg/dL (9-16); Calcium 9.2 mg/dL (8.4-10.2); Carbon Dioxide 25 mmol/L (22-29); Chloride 111 mmol/L (96-108); Estimated Glomerular Filt Rate > 60; Glucose Random 72 mg/dL (60-115); Iron 99 mcg/dL (30-160); Percent Iron Saturation 30 % (15-50); Potassium 4.1 mmol/L (3.3-5.1); Sodium 141 mmol/L (135-145); Total Iron Binding Capacity 335 mcg/dL (228-428); Total Protein 7.8 g/dL (6.5-8.0); Unsaturated Iron Binding 236 ug/dL
--- OUTSIDE RECORDS SUMMARY | 2025-02-04 14:12 | XMS_ITS | Clinical Summary ---
Author Organization [facility] Address [address] [place] [address] Phone Care Team Providers Care Barrel Inspector Name Role Phone Carmela Gaytan MD Primary Care Provider [phone] Allergies No known active allergies Medications No known medications Active Problems No known active problems Encounters Date Type Department Care Team Description 12/22/2024 5:08 PM EST - 12/22/2024 9:17 PM [facility] Emergency [facility] Emergency [address] [place] [phone] Dehydration (Primary Dx) Discharge Disposition: Home or Self Care 12/19/2024 3:31 PM EST - 12/19/2024 10:49 PM [facility] Emergency [facility] Emergency [address] [place] [phone] Navi Avila MD Clostridium difficile diarrhea (Primary Dx) Discharge Disposition: Home or Self Care from Last 3 Months Surgical History Surgery Date Site/Laterality Comments COLONOSCOPY 06/28/2010 PROCEDURE: TN COLONOSCOPY STOMA DX INCLUDING COLLJ SPEC SPX; COMMENT: normal to terminal ileum to 20 cm ESOPHAGOGASTRODUODENOSCOPY 01/22/14 PROCEDURE: TN ESOPHAGOGASTRODUODENOSCOPY TRANSORAL DIAGNOSTIC; COMMENT: normal; normal duodenal biopsies APPENDECTOMY 03/26/14 laparoscopic PROCEDURE: HISTORICAL APPENDECTOMY; COMMENT: Dr Yordy Rolon [facility] Medical History Medical History Date Comments Ovarian [...] GEMUSE QTc 450 ms GEMUSE P Wave [place] 68 degrees GEMUSE R [place] 35 degrees GEMUSE T [place] 45 degrees GEMUSE ECG Interpretation Normal sinus [...] 8:15 PM EST 12/24/2024 9:[address] [facility] Theresa Avila MD ECG ORDERABLES Final Result GEMUSE * XR Chest 2 Views (12/22/2024 6:59 PM EST) Anatomical Region Laterality Modality Body Radiographic Sharri ging 12/23/2024 8:22 AM EST Impressions 12/23/2024 8:22 AM EST Impression: No active pulmonary process identified. Telerad NAHID ([id number]) -------- FINAL REPORT -------- Dictated By: Cheryl Rodriguez Dictated Date: 12/23/2024 08:22 ET Assigned Physician: Cheryl Rodriguez Reviewed and Electronically Signed By: Cheryl Rodriguez Signed Date: 12/23/2024 08:22 ET Workstation ID: [id number] Transcribed By: Self Edit Transcribed Date: 12/23/2024 [...] No active pulmonary process identified. Telerad PA ([id number]) -------- FINAL REPORT -------- Dictated By: Cheryl Rodriguez Dictated Date: 12/23/2024 08:22 ET Assigned Physician: Cheryl Rodriguez Reviewed and Electronically Signed By: Cheryl Rodriguez Signed Date: 12/23/2024 08:22 ET Workstation ID: [id number] Transcribed By: Self Edit Transcribed Date: 12/23/2024 08:22 ET Navi Theresa Avila MD IMG XR PROCEDURES Final Result * POC , urine manually resulted (12/22/2024 6:29 PM EST) Only the most recent of2 resultswithin the time period is included. HCG, Ur POC Negative Negative POC hCG Int QC Pass? Yes Yes EXPIRATION DATE POC 04/23/26 LOT NUMBER POC [id number] Urine Urine specimen obtained by clean catch procedure / Unknown 12/22/2024 6:29 PM EST Navi Theresa Avila MD POINT OF CARE TEST ENTER/EDIT O RDERABLES Final Result * (ABNORMAL) Urinalysis with reflex microscopic and culture (12/22/2024 6:06 PM EST) Pathologist [facility] Specific [place] Urine 1.005 1.003 - 1.030 LAB URINALYSIS - AUTOMATED METHOD 12/22/2024 6:18 PM EST [facility] pH, Urine 7.0 5.0 - 8.0 pH LAB URINALYSIS - AUTOMATED METHOD 12/22/2024 6:18 PM EST [facility] Leukocytes, Urine Negative Negative LAB URINALYSIS - AUTOMATED METHOD 12/22/2024 6:18 PM [facility] Nitrite, Urine Negative Negative LAB URINALYSIS - AUTOMATED METHOD 12/22/2024 6:18 PM [facility] Protein, Urine Negative <=Trace mg/dL LAB URINALYSIS - AUTOMATED METHOD 12/22/2024 6:18 PM [facility] Glucose, Urine Negative Negative mg/dL LAB URINALYSIS - AUTOMATED METHOD 12/22/2024 6:18 PM [facility] Ketones, Urine 15(A) Negative mg/dL LAB URINALYSIS - AUTOMATED METHOD 12/22/2024 6:18 PM [facility] Urobilinogen, Urine 0.2 0.2 - 1.0 mg/dL LAB URINALYSIS - AUTOMATED METHOD 12/22/2024 6:18 PM [facility] Bilirubin, Urine Negative Negative LAB URINALYSIS - AUTOMATED METHOD 12/22/2024 6:18 PM [facility] Blood, Urine Negative Negative LAB URINALYSIS - AUTOMATED METHOD 12/22/2024 6:18 PM [facility] Urine Urine specimen obtained by clean catch procedure / Unknown Non-blood Collection / Unknown 12/22/2024 6:06 PM EST 12/22/2024 6:12 PM EST Navi Theresa Avila MD LAB URINE ORDERABLES Final Resu lt [facility] [address] [place] [address], * Respiratory virus panel molecular study (12/22/2024 6:06 PM EST) Adenovirus Detection by PCR Not Detected Not Detected LAB MICROBIOLOGY METHOD 12/22/2024 7:29 PM [facility] Influenza A PCR Not Detected Not Detected LAB MICROBIOLOGY METHOD 12/22/2024 7:29 PM [facility] Influenza B PCR Not Detected Not Detected LAB MICROBIOLOGY METHOD 12/22/2024 7:29 PM [facility] Coronavirus 229E Not Detected Not Detected LAB MICROBIOLOGY METHOD 12/22/2024 7:29 PM [facility] Coronavirus HKU1 Not Detected Not Detected LAB MICROBIOLOGY METHOD 12/22/2024 7:29 PM [facility] Coronavirus OC43 Not Detected Not Detected LAB MICROBIOLOGY METHOD 12/22/2024 7:29 PM [facility] Coronavirus NL63 Not Detected Not Detected LAB MICROBIOLOGY METHOD 12/22/2024 7:29 PM [facility] Parainfluenza Virus 1 Not Detected Not Detected LAB MICROBIOLOGY METHOD 12/22/2024 7:29 PM [facility] Parainfluenza Virus 2 Not Detected Not Detected LAB MICROBIOLOGY METHOD 12/22/2024 7:29 PM [facility] Parainfluenza Virus 3 Not Detected Not Detected LAB MICROBIOLOGY METHOD 12/22/2024 7:29 PM [facility] Parainfluenza Virus 4 Not Detected Not Detected LAB MICROBIOLOGY METHOD 12/22/2024 7:29 PM [facility] RSV PCR Not Detected Not Detected LAB MICROBIOLOGY METHOD 12/22/2024 7:29 PM [facility] Human Metapneumovirus A and B Not Detected Not Detected LAB MICROBIOLOGY METHOD 12/22/2024 7:29 PM [facility] Rhinovirus/Entero virus Not Detected Not Detected LAB MICROBIOLOGY METHOD 12/22/2024 7:29 PM [facility] Bordetella pertussis Not Detected Not Detected LAB MICROBIOLOGY METHOD 12/22/2024 7:29 PM [facility] Bordetella parapertussis Not Detected Not Detected LAB MICROBIOLOGY METHOD 12/22/2024 7:29 PM [facility] Mycoplasma pneumo by PCR Not Detected Not Detected LAB MICROBIOLOGY METHOD 12/22/2024 7:29 PM EST [facility] Chlamydia pneumoniae Not Detected Not Detected LAB MICROBIOLOGY METHOD 12/22/2024 7:29 PM EST [facility] SARS COV-2 Not Detected Not Detected LAB MICROBIOLOGY METHOD 12/22/2024 7:29 PM EST [facility] Swab Both anterior nares / Unknown Non-blood Collection / Unknown 12/22/2024 6:06 PM EST 12/22/2024 6:12 PM EST Narrative [facility] - 12/22/2024 7:29 PM EST Testing was performed using the [employer] Respiratory Pathogen PCR Assay. All results must [...] O RDERABLES Final Result Performing Organization Address City/[facility]/ZIP Co de Phone Number [facility] [address] [place] [address], * Bel[place] urine culture tube (12/22/2024 6:06 PM EST) Extra Tube Hold for add-ons. 12/22/2024 8:01 PM EST [facility] Comment:Auto resulted. Urine Urine specimen obtained by clean catch procedure / Unknown Non-blood Collection / Unknown 12/22/2024 6:06 PM EST 12/22/2024 6:12 PM EST Navi Avila MD LAB URINE ORDERABLES Final Resu lt Performing Organization Address City/[facility]/ZIP Co de Phone Number [facility] [address] [place] [address], * Troponin I high sensitivity (12/22/2024 5:33 PM EST) [facility] High Sensitivity Troponin I 4 <=54 ng/L LAB CHEMISTRY METHOD 12/22/2024 6:12 PM [facility] Blood Venous blood specimen / Unknown Venipuncture / Unknown 12/22/2024 5:33 PM EST 12/22/2024 5:47 PM EST Narrative [facility] - 12/22/2024 6:12 PM EST High levels of biotin in samples may falsely decrease hsTroponin values. ??Use caution when interpreting hsTroponin results in patients taking biotin who exhibit renal impairment (eGFR <60) or in patients taking more than 20 mg/day of biotin. us Navi B Austin HUGHES LAB BLOOD ORDERABLES Final Resu lt [facility] [address] [place] [address], * CBC auto differential (12/22/2024 5:33 PM EST) Only the most recent of2 resultswithin the time period is included. [facility] WBC 6.6 4.8 - 10.8 K/mcL LAB HEMETOLOGY METHOD 12/22/2024 5:52 PM [facility] RBC 4.10 3.80 - 4.80 M/mcL LAB HEMETOLOGY METHOD 12/22/2024 5:52 PM [facility] Hemoglobin 12.1 11.5 - 16.0 g/dL LAB HEMETOLOGY METHOD 12/22/2024 5:52 PM [facility] Hematocrit 35.8 35.0 - 47.0 % LAB HEMETOLOGY METHOD 12/22/2024 5:52 PM [facility] MCV 87.3 79.0 - 98.0 FL LAB HEMETOLOGY METHOD 12/22/2024 5:52 PM [facility] MCH 29.5 27.0 - 32.0 pcg LAB HEMETOLOGY METHOD 12/22/2024 5:52 PM [facility] MCHC 33.8 32.0 - 37.0 g/dL LAB HEMETOLOGY METHOD 12/22/2024 5:52 PM [facility] RDW 12.4 11.0 - 15.0 % LAB HEMETOLOGY METHOD 12/22/2024 5:52 PM [facility] Platelets 237 130 - 400 K/mcL LAB HEMETOLOGY METHOD 12/22/2024 5:52 PM [facility] MPV 9.5 7.0 - 11.0 FL LAB HEMETOLOGY METHOD 12/22/2024 5:52 PM [facility] NRBC 0.0 <1.0 % LAB HEMETOLOGY METHOD 12/22/2024 5:52 PM [facility] NRBC Absolute 0.00 <0.10 K/mcL LAB HEMETOLOGY METHOD 12/22/2024 5:52 PM [facility] Neutrophils Relative 55.5 % LAB HEMETOLOGY METHOD 12/22/2024 5:52 PM [facility] Lymphocytes Relative 36.8 % LAB HEMETOLOGY METHOD 12/22/2024 5:52 PM [facility] Monocytes Relative 5.6 % LAB HEMETOLOGY METHOD 12/22/2024 5:52 PM [facility] Eosinophils Relative 1.1 % LAB HEMETOLOGY METHOD 12/22/2024 5:52 PM [facility] Basophils Relative 0.5 % LAB HEMETOLOGY METHOD 12/22/2024 5:52 PM [facility] Immature Granulocytes Relative 0.5 % LAB HEMETOLOGY METHOD 12/22/2024 5:52 PM [facility] Neutrophils Absolute 3.68 1.50 - 7.00 K/mcL LAB HEMETOLOGY METHOD 12/22/2024 5:52 PM EST [facility] Lymphocytes Absolute 2.43 1.00 - 5.00 K/mcL LAB HEMETOLOGY METHOD 12/22/2024 5:52 PM EST [facility] Monocytes Absolute 0.37 0.20 - 1.00 K/mcL LAB HEMETOLOGY METHOD 12/22/2024 5:52 PM EST [facility] Eosinophils Absolute 0.07 0.00 - 0.50 K/[facility] LAB HEMETOLOGY METHOD 12/22/2024 5:52 PM EST [facility] Basophils Absolute 0.03 0.00 - 0.20 K/[facility] LAB HEMETOLOGY METHOD 12/22/2024 5:52 PM EST [facility] Immature Granulocytes Absolute 0.03 0.00 - 0.03 K/[facility] LAB HEMETOLOGY METHOD 12/22/2024 5:52 PM EST [facility] Blood Venous blood specimen / Unknown Venipuncture / Unknown 12/22/2024 5:33 PM EST 12/22/2024 5:47 PM EST us Navi Avila MD LAB BLOOD ORDERABLES Final Resu lt [facility] [address] [place] [address], * (ABNORMAL) Magnesium (12/22/2024 5:33 PM EST) Magnesium 1.4(L) 1.9 - 2.6 mg/dL LAB CHEMISTRY METHOD 12/22/2024 6:09 PM EST [facility] Blood Venous blood specimen / Unknown Venipuncture / Unknown 12/22/2024 5:33 PM EST 12/22/2024 5:47 PM EST Navisaba Avila MD LAB BLOOD ORDERABLES Final Resu lt [facility] [address] [place] [address], * (ABNORMAL) Basic metabolic panel (12/22/2024 5:33 PM EST) Sodium 136 133 - 145 mmol/L LAB CHEMISTRY METHOD 12/22/2024 6:09 PM [facility] Potassium 3.0(L) 3.5 - 5.5 mmol/L LAB CHEMISTRY METHOD 12/22/2024 6:09 PM [facility] Chloride 105 96 - 110 mmol/L LAB CHEMISTRY METHOD 12/22/2024 6:09 PM [facility] CO2 19(L) 21 - 32 mmol/L LAB CHEMISTRY METHOD 12/22/2024 6:09 PM [facility] Anion Gap 12(H) 3 - 11 LAB CHEMISTRY METHOD 12/22/2024 6:09 PM [facility] Glucose 119(H) 70 - 100 mg/dL LAB CHEMISTRY METHOD 12/22/2024 6:09 PM [facility] BUN 6 5 - 25 mg/dL LAB CHEMISTRY METHOD 12/22/2024 6:09 PM [facility] Creatinine 0.86 0.50 - 1.10 mg/dL LAB CHEMISTRY METHOD 12/22/2024 6:09 PM [facility] eGFR 91 >=60 mL/min/1. 73m2 LAB CHEMISTRY METHOD 12/22/2024 6:09 PM [facility] Comment:Calculation based on the??Chronic Kidney Disease Epidemiology Collaboration (CKD-EPI) equation refit??without adjustment for race. BUN/Creatinine Ratio 7.0 LAB CHEMISTRY METHOD 12/22/2024 6:09 PM [facility] Calcium 9.5 8.5 - 10.5 mg/dL LAB CHEMISTRY METHOD 12/22/2024 6:09 PM [facility] Blood Venous blood specimen / Unknown Venipuncture / Unknown 12/22/2024 5:33 PM EST 12/22/2024 5:47 PM EST us Navi Theresa Avila MD LAB BLOOD ORDERABLES Final Resu lt [facility] [address] [place] [address], * ECG-Annotated (12/22/2024) Only the most recent [...] reflex microscopic (12/19/2024 6:18 PM EST) Specific [place] Urine 1.019 1.003 - 1.030 LAB URINALYSIS - AUTOMATED METHOD 12/19/2024 6:42 PM [facility] pH, Urine 8.5(A) 5.0 - 8.0 pH LAB URINALYSIS - AUTOMATED METHOD 12/19/2024 6:42 PM [facility] Leukocytes, Urine Small(A) Negative LAB URINALYSIS - AUTOMATED METHOD 12/19/2024 6:42 PM [facility] Nitrite, Urine Negative Negative LAB URINALYSIS - AUTOMATED METHOD 12/19/2024 6:42 PM [facility] Protein, Urine 30(A) <=Trace mg/dL LAB URINALYSIS - AUTOMATED METHOD 12/19/2024 6:42 PM [facility] Glucose, Urine Negative Negative mg/dL LAB URINALYSIS - AUTOMATED METHOD 12/19/2024 6:42 PM [facility] Ketones, Urine >=80(A) Negative mg/dL LAB URINALYSIS - AUTOMATED METHOD 12/19/2024 6:42 PM [facility] Urobilinogen , Urine 1.0 0.2 - 1.0 mg/dL LAB URINALYSIS - AUTOMATED METHOD 12/19/2024 6:42 PM [facility] Bilirubin, Urine Negative Negative LAB URINALYSIS - AUTOMATED METHOD 12/19/2024 6:42 PM [facility] Blood, Urine Negative Negative LAB URINALYSIS - AUTOMATED METHOD 12/19/2024 6:42 PM [facility] RBC, Urine 1.9 0 - 4 /HPF LAB URINALYSIS - AUTOMATED METHOD 12/19/2024 6:42 PM [facility] WBC, Urine 2.9 0 - 4 /HPF LAB URINALYSIS - AUTOMATED METHOD 12/19/2024 6:42 PM [facility] Squamous Epithelial, Urine 76(H) 0 - 60 /LPF LAB URINALYSIS - AUTOMATED METHOD 12/19/2024 6:42 PM [facility] Bacteria, Urine Moderate(A) Negative /HPF LAB URINALYSIS - AUTOMATED METHOD 12/19/2024 6:42 PM [facility] Hyaline Casts, Urine 1.2 0 - 3 /LPF LAB URINALYSIS - AUTOMATED METHOD 12/19/2024 6:42 PM [facility] Urine Urine specimen obtained by clean catch procedure / Unknown Non-blood Collection / Unknown 12/19/2024 6:18 PM EST 12/19/2024 6:28 PM EST us Navi B Austin HUGHES LAB URINE ORDERABLES Final Resu lt [facility] [address] [place] [address], * Lipase (12/19/2024 5:24 PM EST) Lipase 32 13 - 75 unit/L LAB CHEMISTRY METHOD 12/19/2024 6:31 PM [facility] Blood Venous blood specimen / Unknown Venipuncture / Unknown 12/19/2024 5:24 PM EST 12/19/2024 5:34 PM EST Navi Theresa Avila MD LAB BLOOD ORDERABLES Final Resu lt [facility] [address] [place] [address], [place] [phone] * (ABNORMAL) Comprehensive metabolic panel (12/19/2024 5:24 PM EST) Pathologist [facility] Sodium 138 133 - 145 mmol/L LAB CHEMISTRY METHOD 12/19/2024 6:31 PM [facility] Potassium 3.8 3.5 - 5.5 mmol/L LAB CHEMISTRY METHOD 12/19/2024 6:31 PM [facility] Comment:Hemolysis present Chloride 110 96 - 110 mmol/L LAB CHEMISTRY METHOD 12/19/2024 6:31 PM [facility] CO2 18(L) 21 - 32 mmol/L LAB CHEMISTRY METHOD 12/19/2024 6:31 PM [facility] Anion Gap 10 3 - 11 LAB CHEMISTRY METHOD 12/19/2024 6:31 PM [facility] Glucose 87 70 - 100 mg/dL LAB CHEMISTRY METHOD 12/19/2024 6:31 PM [facility] BUN 6 5 - 25 mg/dL LAB CHEMISTRY METHOD 12/19/2024 6:31 PM [facility] Creatinine 0.74 0.50 - 1.10 mg/dL LAB CHEMISTRY METHOD 12/19/2024 6:31 PM [facility] eGFR 109 >=60 mL/min/1. 73m2 LAB CHEMISTRY METHOD 12/19/2024 6:31 PM [facility] Comment:Calculation based on the??Chronic Kidney Disease Epidemiology Collaboration (CKD-EPI) equation refit??without adjustment for race. BUN/Creatinine Ratio 8.1 LAB CHEMISTRY METHOD 12/19/2024 6:31 PM [facility] Calcium 9.5 8.5 - 10.5 mg/dL LAB CHEMISTRY METHOD 12/19/2024 6:31 PM [facility] AST (SGOT) 27 10 - 42 unit/L LAB CHEMISTRY METHOD 12/19/2024 6:31 PM [facility] Comment:Hemolysis present ALT (SGPT) 15 10 - 60 unit/L LAB CHEMISTRY METHOD 12/19/2024 6:31 PM [facility] Alkaline Phosphatase 53 42 - 121 unit/L LAB CHEMISTRY METHOD 12/19/2024 6:31 PM [facility] Total Protein 7.9 6.0 - 8.0 g/dL LAB CHEMISTRY METHOD 12/19/2024 6:31 PM [facility] Albumin 4.3 3.2 - 5.0 g/dL LAB CHEMISTRY METHOD 12/19/2024 6:31 PM [facility] Total Bilirubin 0.7 0.0 - 1.4 mg/dL LAB CHEMISTRY METHOD 12/19/2024 6:31 PM [facility] Blood Venous blood specimen / Unknown Venipuncture / Unknown 12/19/2024 5:24 PM EST 12/19/2024 5:34 PM EST Navi Avila MD LAB BLOOD ORDERABLES Final Resu lt [facility] [address] [place] [address], from Last 3 Months Insurance [facility] [address] Care Teams Barrel Inspector Relationship Specialty Start Date End Date Carmela Gaytan MD [address] [place] [address] PCP - General Internal Medicine 12/19/24
[2025-02-04 14:38] LABS: Folate 5.7 ng/mL (> or = 4.0); Vitamin B12 320 pg/mL (200-900)
[2025-02-05 20:13] LABS: Gliadin Deamidated IgA Ab 3.1 U/mL; Gliadin Deamidated IgG Ab 1.6 U/mL; IgA 111 mg/dL (47-310); IgG 1369 mg/dL (600-1640); IgM 172 mg/dL (50-300); Transglutaminase Ab IgG <1.0 U/mL; Transglutaminase IgA <1.0 U/mL
== END 2025-02-04 11:22 | disposition home or self-care (01) ==
LOC: HO.HMGCLDS 11:21
PROVIDERS: PCP Internal Medicine; Visit Provider Internal Medicine
DX: R19.7 Diarrhea, unspecified (principal); F41.9 Anxiety disorder, unspecified; F32.A Depression, unspecified
CPT/HCPCS: 36415; 80053; 82607; 82746; 82784; 83540; 85025; 86258; 86364; 99212

== ENCOUNTER 2025-02-04 11:21 | Outpatient (AMB) | payer OTHER, SELFPAY ==
[2025-02-04 11:31] VITALS: BP 110/80; PULSE 80; RESP 18; O2SAT 99; BMI 23.0
--- NOTE | 2025-02-04 11:31 | MHC.PC.OV ---
Vital Signs 02/04/25 11:31 Height 5 ft 5 in Weight 138 lb BMI 23.0 BP 110/80 Blood Pressure Location Lt brachial Position Sitting Respiration 18 Pulse 80 Pulse Source Pulse Oximeter Pulse Oximetry (%) 99 Oxygen Delivery Method Room Air Intake Visit Reasons: 1 months f/up/Insurance ok Intake Note: Pt is here today for 1 month follow up visit. Allergies No Known Allergies Allergy (Verified 02/04/25 11:32) Tobacco use date assessed: 02/04/25 Dental Screening Dental Screen Date: 12/30/24 HPI 1 months f/up/Insurance ok HPI Details Pt presents for f/u anxiety and depression improved on increased dose of duloxetine. Patient is established with a therapist. She reports persistent frequent bowel movements after each meal with some generalized abdominal discomfort but denies nausea vomiting hematochezia melena fever chills or weight loss. Patient has been taking probiotics, omeprazole and Lomotil p.r.n. PFSH Medical History Anemia Anxiety Surgical History Hx of tonsillectomy Hx of appendectomy No pertinent past surgical history Family History Father HTN (hypertension) Mother No problems noted. 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 Housing: Apartment Patient Tobacco Use Status: Never used Tobacco e-Cigarette/Vaping Use: Never Used service: No Current occupational status: employed Cognitive needs: No Hearing needs: No Vision needs: Yes Questionnaire Thrive Questionnaire Date Thrive assessed: 01/16/25 I am a: Patient What is your living situation today?: I have a steady place to live Within the past 12 months, did the food you bought not last and you didn't have the money to get more?: Never true Within the past 12 months, did you worry whether your food would run out before you got money to buy more?: Never true Do you have trouble paying for medicines?: No Do you have trouble getting transportation to medical appointments?: No Do you have trouble paying your heating and electricity bill?: No Do you have trouble taking care of your child, family member or friend?: No Do you have trouble with day-to-day activities such as bathing, preparing meals, shopping, managing finances, etc.?: No Are you currently unemployed and looking for a job?: No Are you interested in more education?: No Please select the resources that you would like help with: Utilities Currently or been in a relationship where the following occur: No concerns reported THRIVE Score: 0 JOSE ALBERTO-7 AMB Questionnaire JOSE ALBERTO-7 Date JOSE ALBERTO - 7 assessed: 01/16/25 Source: Developed by Drs. Gurwinder Shay, Ashley Andrew, Fawad Jimenez and colleagues, with an educational lina from [employer]. Review of Systems Const All systems reviewed & are unremarkable except as noted in HPI and below Eyes Reports no additional complaints ENT Reports no additional complaints Card Reports no additional complaints Resp Reports no additional complaints GI Reports no additional complaints Reports no additional complaints Physical exam (Primary Care) Vital Signs: Last Vital Signs Pulse 80 02/04/25 11:31 Resp 18 02/04/25 11:31 BP 110/80 02/04/25 11:31 Pulse Ox 99 02/04/25 11:31 Oxygen Delivery Method Room Air 02/04/25 11:31 BMI result Body Mass Index 23.0 Tobacco/Smoking Status: Tobacco use Status Tobacco use date assessed 02/04/25 02/04/25 11:36 Patient Tobacco Use Status Never used Tobacco 02/04/25 11:36 e-Cigarette/Vaping Use Never Used 02/04/25 11:36 Thrive Assessment: Date of Thrive Assessment Date Thrive assessed 01/16/25 02/04/25 11:36 Currently or been in a relationship where the following occur: No concerns reported Const General: no acute distress HENMT Mouth: Normal oral and palatal mucosa present Throat: Yes posterior oropharynx normal Neck Neck: Yes no lymphadenopathy and Yes supple Resp Effort & Inspection: normal respiratory effort Auscultation: clear to auscultation bilaterally Cardio Rhythm: regular rhythm Heart sounds: S1 normal heart sound present and S2 normal heart sound present GI Inspection: Yes normal to inspection Palpation (GI): Soft to palpation Percussion: Yes normal to percussion Auscultation: normal bowel sounds Coding Level of Care Code Est Pt Level 3 (98216) Diagnoses Diarrhea, unspecified type R19.7 Diarrhea type: unspecified type Anxiety and depression F41.9; F32.A Assessment & Plan Assessment & Plan (1) Diarrhea: Comment: Negative stool culture and leukocytes 12/2023, chronic Code(s): R19.7 - Diarrhea, unspecified Category: Medical Qualifiers: Diarrhea type: unspecified type Qualified Code(s): R19.7 - Diarrhea, unspecified Plan: Obtain blood work to rule out celiac disease, patient was advised to stop taking omeprazole, no symptomatic improvement for 2 months. Check comprehensive panel CBC and H pylori stool antigen. Continue increase fiber and probiotics. Patient has an appointment with GI in March (2) Anxiety and depression: Comment: established with Psychiatry Code(s): F41.9 - Anxiety disorder, unspecified; F32.A - Depression, unspecified Category: Medical Plan: Continue duloxetine and psychotherapy, follow-up in 3 months Orders: Orders Celiac Diagnostic Gliadin TTG Today R19.7 - Diarrhea, unspecified Transglutaminase IgA Today R19.7 - Diarrhea, unspecified IRON PROFILE Today R19.7 - Diarrhea, unspecified Immunoglobulins,IgG IgA IgM Today R19.7 - Diarrhea, unspecified Vitamin B12 and Folate Today R19.7 - Diarrhea, unspecified Complete Blood Count Auto Diff Today R19.7 - Diarrhea, unspecified Comprehensive Met. Panel Today R19.7 - Diarrhea, unspecified H pylori Ag Stool Today R19.7 - Diarrhea, unspecified Medications: Refilled duloxetine 40 mg PO DAILY 90 caps 3RF
--- OUTSIDE RECORDS SUMMARY | 2025-02-04 13:26 | XMS_ITS | Data Portability ---
Author Organization [facility] [address] Address [address] [place] [address] Assessment No assessment recorded. Plan of Treatment Reminders Order Date Submit Date Provider Last Modified By Organization Details Last Modified Time Details Appointments None recorded. Lab rapid flu (A+B) 2023 024 [place] [address] [address] [address], [address] [place], [address], 4 20:32:14 SARS CoV 2 (COVID-19) Ag, QL, IA, upper respiratory specimen 2023 024 [facility] [address] [address], [address] [place], [address], 4 20:32:13 Referral None recorded. Procedures None recorded. Surgeries None recorded. Imaging None recorded. Medication Orders azithromyci n 250 mg tablet [address]/Pharmacy #[id number], [address] [place], [address], 4 20:32:12 benzonatate 100 mg capsule 2023 024 [facility]/Pharmacy #[id number], [address] [place], [address], 4 20:32:29 Patient TargetsNo targets recorded. Patient Instructions Encounter Date Encounter Id Patient Instructions Last Modified By Organization Details Last Modified Time 03/14/2024 [id number] Acute Sinusitis: Care Instructions Not available 03/14/2024 20:32:12 influenza (flu): care instructions Not available 03/14/2024 20:32:27 Reason for Referral None Reported. Results Created Date Observation Date Name Description Value Unit Range Abnormal Flag Note LastModifiedBy Organization Detail LastModifiedTime 03/14/20 24 03/14/2024 SARS CoV 2 (COVI D-19) Ag, QL, IA, upper respi rator y speci men Unknown Analyte negati ve Not Available [address] [place] [address] [address] [place], [address], 03/14/2024 19:19:41 03/14/20 24 03/14/2024 SARS CoV 2 (COVI D-19) Ag, QL, IA, upper respi rator y speci men Unknown Analyte yes Not Available [address] [place] [address] [address] [place], [address], 03/14/2024 19:19:41 03/14/20 24 03/14/2024 rapid flu (A+B) Unknown Analyte negati ve Not Available [address] [place] [address] [address] [place], [address], 03/14/2024 19:19:39 03/14/20 24 03/14/2024 rapid flu (A+B) Unknown Analyte positi ve Not Available [facility] [address] [place], [address], 03/14/2024 19:19:39 03/14/20 24 03/14/2024 rapid flu (A+B) Unknown Analyte yes Not Available [address] [place] [address] [address] [place], [address], 03/14/2024 19:19:39 Result Notes None recorded. Problems Name Problem SNOMED Code Status Onset Date Resolution Date Notes Provider Name and Address Organization Details Recorded Time Anxiety 19180872 Active NAHID Jacobson - [facility] 03/14/2024 [...] Updated DateTime 4 165.1 cm 24 kg/m2 25251.3 g 100 % 100 % 97 /min 16 /min 98.5 [degF] 122 mm[Hg] 82 mm[Hg] Karrie Mosley PA - [facility] 18:47:59 Social History Question Answer Notes LastModified by Organizat ion Details LastModified Time Tobacco Smoking Status Never Smoker Karire Mosley marco antonio PA - [facility] [...] SNOMED-CT Code Diagnosis ICD10 Code Diagnosis Note [id number] [address] [place] [id number] 09/20/2020 13:48:12 09/20/2020 16:27:37 [id number] [address] [place] [id number] 04/12/2021 19:09:06 04/12/2021 19:48:02 [id number] [address] [place] [id number] 01/25/2020 12:05:46 01/25/2020 13:45:29 [id number] [place] [address] [place] [id number] 03/14/2024 18:09:23 03/14/2024 20:33:19 Upper respiratory infection 69480023 J06.9 Wheezing 41292077 R06.2 Acute sinusitis 39640304 J01.90 Influenza caused by Influenza B virus 04491426 J10.1 Advised to rest , maintain hydration, Tylenol and motrin as and when needed, and continue precaution s as directed. 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
--- OUTSIDE RECORDS SUMMARY | 2025-02-04 13:26 | XMS_ITS | Clinical Summary ---
Author Organization [facility] Address [address] [place] [address] Phone Care Team Providers Care Cycle Manager Name Role Phone Carmela Gaytan MD Primary Care Provider [phone] Allergies No known active allergies Medications No known medications Active Problems No known active problems Encounters Date Type Department Care Team Description 12/22/2024 5:08 PM EST - 12/22/2024 9:17 PM [facility] Emergency [facility] Emergency [address] [place] [phone] Dehydration (Primary Dx) Discharge Disposition: Home or Self Care 12/19/2024 3:31 PM EST - 12/19/2024 10:49 PM [facility] Emergency [facility] Emergency [address] [place] [phone] Navi Avila MD Clostridium difficile diarrhea (Primary [...] PROCEDURE: HISTORICAL APPENDECTOMY; COMMENT: Dr Yordy Rolon [facility] Medical History Medical History Date [...] GEMUSE QTc 450 ms GEMUSE P Wave [place] 68 degrees GEMUSE R [place] 35 degrees GEMUSE T [place] 45 degrees GEMUSE ECG Interpretation Normal sinus [...] 8:15 PM EST 12/24/2024 9:07 AM EST [facility] Theresa Avila MD ECG ORDERABLES Final Result GEMUSE * XR Chest 2 Views (12/22/2024 6:59 PM EST) Anatomical Region Laterality Modality Body Radiographic Sharri ging 12/23/2024 8:22 AM EST Impressions 12/23/2024 8:22 AM EST Impression: No active pulmonary process identified. Telerad NAHID ([id number]) -------- FINAL REPORT -------- Dictated By: Cheryl Rodriguez Dictated Date: 12/23/2024 08:22 ET Assigned Physician: Cheryl Rodriguez Reviewed and Electronically Signed By: Cheryl Rodriguez Signed Date: 12/23/2024 08:22 ET Workstation ID: [id number] Transcribed By: Self Edit Transcribed Date: 12/23/2024 [...] No active pulmonary process identified. Telerad PA ([id number]) -------- FINAL REPORT -------- Dictated By: Cheryl Rodriguez Dictated Date: 12/23/2024 08:22 ET Assigned Physician: Cheryl Rodriguez Reviewed and Electronically Signed By: Cheryl Rodriguez Signed Date: 12/23/2024 08:22 ET Workstation ID: [id number] Transcribed By: Self Edit Transcribed Date: 12/23/2024 08:22 ET Navi Theresa Avila MD IMG XR PROCEDURES Final Result * POC , urine manually resulted (12/22/2024 6:29 PM EST) Only the most recent of2 resultswithin the time period is included. HCG, Ur POC Negative Negative POC hCG Int QC Pass? Yes Yes EXPIRATION DATE POC 04/23/26 LOT NUMBER POC [id number] Urine Urine specimen obtained by clean catch procedure / Unknown 12/22/2024 6:29 PM EST Navi Theresa Avila MD POINT OF CARE TEST ENTER/EDIT O RDERABLES Final Result * (ABNORMAL) Urinalysis with reflex microscopic and culture (12/22/2024 6:06 PM EST) Pathologist [facility] Specific [place] Urine 1.005 1.003 - 1.030 LAB URINALYSIS - AUTOMATED METHOD 12/22/2024 6:18 PM EST [facility] pH, Urine 7.0 5.0 - 8.0 pH LAB URINALYSIS - AUTOMATED METHOD 12/22/2024 6:18 PM EST [facility] Leukocytes, Urine Negative [...] PM EST 12/22/2024 6:12 PM EST Navi Theresa Avila MD LAB URINE ORDERABLES Final Resu lt [facility] [address] [place] [address], * Respiratory virus panel molecular study (12/22/2024 6:06 PM EST) Adenovirus Detection by PCR Not Detected Not Detected LAB MICROBIOLOGY METHOD 12/22/2024 7:29 PM [facility] Influenza A PCR Not Detected Not Detected LAB MICROBIOLOGY METHOD 12/22/2024 7:29 PM [facility] Influenza B PCR Not Detected Not Detected LAB MICROBIOLOGY METHOD 12/22/2024 7:29 PM [facility] Coronavirus 229E Not Detected Not [...] 12/22/2024 7:29 PM [facility] Bordetella pertussis Not Detected Not Detected LAB MICROBIOLOGY METHOD 12/22/2024 7:29 PM [facility] Bordetella parapertussis Not Detected Not Detected LAB MICROBIOLOGY METHOD 12/22/2024 7:29 PM [facility] Mycoplasma pneumo by PCR Not Detected Not Detected LAB MICROBIOLOGY METHOD 12/22/2024 7:29 PM EST [facility] Chlamydia pneumoniae Not Detected Not Detected LAB MICROBIOLOGY METHOD 12/22/2024 7:29 PM EST [facility] SARS COV-2 Not Detected Not Detected LAB MICROBIOLOGY METHOD 12/22/2024 7:29 PM EST [facility] Swab Both anterior nares / Unknown Non-blood Collection / Unknown 12/22/2024 6:06 PM EST 12/22/2024 6:12 PM EST Narrative [facility] - 12/22/2024 7:29 PM EST Testing was performed using the [employer] Respiratory Pathogen PCR Assay. All results must [...] O RDERABLES Final Result Performing Organization Address City/[facility]/ZIP Co de Phone Number [facility] [address] [place] [address], * [place] urine culture tube (12/22/2024 6:06 PM EST) Extra Tube Hold for add-ons. 12/22/2024 8:01 PM EST [facility] Comment:Auto resulted. Urine Urine specimen obtained by clean catch procedure / Unknown Non-blood Collection / Unknown 12/22/2024 6:06 PM EST 12/22/2024 6:12 PM EST Navi Avila MD LAB URINE ORDERABLES Final Resu lt Performing Organization Address City/[facility]/ZIP Co de Phone Number [facility] [address] [place] [address], * Troponin I high sensitivity (12/22/2024 5:33 PM EST) [facility] High Sensitivity Troponin I 4 <=54 ng/L LAB CHEMISTRY METHOD 12/22/2024 6:12 PM [facility] Blood Venous [...] than 20 mg/day of biotin. us Navi B Austin HUGHES LAB BLOOD ORDERABLES Final Resu lt [facility] [address] [place] [address], * CBC auto differential (12/22/2024 5:33 PM EST) Only the most recent of2 resultswithin the time period is included. [facility] WBC 6.6 4.8 - 10.8 K/mcL LAB HEMETOLOGY METHOD 12/22/2024 5:52 PM [facility] RBC 4.10 3.80 - 4.80 M/mcL LAB HEMETOLOGY METHOD 12/22/2024 5:52 PM [facility] Hemoglobin 12.1 11.5 - 16.0 [...] 12/22/2024 5:52 PM [facility] Basophils Relative 0.5 % LAB HEMETOLOGY METHOD 12/22/2024 5:52 PM [facility] Immature Granulocytes Relative 0.5 % LAB HEMETOLOGY METHOD 12/22/2024 5:52 PM [facility] Neutrophils Absolute 3.68 1.50 - 7.00 K/mcL LAB HEMETOLOGY METHOD 12/22/2024 5:52 PM EST [facility] Lymphocytes Absolute 2.43 1.00 - 5.00 K/mcL LAB HEMETOLOGY METHOD 12/22/2024 5:52 PM EST [facility] Monocytes Absolute 0.37 0.20 - 1.00 K/mcL LAB HEMETOLOGY METHOD 12/22/2024 5:52 PM EST [facility] Eosinophils Absolute 0.07 0.00 - 0.50 K/[facility] LAB HEMETOLOGY METHOD 12/22/2024 5:52 PM EST [facility] Basophils Absolute 0.03 0.00 - 0.20 K/[facility] LAB HEMETOLOGY METHOD 12/22/2024 5:52 PM EST [facility] Immature Granulocytes Absolute 0.03 0.00 - 0.03 K/[facility] LAB HEMETOLOGY METHOD 12/22/2024 5:52 PM EST [facility] Blood Venous blood specimen / Unknown Venipuncture / Unknown 12/22/2024 5:33 PM EST 12/22/2024 5:47 PM EST us Navi Avila MD LAB BLOOD ORDERABLES Final Resu lt [facility] [address] [place] [address], * (ABNORMAL) Magnesium (12/22/2024 5:33 PM EST) Magnesium 1.4(L) 1.9 - 2.6 mg/dL LAB CHEMISTRY METHOD 12/22/2024 6:09 PM EST [facility] Blood Venous blood specimen / Unknown Venipuncture / Unknown 12/22/2024 5:33 PM EST 12/22/2024 5:47 PM EST Navisaba Avila MD LAB BLOOD ORDERABLES Final Resu lt [facility] [address] [place] [address], * (ABNORMAL) Basic metabolic panel (12/22/2024 5:33 [...] 7.0 LAB CHEMISTRY METHOD 12/22/2024 6:09 PM [facility] Calcium 9.5 8.5 - 10.5 mg/dL LAB CHEMISTRY METHOD 12/22/2024 6:09 PM [facility] Blood Venous blood specimen / Unknown Venipuncture / Unknown 12/22/2024 5:33 PM EST 12/22/2024 5:47 PM EST us Navi Theresa Avila MD LAB BLOOD ORDERABLES Final Resu lt [facility] [address] [place] [address], * ECG-Annotated (12/22/2024) Only the most recent of2 resultswithin the time period is included. us Provider Onbase ECG ORDERABLES Final Result * [...] reflex microscopic (12/19/2024 6:18 PM EST) Specific [place] Urine 1.019 1.003 - 1.030 LAB URINALYSIS [...] HUGHES LAB URINE ORDERABLES Final Resu lt [facility] [address] [place] [address], * Lipase (12/19/2024 5:24 PM EST) Lipase 32 13 - 75 unit/L LAB CHEMISTRY METHOD 12/19/2024 6:31 PM [facility] Blood Venous blood specimen / Unknown Venipuncture / Unknown 12/19/2024 5:24 PM EST 12/19/2024 5:34 PM EST Navi Theresa Avila MD LAB BLOOD ORDERABLES Final Resu lt [facility] [address] [place] [address], [place] [phone] * (ABNORMAL) Comprehensive metabolic panel (12/19/2024 5:24 PM EST) Pathologist [facility] Sodium 138 133 - 145 mmol/L LAB [...] Resu lt [facility] [address] [place] [address], from Last 3 Months Insurance [facility] [place] [phone] Care Teams Cycle Manager Relationship Specialty Start Date End Date Carmela Gaytan MD [address] [place] [phone] PCP - General Internal Medicine 12/19/24
== END 2025-02-04 12:04 | disposition home or self-care (01) ==
LOC: HO.HMCC 11:22
PROVIDERS: PCP Internal Medicine; Visit Provider Internal Medicine
DX: R19.7 Diarrhea, unspecified (principal); F41.9 Anxiety disorder, unspecified; F32.A Depression, unspecified

== ENCOUNTER 2025-09-08 13:32 | Outpatient (AMB) | payer OTHER, SELFPAY ==
[2025-09-08 13:38] VITALS: BP 118/72; PULSE 84; RESP 16; TEMP 36.7; O2SAT 99; BMI 28.8
--- NOTE | 2025-09-08 13:38 | AM.OFFWIN_ITS ---
Intake Vital Signs 09/08/25 13:38 Height 5 ft 5 in Weight 173 lb BMI 28.8 BP 118/72 Blood Pressure Location Lt brachial Position Sitting Respiration 16 Pulse 84 Pulse Source Pulse Oximeter Temp 98.1 F Temp Source Oral Pulse Oximetry (%) 99 Oxygen Delivery Method Room Air Intake Visit Reasons: EP-persistent cold Patient Tobacco Use Status: Never used Tobacco [employer] Supervisor Required: No Accompanied by: Self / Same As Patient Allergies No Known Allergies Allergy (Verified 09/08/25 13:43) HPI HPI Comments History of Present Illness Details History - The patient is a 35-year-old female pr esenting with symptoms of a prolonged cold and sinus discomfort. - She reports having cold symptoms for t hree weeks, which have recently worsened, with nasal congestion and rust-like discharge from her eyes upon waking. - She denies fever, shortness of breath, and has no history of asthma or COPD. - Has not tried any OTC medications for her symptoms. Physical Exam General: Cooperative, healthy appearing, comfortable and no acute distress Orientation/consciousness: Patient oriented x3 Limitations: No limitations Head: Normal to inspection Ears: Hearing grossly normal bilaterally, external ears normal and TM's normal bilaterally Nose: Normal external nose present, Normal nares present and No nasal discharge present Face and sinus: Normal facial exam and Sinuses tender Mouth: Normal oral and palatal mucosa present and moist mucous membranes Throat: Yes tonsils normal, Yes uvula midline. Posterior oropharynx erythema, no exudates Eyes: Appearance normal, both eyes and all related structures Neck: Normal visual inspection, full ROM Respiratory: Clear to auscultation bilaterally. Normal respiratory effort, able to speak in complete sentences, not actively coughing, no respiratory distress, not tachypneic, no tripod positioning and no use of accessory muscles Cardiovascular: Regular rate and rhythm. Normal S1 and S2 Skin: No rashes or lesions noted Neuro: Patient oriented x3 Extremities: Normal to inspection and Yes no clubbing, cyanosis or edema Review of Systems - General: Denies fever - Respiratory: Denies shortness of breat h - Neurological: Reports rust-like discha rge from eyes upon waking - ENT: Reports nasal congestion and sinu s tenderness All systems reviewed and are unremarkable except as noted in HPI PFSH Medical History Anemia Anxiety Surgical History Hx of tonsillectomy Hx of appendectomy No pertinent past surgical history Family History Father HTN (hypertension) Mother No problems noted. 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 Housing: Apartment Patient Tobacco Use Status: Never used Tobacco e-Cigarette/Vaping Use: Never Used service: No Current occupational status: employed Cognitive needs: No Hearing needs: No Vision needs: Yes Physical Exam Vital Signs: Last Vital Signs Temp 98.1 F 09/08/25 13:38 Pulse 84 09/08/25 13:38 Resp 16 09/08/25 13:38 BP 118/72 09/08/25 13:38 Pulse Ox 99 09/08/25 13:38 Oxygen Delivery Method Room Air 09/08/25 13:38 BMI result Body Mass Index 28.8 Assessment & Plan Assessment & Plan (1) URI, acute: Code(s): J06.9 - Acute upper respiratory infection, unspecified Plan: Plan Patient was informed and verbally consented to the use of an ambient scribe for clinic note documentation during this visit. - VSS, pt well appearing and PE remarkable for sinus tenderness, likey sinusitis - A respiratory viral panel was conducted to identify the specific virus. - If the panel is negative, consider bacterial infection and initiate antibiotic therapy. - Recommend using Sudafed for congestion relief. - Recommend using a neti pot with distilled water for sinus irrigation. - Suggest Flonase nasal spray to reduce inflammation and relieve pressure. Orders: Orders Resp Pathogen Panel - [facility] [place] Today J06.9 - Acute upper respiratory infection, unspecified Coding Level of Care Code Est Pt Level 3 (37922) Diagnoses URI, acute J06.9
--- OUTSIDE RECORDS SUMMARY | 2025-09-08 16:24 | XMS_ITS | Clinical Summary ---
Author Organization [facility] Address [address] [place] [address] Phone Care Team Providers Care Fish Bait Processing Supervisor Name Role Phone Carmela Gaytan MD Primary Care Provider [phone] Allergies No known active allergies Medications No known medications Active Problems No known active problems Surgical History Surgery Date Site/Laterality Comments COLONOSCOPY 06/28/2010 PROCEDURE: CA COLONOSCOPY STOMA DX INCLUDING COLLJ SPEC SPX; COMMENT: normal to terminal ileum to 20 cm ESOPHAGOGASTRODUODENOSCOPY 01/22/14 PROCEDURE: CA ESOPHAGOGASTRODUODENOSCOPY TRANSORAL DIAGNOSTIC; COMMENT: normal; normal duodenal biopsies APPENDECTOMY 03/26/14 laparoscopic PROCEDURE: HISTORICAL APPENDECTOMY; COMMENT: Dr Yordy [facility] Medical History Medical History Date Comments [...] 93 12/22/2024 9:08 PM EST Temperature 37.1 C (98.8 F) 12/22/2024 7:04 PM EST Respiratory Rate 18 12/22/2024 9:08 PM EST Oxygen Saturation 100% 12/22/2024 9:08 PM EST Inhaled Oxygen Concentration - - Weight 67.1 kg (148 lb) 12/19/2024 11:24 AM EST Height 165.1 cm (5' 5 ) 12/19/2024 11:24 AM EST Body Mass Index 24.63 12/19/2024 11:24 AM EST Plan of Treatment Health Maintenance Due Date Last Done Comments Cervical Cancer Screening: P ap Smear 2011 HPV Vaccines (2 - 3-dose series) 03/07/2012 02/08/2012 Hepatitis B Vaccines (2 of 3 - 19+ 3-dose series) 10/18/2020 09/20/2020 HIV Screening 07/21/2024 Hepatitis C Screening 07/21/2024 Social Influencers of Health Screening 07/21/2024 Depression Screening 11/26/2024 COVID-19 Vaccine (4 - 2024-2 6 season) 2025 12/05/2022, 02/27/2022, 02/06/2022 Influenza Vaccine (#1) 2025 11/17/2023 DTaP,Tdap,and Td Vaccines (4 - Td or Tdap) 11/17/2033 11/17/2023, 02/01/2015, 02/01/2012 RSV Immunization Adult Patients (1 - 1-dose 75+ series) 2065 HIB Vaccines Aged Out No longer eligi [...] age to complete this topic Meningococcal B Vaccine Aged Out No l onger eligible based on patient's age to complete this topic Pneumococcal Vaccine: Pediatrics (0 to 5 Years) and At-Risk Patients (6 to 49 Years) Aged Out No longer eligible b ased on patient's age to complete this topic RSV Immunization Patients Under 20 months Aged Out No longer eligible b ased on patient's age to complete this topic Varicella Vaccines Aged Out No longer eligible based on patient's age to complete this topic [place] [address] [place] [address] Care Teams Fish Bait Processing Supervisor Relationship Specialty Start Date End Date Carmela Gaytan MD [address] [place] [address] PCP - General Internal Medicine 12/19/24
--- OUTSIDE RECORDS SUMMARY | 2025-09-08 16:24 | XMS_ITS | Clinical Summary ---
Author Organization [facility] Address [address] [facility] [address] [place] [address] Care Team Providers Care Audio Visual Collections Coordinator Name Role Phone Lotus Young MD Primary Care Provider [phone] Allergies No known active allergies Medications acetaminophen (Tylenol) 325 mg tablet Take 650 mg by mouth every 6 (six) hours if needed. 12/28/2024 Active DULoxetine (Cymbalta) [address] capsule Take 20 mg by mouth once daily. 01/21/2025 Active amitriptyline (Elavil) 25 mg tabletIndication s:Chronic migraine with aura without status migrainosus, not intractable Take 1 tablet (25 mg) by mouth once daily. 30 tablet 3 02/05/2025 Active amitriptyline (Elavil) 10 mg tabletIndication s:Chronic migraine with aura without status migrainosus, not intractable Take 1 tablet (10 mg) by mouth once daily. 10 tablet 02/05/2025 Active Family History Relation Name Status Comments Father Alive Mother Alive Social History Tobacco Use Types Packs/Day Years Used Date Smoking Tobacco: Never Smokeless Tobacco: Never Tobacco Cessation:Counseling Given: Not Answered Alcohol Use Standard Drinks/Week Comments Not Currently 0 (1 standard drink = 0.6 oz pur e alcohol) Comments Unknown Sex and Gender Information Value Date Recorded Sex Assigned at Female 09/26/2024 9:00 AM EDT Legal Sex Female 8:59 AM EDT Gender Identity Female 09/26/2024 9:00 AM EDT Sexual Orientation Unknown 09/26/2024 9: 00 AM EDT Plan of Treatment Upcoming Encounters Date Type Department Care Team (Late st Contact Info) Description 12/24/2025 2:30 PM EST Telemedicine [facility] Neurology [address] [place] [address] Branden Campbell MD [address] [place] [address] Health Maintenance Due Date Last Done Comments HIV Screening 1990 MMR Vaccines (1 of 1 - Standard series) 1991 Varicella Vaccines (1 of 2 - 13+ 2-dose series) 2003 Diabetes Screening 2008 Hepatitis C Screening 2008 Pap Smear 2011 HPV Vaccines (2 - 3-dose series) 03/07/2012 02/08/2012 Cervical Cancer Screening 2020 HPV/Cotest 2020 Hepatitis B Vaccines (2 of 3 - 19+ 3-dose series) 10/18/2020 09/20/2020 Depression Screening 11/26/2024 COVID-19 Vaccine (3 - 2024-2 6 season) 2025 02/27/2022, 02/06/2022 Influenza Vaccine (#1) 2025 11/17/2023 DTaP/Tdap/Td Vaccines (4 - T d or Tdap) 11/17/2033 11/17/2023, 02/01/2015, 02/01/2012 HIB [...] patient's age to complete this topic Meningococcal Vaccine Aged Out No shawn jose angel eligible based on patient's age to complete this topic Pneumococcal Vaccine: Pediatrics (0 to 5 Years) and At-Risk Patients (6 to 49 Years) Aged Out No longer eligible b ased on patient's age to complete this topic Rotavirus Vaccines Aged Out No longer eligible based on patient's age to complete this topic Insurance [facility] ACO MEDICAID STANDARD Care Teams Audio Visual Collections Coordinator Relationship Specialty Start Date End Date Lotus Young MD [address] [place] [id number] PCP - General Vice Chancellor 05/21/25
== END 2025-09-08 15:20 | disposition home or self-care (01) ==
PROVIDERS: PCP Internal Medicine; Visit Provider Physician Assistant
DX: J06.9 Acute upper respiratory infection, unspecified (principal)

== ENCOUNTER 2025-09-08 13:32 | Outpatient (REF) | payer OTHER, SELFPAY ==
[2025-09-09 11:44] LABS: Chlamydia pneumoniae PCR Not Detected (Not Detect.); Coronavirus 229E PCR Not Detected (Not Detect.); Coronavirus HKU1 PCR Not Detected (Not Detect.); Coronavirus NL63 PCR Not Detected (Not Detect.); Coronavirus OC43 PCR Not Detected (Not Detect.); RSV PCR Not Detected (Not Detect.); Rhino/Enterovirus PCR Detected (Not Detect.)
[2025-09-09 11:46] LABS: Influenza A H1 PCR Not Detected (Not Detect.); Influenza A H1-2009 PCR Not Detected (Not Detect.); Influenza A H3 PCR Not Detected (Not Detect.); SARS-CoV-2 PCR Not Detected (Not Detect.)
== END 2025-09-08 13:33 | disposition home or self-care (01) ==
LOC: HO.LAB 13:32
PROVIDERS: Physician Assistant; PCP Internal Medicine
DX: J06.9 Acute upper respiratory infection, unspecified (principal)
CPT/HCPCS: 87633; 99212

== ENCOUNTER 2025-10-14 09:22 | Outpatient (AMB) | payer OTHER, SELFPAY ==
[2025-10-14 09:24] VITALS: BP 110/78; PULSE 79; RESP 16; TEMP 36.4; O2SAT 97; BMI 28.5
--- NOTE | 2025-10-14 09:24 | MHC.PC.OV ---
Vital Signs 10/14/25 09:24 Height 5 ft 5 in Weight 171 lb BMI 28.5 BP 110/78 Blood Pressure Location Rt brachial Position Sitting Respiration 16 Pulse 79 Pulse Source Pulse Oximeter Temp 97.5 F Temp Source Oral Pulse Oximetry (%) 97 Oxygen Delivery Method Room Air Intake Visit Reasons: Panic, anxiety Intake Note: Pt is here today for a sick visit. Pt c/o panic attacks and anxiety. Allergies No Known Allergies Allergy (Verified 10/14/25 09:28) Medication List - Last Reconciled 10/14/25 by Carmela Gaytan MD Culturelle (Lactobacillus rhamnosus GG) 1 cap PO DAILY NS diphenoxylate-atropine 2.5-0.025 mg (Lomotil) 1 tab PO TID PRN duloxetine 20 mg PO DAILY omeprazole 40 mg PO DAILY Tobacco use date assessed: 10/14/25 Dental Screening Dental Screen Date: 12/30/24 HPI Panic, anxiety HPI Details Pt presents for f/u. She run out of Duloxetine 2 weeks ago and could not get a hold of her prescriber. Patient complains of having worsening anxiety tingling sensation all over her body, diarrhea and bloating. Patient has been established with a counselor [facility] Medical History Anemia Anxiety Surgical History Hx of tonsillectomy Hx of appendectomy No pertinent past surgical history Family History Father HTN (hypertension) Mother No problems noted. Brother Mental health disorder Social History Household Members Other:: lives with partner, 5 children (10-1), Housing: Apartment Patient Tobacco Use Status: Never used Tobacco e-Cigarette/Vaping Use: Never Used service: No Current occupational status: employed Cognitive needs: No Hearing needs: No Vision needs: Yes Questionnaire PHQ-9 Over the last 2 weeks, how often have you been bothered by any of the following problems? 1. Little interest or pleasure in doing things: several days 2. Feeling down, depressed, or hopeless: several days 3. Trouble falling or staying asleep, or sleeping too much: more than half the days 4. Feeling tired or having little energy: nearly every day 5. Poor appetite or overeating: nearly every day 6. Feeling bad about yourself - or that you are a failure or have let yourself or your family down: nearly every day 7. Trouble concentrating on things, such as reading the newspaper or watching television: more than half the days 8. Moving or speaking so slowly that other people could have noticed. Or the opposite - being so fidgety or restless that you have been moving around a lot more than usual: not at all 9. Thoughts that you would be better off or of hurting yourself in some way: not at all Total score: 15 Depression Screening Interpretation: Positive (patient will continue counseling, restart Duloxetine) Depression Screening Follow-up: Existing condition and In treatment Depression Screening Done: Yes Source: Developed by Drs. Gurwinder Shay, Ashley Andrew, Fawad Jimenez and colleagues, with an educational lina from [employer]. Thrive Questionnaire Date Thrive assessed: 01/16/25 I am a: Patient What is your living situation today?: I have a steady place to live Within the past 12 months, did the food you bought not last and you didn't have the money to get more?: Never true Within the past 12 months, did you worry whether your food would run out before you got money to buy more?: Never true Do you have trouble paying for medicines?: No Do you have trouble getting transportation to medical appointments?: No Do you have trouble paying your heating and electricity bill?: No Do you have trouble taking care of your child, family member or friend?: No Do you have trouble with day-to-day activities such as bathing, preparing meals, shopping, managing finances, etc.?: No Are you currently unemployed and looking for a job?: No Are you interested in more education?: No Please select the resources that you would like help with: Utilities Currently or been in a relationship where the following occur: No concerns reported THRIVE Score: 0 JOSE ALBERTO-7 AMB Questionnaire JOSE ALBERTO-7 Date JOSE ALBERTO - 7 assessed: 01/16/25 Feeling nervous, anxious, or on edge: 3 = Nearly every day Not being able to stop or control worryin = Nearly every day Worrying too much about different things: 3 = Nearly every day Trouble relaxin = Nearly every day Being so restless that it is hard to sit still: 3 = Nearly every day Becoming easily annoyed or irritable: 2 = More than half the days Feeling afraid as if something awful might happen: 2 = More than half the days Total JOSE ALBERTO-7 score (0-4 normal; 5-9 mild; 10-14 moderate; 15-21 severe): 19 Source: Developed by Drs. Gurwinder Shay, Ashley Andrew, Fawad Jimenez and colleagues, with an educational lina from [employer]. Review of Systems Const All systems reviewed & are unremarkable except as noted in HPI and below ENT Reports no additional complaints Card Reports no additional complaints Resp Reports no additional complaints GI Reports no additional complaints Reports no additional complaints Physical exam (Primary Care) Vital Signs: Last Vital Signs Temp 97.5 F 10/14/25 09:24 Pulse 79 10/14/25 09:24 Resp 16 10/14/25 09:24 BP 110/78 10/14/25 09:24 Pulse Ox 97 10/14/25 09:24 Oxygen Delivery Method Room Air 10/14/25 09:24 BMI result Body Mass Index 28.5 Tobacco/Smoking Status: Tobacco use Status Tobacco use date assessed 10/14/25 10/14/25 09:30 Patient Tobacco Use Status Never used Tobacco 10/14/25 09:30 e-Cigarette/Vaping Use Never Used 10/14/25 09:30 PHQ-9: PHQ-9 Score PHQ-9: Total score 15 10/14/25 09:30 Depression Screening Interpretation: Positive (patient will continue counseling, restart Duloxetine) Depression Screening Follow-up: Existing condition and In treatment Thrive Assessment: Date of Thrive Assessment Date Thrive assessed 01/16/25 10/14/25 09:30 Currently or been in a relationship where the following occur: No concerns reported Const General: no acute distress HENMT Head: Yes normal to inspection Throat: Yes posterior oropharynx normal Resp Effort & Inspection: normal respiratory effort Auscultation: clear to auscultation bilaterally Cardio Rhythm: regular rhythm Heart sounds: S1 normal heart sound present and S2 normal heart sound present GI Inspection: Yes normal to inspection Palpation (GI): Soft to palpation Percussion: Yes normal to percussion Auscultation: normal bowel sounds Coding Level of Care Code Est Pt Level 3 (09573) Diagnoses Anxiety and depression F41.9; F32.A Assessment & Plan Assessment & Plan (1) Anxiety and depression: Comment: established with Psychiatry Code(s): F41.9 - Anxiety disorder, unspecified; F32.A - Depression, unspecified Category: Medical Plan: Patient will restart duloxetine 20 mg daily. She will follow-up with a counselor. Patient was advised about not stopping duloxetine without slow taper. Stress management regular physical activity and mindfulness discussed with the patient. Orders: Orders Complete Blood Count Auto Diff 3 Months F32.A - Depression, unspecified, F41.9 - Anxiety disorder, unspecified, Z00.00 - Encounter for general adult medical examination without abnormal findings IRON PROFILE 3 Months F32.A - Depression, unspecified, F41.9 - Anxiety disorder, unspecified, Z00.00 - Encounter for general adult medical examination without abnormal findings Vitamin D 25-OH Total 3 Months F32.A - Depression, unspecified, F41.9 - Anxiety disorder, unspecified, Z00.00 - Encounter for general adult medical examination without abnormal findings Comprehensive [place]. Panel Fast 3 Months F32.A - Depression, unspecified, F41.9 - Anxiety disorder, unspecified, Z00.00 - Encounter for general adult medical examination without abnormal findings Lipid Panel 3 Months F32.A - Depression, unspecified, F41.9 - Anxiety disorder, unspecified, Z00.00 - Encounter for general adult medical examination without abnormal findings TSH reflex Free T4 3 Months F32.A - Depression, unspecified, F41.9 - Anxiety disorder, unspecified, Z00.00 - Encounter for general adult medical examination without abnormal findings UA w Microscopic 3 Months F32.A - Depression, unspecified, F41.9 - Anxiety disorder, unspecified, Z00.00 - Encounter for general adult medical examination without abnormal findings Medications: New duloxetine 20 mg PO DAILY 90 caps 1RF
--- OUTSIDE RECORDS SUMMARY | 2025-10-14 17:17 | XMS_ITS | Clinical Summary ---
Author Organization [facility] Address [address] [facility] [address] [place] [address] Care Team Providers Care Administrative Support Assoc Name Role Phone Lotus Young MD Primary Care Provider [phone] Allergies No known active allergies Medications acetaminophen [...] Care Team (Late st Contact Info) Description 10/20/2025 11:00 AM EST Telemedicine [facility] Neurology [address] [place] [address] Branden Campbell MD [address] [facility] [address] [place] [address] 12/24/2025 2:30 PM EST Telemedicine [facility] Neurology [address] [place] [address] Branden Campbell MD [address] [facility] [address] [place] [id number] Health Maintenance Due Date Last Done Comments [...] patient's age to complete this topic Insurance [facility] ACO MEDICAID STANDARD Care Teams Administrative Support Assoc Relationship Specialty Start Date End Date Lotus Young MD [address] [place] [address] PCP - General Director Of Field Service 05/21/25
--- OUTSIDE RECORDS SUMMARY | 2025-10-14 17:17 | XMS_ITS | Data Portability ---
Author Organization [facility] [address] Address [address] [place] [address] Assessment No assessment recorded. Plan of Treatment Reminders Order Date Submit Date Provider Last Modified By Organization Details Last Modified Time Details Appointments None recorded. Lab rapid flu (A+B) 2023 024 [place] [address] [address] [address], [address] [place], [address], 4 20:32:14 SARS CoV 2 (COVID-19) Ag, QL, IA, upper respiratory specimen 2023 024 [place] [address] [address] [address], [address] [place], [address], 4 20:32:13 Referral None recorded. Procedures None recorded. Surgeries None recorded. Imaging None recorded. Medication Orders azithromyci n 250 mg tablet [address]/Pharmacy #[id number], [address] [place], [address], 4 20:32:12 benzonatate 100 mg capsule 2023 024 [facility]/Pharmacy #[id number], [address] [place], [address], 4 20:32:29 Patient TargetsNo targets recorded. Patient Instructions Encounter Date Encounter Id Patient Instructions Last Modified By Organization Details Last Modified Time 03/14/2024 [id number] Acute Sinusitis: Care Instructions Not available 03/14/2024 20:32:12 influenza (flu): care instructions Not available 03/14/2024 20:32:27 Reason for Referral None Reported. Results Created Date Observation Date Name Description Value Unit Range Abnormal Flag Note LastModifiedBy Organization Detail LastModifiedTime 03/14/20 24 03/14/2024 SARS CoV 2 (COVI D-19) Ag, QL, IA, upper respi rator y speci men Unknown Analyte negati ve Not Available [address] [place], [address], 03/14/2024 19:19:41 03/14/20 24 03/14/2024 SARS CoV 2 (COVI D-19) Ag, QL, IA, upper respi rator y speci men Unknown Analyte yes Not Available [address] [place] [address] [address] [place], [address], 03/14/2024 19:19:41 03/14/20 24 03/14/2024 rapid flu (A+B) Unknown Analyte negati ve Not Available [address] [place], [address], 03/14/2024 19:19:39 03/14/20 24 03/14/2024 rapid flu (A+B) Unknown Analyte positi ve Not Available [address] [address] [place], [address], 03/14/2024 19:19:39 03/14/20 24 03/14/2024 rapid flu (A+B) Unknown Analyte yes Not Available [address] [place] [address] [address] [place], [address], 03/14/2024 19:19:39 Result Notes None recorded. Problems Name Problem SNOMED Code Status Onset Date Resolution Date Notes Provider Name and Address Organization Details Recorded Time Anxiety 01975412 Active NAHID Jacobson - [facility] 03/14/2024 [...] Heart rate Respiratory rate Body temperature Systolic And Diastolic Provider Name and Address Organization Details Last Updated DateTime 4 165.1 cm 24 kg/m2 80238.3 g 100 % 100 % 97 /min 16 /min 98.5 [degF] 122/82 mm[Hg] Karrie Mosley PA - [facility] 18:47:59 Social History Question Answer Notes LastModified by Organizat ion Details LastModified Time Tobacco Smoking Status Never Smoker Karrie Mosley marco antonio PA - [facility] 03/14/2024 18:49:28 What Is Your Water Source? Well Information not available 03/14/2024 What Is Your Heat Source? Gas Information not available 03/14/2024 What Was The Date Of Your Most Recent Tobacco Screening? 03/14/2024 Information not available 03/14/2024 Sex: Unknown Functional Status Question Answer Note LastModified by Organizat ion Details LastModified Time Do you use any illicit or recreational drugs? No Information not available 03/14/2024 Do you or have you ever used any other forms of tobacco or nicotine? No Information not available 03/14/2024 What is your level of alcohol consumption? None Information not available 03/14/2024 Mental Status None recorded. Family History Relationship [...] Influenza, MDCK, quadrivalent, PF 3 completed Karrie bernard, PA - [facility] 03/14/2024 18:31:43 COVID-19, [...] Diagnosis SNOMED-CT Code Diagnosis ICD10 Code Diagnosis IMO Codes Diagnosis Note [id number] [address] [facility] [place] [address] 09/20/2020 13:48:12 09/20/2020 16:27:37 [id number] [address] [place] [address] 04/12/2021 19:09:06 04/12/2021 19:48:02 [id number] [address] [facility] [place] [address] 01/25/2020 12:05:46 01/25/2020 13:45:29 [id number] Erasmo Collins MD [address] [facility] [place] [address] 03/14/2024 18:09:23 03/14/2024 20:33:19 Upper respiratory infection 65253955 J06.9 Wheezing 61382710 R06.2 Acute sinusitis 22017838 J01.90 Influenza caused by Influenza B virus 42367341 J10.1 Advised to rest , maintain hydration, Tylenol and motrin as and when needed, and continue precaution s as directed. .Please inform election judge/ PCP and follow up with them in [...] Recorded Advance Directives Directive None Recorded Payers Insurance Date Sequence Insurance Name Policy Number Policy Sher Covered Member ID Sher Member ID Guarantor Name 03/14/2024 1 [facility] - [facility] (MEDICAID REPLACEMENT - HMO) MICK Pyle [id number] Sherly Pyle Notes Date Note Type Note Provider Name and Address Organization Details Recorded Time 03/14/20 24 text/ht ml CoughReported by PatientHPIFor quality, patient reportsproductive cough,dry, anddry and wetbut reportsintermittentandsymptoms worse with lying down. For severity, patient reportsworseningbut reportsmoderate. For timing, patient reportsworseningbut reportsgradual. For context, patient reportshistory of bronchitis (hx of pneumonia)but reportsnon-smokerandfamily members ill with similar symptoms. For associated symptoms, patient reportsnausea,post nasal drip,can't get a deep breath, andhurts to breathbut reportsno fever,no chills,no chest pain,no vomiting, andno wheezing. For source of patient information, patient reportsinformation obtained from patientandpatient arrived at urgent care ambulatory. For duration, patient reports3 days days. Erasmo Collins MD [address] [place], [place] [address], [address], PA - [facility] 03/14/2024 21:11:54 OBGyn Episode No OBEpisode recorded.
--- OUTSIDE RECORDS SUMMARY | 2025-10-14 17:17 | XMS_ITS | Clinical Summary ---
Author Organization [facility] Address [address] [place] [address] Phone Care Team Providers Care Mammography Supervisor Name Role Phone Carmela Gaytan MD Primary Care Provider [phone] Allergies No known active allergies Medications No known medications Active Problems No known active problems Surgical History Surgery Date Site/Laterality Comments COLONOSCOPY 06/28/2010 PROCEDURE: CO COLONOSCOPY STOMA DX INCLUDING COLLJ SPEC SPX; COMMENT: normal to terminal ileum to 20 cm ESOPHAGOGASTRODUODENOSCOPY 01/22/14 PROCEDURE: CO ESOPHAGOGASTRODUODENOSCOPY TRANSORAL DIAGNOSTIC; COMMENT: normal; normal duodenal biopsies APPENDECTOMY 03/26/14 laparoscopic PROCEDURE: HISTORICAL APPENDECTOMY; COMMENT: Dr Yordy Rolon [facility] Medical History Medical History Date [...] Screening 07/21/2024 Depression Screening 11/26/2024 COVID-19 Vaccine ( - 2024-2 6 season) 2025 12/05/2022, 02/27/2022, [...] patient's age to complete this topic Insurance [facility] Care Teams Mammography Supervisor Relationship Specialty Start Date End Date Carmela Gaytan MD [address] [place] [address] PCP - General Internal Medicine 12/19/24
== END 2025-10-14 09:54 | disposition home or self-care (01) ==
LOC: HO.HMCC 09:23
PROVIDERS: PCP Internal Medicine; Visit Provider Internal Medicine
DX: F41.9 Anxiety disorder, unspecified (principal); F32.A Depression, unspecified

== ENCOUNTER → 2025-10-14 09:22 | Outpatient (BNVA) | payer OTHER, SELFPAY | PROVIDERS: PCP Internal Medicine; Visit Provider Internal Medicine | DX: F41.0 Panic disorder [episodic paroxysmal anxiety] (principal); F41.9 Anxiety disorder, unspecified; F32.A Depression, unspecified | CPT/HCPCS: 99212 ==

== ENCOUNTER 2025-10-27 11:46 | Outpatient (AMB) | payer OTHER, SELFPAY ==
--- NOTE | 2025-10-27 11:48 | MHC.PC.OV ---
Vital Signs 10/27/25 11:49 Height 5 ft 5 in Weight 178 lb BMI 29.6 BP 120/78 Blood Pressure Location Rt brachial Position Sitting Respiration 17 Pulse 89 Pulse Source Pulse Oximeter Pulse Oximetry (%) 98 Oxygen Delivery Method Room Air Intake Visit Reasons: ER follow up Intake Note: Pt is here today for ER follow up visit. Allergies buspirone (From BuSpar) Adverse Reaction (Intermediate, Verified 10/27/25 12:16) Headache Medication List - Last Reconciled 10/27/25 by Carmela Gaytan MD Culturelle (Lactobacillus rhamnosus GG) 1 cap PO DAILY NS diphenoxylate-atropine 2.5-0.025 mg (Lomotil) 1 tab PO TID PRN duloxetine 20 mg PO DAILY omeprazole 40 mg PO DAILY Tobacco use date assessed: 10/27/25 Dental Screening Dental Screen Date: 12/30/24 HPI ER follow up HPI Details Patient presents for the follow-up of ER visit for anxiety and depression. Patient was transferred to psychiatric hospital in [place] where she spent 10 days in the inpatient farrar, she is feeling better has been taking duloxetine regularly and is established with psychiatrist and a counselor. [facility] Medical History (Updated 10/27/25 @ 12:25 by Carmela Gaytan MD) Anxiety and depression Anemia Anxiety Surgical History Hx of tonsillectomy Hx of appendectomy No pertinent past surgical history Family History Father HTN (hypertension) Mother No problems noted. Brother Mental health disorder Social History Household Members Other:: lives with partner, 5 children (10-1), Housing: Apartment Patient Tobacco Use Status: Never used Tobacco e-Cigarette/Vaping Use: Never Used service: No Current occupational status: employed Cognitive needs: No Hearing needs: No Vision needs: Yes Questionnaire Thrive Questionnaire Date Thrive assessed: 01/16/25 I am a: Patient What is your living situation today?: I have a steady place to live Within the past 12 months, did the food you bought not last and you didn't have the money to get more?: Never true Within the past 12 months, did you worry whether your food would run out before you got money to buy more?: Never true Do you have trouble paying for medicines?: No Do you have trouble getting transportation to medical appointments?: No Do you have trouble paying your heating and electricity bill?: No Do you have trouble taking care of your child, family member or friend?: No Do you have trouble with day-to-day activities such as bathing, preparing meals, shopping, managing finances, etc.?: No Are you currently unemployed and looking for a job?: No Are you interested in more education?: No Please select the resources that you would like help with: Utilities Currently or been in a relationship where the following occur: No concerns reported THRIVE Score: 0 JOSE ALBERTO-7 AMB Questionnaire JOSE ALBERTO-7 Date JOSE ALBERTO - 7 assessed: 01/16/25 Source: Developed by Drs. Gurwinder Shay, Ashley Andrew, Fawad Jimenez and colleagues, with an educational lina from [employer]. Review of Systems Const All systems reviewed & are unremarkable except as noted in HPI and below ENT Reports no additional complaints Card Reports no additional complaints Resp Reports no additional complaints GI Reports no additional complaints Reports no additional complaints Physical exam (Primary Care) Vital Signs: Last Vital Signs Pulse 89 10/27/25 11:49 Resp 17 10/27/25 11:49 BP 120/78 10/27/25 11:49 Pulse Ox 98 10/27/25 11:49 Oxygen Delivery Method Room Air 10/27/25 11:49 BMI result Body Mass Index 29.6 Tobacco/Smoking Status: Tobacco use Status Tobacco use date assessed 10/27/25 10/27/25 11:55 Patient Tobacco Use Status Never used Tobacco 10/27/25 11:49 e-Cigarette/Vaping Use Never Used 10/27/25 11:49 Thrive Assessment: Date of Thrive Assessment Date Thrive assessed 01/16/25 10/27/25 11:49 Currently or been in a relationship where the following occur: No concerns reported Const General: no acute distress HENMT Head: Yes normal to inspection Neck Neck: Yes supple Resp Effort & Inspection: normal respiratory effort Auscultation: clear to auscultation bilaterally Cardio Rhythm: regular rhythm Heart sounds: S1 normal heart sound present and S2 normal heart sound present Coding Level of Care Code Est Pt Level 3 (03008) Diagnoses Anxiety and depression F41.9; F32.A Assessment & Plan Assessment & Plan (1) Anxiety and depression: Comment: established with Psychiatry, controlled on duloxetine Code(s): F41.9 - Anxiety disorder, unspecified; F32.A - Depression, unspecified Category: Medical Plan: Continue duloxetine and follow-up with psychiatry
[2025-10-27 11:49] VITALS: BP 120/78; PULSE 89; RESP 17; O2SAT 98; BMI 29.6
--- OUTSIDE RECORDS SUMMARY | 2025-10-27 13:58 | XMS_ITS | Clinical Summary ---
Author Organization [facility] Address [address] [facility] [address] [facility] [address] [place] [address] Care Team Providers Care Lineman Apprentice Name Role Phone Lotus Young MD Primary Care Provider Allergies No known active allergies Medications acetaminophen [...] mouth once daily. 10 tablet 02/05/2025 Active Encounters Date Type Department Care Team Description 10/19/2025 Telephone [facility] [address] [place] [address] Branden Campbell MD Cancel tomorrow appt-patient is inpatient from Last 3 Months Family History Relation Name Status Comments Father [...] Info) Description 12/24/2025 2:30 PM EST Telemedicine [facility] [address] [place] [address] Branden Campbell MD [address] [facility] [address] [place] [address] Health Maintenance Due Date Last Done Comments [...] patient's age to complete this topic Insurance [facility] [employer] MEDICAID STANDARD Care Teams Lineman Apprentice Relationship Specialty Start Date End Date Lotus Young MD [address] [place] [address] PCP - General Wheat Shipper 05/21/25
--- OUTSIDE RECORDS SUMMARY | 2025-10-27 13:58 | XMS_ITS | Encounter Summary ---
Author Organization [facility] Address [address] [facility] [address] [place] [address] Care Team Providers Care Brake Repairer Name Role Phone Lotus Young MD Primary Care Provider [phone] Reason for Visit * Reason Onset Date Comments Cancel tomorrow appt-patient is inpatient 2024 Encounter Details Date Type Department Care Team (Late st Contact Info) Description 10/19/2025 Telephone [facility] Neurology [address] [place] [address] Branden Campbell MD [address] [facility] [address] [place] [address] Cancel tomorrow appt-patient is inpatient Social History Tobacco Use Types Packs/Day Years Used Date Smoking Tobacco: Never Smokeless Tobacco: Never Alcohol Use Standard Drinks/Week Comments Not Currently 0 (1 standard drink = 0.6 oz pur e alcohol) Comments Unknown Sex and Gender Information Value Date Recorded Sex Assigned at Female 09/26/2024 9:00 AM EDT Legal Sex Female 8:59 AM EDT Gender Identity Female 09/26/2024 9:00 AM EDT Sexual Orientation Unknown 09/26/2024 9: 00 AM EDT documented as of this encounter Miscellaneous Notes * Telephone Encounter - Rocio Escobedo - 10/19/2025 4:20 PM EST Department Name: Neurology-Dr. Campbell Patient: Sherly Pyle Agent: Rocio [facility] Scheduling Message Patient's sister requesting call back from: Admin In regards to: Patient's sister Jaimee called to cancel patient's appointment for tomorrow due to Sherly is inpatient at [facility] and they won't allow patient to have phone to do video visit. Explained I am unable to cancel without speaking to patient due to no permission to verbally speak on file. Let Jaimee know I'd send message to admin. Jaimee also said [facility] is saying patient needs MRI done here at [facility]. Best call back number: [phone]-Jaimee documented in this encounter Plan of Treatment Upcoming Encounters Date Type Department Care Team (Late st Contact Info) Description 12/24/2025 2:30 PM EST Telemedicine [facility] Neurology [address] [place] [address] Barnden Campbell MD [address] [facility] [address] [place] [address] documented as of this encounter Visit Diagnoses Not on filedocumented in this encounter Care Teams Brake Repairer Relationship Specialty Start Date End Date Lotus Young MD [address] [place] [address] PCP - General Meat Dresser 05/21/25 documented as of this encounter
--- OUTSIDE RECORDS SUMMARY | 2025-10-27 13:58 | XMS_ITS | Clinical Summary ---
Author Organization [facility] Address [address] [place] [address] Phone Care Team Providers Care Marine Electrician Apprentice Name Role Phone Carmela Gaytan MD Primary Care Provider [phone] Allergies No known active allergies Medications DULoxetine (CYMBALTA) [address] capsule Take 1 capsule (20 mg total) by mouth daily. 01/21/2025 Active Active Problems No known active problems Encounters Date Type Department Care Team Description 10/15/2025 11:53 AM EST - 10/16/2025 10:[address] [facility] Emergency [address] [place] [address] Clare Hancock DO Landry, Jonathan P, MD Goebel, Mathew, MD Corrado, Adam D, MD Suicidal ideations (Primary Dx); Anxiety Discharge Disposition: Psychiatric Hospital from Last 3 Months Surgical History Surgery Date Site/Laterality Comments COLONOSCOPY 06/28/2010 PROCEDURE: [place] COLONOSCOPY STOMA DX INCLUDING COLLJ SPEC SPX; COMMENT: normal to terminal ileum to 20 cm ESOPHAGOGASTRODUODENOSCOPY 01/22/14 PROCEDURE: AK ESOPHAGOGASTRODUODENOSCOPY TRANSORAL DIAGNOSTIC; COMMENT: normal; normal duodenal biopsies APPENDECTOMY 03/26/14 laparoscopic PROCEDURE: HISTORICAL APPENDECTOMY; COMMENT: Dr Yordy Rolon 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 Postinflammatory hyperpigmentation 02/25/2013 DX:Postinflammatory hyperpigmentation Acne vulgaris 02/25/2013 DX:Acne vulgaris Depression Family History Medical History Relation Name Comments [...] Sign Reading Time Taken Comments Blood Pressure 137/74 10/16/2025 8:29 AM EST Pulse 101 10/16/2025 8:29 AM EST Temperature 36.4 C (97.5 F) 10/16/2025 12:38 AM EST Respiratory Rate 16 10/16/2025 8:29 AM EST Oxygen Saturation 100% 10/16/2025 8:29 AM EST Inhaled Oxygen Concentration - - Weight 77.6 kg (171 lb) 10/15/2025 11:48 AM EST Height 165.1 cm (5' 5 ) 10/15/2025 11:48 AM EST Body Mass Index 28.46 10/15/2025 11:48 AM EST Plan of Treatment Health Maintenance [...] Patients (1 - 1-dose 75+ series) 2065 Pneumococcal Vaccine: Pediatrics (0 to 5 Years) and At-Risk Patients (6 to 49 Years) Aged Out 06/26/2010 No longer eligible b ased on patient's age to complete this topic HIB Vaccines Aged Out No longer eligi [...] Name Priority Date/Time Associated Diagnosis Comments ECG ANNOTATED 10/19/2025 ECG 12-LEAD STAT 10/15/2025 6:40 PM EST POC , URINE DIAGNOSTIC STAT 10/15/2025 1:36 PM EST METHADONE SCREEN, URINE STAT 10/15/2025 12:16 PM EST PHENCYCLIDINE, URINE STAT 10/15/2025 12:16 PM EST BUPRENORPHINE SCREEN, URINE STAT 10/15/2025 12:16 PM EST DRUG ABUSE SCREEN 8A PANEL, URINE STAT 10/15/2025 12:16 PM EST CBC WITH AUTO DIFFERENTIAL STAT 10/15/2025 12:12 PM EST SALICYLATE LEVEL STAT 10/15/2025 12:1 2 PM EST ACETAMINOPHEN LEVEL STAT 10/15/2025 1 2:12 PM EST ETHANOL STAT 10/15/2025 12:12 PM EST COMPREHENSIVE METABOLIC PANEL STAT 10/15/2025 12:12 PM EST CBC AND DIFFERENTIAL STAT 10/15/2025 12:12 PM EST from Last 3 Months Results * ECG-Annotated (10/19/2025) us Provider Onanaly HUGHES ECG ORDERABLES Final Result * ECG 12 lead (10/15/2025 6:40 PM EST) Ventricular Rate ECG 90 BPM GEMUSE Atrial Rate 90 BPM GEMUSE P-R Interval 110 ms GEMUSE QRS Duration 96 ms GEMUSE Q-T Interval 384 ms GEMUSE QTc 469 ms GEMUSE P Wave [place] 70 degrees GEMUSE R [place] 27 degrees GEMUSE T [place] 31 degrees GEMUSE ECG Interpretation Sinus rhythm Nonspecific ST abnormality Abnormal ECG When compared with ECG of 22-DEC-2024 20:15, No significant change was found Confirmed by Marisa SARAH YUFENG ([id number]) on 10/15/2025 8:15:41 PM GEMUSE 10/15/2025 6:40 PM EST 10/15/2025 8:15 PM EST us Tenzin Saenz MD ECG ORDERABLES Final Resul t Performing Organization Address City/State/[facility] Co de Phone Number GEMUSE * POC , urine manually resulted (10/15/2025 1:36 PM EST) HCG, Ur POC Negative Negative POC hCG Int QC Pass? Yes Yes Urine Urine specimen obtained by clean catch procedure / Unknown 10/15/2025 1:36 PM EST Clare Hancock DO POINT OF CARE TEST ENTER/EDIT ORDERABLES Final Result * Drug abuse screen 8a panel, urine (10/15/2025 12:16 PM EST) Amphetamine Screen, Ur Negative Negative 1:33 PM EST [facility] Comment:Certain OTC medicati ons containing ephedrine, phenylephrine, pseudoephedrine and phenylpropanolamine can cause false positive results. Barbiturate Screen, Ur Negative Negative 1:33 PM EST [facility] Benzodiazepine Screen, Ur Negative Negative 10/15/2025 1:33 PM EST [facility] Cocaine Screen, Ur Negative Negative 2024 1:33 PM EST [facility] Opiate Screen, Ur Negative Negative 025 1:33 PM [facility] Cannabinoid (THC) Screen, Ur Negative Negative 10/15/2025 1:33 PM EST [facility] Comment:Specimens from patie nts taking pantoprazole sodium (Protonix) have been shown to produce false positive results. Oxycodone Screen, Ur Negative Negative 09/27 1:33 PM EST [facility] Fentanyl, Ur Negative Negative 10/15/2025 1:33 PM [facility] Urine Urine specimen obtained by clean catch procedure / Unknown Non-blood Collection / Unknown 10/15/2025 12:16 PM EST 10/15/2025 12:[address] [facility] - 10/15/2025 1:33 PM EST Assay cutoffs: Amphetamines 1000 ng/mL Barbiturates 200 ng/mL Benzodiazepines 200 ng/mL Cocaine 300 ng/mL Fentanyl 1 ng/mL Opiates 300 ng/mL Oxycodone 100 ng/mL THC 50 ng/mL Semi-quantitative assay for screening purposes only. Unconfirmed screening result should not be used for non-medical purposes. *ALTERNATE METHOD CONFIRMATION DONE UPON REQUEST ONLY* [facility] URINE ORDERABLES Final Result Performing Organization Address [facility] de Phone Number [facility] [address] [place] [address], [place] [phone] * Buprenorphine screen, urine (10/15/2025 12:16 PM EST) Buprenorphine Screen Urine Negative Negative 10/15/2025 1:33 PM EST [facility] Urine Urine specimen obtained by clean catch procedure / Unknown Non-blood Collection / Unknown 10/15/2025 12:16 PM EST 10/15/2025 12:[address] [facility] - 10/15/2025 1:33 PM EST Assay cutoff 5 ng/mL Semi-quantitative assay for screening purposes only. Unconfirmed screening result should not be used for non-medical purposes. *ALTERNATE METHOD CONFIRMATION DONE UPON REQUEST ONLY* [facility] URINE ORDERABLES Final Result Performing Organization Address [facility] de Phone Number [facility] [address] [place] [address], [place] [phone] * Methadone, urine (10/15/2025 12:16 PM EST) Methadone Screen, Urine Negative Negative 10/15/2025 1:33 PM EST [facility] Comment: Assay cutoff 300 ng/mL Semi-quantitative assay for screening purposes only. Unconfirmed screening result should not be used for non-medical purposes. *ALTERNATE METHOD CONFIRMATION DONE UPON REQUEST ONLY* Urine Urine specimen obtained by clean catch procedure / Unknown Non-blood Collection / Unknown 10/15/2025 12:16 PM EST 10/15/2025 12:50 PM EST us [facility] URINE ORDERABLES Final Result Performing Organization Address [facility] Co de Phone Number [facility] [address] [place] [address], [place] [phone] * Phencyclidine, urine (10/15/2025 12:16 PM EST) PCP Scrn, Ur Negative Negative 10/15/2025 1:33 PM EST [facility] Comment: Assay cutoff 25 ng/mL Semi-quantitative assay for screening purposes only. Unconfirmed screening result should not be used for non-medical purposes. *ALTERNATE METHOD CONFIRMATION DONE UPON REQUEST ONLY* Urine Urine specimen obtained by clean catch procedure / Unknown Non-blood Collection / Unknown 10/15/2025 12:16 PM EST 10/15/2025 12:50 PM EST us [facility] URINE ORDERABLES Final Result Performing Organization Address [facility]/ZIP Co de Phone Number [facility] [address] [place] [address], [place] [phone] * CBC auto differential (10/15/2025 12:12 PM EST) WBC 7.4 4.8 - 10.8 K/[facility] HEMETOLOGY METHOD 10/15/2025 12:57 PM EST [facility] RBC 4.50 3.80 - 4.80 M/[facility] HEMETOLOGY METHOD 10/15/2025 12:57 PM EST [facility] Hemoglobin 13.2 11.5 - 16.0 g/dL LAB HEMETOLOGY METHOD 10/15/2025 12:57 PM [facility] Hematocrit 38.5 35.0 - 47.0 % LAB HEMETOLOGY METHOD 10/15/2025 12:57 PM [facility] MCV 85.7 79.0 - 98.0 FL LAB HEMETOLOGY METHOD 10/15/2025 12:57 PM [facility] MCH 29.4 27.0 - 32.0 pcg LAB HEMETOLOGY METHOD 10/15/2025 12:57 PM [facility] MCHC 34.3 32.0 - 37.0 g/dL LAB HEMETOLOGY METHOD 10/15/2025 12:57 PM [facility] RDW 12.1 11.0 - 15.0 % LAB HEMETOLOGY METHOD 10/15/2025 12:57 PM [facility] Platelets 276 130 - 400 K/mcL LAB HEMETOLOGY METHOD 10/15/2025 12:57 PM [facility] MPV 8.8 7.0 - 11.0 FL LAB HEMETOLOGY METHOD 10/15/2025 12:57 PM [facility] NRBC 0.0 <1.0 % LAB HEMETOLOGY METHOD 10/15/2025 12:57 PM [facility] NRBC Absolute 0.00 <0.10 K/mcL LAB HEMETOLOGY METHOD 10/15/2025 12:57 PM [facility] Neutrophils Relative 63.2 % LAB HEMETOLOGY METHOD 10/15/2025 12:57 PM [facility] Lymphocytes Relative 29.1 % LAB HEMETOLOGY METHOD 10/15/2025 12:57 PM [facility] Monocytes Relative 5.7 % LAB HEMETOLOGY METHOD 10/15/2025 12:57 PM [facility] Eosinophils Relative 1.2 % LAB HEMETOLOGY METHOD 10/15/2025 12:57 PM [facility] Basophils Relative 0.4 % LAB HEMETOLOGY METHOD 10/15/2025 12:57 PM EST [facility] Immature Granulocytes Relative 0.4 % LAB HEMETOLOGY METHOD 10/15/2025 12:57 PM EST [facility] Neutrophils Absolute 4.64 1.50 - 7.00 K/[facility] HEMETOLOGY METHOD 10/15/2025 12:57 PM [facility] Lymphocytes Absolute 2.14 1.00 - 5.00 K/mcL LAB HEMETOLOGY METHOD 10/15/2025 12:57 PM EST [facility] Monocytes Absolute 0.42 0.20 - 1.00 K/[facility] HEMETOLOGY METHOD 10/15/2025 12:57 PM EST [facility] Eosinophils Absolute 0.09 0.00 - 0.50 K/mcL LAB HEMETOLOGY METHOD 10/15/2025 12:57 PM [facility] Basophils Absolute 0.03 0.00 - 0.20 K/mcL LAB HEMETOLOGY METHOD 10/15/2025 12:57 PM [facility] Immature Granulocytes Absolute 0.03 0.00 - 0.03 K/mcL LAB HEMETOLOGY METHOD 10/15/2025 12:57 PM [facility] Blood Venous blood specimen / Unknown Venipuncture / Unknown 10/15/2025 12:12 PM EST 10/15/2025 12:50 PM EST [facility] BLOOD ORDERABLES Final Result [facility] [address] [place] [address], * Ethanol (10/15/2025 12:12 PM EST) Ethanol Level <3 0 - 10 mg/dL 10/15/2025 2:48 PM EST [facility] Blood Venous blood specimen / Unknown Venipuncture / Unknown 10/15/2025 12:12 PM EST 10/15/2025 12:50 PM EST us [facility] BLOOD ORDERABLES Final Result Performing Organization Address [facility]/ZIP Co de Phone Number [facility] [address] [place] [address], [place] [phone] * (ABNORMAL) Acetaminophen level (10/15/2025 12:12 PM EST) Acetaminophen Level <2.0(L) 10.0 - 30.0 mcg/mL 10/15/2025 2:33 PM EST [facility] Blood Venous blood specimen / Unknown Venipuncture / Unknown 10/15/2025 12:12 PM EST 10/15/2025 12:50 PM EST us [facility] BLOOD ORDERABLES Final Result Performing Organization Address [facility] Co de Phone Number [facility] [address] [place] [address], [place] [phone] * Salicylate level (10/15/2025 12:12 PM EST) Salicylate Level <3.0 2.0 - 29.0 mg/dL 10/15/2025 2:48 PM EST [facility] Blood Venous blood specimen / Unknown Venipuncture / Unknown 10/15/2025 12:12 PM EST 10/15/2025 12:50 PM EST us [facility] BLOOD ORDERABLES Final Result Performing Organization Address [facility]/ZIP Co de Phone Number [facility] [address] [place] [address], [place] [phone] * (ABNORMAL) Comprehensive metabolic panel (10/15/2025 12:12 PM EST) Sodium 136 133 - 145 mmol/L 10/15/2025 3:14 PM EST [facility] Potassium 3.8 3.5 - 5.5 mmol/L 10/15/2025 3:14 PM [facility] Chloride 106 96 - 110 mmol/L 10/15/2025 3:14 PM [facility] CO2 16(L) 21 - 32 mmol/L 10/15/2025 3:14 PM [facility] Anion Gap 14(H) 3 - 11 10/15/2025 3:14 PM [facility] Glucose 90 70 - 100 mg/dL 10/15/2025 3:14 PM [facility] BUN 8 5 - 25 mg/dL 10/15/2025 3:14 PM [facility] Creatinine 0.67 0.50 - 1.10 mg/dL 10/15/2025 3:14 PM [facility] eGFR 117 >=60 mL/min/1. 73m2 10/15/2025 3:14 PM [facility] Comment:Calculation based on the Chronic Kidney Disease Epidemiology Collaboration (CKD-EPI) equation refit without adjustment for race. BUN/Creatinine Ratio 11.9 10/15/2025 3:14 PM [facility] Calcium 8.4(L) 8.5 - 10.5 mg/dL 10/15/2025 3:14 PM [facility] AST (SGOT) 15 10 - 42 unit/L 10/15/2025 3:14 PM [facility] ALT (SGPT) 12 10 - 60 unit/L 10/15/2025 3:14 PM [facility] Alkaline Phosphatase 61 42 - 121 unit/L 10/15/2025 3:14 PM [facility] Total Protein 7.5 6.0 - 8.0 g/dL 10/15/2025 3:14 PM [facility] Albumin 4.2 3.2 - 5.0 g/dL 10/15/2025 3:14 PM EST [facility] Total Bilirubin 0.7 0.0 - 1.4 mg/dL 10/15/2025 3:14 PM EST [facility] Blood Venous blood specimen / Unknown Venipuncture / Unknown 10/15/2025 12:12 PM EST 10/15/2025 12:50 PM EST us [facility] BLOOD ORDERABLES Final Result [facility] [address] [place] [address], from Last 3 Months Insurance [facility] [employer] PLAN Care Teams Marine Electrician Apprentice Relationship Specialty Start Date End Date Carmela Gaytan MD [address] [place] [address] PCP - General Internal Medicine 12/19/24
== END 2025-10-27 12:28 | disposition home or self-care (01) ==
LOC: HO.HMCC 11:47
PROVIDERS: PCP Internal Medicine; Visit Provider Internal Medicine
DX: F41.9 Anxiety disorder, unspecified (principal); F32.A Depression, unspecified

== ENCOUNTER → 2025-10-27 11:46 | Outpatient (BNVA) | payer OTHER, SELFPAY | PROVIDERS: PCP Internal Medicine; Visit Provider Internal Medicine | DX: F41.9 Anxiety disorder, unspecified (principal); F32.A Depression, unspecified | CPT/HCPCS: 99212 ==